=== PATIENT | male | born 1945 | race Caucasian/White ===

== ENCOUNTER 2017-07-23 14:08 | Outpatient (POV) | payer MEDICARE, MEDICAID, SELFPAY | END 2017-07-23 16:51 | disposition home or self-care (01) | PROVIDERS: Visit Provider Podiatrist | DX: M19.072 Primary osteoarthritis, left ankle and foot (principal) | CPT/HCPCS: 20600; 99212; J1100; J3301 ==

== ENCOUNTER 2017-08-06 08:22 | Outpatient (CLI) | payer MEDICARE, MEDICAID, SELFPAY | END 2017-08-06 15:43 | PROVIDERS: Family Provider Family Medicine; Visit Provider Family Medicine | DX: Z79.01 Long term (current) use of anticoagulants (principal); I48.91 Unspecified atrial fibrillation; Z51.81 Encounter for therapeutic drug level monitoring | CPT/HCPCS: 85610; 99211; G0463 ==

== ENCOUNTER 2017-09-03 08:20 | Outpatient (CLI) | payer MEDICARE, MEDICAID, SELFPAY ==
[2017-09-03 14:12] LABS: PHA INR Fingerstick 1.8 (0.9-1.1)
== END 2017-09-03 14:18 | disposition home or self-care (01) ==
LOC: ACC 08:24
PROVIDERS: PCP Family Medicine; Visit Provider Family Medicine
DX: I48.91 Unspecified atrial fibrillation (principal)
CPT/HCPCS: 85610

== ENCOUNTER 2017-10-01 15:31 | Outpatient (CLI) | payer MEDICARE, MEDICAID, SELFPAY ==
[2017-10-01 15:55] LABS: PHA INR Fingerstick 2.3 (0.9-1.1)
== END 2017-10-01 16:02 | disposition home or self-care (01) ==
PROVIDERS: Family Provider Family Medicine; PCP Family Medicine; Visit Provider Family Medicine
DX: Z79.01 Long term (current) use of anticoagulants (principal); Z51.81 Encounter for therapeutic drug level monitoring; I48.91 Unspecified atrial fibrillation
CPT/HCPCS: 85610; 99211; G0463

== ENCOUNTER 2017-10-26 13:49 | Outpatient (CLI) | payer MEDICARE, MEDICAID, SELFPAY | END 2017-10-26 15:20 | disposition home or self-care (01) | LOC: ACC 13:50 | PROVIDERS: PCP Family Medicine; Visit Provider Family Medicine | DX: Z79.01 Long term (current) use of anticoagulants (principal); Z51.81 Encounter for therapeutic drug level monitoring; I48.91 Unspecified atrial fibrillation | CPT/HCPCS: 85610; 99211; G0463 ==

== ENCOUNTER 2017-11-23 08:06 | Outpatient (CLI) | payer MEDICARE, MEDICAID, SELFPAY ==
[2017-11-23 13:09] LABS: PHA INR Fingerstick 1.8 (0.9-1.1)
== END 2017-11-23 13:13 | disposition home or self-care (01) ==
LOC: ACC 08:07
PROVIDERS: Family Provider Family Medicine; PCP Family Medicine; Visit Provider Family Medicine
DX: Z79.01 Long term (current) use of anticoagulants (principal); Z51.81 Encounter for therapeutic drug level monitoring; I48.91 Unspecified atrial fibrillation
CPT/HCPCS: 85610; 99211; G0463

== ENCOUNTER 2017-12-14 08:17 | Outpatient (CLI) | payer MEDICARE, MEDICAID, SELFPAY ==
[2017-12-14 14:23] LABS: PHA INR Fingerstick 2.3 (0.9-1.1)
== END 2017-12-14 14:30 | disposition home or self-care (01) ==
LOC: ACC 08:18
PROVIDERS: PCP Family Medicine; Visit Provider Family Medicine
DX: Z79.01 Long term (current) use of anticoagulants (principal); Z51.81 Encounter for therapeutic drug level monitoring; I48.91 Unspecified atrial fibrillation
CPT/HCPCS: 85610; 99211; G0463

== ENCOUNTER 2018-01-11 07:42 | Outpatient (CLI) | payer MEDICARE, MEDICAID, SELFPAY ==
[2018-01-11 11:51] LABS: PHA INR Fingerstick 2.9 (0.9-1.1)
== END 2018-01-11 12:05 | disposition home or self-care (01) ==
LOC: ACC 07:43
PROVIDERS: PCP Family Medicine; Visit Provider Family Medicine
DX: Z79.01 Long term (current) use of anticoagulants (principal); Z51.81 Encounter for therapeutic drug level monitoring; I48.91 Unspecified atrial fibrillation
CPT/HCPCS: 85610; 99211; G0463

== ENCOUNTER 2018-02-01 08:53 | Outpatient (CLI) | payer MEDICARE, MEDICAID, SELFPAY ==
[2018-02-01 14:41] LABS: PHA INR Fingerstick 2.5 (0.9-1.1)
== END 2018-02-01 15:06 | disposition home or self-care (01) ==
LOC: ACC 08:55
PROVIDERS: Family Provider Family Medicine; PCP Family Medicine; Visit Provider Family Medicine
DX: Z79.01 Long term (current) use of anticoagulants (principal); Z51.81 Encounter for therapeutic drug level monitoring; I48.91 Unspecified atrial fibrillation
CPT/HCPCS: 85610; 99211; G0463

== ENCOUNTER 2018-03-15 13:50 | Outpatient (CLI) | payer MEDICARE, MEDICAID, SELFPAY ==
[2018-03-15 14:35] LABS: PHA INR Fingerstick 2.2 (0.9-1.1)
== END 2018-03-15 14:36 | disposition home or self-care (01) ==
LOC: ACC 13:52
PROVIDERS: PCP Family Medicine; Visit Provider Family Medicine
DX: Z79.01 Long term (current) use of anticoagulants (principal); Z51.81 Encounter for therapeutic drug level monitoring; I48.91 Unspecified atrial fibrillation
CPT/HCPCS: 85610; 99211; G0463

== ENCOUNTER 2018-04-23 12:29 | Outpatient (CLI) | payer MEDICARE, MEDICAID, SELFPAY ==
[2018-04-23 14:59] LABS: PHA INR Fingerstick 2.8 (0.9-1.1)
== END 2018-04-23 15:13 | disposition home or self-care (01) ==
LOC: ACC 12:30
PROVIDERS: PCP Family Medicine; Visit Provider Family Medicine
DX: Z51.81 Encounter for therapeutic drug level monitoring (principal); Z79.01 Long term (current) use of anticoagulants; I48.91 Unspecified atrial fibrillation
CPT/HCPCS: 85610; 99211; G0463

== ENCOUNTER 2018-06-04 08:06 | Outpatient (CLI) | payer MEDICARE, MEDICAID, SELFPAY ==
[2018-06-04 11:52] LABS: PHA INR Fingerstick 3.3 (0.9-1.1)
== END 2018-06-04 11:59 | disposition home or self-care (01) ==
LOC: ACC 08:07
PROVIDERS: PCP Family Medicine; Visit Provider Family Medicine
DX: Z51.81 Encounter for therapeutic drug level monitoring (principal); Z79.01 Long term (current) use of anticoagulants; I48.91 Unspecified atrial fibrillation
CPT/HCPCS: 85610; 99211; G0463

== ENCOUNTER 2018-07-08 15:43 | Outpatient (CLI) | payer MEDICARE, MEDICAID, SELFPAY ==
[2018-07-08 16:20] LABS: Basophils % 0.9 % (0.1-2.0); Eosinophils # 0.2 K/mm3 (0.0-0.4); Eosinophils % 3.8 % (0.1-12.0); Hematocrit 31.6 % (42.0-52.0); Hemoglobin 10.1 g/dL (14.1-18.0); Lymphocytes # 0.7 K/mm3 (0.7-4.5); Lymphocytes % 16.4 % (10-50); Mean Corpuscular Hemoglobin 30.3 pg (27.0-31.2); Mean Corpuscular Volume 94.8 fl (80-94); Mean Platelet Volume 8.1 fl (7.4-10.4); Monocytes # 0.3 K/mm3 (0.1-1.0); Monocytes % 6.8 % (1.7-9.3); Neutrophils # 3.2 K/mm3 (1.8-7.8); Neutrophils % 72.1 % (37.0-80.0); Platelet Count 213 K/mm3 (142-424); Red Blood Count 3.33 M/mm3 (4.60-6.20); Red Cell Distribution Width 14.5 % (11.5-17.5); White Blood Count 4.4 K/mm3 (4.8-10.8)
[2018-07-08 16:33] LABS: Alanine Aminotransferase 24 U/L (12-78); Albumin Level 3.5 gm/dL (3.4-5.0); Alkaline Phosphatase 122 U/L (46-116); Anion Gap 12.9 mEq/L (5-15); Aspartate Amino Transferase 20 U/L (15-37); Bilirubin,Total 2.1 mg/dL (0.2-1.0); Blood Urea Nitrogen 14 mg/dL (7-18); Calcium 9.2 mg/dL (8.5-10.1); Carbon Dioxide 32 mmol/L (21.0-32.0); Chloride 101 mmol/L (98-107); Creatinine,Serum 1.36 mg/dL (0.70-1.30); Estimated Glomerular Filt Rate 52 ml/min (>60); GFR (African American) 62 ML/MIN (>60); Globulin 3.4 gm/dl (1.3-3.2); Glucose 120 mg/dL (74-106); Potassium 3.9 mmoL/L (3.5-5.1); Sodium 142 mmol/L (136-145); Total Protein,Serum 6.9 gm/dL (6.4-8.2)
[2018-07-08 17:30] VITALS: BP 135/55; PULSE 65; RESP 18; TEMP 36.5; O2SAT 98
[2018-07-08 18:44] VITALS: BP 120/51; PULSE 67; RESP 18; TEMP 36.7; O2SAT 94
== END 2018-07-08 18:45 | disposition home or self-care (01) ==
LOC: LAB 15:44 → INF 16:52
PROVIDERS: PCP Family Medicine; Visit Provider Physician Assistant
DX: R11.2 Nausea with vomiting, unspecified (principal); R06.02 Shortness of breath
CPT/HCPCS: 36415; 80053; 83880; 85025; 96360

== ENCOUNTER 2018-07-10 08:40 | Inpatient (IN) ==
[2018-07-10 09:03] LABS: Basophils % 0.9 % (0.1-2.0); Eosinophils # 0.2 K/mm3 (0.0-0.4); Eosinophils % 3.3 % (0.1-12.0); Hematocrit 31.2 % (42.0-52.0); Lymphocytes # 0.7 K/mm3 (0.7-4.5); Lymphocytes % 14.9 % (10-50); Mean Corpuscular Hemoglobin 30.1 pg (27.0-31.2); Mean Platelet Volume 8.6 fl (7.4-10.4); Monocytes # 0.3 K/mm3 (0.1-1.0); Monocytes % 7.1 % (1.7-9.3); Neutrophils # 3.6 K/mm3 (1.8-7.8); Neutrophils % 73.8 % (37.0-80.0); Platelet Count 190 K/mm3 (142-424); Red Blood Count 3.32 M/mm3 (4.60-6.20); Red Cell Distribution Width 14.9 % (11.5-17.5); White Blood Count 4.9 K/mm3 (4.8-10.8)
[2018-07-10 09:17] LABS: Alanine Aminotransferase 23 U/L (12-78); Albumin Level 3.2 gm/dL (3.4-5.0); Albumin/Globulin Ratio 0.8 (1.1-1.8); Alkaline Phosphatase 122 U/L (46-116); Amylase 23 U/L (25-115); Anion Gap 13.8 mEq/L (5-15); Aspartate Amino Transferase 24 U/L (15-37); Bilirubin,Total 2.4 mg/dL (0.2-1.0); Blood Urea Nitrogen 12 mg/dL (7-18); Calcium 8.8 mg/dL (8.5-10.1); Carbon Dioxide 30 mmol/L (21.0-32.0); Chloride 102 mmol/L (98-107); Glucose 109 mg/dL (74-106); Lipase 79 u/L (73-393); Potassium 3.8 mmoL/L (3.5-5.1); Sodium 142 mmol/L (136-145); Total Protein,Serum 7.2 gm/dL (6.4-8.2)
[2018-07-10 09:18] LABS: INR 6.69 (0.9-1.1); Prothrombin Time 65.2 seconds (9.4-11.8)
--- NOTE | 2018-07-10 09:38 | Emergency Department Note ---
ED Disposition Clinical Impression: Intractable vomiting, Coumadin toxicity, Hx of CABG, S/P AVR (aortic valve replacement), S/P CABG (coronary artery bypass graft), Gall bladder disease, Reflux esophagitis Disposition: Still a Patient Condition on Discharge: Fair Instructions: DI for Diarrhea and Traveler's Diarrhea -- Adult, DI for Diarrhea and Traveler's Diarrhea -- Child, DI for Nausea -- Adult, DI for Nausea -- Child Referrals: Moi Fragoso MD [Primary Care Provider] - - Critical Care Critical Care Time: No Attestation: On 07/10/18, the high probability of a clinically significant, sudden or life threatening deterioration of the following system(s) required my full and direct attention, intervention and personal management. The time I documented below is in addition to time spent performing reported procedures but includes the following listed in this critical care notation. Medical Decision Making - Jostin Inquiry Pt receiving controlled substance: No Jostin was queried for this patient: No Vital Signs: 07/10/18 08:49 07/10/18 09:06 07/10/18 10:00 Temperature 97.2 F L Temperature Source Temporal Artery Scan Pulse Rate [Right Brachial] 71 67 65 Respiratory Rate 17 Blood Pressure [Right Arm] 147/77 H 137/59 L 152/74 H Blood Pressure Mean [Right Arm] 100 85 100 Blood Pressure Source [Right Arm] Automatic Cuff Automatic Cuff Automatic Cuff Blood Pressure Position [Right Arm] Sitting Sitting Sitting 02 Sat by Pulse Oximetry 98 97 95 Oxygen Delivery Method Room Air - Lab Data Lab Results 07/10/18 08:54: WBC 4.9, RBC 3.32 L, Hgb 10.0 L, Hct 31.2 L, MCV 94.0, MCH 30.1, MCHC 32.0, RDW 14.9, Plt Count 190, MPV 8.6, Neut % (Auto) 73.8, Lymph % (Auto) 14.9, [place] % (Auto) 7.1, Eos % (Auto) 3.3, Baso % (Auto) 0.9, Neut # (Auto) 3.6, Lymph # (Auto) 0.7, [place] # (Auto) 0.3, Eos # (Auto) 0.2, Baso # (Auto) 0.0 07/10/18 08:54: PT 65.2 H, INR 6.69 H 07/10/18 08:54: Sodium 142, Potassium 3.8, Chloride 102, Carbon Dioxide 30, Anion Gap 13.8, BUN 12, Creatinine 1.30, Estimated Creat Clear 53, Estimated GFR 54 L, Est GFR ( Amer) 66, Glucose 109 H, Calcium 8.8, Total Bilirubin 2.4 H, AST 24, ALT 23, Alkaline Phosphatase 122 H, Troponin I < 0.02, Total Protein 7.2, Albumin 3.2 L, Globulin 4.0 H, Albumin/Globulin Ratio 0.8 L, Amylase 23 L, Lipase 79 Result diagrams: 07/10/18 08:54 07/10/18 08:54 Orders (Tests/Meds): ED MEDICATIONS Discontinued Medications Generic Name Dose Route Start Last Admin Trade Name Freq PRN Reason Stop Dose Admin Famotidine 20 mg 07/10/18 10:04 Pepcid 20mg/2ml Vial IV 07/10/18 10:05 ONCE ONE Metoclopramide HCl 5 mg 07/10/18 10:04 Reglan 10mg/2ml Vial IVP 07/10/18 10:05 ONCE ONE ORDERS Category Date Time Status CT abdomen pelvis wo con Stat Cat Scan 07/10/18 08:53 Taken Urinalysis and Microscopic Stat Lab 07/10/18 08:55 Ordered - CT Data CT Scan: Abdomen, Pelvis Time Received: 10:[address] Reviewed: Yes: I have reviewed the patient's CT results, I discussed the CT results w/the radiologist Preliminary Findings: Abnormal - ECG Data Tracing #1 Normal sinus rhythm at 65/min Baseline artifact T wave inversions in inferior leads and lateral leads which is unchanged from an EKG done in June 25, 2018 and ECG initial impression date: 07/10/18 ECG initial impression time: 09:20 Medical Decision Narrative: [address] Elizabeth silverio Heaven's CT scan with chronic left lower lobe atelectasis and postop changes in the hilum and the sternal incision.. Does have distended gallbladder and thickening of the distal esophagus.. I called his primary care physician Dr. Fragoso who is very well aware of his complexity. We discussed admitting him for intractable vomiting Protonix drip and gallbladder ultrasound. Dr. Fragoso expressed his high risk if he has a gallbladder disease. I discussed with the patient and his family who was agre eable to be admitted and transferred if needed. Nausea/Vomiting/Diarrhea HPI - General Chief complaint: Nausea/Vomiting/Diarrhea Stated complaint: vomiting Time Seen by Provider: 07/10/18 08:50 Mode of Arrival: Wheelchair Limitations: No Limitations Description of Symptoms (Recalled from ER Triage Doc. by RN): nausea and vomiting. pt was seen in dr fragoso's office on and given a liter of fluids per outpatient due to suspected dehydration. pt had been constipated till last night in which he passed what he feels to be a large amount of stool. pt had a cardiac surgery a month ago and has been having trouble with bowels and appetite since. - History of Present Illness HPI Narrative: 73 years old white male status post aortic valve replacement with a mechanical valve 5 years ago, on continuous Coumadin therapy. On June 15, 2018, the patient had CABG surgery at [facility] with complication of congestive heart failure that required 7-day hospital stay was discharged and later was admitted again for 4 more days for diuresis and was discharged on Bumex. He was seen by his primary care physician 3 days ago and was given 1 bag of IV fluids on an outpatient basis. He has continuous nausea, dry heaving during his postop course. Yesterday the dry heaving became more violent and he vomited 3 times. He denies having fever or chills hematemesis coffee-ground emesis melanotic stool or bleeding per rectum. In fact he did not have a bowel movement in 5 days, his reports poor p.o. intake to less than a cup of food a day. He denies having chest pain palpitations shortness of breath or hemoptysis. He denies having dysuria hematuria or frequency. Denies having abdominal pain. MD complaint: vomiting Associated Abdominal Pain: No Relieving factors: none Exacerbating factors: none Associated symptoms: denies other symptoms - Related Data Home Medications Medication Instructions Recorded Confirmed allopurinol 100 mg tablet 100 mg PO DAILY 90 Days #180 10/01/17 07/10/18 atorvastatin 80 mg tablet 80 mg PO DAILY 30 Days #30 10/01/17 07/10/18 ergocalciferol (vitamin D2) 50,000 50,000 unit PO DAILY 90 Days #24 10/01/17 07/10/18 unit capsule potassium chloride ER 10 mEq 10 meq PO BID 10/01/17 07/10/18 tablet,extended release(part/cryst) tamsulosin 0.4 mg capsule 0.4 mg PO DAILY 90 Days #90 10/01/17 07/10/18 warfarin 7.5 mg tablet 7.5 mg PO DIRECTED 10/01/17 07/10/18 Aspirin 81 mg PO DAILY 06/25/18 07/10/18 Bumetanide [Bumex 1mg tablet] 2 mg PO DAILY 06/25/18 07/10/18 Losartan/Hydrochlorothiazide 1 tab PO DAILY 06/25/18 07/10/18 [Losartan-Hctz 100-12.5 mg Tab] Montelukast Sodium [Montelukast 10 mg PO DAILY 06/25/18 07/10/18 10mg Tab] Nitroglycerin [Nitrostat 0.4mg SL 0.4 mg SL NEEDED PRN 06/25/18 07/10/18 Tablet] Oxycodone HCl/Acetaminophen 2 tab PO Q6HP PRN 06/25/18 07/10/18 [Oxycodone W/Apap 325mg Tablet] Warfarin Sodium [Coumadin 5mg 5 mg PO DAILY 06/25/18 07/10/18 tablet] Fluticasone Propionate [Flonase 1 spray NS DAILY 07/10/18 07/10/18 Allergy Relief NS] LORazepam [Ativan 1mg tablet] 1 mg PO Q8H 07/10/18 07/10/18 Metoprolol Tartrate 75 mg PO BID 07/10/18 07/10/18 Allergies Allergy/AdvReac Type Severity Reaction Status Date / Time No Known Allergies Allergy Verified 04/09/18 09:33 [facility] History I have reviewed the patient's past medical history: Yes (I reviewed the patient history, old lab and his medication list) Medical History: Reports:: Cancer, Hyperlipidemia, Hypertension Denies:: Asthma, Chronic Obstructive Pulmonary Disease (COPD), Diabetes Melli tus Type 1, Diabetes Mellitus Type 2, MRSA Other Medical History: Reports: Arthritis Laterality Cases: Right: Carotid Endarterectomy Other Surgeries: Yes: Cardiac Surgery, Coronary Stent, Skin Cancer Excision Amputation: No Fractures: No - Social History Educational Level: Completed High School Smoking Status: Never smoker # Packs/Day (cigarettes): 0 #Yrs smoked (if former smoker): 0 Alcohol Intake: never Alcohol Intake Frequency:: other Substance Use Type: denies use Occupational Status: retired - Psychiatric History Expresses thoughts of harming self/others: None Suicide Plan Description: No Plan Family Hx:: No significant family history ROS Obtained: Yes All systems reviewed & no additional complaints Physical Exam - General General appearance: alert, in no apparent distress - Head Head exam: atraumatic, normocephalic, normal inspection - Eye Eye exam: Present: normal appearance, PERRL, EOMI. Absent: scleral icterus, nystagmus - ENT ENT exam: Present: normal exam, normal oropharynx, mucous membranes moist, TM's normal bilaterally, normal external ear exam - Neck Neck exam: Present: normal inspection, full ROM, trachea midline. Absent: tenderness, meningismus, lymphadenopathy - Chest Chest inspection: Present: normal inspection, symmetric chest wall rise, tender ness, other (Well-healed thoracotomy incision. ) - Respiratory Respiratory exam: Present: normal lung sounds bilaterally. Absent: respiratory distress, wheezes - Cardiovascular Cardiovascular exam: Present: regular rate, normal rhythm, normal heart sounds, other (No murmur positive for mechanical click. ). Absent: JVD - Abdominal Exam Abdominal exam: Present: soft, normal bowel sounds. Absent: distention, tenderness, guarding, rebound, rigidity - Extremities Exam Extremities exam: Present: normal inspection, full ROM, normal capillary refill. Absent: calf tenderness - Back Exam Back exam: Present: normal inspection. Absent: tenderness, CVA tenderness (R), CVA tenderness (L), paraspinal tenderness, vertebral tenderness - Neurological Exam Neurological exam: Present: alert, oriented X3, CN II-XII intact, motor sensory deficit, reflexes normal - Psychiatric Psychiatric exam: Present: normal affect, normal mood - Skin Skin exam: Present: warm, dry, intact, normal color - Lymphatic Lymphatic Findings: no adenopathy
--- NOTE | 2018-07-10 11:15 | Pharmacy Consult Notes ---
[facility] Pharmacy VTE Monitoring - Patient Demographics Admission date: 07/10/18 Report Date: 07/10/18 Time: 11:15 Allergies/Adverse Reactions: Patient Allergies No Known Allergies Allergy (Verified 04/09/18 09:33) Height: 1.78 m Weight: 140.812 kg Patient Problems: Current Active Problems Intractable vomiting (Acute) Coumadin toxicity (Acute) Hx of CABG (Acute) S/P AVR (aortic valve replacement) (Acute) S/P CABG (coronary artery bypass graft) (Acute) Gall bladder disease (Acute) Reflux esophagitis (Acute) - VTE Risk Labs: VTE Related Lab Results Hgb 10.0 g/dL (14.1-18.0) L 07/10/18 08:54 Hct 31.2 % (42.0-52.0) L 07/10/18 08:54 Plt Count 190 K/mm3 (142-424) 07/10/18 08:54 PT 65.2 seconds (9.4-11.8) H 07/10/18 08:54 INR 6.69 (0.9-1.1) H 07/10/18 08:54 BUN 12 mg/dL (7-18) 07/10/18 08:54 Creatinine 1.30 mg/dL (0.70-1.30) 07/10/18 08:54 Estimated Creat Clear 53 mL/min (50-200) 07/10/18 08:54 - Prophylaxis Pharmacologic Type: Warfarin (INR ELEVATED AT THIS TIME DUE TO VOMITING/NOT EATING)
--- NOTE | 2018-07-10 12:55 | History & Physical Report ---
*Admission Date: 07/10/18 *Chief complaint: Intractable nausea and vomiting *History of present illness: Mr. Collado is a 73-year-old white male with a coronary artery disease status post previous stents in the past as well as a recent CABG procedure on 06/15/18. He is also on chronic Coumadin therapy related to a mechanical aortic valve replacement about 5 years ago as well as intermittent atrial fibrillation. He has had a difficult course over the past month. He was admitted to [facility] on 06/10/18 with angina and a " maker" lesion. He underwent coronary artery bypass grafting on 06/15/18 and was eventually discharged from the hospital about a week later. He was only home for a day and then was readmitted to [facility] with congestive heart failure and spent another week in the hospital. He was discharged home on Bumex. Following that discharge, he was back in the emergency room a few days later with atrial fib with rapid ventricular response. Throughout this time he has had problems with intermittent nausea which started right after his heart surgery. For the past several days he has had increasing nausea with intractable vomiting and very poor appetite. He received a liter of fluids as an outpatient earlier this week. He returned to the emergency room today because of persistent nausea and vomiting. Workup in the emergency room included blood work and a CT scan. His CT scan shows a slightly distended gallbladder with gallstones. Lab work is remarkable for elevated bilirubin of 2.4 and slightly elevated alkaline phosphatase. Amylase and lipase are normal. His white count is normal. His INR is supratherapeutic at 6.6. He has had no fever. He denies abdominal pain. His sternal incision has been sore from his vomiting. He states he has had no bowel movement at home for about 5 days but has had 2 loose stools since arrival in the ER. He has no known history of gallbladder disease. At the time of my exam he is less nauseated after receiving Reglan. [facility] History Medical History: Reports:: Cancer, Hyperlipidemia, Hypertension, Myocardial Infarction Denies:: Asthma, Chronic Obstructive Pulmonary Disease (COPD), Diabetes Mellitus Type 1, Diabetes Mellitus Type 2, MRSA Other Medical History: Reports: Arthritis Laterality Cases: Right: Carotid Endarterectomy Other Surgeries: Yes: Angioplasty, CABG, Cardiac Catheterization, Cardiac Surgery (Aortic valve replacement), Coronary Stent, Skin Cancer Excision Amputation: No Fractures: No - *Social History Educational Level: Attended High School Smoking Status: Never smoker # Packs/Day (cigarettes): 0 #Yrs smoked (if former smoker): 0 Alcohol Intake: never Alcohol Intake Frequency:: other Substance Use Type: denies use Occupational Status: retired Housing: house Household Members: significant other, children - Psychiatric History Expresses thoughts of harming self/others: None Suicide Plan Description: No Plan *Family Hx:: Coronary Artery Disease, Diabetes, Hypertension Review of Systems - Constitutional Reports anorexia, Reports lack of energy, Denies fever(s) - Eyes Denies change in vision - ENT Denies bleeding gums, Denies difficulty swallowing, Denies sinus pressure - *Cardiovascular Reports shortness of breath, Reports leg swelling (baseline), Reports other (sternal incision is sore), Denies chest pain - *Respiratory Denies chest congestion, Denies cough - *Gastrointestinal Reports change in bowel habits, Reports nausea, Reports vomiting, Denies abdominal pain - *Genitourinary Denies difficulty urinating, Denies painful urination - *Musculoskeletal Reports joint pain - Hematologic/Lymphatic Denies easy bleeding, Denies easy bruising Meds Home Medications Medication Instructions Recorded Confirmed Type allopurinol 100 mg tablet 100 mg PO DAILY 90 Days #180 10/01/17 07/10/18 History atorvastatin 80 mg tablet 80 mg PO DAILY 30 Days #30 10/01/17 07/10/18 History ergocalciferol (vitamin D2) 50,000 50,000 unit PO DAILY 90 Days #24 10/01/17 07/10/18 History unit capsule potassium chloride ER 10 mEq 10 meq PO BID 10/01/17 07/10/18 History tablet,extended release(part/cryst) tamsulosin 0.4 mg capsule 0.4 mg PO DAILY 90 Days #90 10/01/17 07/10/18 History warfarin 7.5 mg tablet 7.5 mg PO DIRECTED 10/01/17 07/10/18 History Aspirin 81 mg PO DAILY 06/25/18 07/10/18 History Bumetanide [Bumex 1mg tablet] 2 mg PO DAILY 06/25/18 07/10/18 History Losartan/Hydrochlorothiazide 1 tab PO DAILY 06/25/18 07/10/18 History [Losartan-Hctz 100-12.5 mg Tab] Montelukast Sodium [Montelukast 10 mg PO DAILY 06/25/18 07/10/18 History 10mg Tab] Nitroglycerin [Nitrostat 0.4mg SL 0.4 mg SL NEEDED PRN 06/25/18 07/10/18 History Tablet] Warfarin Sodium [Coumadin 5mg 5 mg PO DAILY 06/25/18 07/10/18 History tablet] Fluticasone Propionate [Flonase 1 spray NS DAILY 07/10/18 07/10/18 History Allergy Relief NS] LORazepam [Ativan 1mg tablet] 1 mg PO Q8H 07/10/18 07/10/18 History Metoprolol Tartrate 75 mg PO BID 07/10/18 07/10/18 History Oxycodone HCl/Acetaminophen 2 tab PO Q6HP PRN 07/10/18 07/10/18 History [Percocet 5/325mg tablet] Allergies Allergy/AdvReac Type Severity Reaction Status Date / Time hydrocodone [From [place]] Allergy Unknown Verified 07/10/18 11:57 allergy reaction Exam Vital signs and Labs for Last 24 Hours: Temp Pulse Resp BP Pulse Ox 98.2 F 66 20 159/62 H 96 07/10/18 11:11 07/10/18 11:11 07/10/18 11:11 07/10/18 11:11 07/10/18 11:11 Laboratory Results - last 24 hr 07/10/18 08:54: WBC 4.9, RBC 3.32 L, Hgb 10.0 L, Hct 31.2 L, MCV 94.0, MCH 30.1, MCHC 32.0, RDW 14.9, Plt Count 190, MPV 8.6, Neut % (Auto) 73.8, Lymph % (Auto) 14.9, [place] % (Auto) 7.1, Eos % (Auto) 3.3, Baso % (Auto) 0.9, Neut # (Auto) 3.6, Lymph # (Auto) 0.7, [place] # (Auto) 0.3, Eos # (Auto) 0.2, Baso # (Auto) 0.0 07/10/18 08:54: PT 65.2 H, INR 6.69 H 07/10/18 08:54: Sodium 142, Potassium 3.8, Chloride 102, Carbon Dioxide 30, Anion Gap 13.8, BUN 12, Creatinine 1.30, Estimated Creat Clear 53, Estimated GFR 54 L, Est GFR ( Amer) 66, Glucose 109 H, Calcium 8.8, Total Bilirubin 2.4 H, AST 24, ALT 23, Alkaline Phosphatase 122 H, Troponin I < 0.02, Total Protein 7.2, Albumin 3.2 L, Globulin 4.0 H, Albumin/Globulin Ratio 0.8 L, Amylase 23 L, Lipase 79 I & O for Last 24 hours: Intake & Output 07/08/18 07/09/18 07/10/18 07/11/18 11:59 11:59 11:59 11:59 Intake Total 150 / 150 Balance 150 / 150 Weight 310 lb 7 oz Narrative: He is lying comfortably in bed and appears in no acute distress. He is alert and oriented to person place and time. Color is slightly pale. No respiratory distress. HEENT shows a cream to be atraumatic and normocephalic. Nares are patent. Oropharynx shows slightly dry mucous membranes. Neck is supple with no masses thyromegaly or adenopathy. Lungs are clear to auscultation anteriorly. Heart is regular with no murmurs. Abdomen is obese soft and nondistended. No unusual masses or tenderness. Lower extremities show some chronic venous stasis changes and 2+ pretibial edema bilaterally. Assessment and Plan (1) Intractable vomiting Current visit: Yes Status: Acute Category: Medical Code(s): R11.10 - Vomiting, unspecified (2) Gall bladder disease Current visit: Yes Status: Acute Category: Medical Code(s): K82.9 - Disease of gallbladder, unspecified (3) Coumadin toxicity Current visit: Yes Status: Acute Category: Medical Code(s): T45.511A - Poisoning by anticoagulants, accidental (unintentional), initial encounter (4) HBP (high blood pressure) Current visit: Yes Status: Acute Category: Medical Code(s): I10 - Essential (primary) hypertension (5) Hyperlipidemia Current visit: Yes Status: Acute Category: Medical Code(s): E78.5 - Hyperlipidemia, unspecified (6) Sleep apnea Current visit: Yes Status: Acute Category: Medical Code(s): G47.30 - Sleep apnea, unspecified (7) S/P AVR (aortic valve replacement) Current visit: Yes Status: Acute Category: Surgical Code(s): Z95.2 - Presence of prosthetic heart valve (8) S/P CABG (coronary artery bypass graft) Current visit: Yes Status: Acute Category: Surgical Code(s): Z95.1 - Presence of aortocoronary bypass graft (9) Hx of gout Current visit: Yes Status: Acute Category: Medical Code(s): Z87.39 - Personal history of other diseases of the musculoskeletal system and connective tissue (10) BPH (benign prostatic hyperplasia) Current visit: Yes Status: Acute Category: Medical Code(s): N40.0 - Benign prostatic hyperplasia without lower urinary tract symptoms (11) Obesity Current visit: Yes Status: Acute Category: Medical Code(s): E66.9 - Obesity, unspecified - Assessment and plan all Dx Assessment and Plan for all problems:: He is admitted at this time for treatment of his intractable nausea and vomiting. He is comfortable at present. We will monitor his liver functions. Coumadin will be held and his pro time followed. We will schedule a gallbladder ultrasound to further assess his gallbladder disease. There is no evidence of acute cholecystitis at present. If he does require cholecystectomy, it would be preferable to do this electively in a few weeks to allow further healing after his recent CABG.
[2018-07-11 05:57] LABS: Basophils % 0.5 % (0.1-2.0); Eosinophils # 0.2 K/mm3 (0.0-0.4); Eosinophils % 4.5 % (0.1-12.0); Hemoglobin 9.3 g/dL (14.1-18.0); Lymphocytes # 0.9 K/mm3 (0.7-4.5); Lymphocytes % 18.5 % (10-50); Mean Corpuscular Hemoglobin 30.3 pg (27.0-31.2); Mean Corpuscular Volume 94.7 fl (80-94); Mean Platelet Volume 8.3 fl (7.4-10.4); Monocytes # 0.4 K/mm3 (0.1-1.0); Neutrophils # 3.2 K/mm3 (1.8-7.8); Neutrophils % 68.5 % (37.0-80.0); Platelet Count 162 K/mm3 (142-424); Red Blood Count 3.05 M/mm3 (4.60-6.20); Red Cell Distribution Width 14.9 % (11.5-17.5); White Blood Count 4.7 K/mm3 (4.8-10.8)
[2018-07-11 06:01] LABS: Hematocrit 28.9 % (42.0-52.0)
[2018-07-11 06:16] LABS: Albumin/Globulin Ratio 0.9 (1.1-1.8); Anion Gap 9.2 mEq/L (5-15); Bilirubin,Total 2.3 mg/dL (0.2-1.0); Calcium 8.6 mg/dL (8.5-10.1); Globulin 3.4 gm/dl (1.3-3.2); Potassium 3.2 mmoL/L (3.5-5.1); Total Protein,Serum 6.4 gm/dL (6.4-8.2)
[2018-07-11 06:22] LABS: Prothrombin Time 85.7 seconds (9.4-11.8)
[2018-07-11 06:23] LABS: INR 8.87 (0.9-1.1)
--- NOTE | 2018-07-11 10:11 | Progress Note ---
Internal Medicine - PN: Subj *Date: 07/11/18 *Time: 10:08 Interval history: Patient states he feels better today, would like to try a liquid diet. Exam Vital signs and Labs for Last 24 Hours: Temp Pulse Resp BP Pulse Ox 98.4 F 62 18 131/55 L 94 L 07/11/18 07:12 07/11/18 07:12 07/11/18 07:12 07/11/18 07:12 07/11/18 07:12 Laboratory Results - last 24 hr 07/11/18 05:40: WBC 4.7 L, RBC 3.05 L, Hgb 9.3 L, Hct 28.9 L, MCV 94.7 H, MCH 30.3, MCHC 32.0, RDW 14.9, Plt Count 162, MPV 8.3, Neut % (Auto) 68.5, Lymph % (Auto) 18.5, [place] % (Auto) 8.0, Eos % (Auto) 4.5, Baso % (Auto) 0.5, Neut # (Auto) 3.2, Lymph # (Auto) 0.9, [place] # (Auto) 0.4, Eos # (Auto) 0.2, Baso # (Auto) 0.0 07/11/18 05:40: PT 85.7 H, INR 8.87 H 07/11/18 05:40: Sodium 143, Potassium 3.2 L, Chloride 106, Carbon Dioxide 31, Anion Gap 9.2, BUN 9, Creatinine 1.10, Estimated Creat Clear 63, Estimated GFR 66, Est GFR ( Amer) 80 D, Glucose 96, Calcium 8.6, Magnesium 1.8, Total Bilirubin 2.3 H, AST 24, ALT 19, Alkaline Phosphatase 111, Total Protein 6.4, Albumin 3.0 L, Globulin 3.4 H, Albumin/Globulin Ratio 0.9 L I & O for Last 24 hours: Intake & Output 07/08/18 07/09/18 07/10/18 07/11/18 11:59 11:59 11:59 11:59 Intake Total 150 / 150 174 / 174 Balance 150 / 150 174 / 174 Weight 310 lb 7 oz 309 lb 6 oz - Constitutional no acute distress - *Routine HEENT Exam Head: Present: normocephalic Eye: Present: EOMI, PERRL ENT: Present: mucous membranes moist - *Routine Neck Exam Present: supple. Absent: lymphadenopathy - *Routine Respiratory Exam Present: CTA bilaterally - *Routine Cardiovascular Exam Present: RRR - *Routine Abdominal Exam Present: soft, normoactive bowel sounds. Absent: tenderness - *Routine Extremities Exam Present: edema (1+ bilat. legs). Absent: cyanosis, clubbing - *Routine Skin Exam Present: warm. Absent: rash - *Routine Neurological Exam Present: alert, oriented X3 Assessment and Plan (1) Intractable vomiting Current visit: Yes Status: Acute Category: Medical Code(s): R11.10 - Vomiting, unspecified (2) Gall bladder disease Current visit: Yes Status: Acute Category: Medical Code(s): K82.9 - Disease of gallbladder, unspecified (3) Coumadin toxicity Current visit: Yes Status: Acute Category: Medical Code(s): T45.511A - Poisoning by anticoagulants, accidental (unintentional), initial encounter (4) HBP (high blood pressure) Current visit: Yes Status: Acute Category: Medical Code(s): I10 - Essential (primary) hypertension (5) Hyperlipidemia Current visit: Yes Status: Acute Category: Medical Code(s): E78.5 - Hyperlipidemia, unspecified (6) Sleep apnea Current visit: Yes Status: Acute Category: Medical Code(s): G47.30 - Sleep apnea, unspecified (7) S/P AVR (aortic valve replacement) Current visit: Yes Status: Acute Category: Surgical Code(s): Z95.2 - Presence of prosthetic heart valve (8) S/P CABG (coronary artery bypass graft) Current visit: Yes Status: Acute Category: Surgical Code(s): Z95.1 - Presence of aortocoronary bypass graft (9) Hx of gout Current visit: Yes Status: Acute Category: Medical Code(s): Z87.39 - Personal history of other diseases of the musculoskeletal system and connective tissue (10) BPH (benign prostatic hyperplasia) Current visit: Yes Status: Acute Category: Medical Code(s): N40.0 - Benign prostatic hyperplasia without lower urinary tract symptoms (11) Obesity Current visit: Yes Status: Acute Category: Medical Code(s): E66.9 - Obesity, unspecified (12) Anemia Current visit: Yes Status: Acute Category: Medical Code(s): D64.9 - Anemia, unspecified (13) Hypokalemia Current visit: Yes Status: Acute Category: Medical Code(s): E87.6 - Hypokalemia (14) BMI 40.0-44.9, adult Current visit: Yes Status: Acute Category: Medical Code(s): Z68.41 - Body mass index (BMI) 40.0-44.9, adult - Assessment and plan all Dx Assessment and Plan for all problems:: Patient has improved with treatment, cont. Protonix drip, start clear liquids, replace potassium, check RUQ U/S.
[2018-07-12 05:56] LABS: Eosinophils # 0.3 K/mm3 (0.0-0.4); Eosinophils % 6.7 % (0.1-12.0); Hematocrit 28.2 % (42.0-52.0); Hemoglobin 9.3 g/dL (14.1-18.0); Lymphocytes # 0.8 K/mm3 (0.7-4.5); Lymphocytes % 20.7 % (10-50); Mean Corpuscular Hemoglobin 31.2 pg (27.0-31.2); Mean Corpuscular Volume 94.6 fl (80-94); Mean Platelet Volume 7.9 fl (7.4-10.4); Monocytes # 0.3 K/mm3 (0.1-1.0); Monocytes % 6.7 % (1.7-9.3); Neutrophils # 2.6 K/mm3 (1.8-7.8); Neutrophils % 64.9 % (37.0-80.0); Platelet Count 151 K/mm3 (142-424); Red Blood Count 2.98 M/mm3 (4.60-6.20); Red Cell Distribution Width 14.9 % (11.5-17.5); White Blood Count 3.9 K/mm3 (4.8-10.8)
[2018-07-12 06:09] LABS: INR 8.06 (0.9-1.1); Prothrombin Time 78.1 seconds (9.4-11.8)
[2018-07-12 06:11] LABS: Albumin Level 2.8 gm/dL (3.4-5.0); Albumin/Globulin Ratio 0.8 (1.1-1.8); Anion Gap 10.5 mEq/L (5-15); Bilirubin,Total 2.3 mg/dL (0.2-1.0); Calcium 8.6 mg/dL (8.5-10.1); Globulin 3.4 gm/dl (1.3-3.2); Potassium 3.5 mmoL/L (3.5-5.1); Total Protein,Serum 6.2 gm/dL (6.4-8.2)
--- NOTE | 2018-07-12 07:59 | Progress Note ---
<Arelis Liz - Last Filed: 07/12/18 07:55> Internal Medicine - PN: Subj *Date: 07/12/18 *Time: 07:56 Interval history: Patient did not sleep last night. He denies pain, nausea, vomiting, and bowels have not moved. He is taking clear liquids although he is tired of them. In the chair since 4 AM. Both he and his are discussing the plan. He ambulates without difficulty. Potassium. INR elevated. Discussed right upper quadrant ultrasound with patient and . Exam Vital signs and Labs for Last 24 Hours: Temp Pulse Resp BP Pulse Ox 98.0 F 65 20 122/56 L 93 L 07/12/18 07:21 07/12/18 07:21 07/12/18 07:21 07/12/18 07:21 07/12/18 07:21 Laboratory Results - last 24 hr 07/12/18 05:30: WBC 3.9 L, RBC 2.98 L, Hgb 9.3 L, Hct 28.2 L, MCV 94.6 H, MCH 31.2, MCHC 33.0, RDW 14.9, Plt Count 151, MPV 7.9, Neut % (Auto) 64.9, Lymph % (Auto) 20.7, [place] % (Auto) 6.7, Eos % (Auto) 6.7, Baso % (Auto) 1.0, Neut # (Auto) 2.6, Lymph # (Auto) 0.8, Fill[place] # (Auto) 0.3, Eos # (Auto) 0.3, Baso # (Auto) 0.0 07/12/18 05:30: PT 78.1 H, INR 8.06 H 07/12/18 05:30: Sodium 143, Potassium 3.5, Chloride 105, Carbon Dioxide 31, Anion Gap 10.5, BUN 9, Creatinine 1.09, Estimated Creat Clear 63, Estimated GFR 66, Est GFR ( Amer) 80, Glucose 91, Calcium 8.6, Total Bilirubin 2.3 H, AST 19, ALT 19, Alkaline Phosphatase 108, Total Protein 6.2 L, Albumin 2.8 L, Globulin 3.4 H, Albumin/Globulin Ratio 0.8 L I & O for Last 24 hours: Intake & Output 07/09/18 07/10/18 07/11/18 07/12/18 11:59 11:59 11:59 11:59 Intake Total 150 / 150 174 / 174 1440 / 1440 Balance 150 / 150 174 / 174 1440 / 1440 Weight 310 lb 7 oz 309 lb 6 oz Radiology Reports for the Last 24 Hours: 07/11/2018 right upper quadrant ultrasound IMPRESSION---- 1. Gallbladder moderately distended measuring nearly 10 cm length, with borderline to mild wall thickening. .... Small 4 x 5 mm gallstone noted towards neck of gallbladder,.. ... Gallbladder Sludge, with possible scant gravel-like material also noted 2. Common duct normal diameter. 3. Pancreas not well seen but grossly unremarkable - Constitutional no acute distress Comments: Sitting in recliner at bedside. is present. He appears comfortable - Routine Chest/Breast/Axilla Exam Comments: Midline surgical scar healing. - *Routine Respiratory Exam Present: CTA bilaterally (Anteriorly and posteriorly) - *Routine Cardiovascular Exam Present: RRR - *Routine Abdominal Exam Present: soft, normoactive bowel sounds. Absent: tenderness, guarding - *Routine Extremities Exam Present: edema (Trace) - *Routine Neurological Exam Present: alert, oriented X3 Assessment and Plan (1) Intractable vomiting Current visit: Yes Status: Acute Category: Medical Code(s): R11.10 - Vomiting, unspecified (2) Gall bladder disease Current visit: Yes Status: Acute Category: Medical Code(s): K82.9 - Disease of gallbladder, unspecified (3) Coumadin toxicity Current visit: Yes Status: Acute Category: Medical Code(s): T45.511A - Poisoning by anticoagulants, accidental (unintentional), initial encounter (4) HBP (high blood pressure) Current visit: Yes Status: Acute Category: Medical Code(s): I10 - Essential (primary) hypertension (5) Hyperlipidemia Current visit: Yes Status: Acute Category: Medical Code(s): E78.5 - Hyperlipidemia, unspecified (6) Sleep apnea Current visit: Yes Status: Acute Category: Medical Code(s): G47.30 - Sleep apnea, unspecified (7) S/P AVR (aortic valve replacement) Current visit: Yes Status: Acute Category: Surgical Code(s): Z95.2 - Presence of prosthetic heart valve (8) S/P CABG (coronary artery bypass graft) Current visit: Yes Status: Acute Category: Surgical Code(s): Z95.1 - Presence of aortocoronary bypass graft (9) Hx of gout Current visit: Yes Status: Acute Category: Medical Code(s): Z87.39 - Personal history of other diseases of the musculoskeletal system and connective tissue (10) BPH (benign prostatic hyperplasia) Current visit: Yes Status: Acute Category: Medical Code(s): N40.0 - Benign prostatic hyperplasia without lower urinary tract symptoms (11) Obesity Current visit: Yes Status: Acute Category: Medical Code(s): E66.9 - Obesity, unspecified (12) Anemia Current visit: Yes Status: Acute Category: Medical Code(s): D64.9 - Anemia, unspecified (13) Hypokalemia Current visit: Yes Status: Acute Category: Medical Code(s): E87.6 - Hypokalemia (14) BMI 40.0-44.9, adult Current visit: Yes Status: Acute Category: Medical Code(s): Z68.41 - Body mass index (BMI) 40.0-44.9, adult - Assessment and plan all Dx Assessment and Plan for all problems:: Patient would like to go home today. We will need to discontinue IV Protonix drip and see if he tolerates p.o. Medicines. <Moi Rayo - Last Filed: 07/12/18 08:41> Exam Vital signs and Labs for Last 24 Hours: Temp Pulse Resp BP Pulse Ox 98.0 F 65 20 122/56 L 93 L 07/12/18 07:21 07/12/18 07:21 07/12/18 07:21 07/12/18 07:21 07/12/18 07:21 Laboratory Results - last 24 hr 07/12/18 05:30: WBC 3.9 L, RBC 2.98 L, Hgb 9.3 L, Hct 28.2 L, MCV 94.6 H, MCH 31.2, MCHC 33.0, RDW 14.9, Plt Count 151, MPV 7.9, Neut % (Auto) 64.9, Lymph % (Auto) 20.7, Fill[place] % (Auto) 6.7, Eos % (Auto) 6.7, Baso % (Auto) 1.0, Neut # (Auto) 2.6, Lymph # (Auto) 0.8, Fill[place] # (Auto) 0.3, Eos # (Auto) 0.3, Baso # (Auto) 0.0 07/12/18 05:30: PT 78.1 H, INR 8.06 H 07/12/18 05:30: Sodium 143, Potassium 3.5, Chloride 105, Carbon Dioxide 31, Anion Gap 10.5, BUN 9, Creatinine 1.09, Estimated Creat Clear 63, Estimated GFR 66, Est GFR ( Amer) 80, Glucose 91, Calcium 8.6, Total Bilirubin 2.3 H, AST 19, ALT 19, Alkaline Phosphatase 108, Total Protein 6.2 L, Albumin 2.8 L, Globulin 3.4 H, Albumin/Globulin Ratio 0.8 L I & O for Last 24 hours: Intake & Output 07/09/18 07/10/18 07/11/18 07/12/18 11:59 11:59 11:59 11:59 Intake Total 150 / 150 174 / 174 1440 / 1440 Balance 150 / 150 174 / 174 1440 / 1440 Weight 310 lb 7 oz 309 lb 6 oz Assessment and Plan (1) Intractable vomiting Current visit: Yes Status: Acute Category: Medical Code(s): R11.10 - Vomiting, unspecified (2) Gall bladder disease Current visit: Yes Status: Acute Category: Medical Code(s): K82.9 - Disease of gallbladder, unspecified (3) Coumadin toxicity Current visit: Yes Status: Acute Category: Medical Code(s): T45.511A - Poisoning by anticoagulants, accidental (unintentional), initial encounter (4) HBP (high blood pressure) Current visit: Yes Status: Acute Category: Medical Code(s): I10 - Essential (primary) hypertension (5) Hyperlipidemia Current visit: Yes Status: Acute Category: Medical Code(s): E78.5 - Hyperlipidemia, unspecified (6) Sleep apnea Current visit: Yes Status: Acute Category: Medical Code(s): G47.30 - Sleep apnea, unspecified (7) S/P AVR (aortic valve replacement) Current visit: Yes Status: Acute Category: Surgical Code(s): Z95.2 - Presence of prosthetic heart valve (8) S/P CABG (coronary artery bypass graft) Current visit: Yes Status: Acute Category: Surgical Code(s): Z95.1 - Presence of aortocoronary bypass graft (9) Hx of gout Current visit: Yes Status: Acute Category: Medical Code(s): Z87.39 - Personal history of other diseases of the musculoskeletal system and connective tissue (10) BPH (benign prostatic hyperplasia) Current visit: Yes Status: Acute Category: Medical Code(s): N40.0 - Benign prostatic hyperplasia without lower urinary tract symptoms (11) Obesity Current visit: Yes Status: Acute Category: Medical Code(s): E66.9 - Obesity, unspecified (12) Anemia Current visit: Yes Status: Acute Category: Medical Code(s): D64.9 - Anemia, unspecified (13) Hypokalemia Current visit: Yes Status: Acute Category: Medical Code(s): E87.6 - Hypokalemia (14) BMI 40.0-44.9, adult Current visit: Yes Status: Acute Category: Medical Code(s): Z68.41 - Body mass index (BMI) 40.0-44.9, adult - Assessment and plan all Dx Assessment and Plan for all problems:: Saw patient, will discontinue Protonix drip and advance diet today. Cont. to monitor INR.
--- NOTE | 2018-07-13 11:26 | Discharge Summary ---
General - General Admission date:: 07/11/18 Discharge date: 07/12/18 HPI HPI: Mr. Collado is a 73-year-old white male with a coronary artery disease status post previous stents in the past as well as a recent CABG procedure on 06/15/18. He is also on chronic Coumadin therapy related to a mechanical aortic valve replacement about 5 years ago as well as intermittent atrial fibrillation. He has had a difficult course over the past month. He was admitted to [facility] on 06/10/18 with angina and a " maker" lesion. He underwent coronary artery bypass grafting on 06/15/18 and was eventually discharged from the hospital about a week later. He was only home for a day and then was readmitted to [facility] with congestive heart failure and spent another week in the hospital. He was discharged home on Bumex. Following that discharge, he was back in the emergency room a few days later with atrial fib with rapid ventricular response. Throughout this time he has had problems with intermittent nausea which started right after his heart surgery. For the past several days he has had increasing nausea with intractable vomiting and very poor appetite. He received a liter of fluids as an outpatient earlier this week. He returned to the emergency room today because of persistent nausea and vomiting. Workup in the emergency room included blood work and a CT scan. His CT scan shows a slightly distended gallbladder with gallstones. Lab work is remarkable for elevated bilirubin of 2.4 and slightly elevated alkaline phosphatase. Amylase and lipase are normal. His white count is normal. His INR is supratherapeutic at 6.6. He has had no fever. He denies abdominal pain. His sternal incision has been sore from his vomiting. He states he has had no bowel movement at home for about 5 days but has had 2 loose stools since arrival in the ER. He has no known history of gallbladder disease. At the time of my exam he is less nauseated after receiving Reglan. Hospital Course Hospital Course: The patient was admitted for treatment of his intractable nausea and vomiting. His liver functions were monitored and his coumadin was held. He was started on a protonix drip and a RUQ U/S was ordered. It showed a distended GB with borderline wall thickening and a small gallstone. He was started on clear liquids and potassium. He improved and denied any pain, nausea, or vomiting. He ambulated without difficulty. His diet was advanced and he tolerated this as well. His protonix drip was discontinued and he was stable to be discharged. He will f/u in 3 days for a repeat INR. Objective Vital signs: Temp Pulse Resp BP Pulse Ox 98.3 F 64 18 121/63 94 L 07/12/18 15:21 07/12/18 15:21 07/12/18 15:21 07/12/18 15:21 07/12/18 15:21 Narrative: He is lying comfortably in bed and appears in no acute distress. He is alert and oriented to person place and time. Color is slightly pale. No respiratory distress. HEENT shows a cream to be atraumatic and normocephalic. Nares are patent. Oropharynx shows slightly dry mucous membranes. Neck is supple with no masses thyromegaly or adenopathy. Lungs are clear to auscultation anteriorly. Heart is regular with no murmurs. Abdomen is obese soft and nondistended. No unusual masses or tenderness. Lower extremities show some chronic venous stasis changes and 2+ pretibial edema bilaterally. DS: Diagnosis - Discharge Diagnosis (1) Intractable vomiting Status: Acute (2) Gall bladder disease Status: Acute (3) Coumadin toxicity Status: Acute (4) HBP (high blood pressure) Status: Acute (5) Hyperlipidemia Status: Acute (6) Sleep apnea Status: Acute (7) S/P AVR (aortic valve replacement) Status: Acute (8) S/P CABG (coronary artery bypass graft) Status: Acute (9) Hx of gout Status: Acute (10) BPH (benign prostatic hyperplasia) Status: Acute (11) Obesity Status: Acute (12) Anemia Status: Acute (13) Hypokalemia Status: Acute (14) BMI 40.0-44.9, adult Status: Acute Discharge Plan - Patient Discharge Instructions ACTIVITY: Continue current activity DIET: continue same diet Patient Instructions: DI for Vomiting -- Adult, Warfarin, Coumadin Vitamin K/ Diet, Coumadin Therapy Booklet - Follow up Plan Follow up with: Moi Rayo MD [Primary Care Provider] - 07/15/18 Disposition: Home, Self-[facility] Medications: Home Medications Medication Instructions Recorded Confirmed Type allopurinol 100 mg tablet 100 mg PO BID 90 Days #180 10/01/17 07/10/18 History atorvastatin 80 mg tablet 80 mg PO DAILY 30 Days #30 10/01/17 07/10/18 History ergocalciferol (vitamin D2) 50,000 50,000 unit PO MOTH 90 Days #24 10/01/17 07/10/18 History unit capsule potassium chloride ER 10 mEq 10 meq PO BID 10/01/17 07/10/18 History tablet,extended release(part/cryst) Aspirin 81 mg PO DAILY 06/25/18 07/10/18 History Bumetanide [Bumex 1mg tablet] 1 mg PO BID 06/25/18 07/10/18 History Montelukast Sodium [Montelukast 10 mg PO DAILY 06/25/18 07/10/18 History 10mg Tab] Nitroglycerin [Nitrostat 0.4mg SL 0.4 mg SL NEEDED PRN 06/25/18 07/10/18 History Tablet] Fluticasone Propionate [Flonase 1 spray NS DAILY 07/10/18 07/10/18 History Allergy Relief NS] LORazepam [Ativan 1mg tablet] 1 mg PO Q8H 07/10/18 07/10/18 History Metoprolol Tartrate 75 mg PO BID 07/10/18 07/10/18 History Oxycodone HCl/Acetaminophen 2 tab PO Q6HP PRN 07/10/18 07/10/18 History [Percocet 5/325mg tablet] Losartan Potassium 50 mg PO DAILY 07/11/18 07/11/18 History Tamsulosin HCl [Flomax 0.4mg 0.4 mg PO DAILY 07/12/18 07/12/18 History capsule] Prescriptions/Medication Reconciliation: New Pantoprazole Sodium [Protonix 40mg tablet] 40 mg PO DAILY 30 Days #30 tab Continue atorvastatin 80 mg tablet 80 mg PO DAILY 30 Days #30 allopurinol 100 mg tablet 100 mg PO BID 90 Days #180 potassium chloride ER 10 mEq tablet,extended release(part/cryst) 10 meq PO BID ergocalciferol (vitamin D2) 50,000 unit capsule 50,000 unit PO MOTH 90 Days #24 Aspirin 81 mg PO DAILY Bumetanide [Bumex 1mg tablet] 1 mg PO BID Montelukast Sodium [Montelukast 10mg Tab] 10 mg PO DAILY Nitroglycerin [Nitrostat 0.4mg SL Tablet] 0.4 mg SL NEEDED PRN PRN Reason: Chest Pain LORazepam [Ativan 1mg tablet] 1 mg PO Q8H Fluticasone Propionate [Flonase Allergy Relief NS] 1 spray NS DAILY Tamsulosin HCl [Flomax 0.4mg capsule] 0.4 mg PO DAILY Metoprolol Tartrate 75 mg PO BID Oxycodone HCl/Acetaminophen [Percocet 5/325mg tablet] 2 tab PO Q6HP PRN PRN Reason: Moderate To Severe Pain Losartan Potassium 50 mg PO DAILY Discontinued Warfarin Sodium [Coumadin 5mg tablet] 5 mg PO MOFR Warfarin Sodium 7.5 mg PO SUTUWETHSA
== END 2018-07-12 18:24 | disposition home or self-care (01) ==
LOC: 2ND 08:40 → ER 08:40 → 2ND 11:05
PROVIDERS: ADMIT Family Medicine; ATTEND Family Medicine
CPT/HCPCS: 36415; 71020; 71046; 74176; 76705; 80053; 82150; 83690; 83735; 83880; 84484; 85025; 85610; 93005; 96360; 96365; 96374; 96375; 99284; G0378

== ENCOUNTER → 2018-07-19 08:50 | Outpatient (POV) | payer MEDICARE, MEDICAID, SELFPAY ==
[2018-07-19 09:02] VITALS: BP 143/83; PULSE 126; RESP 18; O2SAT 99
--- NOTE | 2018-07-19 09:31 | HMH.PMCON ---
Assessment and Plan (1) CRPS (complex regional pain syndrome type I) Current visit: Yes Status: Chronic Qualifiers: Complex regional pain syndrome affected site: lower extremity Laterality: left Qualified Code(s): G90.522 - Complex regional pain syndrome I of left lower limb Category: Medical Code(s): G90.50 - Complex regional pain syndrome I, unspecified - Assessment and plan all Dx Assessment and Plan for all problems:: We will start the patient on Voltaren gel along with Lyrica 75 mg 1 p.o. daily. I will follow-up with him in 1 month and reassess his symptoms at that time. This note was dictated using voice recognition software and may contain errors or omissions HPI - Data of Consult Consult date: 07/19/18 Requesting Physician: Antonia Figueroa APRN Primary Care Provider: Moi Rayo MD - Consult Narrative Reason for consult: Foot pain History of present illness: Mr. Lyon is a 73 year old male resents today for consultation in regards to his foot pain. Patient had an injury 15 years ago resulting in chronic foot pain in his left ankle. Patient states it does not go above his ankle. He states his numbness and tingling. Patient has been having cortisone injections which do help somewhat. Patient is unable to get this at this time due to his INR and Coumadin treatment. He rates his pain a 4 out of 10 today. He tried and failed anti-inflammatories and is unable to take these orally due to his cardiac history. He has tried gabapentin with no success. Patient has swelling at times. Also temperature changes noted CC: Antonia Figueroa APRN [facility] History I have reviewed the patient's past medical history: Yes Medical History: Reports:: Cancer, Hyperlipidemia, Hypertension, Myocardial Infarction Denies:: Asthma, Chronic Obstructive Pulmonary Disease (COPD), Diabetes Mellitus Type 1, Diabetes Mellitus Type 2, MRSA Other Medical History: Reports: Arthritis Laterality Cases: Right: Carotid Endarterectomy Other Surgeries: Yes: Angioplasty, CABG, Cardiac Catheterization, Cardiac Surgery (Aortic valve replacement), Coronary Stent, Skin Cancer Excision Amputation: No Fractures: No - *Social History Smoking Status: Never smoker # Packs/Day (cigarettes): 0 #Yrs smoked (if former smoker): 0 Alcohol Intake: never Alcohol Intake Frequency:: other Substance Use Type: denies use Occupational Status: retired Housing: house Household Members: significant other, children - Psychiatric History Expresses thoughts of harming self/others: None Suicide Plan Description: No Plan *Family Hx:: Coronary Artery Disease, Diabetes, Hypertension Review of Systems - Review of Systems ROS General: no recent weight change, no fever, no sleep disturbances Respiratory: no cough, no shortness of air, no recurring pulmonary infections Cardiovascular/Peripheral Vascular: No chest pain, No palpitations, no edema, no shortness of breath. Gastrointestinal: no incontinence, normal bowel movements reported Genitourinary: no incontinence Musculoskeletal: Left foot pain Psychiatric: normal mood/ affect Neurological: [denies weakness in extremities], [denies balance issues] Meds Home Medications Medication Instructions Recorded Confirmed Type allopurinol 100 mg tablet 100 mg PO BID 90 Days #180 10/01/17 07/10/18 History atorvastatin 80 mg tablet 80 mg PO DAILY 30 Days #30 10/01/17 07/10/18 History ergocalciferol (vitamin D2) 50,000 50,000 unit PO MOTH 90 Days #24 10/01/17 07/10/18 History unit capsule potassium chloride ER 10 mEq 10 meq PO BID 10/01/17 07/10/18 History tablet,extended release(part/cryst) Aspirin 81 mg PO DAILY 06/25/18 07/10/18 History Bumetanide [Bumex 1mg tablet] 1 mg PO BID 06/25/18 07/10/18 History Montelukast Sodium [Montelukast 10 mg PO DAILY 06/25/18 07/10/18 History 10mg Tab] Nitroglycerin [Nitrostat 0.4mg SL 0.4 mg SL NEEDED PRN 06/25/18 07/10/18 History Tablet]
--- NOTE | 2018-07-19 09:34 | P.CONS_ITS ---
Assessment and Plan (1) CRPS (complex regional pain syndrome type I) Current visit: Yes Status: Chronic Qualifiers: Complex regional pain syndrome affected site: lower extremity Laterality: left Qualified Code(s): G90.522 - Complex regional pain syndrome I of left lower limb Category: Medical Code(s): G90.50 - Complex regional pain syndrome I, unspecified - Assessment and plan all Dx Assessment and Plan for all problems:: We will start the patient on Voltaren gel along with Lyrica 75 mg 1 p.o. daily. I will follow-up with him in 1 month and reassess his symptoms at that time. This note was dictated using voice recognition software and may contain errors or omissions HPI - Data of Consult Consult date: 07/19/18 Requesting Physician: Antonia Figueroa APRN Primary Care Provider: Moi Rayo MD - Consult Narrative Reason for consult: Foot pain History of present illness: Mr. Lyon is a 73 year old male resents today for consultation in regards to his foot pain. Patient had an injury 15 years ago resulting in chronic foot pain in his left ankle. Patient states it does not go above his ankle. He states his numbness and tingling. Patient has been having cortisone injections which do help somewhat. Patient is unable to get this at this time due to his INR and Coumadin treatment. He rates his pain a 4 out of 10 today. He tried and failed anti-inflammatories and is unable to take these orally due to his cardiac history. He has tried gabapentin with no success. Patient has swelling at times. Also temperature changes noted CC: Antonia Figueroa APRN [facility] History I have reviewed the patient's past medical history: Yes Medical History: Reports:: Cancer, Hyperlipidemia, Hypertension, Myocardial Infarction Denies:: Asthma, Chronic Obstructive Pulmonary Disease (COPD), Diabetes Mellitus Type 1, Diabetes Mellitus Type 2, MRSA Other Medical History: Reports: Arthritis Laterality Cases: Right: Carotid Endarterectomy Other Surgeries: Yes: Angioplasty, CABG, Cardiac Catheterization, Cardiac Surgery (Aortic valve replacement), Coronary Stent, Skin Cancer Excision Amputation: No Fractures: No - *Social History Smoking Status: Never smoker # Packs/Day (cigarettes): 0 #Yrs smoked (if former smoker): 0 Alcohol Intake: never Alcohol Intake Frequency:: other Substance Use Type: denies use Occupational Status: retired Housing: house Household Members: significant other, children - Psychiatric History Expresses thoughts of harming self/others: None Suicide Plan Description: No Plan *Family Hx:: Coronary Artery Disease, Diabetes, Hypertension Review of Systems - Review of Systems ROS General: no recent weight change, no fever, no sleep disturbances Respiratory: no cough, no shortness of air, no recurring pulmonary infections Cardiovascular/Peripheral Vascular: No chest pain, No palpitations, no edema, no shortness of breath. Gastrointestinal: no incontinence, normal bowel movements reported Genitourinary: no incontinence Musculoskeletal: Left foot pain Psychiatric: normal mood/ affect Neurological: [denies weakness in extremities], [denies balance issues] Meds Home Medications Medication Instructions Recorded Confirmed Type allopurinol 100 mg tablet 100 mg PO BID 90 Days #180 10/01/17 07/10/18 History atorvastatin 80 mg tablet 80 mg PO DAILY 30 Days #30 10/01/17 07/10/18 History ergocalciferol (vitamin D2) 50,000 50
== END ==
PROVIDERS: PCP Family Medicine; Visit Provider Clinical Nurse Specialist Family Health
DX: G90.522 Complex regional pain syndrome I of left lower limb (principal)
CPT/HCPCS: 99202

== ENCOUNTER → 2018-07-20 10:55 | Outpatient (POV) | payer MEDICARE, MEDICAID, SELFPAY ==
[2018-07-20 11:24] LABS: PHA INR Fingerstick 1.9 (0.9-1.1)
== END ==
PROVIDERS: PCP Family Medicine; Visit Provider Dermatology
DX: Z79.01 Long term (current) use of anticoagulants (principal); I48.91 Unspecified atrial fibrillation
CPT/HCPCS: 85610; 99211; G0463

== ENCOUNTER 2018-07-29 13:11 | Outpatient (CLI) | payer MEDICARE, MEDICAID, SELFPAY ==
[2018-07-29 14:35] LABS: PHA INR Fingerstick 1.7 (0.9-1.1)
== END 2018-07-29 14:41 | disposition home or self-care (01) ==
LOC: ACC 13:13
PROVIDERS: PCP Family Medicine; Visit Provider Family Medicine
DX: I48.91 Unspecified atrial fibrillation (principal); Z79.01 Long term (current) use of anticoagulants
CPT/HCPCS: 85610; 99211; G0463

== ENCOUNTER → 2018-08-02 08:15 | Outpatient (POV) | payer MEDICARE, MEDICAID, SELFPAY ==
[2018-08-02 08:30] VITALS: BP 154/92; PULSE 63; RESP 18; O2SAT 98; BMI 42.7
--- NOTE | 2018-08-02 08:33 | HMH.PAINSOAP ---
[facility] Pain Management SOAP Note Subjective:: Is a pleasant 73-year-old white male who presents today for follow-up with his foot pain. Patient states that the Lyrica and the Voltaren gel has helped him. He rates his pain a 3 out of 10 today. Patient is unable to have injections and is on Coumadin therapy. He is failed anti-inflammatories he has had side effects to the gabapentin. Patient's tried and failed amitriptyline along with other medications. ROS General: no recent weight change, no fever, no sleep disturbances Respiratory: no cough, no shortness of air, no recurring pulmonary infections Cardiovascular/Peripheral Vascular: No chest pain, No palpitations, no edema, no shortness of breath. Gastrointestinal: no incontinence, normal bowel movements reported Genitourinary: no incontinence Musculoskeletal: Foot pain Psychiatric: normal mood/ affect Neurological: [denies weakness in extremities], [denies balance issues] Objective:: Physical Exam General: Alert and oriented x3, no acute distress, pleasant and cooperative, [on room air] Lungs: Resps E/U, Symmetrical chest expansion, Eyes: PERRL Musculoskeletal: Range of motion left foot somewhat guarded secondary to pain, deep tendon reflexes normal, strength in upper and lower extremities [5/5], [abnormal gait noted] Neurological: speech clear, numberer and wirer equal, no gross sensory deficits Assessment:: CRPS type I of left foot Plan:: We will continue his Lyrica 75 mg 1 p.o. daily we will also continue his Voltaren gel. I will follow-up with him in 2 months and reassess his symptoms at that time. Patient's been instructed to call the office if he has any issues prior to his next appointment. This note was dictated using voice recognition software and may contain errors or omissions
== END ==
PROVIDERS: PCP Family Medicine; Visit Provider Clinical Nurse Specialist Family Health
DX: G90.522 Complex regional pain syndrome I of left lower limb (principal)
CPT/HCPCS: 99213

== ENCOUNTER 2018-08-13 08:17 | Outpatient (CLI) | payer MEDICARE, MEDICAID, SELFPAY ==
[2018-08-13 09:45] LABS: PHA INR Fingerstick 1.5 (0.9-1.1)
== END 2018-08-13 10:03 | disposition home or self-care (01) ==
PROVIDERS: PCP Family Medicine; Visit Provider Family Medicine
DX: Z51.81 Encounter for therapeutic drug level monitoring (principal); Z79.01 Long term (current) use of anticoagulants; I48.91 Unspecified atrial fibrillation
CPT/HCPCS: 85610; 99211; G0463

== ENCOUNTER 2018-08-30 07:49 | Outpatient (CLI) | payer MEDICARE, MEDICAID, SELFPAY ==
[2018-08-30 11:23] LABS: PHA INR Fingerstick 1.7 (0.9-1.1)
== END 2018-08-30 11:49 | disposition home or self-care (01) ==
PROVIDERS: PCP Family Medicine; Visit Provider Family Medicine
DX: Z51.81 Encounter for therapeutic drug level monitoring (principal); Z79.01 Long term (current) use of anticoagulants; I48.91 Unspecified atrial fibrillation
CPT/HCPCS: 85610; 99211; G0463

== ENCOUNTER → 2018-09-02 10:05 | Outpatient (CLI) | payer MEDICARE, MEDICAID, SELFPAY ==
--- NOTE | 2018-09-02 10:13 | XR_ITS ---
EXAM: XR lumbar spine min 4V HISTORY: ITS.REASON: ACUTE RT SIDE LOW BACK PAIN ORDERING PHYSICIAN: Moi Rayo MD PATIENT AGE: 73 years COMPARISON: None FINDINGS: Normal alignment. No fracture or dislocation. No lytic or blastic change. There is degenerative disc disease at L5-S1. Incidental note made of abdominal aortic calcifications. IMPRESSION: Degenerative disc disease L5-S1
== END ==
PROVIDERS: PCP Family Medicine; Visit Provider Family Medicine
DX: M54.5 Low back pain (principal)
CPT/HCPCS: 72110

== ENCOUNTER 2018-09-13 08:30 | Outpatient (CLI) | payer MEDICARE, MEDICAID, SELFPAY ==
[2018-09-13 10:38] LABS: PHA INR Fingerstick 2.2 (0.9-1.1)
== END 2018-09-13 11:01 | disposition home or self-care (01) ==
LOC: ACC 08:31
PROVIDERS: PCP Family Medicine; Visit Provider Family Medicine
DX: Z51.81 Encounter for therapeutic drug level monitoring (principal); Z79.01 Long term (current) use of anticoagulants; I48.91 Unspecified atrial fibrillation
CPT/HCPCS: 85610; 99211; G0463

== ENCOUNTER → 2018-09-28 09:13 | Outpatient (POV) | payer MEDICARE, MEDICAID, SELFPAY ==
[2018-09-28 09:22] VITALS: BP 150/98; PULSE 62; RESP 18; O2SAT 99; BMI 45.8
--- NOTE | 2018-09-28 10:06 | HMH.PAINSOAP ---
[facility] Pain Management SOAP Note Subjective:: he is a pleasant 73-year-old white male who presents today for the follow-up with his foot pain. Patient had injections yesterday by Dr. Mcdermott he states he is doing much better. Patient states that the Lyrica has not been helping him. Patient and I had a discussion in regards to moving forward he has rates his pain a 2 out of 10 today. ROS General: no recent weight change, no fever, no sleep disturbances Respiratory: no cough, no shortness of air, no recurring pulmonary infections Cardiovascular/Peripheral Vascular: No chest pain, No palpitations, no edema, no shortness of breath. Gastrointestinal: no incontinence, normal bowel movements reported Genitourinary: no incontinence Musculoskeletal: Bilateral foot pain Psychiatric: normal mood/ affect Neurological: [denies weakness in extremities], [denies balance issues] Objective:: Physical Exam General: Alert and oriented x3, no acute distress, pleasant and cooperative, [on room air] Lungs: Resps E/U, Symmetrical chest expansion, Eyes: PERRL Musculoskeletal: Motion bilateral feet somewhat guarded secondary to pain, deep tendon reflexes normal, strength in upper and lower extremities [5/5], [abnormal gait noted] Neurological: speech clear, emergency management coordinator equal, no gross sensory deficits Assessment:: CRPS type I left foot Plan:: We will increase his Lyrica to 75 mg 1 p.o. twice daily we will see him back in 3 weeks and reassess his symptoms at that time. I do believe he may be a stimulator candidate in the future. Dr. Resendez has reviewed this note and agrees with this plan of care. This note was dictated using voice recognition software and may contain errors or omissions
== END ==
PROVIDERS: PCP Family Medicine; Visit Provider Clinical Nurse Specialist Family Health
DX: G90.522 Complex regional pain syndrome I of left lower limb (principal)
CPT/HCPCS: 99213

== ENCOUNTER 2018-10-07 12:29 | Outpatient (CLI) | payer MEDICARE, MEDICAID, SELFPAY ==
[2018-10-07 13:26] LABS: PHA INR Fingerstick 2.2 (0.9-1.1)
== END 2018-10-07 13:33 | disposition home or self-care (01) ==
LOC: ACC 12:30
PROVIDERS: PCP Family Medicine; Visit Provider Family Medicine
DX: Z51.81 Encounter for therapeutic drug level monitoring (principal); Z79.01 Long term (current) use of anticoagulants; I48.91 Unspecified atrial fibrillation
CPT/HCPCS: 85610; 99211; G0463

== ENCOUNTER → 2018-10-26 13:03 | Outpatient (POV) | payer MEDICARE, MEDICAID, SELFPAY ==
[2018-10-26 13:42] VITALS: BP 153/49; PULSE 68; RESP 18; O2SAT 98; BMI 45.4
--- NOTE | 2018-10-26 16:21 | HMH.PAINSOAP ---
[facility] Pain Management SOAP Note Subjective:: Patient is a pleasant 73-year-old white male who presents today for follow-up with his foot pain. Patient is still having quite a lot of pain in his left foot. Patient has CRPS. He has swelling and color changes along with temperature changes he has burning pain along with aching pain. Patient does get injections which helped temporarily however he would like something more long-term. He rates his pain a 7 out of 10 today. Patient's tried and failed Lyrica he is actually developed side effects to it and is weaning off of that at this time. ROS General: no recent weight change, no fever, no sleep disturbances Respiratory: no cough, no shortness of air, no recurring pulmonary infections Cardiovascular/Peripheral Vascular: No chest pain, No palpitations, no edema, no shortness of breath. Gastrointestinal: no incontinence, normal bowel movements reported Genitourinary: no incontinence Musculoskeletal: Left foot pain Psychiatric: normal mood/ affect Neurological: [denies weakness in extremities], [denies balance issues] Objective:: Physical Exam General: Alert and oriented x3, no acute distress, pleasant and cooperative, [on room air] Lungs: Resps E/U, Symmetrical chest expansion, Eyes: PERRL Musculoskeletal: Range of motion left foot somewhat guarded secondary to pain, deep tendon reflexes normal, strength in upper and lower extremities [5/5], [abnormal gait noted] Neurological: speech clear, crew foreman equal, no gross sensory deficits Assessment:: CRPS type I left foot Plan:: We will schedule a DRG trial once we get permission for the patient to come off of his blood thinners. If the patient has a successful trial we will send him for psychological evaluation prior to implant. Patient is seeing his faa certified powerplant mechanic on Thursday I provided them with the form for her to fill out for an 8-day release of Coumadin. Patient will be off 5 days prior to the trial and have a 3-day trial. Dr. Resendez has reviewed this note and agrees with this plan of care. This note was dictated using voice recognition software and may contain errors or omissions
--- NOTE | 2018-10-26 16:24 | P.CONS_ITS ---
[facility] Pain Management SOAP Note Subjective:: Patient is a pleasant 73-year-old white male who presents today for follow-up with his foot pain. Patient is still having quite a lot of pain in his left foot. Patient has CRPS. He has swelling and color changes along with temperature changes he has burning pain along with aching pain. Patient does get injections which helped temporarily however he would like something more long-term. He rates his pain a 7 out of 10 today. Patient's tried and failed Lyrica he is actually developed side effects to it and is weaning off of that at this time. ROS General: no recent weight change, no fever, no sleep disturbances Respiratory: no cough, no shortness of air, no recurring pulmonary infections Cardiovascular/Peripheral Vascular: No chest pain, No palpitations, no edema, no shortness of breath. Gastrointestinal: no incontinence, normal bowel movements reported Genitourinary: no incontinence Musculoskeletal: Left foot pain Psychiatric: normal mood/ affect Neurological: [denies weakness in extremities], [denies balance issues] Objective:: Physical Exam General: Alert and oriented x3, no acute distress, pleasant and cooperative, [on room air] Lungs: Resps E/U, Symmetrical chest expansion, Eyes: PERRL Musculoskeletal: Range of motion left foot somewhat guarded secondary to pain, deep tendon reflexes normal, strength in upper and lower extremities [5/5], [abnormal gait noted] Neurological: speech clear, repeat photocomposing machine operator equal, no gross sensory deficits Assessment:: CRPS type I left foot Plan:: We will schedule a DRG trial once we get permission for the patient to come off of his blood thinners. If the patient has a successful trial we will send him for psychological evaluation prior to implant. Patient is seeing his on site property manager on Thursday I provided them with the form for her to fill out for an 8-day release of Coumadin. Patient will be off 5 days prior to the trial and have a 3-day trial. Dr. Resendez has reviewed this note and agrees with this plan of care. This note was dictated using voice recognition software and may contain errors or omissions
== END ==
PROVIDERS: PCP Family Medicine; Visit Provider Clinical Nurse Specialist Family Health
DX: G90.522 Complex regional pain syndrome I of left lower limb
CPT/HCPCS: 99213

== ENCOUNTER 2018-10-29 09:05 | Outpatient (CLI) | payer MEDICARE, MEDICAID, SELFPAY ==
[2018-10-29 13:59] LABS: PHA INR Fingerstick 2.1 (0.9-1.1)
== END 2018-10-29 14:03 | disposition home or self-care (01) ==
LOC: ACC 09:07
PROVIDERS: PCP Family Medicine; Visit Provider Family Medicine
DX: Z51.81 Encounter for therapeutic drug level monitoring (principal); Z79.01 Long term (current) use of anticoagulants; I48.91 Unspecified atrial fibrillation
CPT/HCPCS: 85610; 99211; G0463

== ENCOUNTER → 2018-11-09 10:56 | Outpatient (POV) | payer MEDICARE, MEDICAID, SELFPAY ==
[2018-11-09 11:27] VITALS: BP 124/50; PULSE 54; RESP 18; O2SAT 98; BMI 46.3
--- NOTE | 2018-11-09 11:32 | HMH.PAINSOAP ---
[facility] Pain Management SOAP Note Subjective:: Patient is a pleasant 73-year-old white male who presents today for follow-up. Patient has CRPS of his foot. Patient has a lot of burning and tingling. He is been unable to get relief with Lyrica or gabapentin. We will try amitriptyline today. I do believe he is a stimulator candidate however he is unable to come off of his blood thinner at this time. The physician said that we would reassess this in 3 months. He rates his pain a 5 out of 10 at this point. ROS General: no recent weight change, no fever, no sleep disturbances Respiratory: no cough, no shortness of air, no recurring pulmonary infections Cardiovascular/Peripheral Vascular: No chest pain, No palpitations, no edema, no shortness of breath. Gastrointestinal: no incontinence, normal bowel movements reported Genitourinary: no incontinence Musculoskeletal: Foot pain Psychiatric: normal mood/ affect Neurological: [denies weakness in extremities], [denies balance issues] Objective:: Physical Exam General: Alert and oriented x3, no acute distress, pleasant and cooperative, [on room air] Lungs: Resps E/U, Symmetrical chest expansion, Eyes: PERRL Musculoskeletal: Range of motion left foot somewhat guarded secondary to pain, deep tendon reflexes normal, strength in upper and lower extremities [5/5], [abnormal gait noted] Neurological: speech clear, customer manager equal, no gross sensory deficits Assessment:: CRPS type I left foot Plan:: We will try the patient on Elavil 25 mg 1 p.o. nightly. If it does not work we will potentially try Cymbalta. I will follow-up with the patient 1 month to reassess his symptoms at that time. I did discuss risks and side effects. He is to contact our office if he experiences any of these. Dr. Resendez has reviewed this note and agrees with this plan of care. This note was dictated using voice recognition software and may contain errors or omissions
== END ==
PROVIDERS: PCP Family Medicine; Visit Provider Clinical Nurse Specialist Family Health
DX: G90.522 Complex regional pain syndrome I of left lower limb
CPT/HCPCS: 99212

== ENCOUNTER → 2018-11-30 07:49 | Outpatient (POV) | payer MEDICARE, MEDICAID, SELFPAY | PROVIDERS: Visit Provider Dermatology | DX: Z00.00 Encounter for general adult medical examination without abnormal findings (principal) ==

== ENCOUNTER 2018-12-13 13:34 | Outpatient (CLI) | payer MEDICARE, MEDICAID, SELFPAY ==
[2018-12-13 15:28] LABS: PHA INR Fingerstick 2.5 (0.9-1.1)
== END 2018-12-13 15:29 | disposition home or self-care (01) ==
LOC: ACC 13:35
PROVIDERS: PCP Family Medicine; Visit Provider Family Medicine
DX: Z51.81 Encounter for therapeutic drug level monitoring (principal); Z79.01 Long term (current) use of anticoagulants; I48.91 Unspecified atrial fibrillation
CPT/HCPCS: 85610; 99211; G0463

== ENCOUNTER 2019-01-18 08:41 | Outpatient (CLI) | payer MEDICARE, MEDICAID, SELFPAY | END 2019-01-18 09:15 | disposition home or self-care (01) | LOC: ACC 08:42 | PROVIDERS: PCP Family Medicine; Visit Provider Family Medicine | DX: Z51.81 Encounter for therapeutic drug level monitoring (principal); Z79.01 Long term (current) use of anticoagulants; I48.91 Unspecified atrial fibrillation | CPT/HCPCS: 85610; 99211; G0463 ==

== ENCOUNTER → 2019-03-17 08:40 | Outpatient (CLI) | payer MEDICARE, MEDICAID, SELFPAY ==
--- NOTE | 2019-03-17 08:43 | FL_ITS ---
FL upper GI small bowel HISTORY: ITS.REASON: abdominal pain, diverticulosis ORDERING PHYSICIAN: Giovanni Hoffman MD PATIENT AGE: 73 years Comparison: None FINDINGS: Cruise Coordinator exam shows faint calcifications over the lower pole the right kidney suggesting right nephrolithiasis. The esophagus, stomach, and duodenum have an unremarkable appearance. There is no evidence of hiatal hernia. No ulcer or mass evident. No mucosal abnormalities apparent. There is normal peristalsis. The duodenal C-loop is nondisplaced. There was mild GE reflux noted Evaluation of the small bowel is unremarkable. There is normal transit time. No dilatation, mucosal amount is, or strictures or masses are evident. Spot views of the terminal ileum are unremarkable. FLUOROSCOPY TIME : 2 minutes and 4 seconds. IMPRESSION: Mild GE reflux otherwise unremarkable upper GI with small bowel follow-through
== END ==
PROVIDERS: PCP Family Medicine; Visit Provider Surgery
DX: R13.10 Dysphagia, unspecified (principal)
CPT/HCPCS: 74245

== ENCOUNTER → 2019-03-29 08:51 | Outpatient (CLI) | payer MEDICARE, MEDICAID, SELFPAY ==
--- NOTE | 2019-03-29 09:05 | XR_ITS ---
PROCEDURE: XR ANKLE WT BEARING LT MIN 3V CLINICAL INDICATION: pain Pain and swelling COMPARISON: ANKL3 ANKLE-LT-3 VIEWS from 03/03/2017 FINDINGS: There are severe osteoarthritic changes of the ankle with loss of joint space centrally and medially with osteosclerosis of the talar dome with mild flattening of the talar dome. Severe osteoarthritic changes are present HO along the medial malleolar and talar dome junction with osteosclerosis and osteophyte formation. Hypertrophy is present involving the anterior aspect of the talus. There is diffuse vascular calcification. No acute fracture or dislocation. There is mild medial tilt of the talus. There is mild hypertrophy of the distal aspect of the fibula IMPRESSION: Severe osteoarthritis of the ankle slightly worse compared to the previous exam Dictated by: Gibran Wilcox MD 03/29/2019 14:42 Signed by: <Electronically signed by Gibran Wilcox MD in [place]> 03/29/2019 14:42
--- NOTE | 2019-03-29 09:05 | XR_ITS ---
PROCEDURE: XR FOOT WT BEARING LT 3V CLINICAL INDICATION: pain Medial left foot pain COMPARISON: No exams were available for comparison FINDINGS: No fracture or dislocation. No lytic or blastic change. There is normal mineralization. Osteoarthritic changes are present at the 1st MTP joint Other findings:Bony hypertrophy noted involving the mid aspect of the talus anteriorly. Please see ankle report for ankle description. There is generalized vascular calcification IMPRESSION: Severe osteoarthritis of the ankle with bony hypertrophy of the talus and mild osteoarthritis of the 1st MTP joint Dictated by: Gibran Wilcox MD 03/29/2019 14:43 Signed by: <Electronically signed by Gibran Wilcox MD in [place]> 03/29/2019 14:43
== END ==
PROVIDERS: PCP Family Medicine; Visit Provider Podiatrist
DX: M79.672 Pain in left foot (principal); M25.572 Pain in left ankle and joints of left foot
CPT/HCPCS: 73610; 73630

== ENCOUNTER 2019-04-08 09:22 | Outpatient (CLI) | payer MEDICARE, MEDICAID, SELFPAY ==
[2019-04-08 15:50] LABS: PHA INR Fingerstick 2.5 (0.9-1.1)
== END 2019-04-08 16:01 | disposition home or self-care (01) ==
LOC: ACC 09:25
PROVIDERS: PCP Family Medicine; Visit Provider Family Medicine
DX: Z51.81 Encounter for therapeutic drug level monitoring (principal); Z79.01 Long term (current) use of anticoagulants; I48.91 Unspecified atrial fibrillation
CPT/HCPCS: 85610; 99211; G0463

== ENCOUNTER 2019-05-17 11:20 | Outpatient (CLI) | payer MEDICARE, MEDICAID, SELFPAY ==
[2019-05-17 13:49] LABS: PHA INR Fingerstick 2.1 (0.9-1.1)
== END 2019-05-17 13:56 | disposition home or self-care (01) ==
LOC: ACC 11:21
PROVIDERS: PCP Family Medicine; Visit Provider Family Medicine
DX: Z51.81 Encounter for therapeutic drug level monitoring (principal); Z79.01 Long term (current) use of anticoagulants; I48.91 Unspecified atrial fibrillation
CPT/HCPCS: 85610; 99211; G0463

== ENCOUNTER → 2019-06-21 08:11 | Outpatient (POV) | payer MEDICARE, MEDICAID, SELFPAY | PROVIDERS: PCP Family Medicine; Visit Provider Dermatology | DX: Z00.00 Encounter for general adult medical examination without abnormal findings (principal) ==

== ENCOUNTER 2019-06-29 08:23 | Outpatient (CLI) | payer MEDICARE, MEDICAID, SELFPAY ==
[2019-06-29 13:37] LABS: PHA INR Fingerstick 2.5 (0.9-1.1)
== END 2019-06-29 13:40 | disposition home or self-care (01) ==
LOC: ACC 08:25
PROVIDERS: PCP Family Medicine; Visit Provider Family Medicine
DX: Z51.81 Encounter for therapeutic drug level monitoring (principal); Z79.01 Long term (current) use of anticoagulants; I48.91 Unspecified atrial fibrillation
CPT/HCPCS: 85610; 99211; G0463

== ENCOUNTER 2019-07-27 11:07 | Outpatient (CLI) | payer MEDICARE, MEDICAID, SELFPAY ==
[2019-07-27 13:30] LABS: PHA INR Fingerstick 2.6 (0.9-1.1)
== END 2019-07-27 13:32 | disposition home or self-care (01) ==
LOC: ACC 11:08
PROVIDERS: PCP Family Medicine; Visit Provider Family Medicine
DX: Z51.81 Encounter for therapeutic drug level monitoring (principal); Z79.01 Long term (current) use of anticoagulants; I48.91 Unspecified atrial fibrillation
CPT/HCPCS: 85610; 99211; G0463

== ENCOUNTER 2019-08-08 08:27 | Outpatient (CLI) | payer MEDICARE, MEDICAID, SELFPAY ==
[2019-08-08 14:53] LABS: PHA INR Fingerstick 1.6 (0.9-1.1)
== END 2019-08-08 15:00 | disposition home or self-care (01) ==
LOC: ACC 08:27
PROVIDERS: PCP Family Medicine; Visit Provider Family Medicine
DX: Z51.81 Encounter for therapeutic drug level monitoring (principal); Z79.01 Long term (current) use of anticoagulants; I48.91 Unspecified atrial fibrillation
CPT/HCPCS: 85610; 99211; G0463

== ENCOUNTER 2019-08-30 08:43 | Outpatient (CLI) | payer MEDICARE, MEDICAID, SELFPAY ==
[2019-08-30 11:43] LABS: PHA INR Fingerstick 1.9 (0.9-1.1)
== END 2019-08-30 11:49 | disposition home or self-care (01) ==
LOC: ACC 08:44
PROVIDERS: PCP Family Medicine; Visit Provider Family Medicine
DX: Z51.81 Encounter for therapeutic drug level monitoring (principal); Z79.01 Long term (current) use of anticoagulants
CPT/HCPCS: 85610; 99211; G0463

== ENCOUNTER 2019-09-22 12:59 | Outpatient (CLI) | payer MEDICARE, MEDICAID, SELFPAY ==
[2019-09-22 13:48] LABS: PHA INR Fingerstick 1.5 (0.9-1.1)
== END 2019-09-22 13:49 | disposition home or self-care (01) ==
LOC: ACC 13:00
PROVIDERS: PCP Family Medicine; Visit Provider Family Medicine
DX: Z51.81 Encounter for therapeutic drug level monitoring (principal); Z79.01 Long term (current) use of anticoagulants; I48.91 Unspecified atrial fibrillation
CPT/HCPCS: 85610; 99211; G0463

== ENCOUNTER 2019-10-25 11:29 | Outpatient (CLI) | payer MEDICARE, MEDICAID, SELFPAY ==
[2019-10-25 15:56] LABS: PHA INR Fingerstick 2.2 (0.9-1.1)
== END 2019-10-25 15:59 | disposition home or self-care (01) ==
LOC: ACC 11:30
PROVIDERS: PCP Family Medicine; Visit Provider Family Medicine
DX: Z51.81 Encounter for therapeutic drug level monitoring (principal); Z79.01 Long term (current) use of anticoagulants; I48.91 Unspecified atrial fibrillation
CPT/HCPCS: 85610; 99211; G0463

== ENCOUNTER 2019-11-28 08:16 | Outpatient (CLI) | payer MEDICARE, MEDICAID, SELFPAY ==
[2019-11-28 10:43] LABS: PHA INR Fingerstick 2.2 (0.9-1.1)
== END 2019-11-28 10:46 | disposition home or self-care (01) ==
LOC: ACC 08:16
PROVIDERS: PCP Family Medicine; Visit Provider Family Medicine
DX: Z51.81 Encounter for therapeutic drug level monitoring (principal); Z79.01 Long term (current) use of anticoagulants; I48.91 Unspecified atrial fibrillation
CPT/HCPCS: 85610; 99211; G0463

== ENCOUNTER → 2019-12-13 10:33 | Outpatient (POV) | payer MEDICARE, MEDICAID, SELFPAY | PROVIDERS: PCP Family Medicine; Visit Provider Physician Assistant | DX: Z00.00 Encounter for general adult medical examination without abnormal findings (principal) ==

== ENCOUNTER → 2019-12-16 07:49 | Outpatient (CLI) | payer MEDICARE, MEDICAID, SELFPAY ==
--- NOTE | 2019-12-16 08:14 | XR_ITS ---
PROCEDURE: XR HAND RT MIN 3V CLINICAL INDICATION: RT HAND PAIN Right hand pain and swelling COMPARISON: No exams were available for comparison FINDINGS: No fracture or dislocation. No lytic or blastic change. There is normal mineralization. There are mild osteoarthritic changes at the 3rd metacarpophalangeal joint. There is diffuse vascular calcification. Other findings:None. IMPRESSION: Mild osteoarthritis of the 3rd metacarpophalangeal joint Diffuse vascular calcification Dictated by: Gibran Wilcox MD 12/16/2019 08:26 Electronically signed by Gibran Wilcox MD in [place] 12/16/2019 08:26
[2019-12-16 08:59] LABS: Basophils # 0.1 K/mm3 (0-0.2); Basophils % 0.8 % (0.1-2.0); Eosinophils # 0.2 K/mm3 (0.0-0.4); Eosinophils % 2.8 % (0.1-12.0); Hematocrit 39.1 % (42.0-52.0); Hemoglobin 12.8 g/dL (14.1-18.0); Lymphocytes # 1.5 K/mm3 (0.7-4.5); Mean Corpuscular HGB Conc 32.7 g/dL (31.8-35.4); Mean Corpuscular Hemoglobin 31.3 pg (27.0-31.2); Mean Corpuscular Volume 95.8 fl (80-94); Monocytes # 0.4 K/mm3 (0.1-1.0); Monocytes % 7.4 % (1.7-9.3); Neutrophils # 3.4 K/mm3 (1.8-7.8); Platelet Count 135 K/mm3 (142-424); Red Blood Count 4.08 M/mm3 (4.60-6.20); Red Cell Distribution Width 14.4 % (11.5-17.5); White Blood Count 5.6 K/mm3 (4.8-10.8)
[2019-12-16 09:41] LABS: NT Pro Brain Natriuretic Pep. 557 pg/mL (0-125)
[2019-12-16 09:47] LABS: Erythrocyte Sedimentation Rate 23 mm/hr (0-20)
[2019-12-16 10:23] LABS: Chloride 104 mmol/L (98-107); Potassium 4.5 mmoL/L (3.5-5.1); Sodium 141 mmol/L (136-145)
[2019-12-16 10:25] LABS: Alanine Aminotransferase 36 U/L (12-78); Alkaline Phosphatase 53 U/L (38-126); Anion Gap 9.5 mEq/L (5-15); Aspartate Amino Transferase 36 U/L (17-59); Bilirubin,Total 1.7 mg/dl (0.2-1.3); Blood Urea Nitrogen 25 mg/dl (9-20); Carbon Dioxide 32 mmol/L (22.0-30.0); Estimated Glomerular Filt Rate 66 ml/min (>60); GFR (African American) 79 ML/MIN (>60)
[2019-12-16 10:26] LABS: Albumin Level 3.8 g/dl (3.5-5.0); Albumin/Globulin Ratio 1.5 (1.1-1.8); Chol/HDL Ratio 3.6 (1-3.5); Cholesterol 121 mg/dl (140-200); Globulin 2.5 g/dL (1.3-3.2); Glucose 96 mg/dl (74-100); HDL Cholesterol 34 mg/dl (40-60); Total Protein,Serum 6.3 g/dl (6.3-8.2); Triglycerides 169 mg/dl (30-150); Uric Acid 6.5 mg/dl (3.5-8.5); VLDL Cholesterol 34 mg/dL (0-40)
[2019-12-16 10:37] LABS: Direct LDL Cholesterol 67.11 mg/dL (100-129)
[2019-12-16 10:56] LABS: Thyroid Stimulating Hormone 3.04 uIU/mL (0.465-4.68)
== END ==
PROVIDERS: Visit Provider Family Medicine
DX: R06.02 Shortness of breath (principal); E78.2 Mixed hyperlipidemia; E55.9 Vitamin D deficiency, unspecified; M79.641 Pain in right hand; M10.9 Gout, unspecified
CPT/HCPCS: 36415; 73130; 80053; 80061; 82652; 83880; 84443; 84550; 85025; 85651

== ENCOUNTER → 2019-12-26 09:27 | Outpatient (CLI) | payer MEDICARE, MEDICAID, SELFPAY ==
[2019-12-26 09:58] LABS: INR 1.16 (0.9-1.1)
[2019-12-26 12:10] LABS: Potassium 4.8 mmoL/L (3.5-5.1)
== END ==
PROVIDERS: Visit Provider Family Medicine
DX: Z51.81 Encounter for therapeutic drug level monitoring (principal); Z79.01 Long term (current) use of anticoagulants; I48.91 Unspecified atrial fibrillation
CPT/HCPCS: 36415; 84132; 85610

== ENCOUNTER 2020-01-23 08:34 | Outpatient (CLI) | payer MEDICARE, MEDICAID, SELFPAY ==
[2020-01-23 09:39] LABS: PHA INR Fingerstick 1.9 (0.9-1.1)
== END 2020-01-23 10:26 | disposition home or self-care (01) ==
LOC: ACC 08:35
PROVIDERS: PCP Family Medicine; Visit Provider Family Medicine
DX: Z51.81 Encounter for therapeutic drug level monitoring (principal); Z79.01 Long term (current) use of anticoagulants; I48.91 Unspecified atrial fibrillation
CPT/HCPCS: 85610; 99211; G0463

== ENCOUNTER 2020-03-05 08:37 | Outpatient (CLI) | payer MEDICARE, MEDICAID, SELFPAY ==
--- NOTE | 2020-03-05 10:02 | US_ITS ---
PROCEDURE: US KIDNEY CLINICAL INDICATION: DYSURIA,RT FLANK PAIN COMPARISON: No exams were available for comparison FINDINGS: The right kidney is [id number]. No hydronephrosis, cortical thinning, or renal mass or perinephric fluid collection is evident. The left kidney is [id number]. No hydronephrosis, cortical thinning, or renal mass or perinephric fluid collection is evident. There is mild cortical thinning bilaterally with the cortex measuring approximately 1 cm bilaterally. IMPRESSION: Mild cortical thinning otherwise negative. Dictated by: Gibran Wilcox MD 03/06/2020 07:38 Electronically signed by Gibran Wilcox MD in [place] 03/06/2020 07:38
[2020-03-05 10:26] LABS: PHA INR Fingerstick 3.4 (0.9-1.1)
--- NOTE | 2020-03-06 09:01 | HMH.PHAINT ---
PATIENT STARTED ON BACTRIM BID LAST WEEK. PATIENT INR ELEVATED TODAY AT 3.4. PATIENT ALSO TAKES POTASSIUM SUPPLEMENT AND LOSARTAN. CALLED MD OFFICE ABOUT BACTRIM/LIZZIE-ARB INTERACTION. MD ORDERING POTASSIUM LEVEL WHEN PATIENT FOLLOWS UP WITH INR NEXT WEEK.
== END 2020-03-05 12:04 | disposition home or self-care (01) ==
LOC: ACC 08:40
PROVIDERS: PCP Family Medicine; Visit Provider Family Medicine
DX: R10.9 Unspecified abdominal pain (principal); R30.0 Dysuria; Z51.81 Encounter for therapeutic drug level monitoring; Z79.01 Long term (current) use of anticoagulants; I48.91 Unspecified atrial fibrillation
CPT/HCPCS: 76770; 85610; 99211; G0463

== ENCOUNTER → 2020-03-13 07:33 | Outpatient (CLI) | payer MEDICARE, MEDICAID, SELFPAY ==
[2020-03-13 08:35] LABS: INR 2.22 (0.9-1.1); Prothrombin Time 21.7 seconds (9.4-11.8)
[2020-03-13 08:46] LABS: Potassium 4.2 mmoL/L (3.5-5.1)
--- NOTE | 2020-03-13 09:01 | XR_ITS ---
PROCEDURE: XR FOOT WT BEARING LT 3V CLINICAL INDICATION: PAIN COMPARISON: CR XR FOOT WT BEARING LT 3V from 03/29/2019 CR XR ANKLE WT BEARING RT MIN 3V from 03/13/2020 FINDINGS: No fracture or dislocation. No lytic or blastic change. There is normal mineralization. There are mild osteoarthritic changes at the 1st MTP joint. There is generalized vascular calcification. Other findings:Normal alignment IMPRESSION: Degenerative changes 1st metatarsophalangeal joint Dictated b Gibran Wilcox MD 03/13/2020 15:52 Gibran Wilcox MD in [place] 03/13/2020 15:52
--- NOTE | 2020-03-13 09:01 | XR_ITS ---
PROCEDURE: XR ANKLE WT BEARING LT MIN 3V CLINICAL INDICATION: PAIN COMPARISON: CR ANKL3 ANKLE-LT-3 VIEWS from 01/08/2016 CR ANKR3 ANKLE-RT-3 VIEWS from 03/03/2017 CR ANKL3 ANKLE-LT-3 VIEWS from 03/03/2017 FINDINGS: There are severe osteoarthritic changes at the tibial talar joint medially with osteosclerosis of the talar dome and tibial plafond with loss of joint space. There is medial talar tilt. Bony hypertrophic changes are present at the medial and lateral malleolar region distally. There is diffuse vascular calcification. IMPRESSION: Severe osteoarthritic changes of the ankle with medial talar tilt Dictated b Gibran Wilcox MD 03/13/2020 15:55 Gibran Wilcox MD in [place] 03/13/2020 15:55
--- NOTE | 2020-03-13 09:01 | XR_ITS ---
PROCEDURE: XR ANKLE WT BEARING RT MIN 3V CLINICAL INDICATION: PAIN COMPARISON: CR ANKL3 ANKLE-LT-3 VIEWS from 01/08/2016 CR ANKR3 ANKLE-RT-3 VIEWS from 03/03/2017 CR ANKL3 ANKLE-LT-3 VIEWS from 03/03/2017 FINDINGS: There are osteoarthritic changes of the ankle joint with osteosclerosis of the tibial plafond medially. There is some mild medial tilt of the talus. The talar dome has an unremarkable appearance. Generalized vascular calcification IMPRESSION: Mild osteoarthritic changes with medial tilt of the talus Dictated b Gibran Wilcox MD 03/13/2020 15:53 Gibran Wilcox MD in [place] 03/13/2020 15:53
--- NOTE | 2020-03-13 09:01 | XR_ITS ---
PROCEDURE: XR FOOT WT BEARING RT 3V CLINICAL INDICATION: PAIN COMPARISON: CR ANKR3 ANKLE-RT-3 VIEWS from 03/03/2017 CR XR FOOT WT BEARING LT 3V from 03/29/2019 FINDINGS: No fracture or dislocation. No lytic or blastic change. There is normal mineralization. Osteoarthritic changes are present at the 1st metatarsophalangeal joint and to lesser degree at the 2nd metatarsophalangeal joint. Other findings:Generalized vascular calcification IMPRESSION: Osteoarthritis Dictated b Gibran Wilcox MD 03/13/2020 15:54 Gibran Wilcox MD in [place] 03/13/2020 15:54
== END ==
PROVIDERS: PCP Family Medicine; Visit Provider Family Medicine
DX: M25.572 Pain in left ankle and joints of left foot (principal); M25.571 Pain in right ankle and joints of right foot; M79.672 Pain in left foot; M79.671 Pain in right foot; Z51.81 Encounter for therapeutic drug level monitoring; Z79.01 Long term (current) use of anticoagulants; I48.91 Unspecified atrial fibrillation; E87.6 Hypokalemia
CPT/HCPCS: 36415; 73610; 73630; 84132; 85610

== ENCOUNTER → 2020-03-27 11:01 | Outpatient (POV) | payer MEDICARE, MEDICAID, SELFPAY | PROVIDERS: Visit Provider Dermatology | DX: Z00.00 Encounter for general adult medical examination without abnormal findings (principal) ==

== ENCOUNTER 2020-05-02 08:07 | Outpatient (CLI) | payer MEDICARE, MEDICAID, SELFPAY ==
[2020-05-02 09:16] LABS: PHA INR Fingerstick 1.8 (0.9-1.1)
== END 2020-05-02 09:17 | disposition home or self-care (01) ==
LOC: ACC 08:09
PROVIDERS: PCP Family Medicine; Visit Provider Family Medicine
DX: Z51.81 Encounter for therapeutic drug level monitoring (principal); Z79.01 Long term (current) use of anticoagulants; I48.91 Unspecified atrial fibrillation
CPT/HCPCS: 85610; 99211; G0463

== ENCOUNTER 2020-07-02 08:17 | Outpatient (CLI) | payer MEDICARE, MEDICAID, SELFPAY ==
[2020-07-02 14:56] LABS: PHA INR Fingerstick 2.4 (0.9-1.1)
== END 2020-07-02 15:34 | disposition home or self-care (01) ==
LOC: ACC 08:19
PROVIDERS: PCP Family Medicine; Visit Provider Family Medicine
DX: Z51.81 Encounter for therapeutic drug level monitoring (principal); Z79.01 Long term (current) use of anticoagulants; I48.91 Unspecified atrial fibrillation
CPT/HCPCS: 85610; 99211; G0463

== ENCOUNTER → 2020-07-20 14:12 | Outpatient (CLI) | payer MEDICARE, MEDICAID, SELFPAY ==
--- NOTE | 2020-07-20 14:32 | XR_ITS ---
PROCEDURE: XR FOOT WT BEARING LT 3V CLINICAL INDICATION: pain COMPARISON: CR XR FOOT WT BEARING LT 3V from 03/29/2019 CR XR FOOT WT BEARING RT 3V from 03/13/2020 CR XR FOOT WT BEARING LT 3V from 03/13/2020 CR XR ANKLE WT BEARING LT MIN 3V from 07/20/2020 FINDINGS: No fracture or dislocation. No lytic or blastic change. There is normal mineralization. Osteoarthritic changes are present at the 1st metatarsophalangeal joint. Other findings:There is generalized vascular calcification. Severe osteoarthritic changes are present at the ankle joint. Sclerosis is present at the distal tibia and talus and medial malleolar region. There is inversion of the talus. There is diffuse generalized vascular calcification. IMPRESSION: Osteoarthritis of the foot and ankle as described above Dictated by: Gibran Wilcox MD 07/20/2020 16:47 Gibran Wilcox MD in [place] 07/20/2020 16:47
--- NOTE | 2020-07-20 14:34 | XR_ITS ---
PROCEDURE: XR CHEST 2V CLINICAL HISTORY: WEIGHT GAIN Shortness of breath COMPARISON: CR CXR CHEST(2 VIEWS-NOT PORTABLE) from 09/07/2015 CR CXR1VP XR chest portable from 06/25/2018 CR CXR2V XR chest 2V from 07/10/2018 FINDINGS: Prior median sternotomy. Prior aortic valve replacement The lungs are clear without infiltrates, suspicious nodules, or pleural effusions. No acute bony abnormalities. IMPRESSION: No acute findings. Dictated by: Gibran Wilcox MD 07/20/2020 16:40 Gibran Wilcox MD in [place] 07/20/2020 16:40
[2020-07-20 15:17] LABS: Basophils # 0.1 K/mm3 (0-0.2); Basophils % 0.8 % (0.1-2.0); Eosinophils # 0.1 K/mm3 (0.0-0.4); Eosinophils % 1.9 % (0.1-12.0); Hematocrit 40.6 % (42.0-52.0); Hemoglobin 13.8 g/dL (14.1-18.0); Lymphocytes # 1.3 K/mm3 (0.7-4.5); Lymphocytes % 18.1 % (10-50); Mean Corpuscular HGB Conc 34.1 g/dL (31.8-35.4); Mean Corpuscular Hemoglobin 32.6 pg (27.0-31.2); Mean Corpuscular Volume 95.6 fl (80-94); Mean Platelet Volume 9.4 fl (7.4-10.4); Monocytes # 0.6 K/mm3 (0.1-1.0); Monocytes % 7.7 % (1.7-9.3); Neutrophils # 5.2 K/mm3 (1.8-7.8); Neutrophils % 71.5 % (37.0-80.0); Platelet Count 189 K/mm3 (142-424); Red Blood Count 4.24 M/mm3 (4.60-6.20); Red Cell Distribution Width 14.5 % (11.5-17.5); White Blood Count 7.3 K/mm3 (4.8-10.8)
[2020-07-20 15:55] LABS: Anion Gap 12.9 mEq/L (5-15); Blood Urea Nitrogen 59 mg/dl (9-20); Calcium 9.3 mg/dl (8.4-10.2); Carbon Dioxide 34 mmol/L (22.0-30.0); Chloride 97 mmol/L (98-107); Estimated Glomerular Filt Rate 40 ml/min (>60); GFR (African American) 48 ML/MIN (>60); Glucose 109 mg/dl (74-100); Potassium 3.9 mmoL/L (3.5-5.1); Sodium 140 mmol/L (136-145)
[2020-07-20 16:03] LABS: NT Pro Brain Natriuretic Pep. 379 pg/mL (0-125)
== END ==
PROVIDERS: PCP Family Medicine; Visit Provider Podiatrist
DX: M19.172 Post-traumatic osteoarthritis, left ankle and foot (principal); M79.673 Pain in unspecified foot; R07.9 Chest pain, unspecified; R06.02 Shortness of breath; R63.5 Abnormal weight gain; N18.32 Chronic kidney disease, stage 3b
CPT/HCPCS: 36415; 71046; 73610; 73630; 80048; 83880; 85025

== ENCOUNTER → 2020-07-31 13:03 | Outpatient (POV) | payer MEDICARE, MEDICAID, SELFPAY | PROVIDERS: Visit Provider Dermatology | DX: Z00.00 Encounter for general adult medical examination without abnormal findings (principal) ==

== ENCOUNTER 2020-08-13 11:10 | Outpatient (CLI) | payer MEDICARE, MEDICAID, SELFPAY | END 2020-08-13 15:58 | disposition home or self-care (01) | LOC: ACC 11:12 | PROVIDERS: PCP Family Medicine; Visit Provider Family Medicine | DX: Z51.81 Encounter for therapeutic drug level monitoring (principal); Z79.01 Long term (current) use of anticoagulants; I48.91 Unspecified atrial fibrillation | CPT/HCPCS: 85610; 99211; G0463 ==

== ENCOUNTER 2020-10-02 07:32 | Outpatient (CLI) | payer MEDICARE, MEDICAID, SELFPAY ==
[2020-10-02 09:08] LABS: Microscopic, Urine URINE MICROSCOPIC (MICROSCOPIC)
--- NOTE | 2020-10-02 09:23 | US_ITS ---
PROCEDURE: US URINARY BLADDER CLINICAL INDICATION: CKD STAGE G3A/A1, MODERATELY DECREASED GFR COMPARISON: No exams were available for comparison FINDINGS: Bilateral ureteral jets are present. The urinary bladder has an unremarkable appearance. The full bladder volume is estimated at 293 mL. There is a mild amount of postvoid residual urine estimated at 46 mL. IMPRESSION: Mild amount of postvoid residual urine within the urinary bladder otherwise negative Dictated by: Gibran Wilcox MD 10/02/2020 17:01 Gibran Wilcox MD in [place] 10/02/2020 17:01
[2020-10-02 09:35] LABS: Appearance,Urine CLEAR (Clear); Bilirubin,Urine Negative (Negative); Blood, Urine Negative (Negative); Color,Urine YELLOW (Yellow); Glucose,Urine (UA) Negative (Negative); Ketones,Urine Negative (Negative); Leukocyte Esterase,Urine Negative (Negative); Nitrate,Urine Negative (Negative); Protein,Urine Negative (Negative); Urobilinogen,Urine 0.2 EU/dl (0.2)
[2020-10-02 09:39] LABS: Basophils # 0.1 K/mm3 (0-0.2); Eosinophils # 0.2 K/mm3 (0.0-0.4); Eosinophils % 2.3 % (0.1-12.0); Hematocrit 39.3 % (42.0-52.0); Hemoglobin 12.7 g/dL (14.1-18.0); Lymphocytes # 1.3 K/mm3 (0.7-4.5); Lymphocytes % 18.8 % (10-50); Mean Corpuscular HGB Conc 32.3 g/dL (31.8-35.4); Mean Corpuscular Hemoglobin 31.4 pg (27.0-31.2); Mean Corpuscular Volume 97.2 fl (80-94); Mean Platelet Volume 8.9 fl (7.4-10.4); Monocytes # 0.4 K/mm3 (0.1-1.0); Monocytes % 5.8 % (1.7-9.3); Neutrophils # 4.8 K/mm3 (1.8-7.8); Neutrophils % 72.2 % (37.0-80.0); Platelet Count 169 K/mm3 (142-424); Red Blood Count 4.05 M/mm3 (4.60-6.20); Red Cell Distribution Width 15.3 % (11.5-17.5); White Blood Count 6.6 K/mm3 (4.8-10.8)
[2020-10-02 09:47] LABS: Squamous Epithelial Cell,Urine Occasional #/hpf (0-5)
[2020-10-02 09:48] LABS: Creatinine,Urine Random 79 mg/dL (Not Estab.)
[2020-10-02 10:11] LABS: Chloride 104 mmol/L (98-107)
[2020-10-02 10:12] LABS: Albumin Level 4.1 g/dl (3.5-5.0); Potassium 4.5 mmoL/L (3.5-5.1); Sodium 143 mmol/L (136-145)
[2020-10-02 10:14] LABS: Blood Urea Nitrogen 34 mg/dl (9-20); Creatine Kinase 99 U/L (55-170); Estimated Glomerular Filt Rate 46 ml/min (>60); GFR (African American) 55 ML/MIN (>60)
[2020-10-02 10:15] LABS: Anion Gap 9.5 mEq/L (5-15); Calcium 9.5 mg/dl (8.4-10.2); Carbon Dioxide 34 mmol/L (22.0-30.0); Glucose 110 mg/dl (74-100); Iron 95 ug/dL (49-181); Phosphorous 4.1 mg/dl (2.5-4.5)
[2020-10-02 10:24] LABS: Total Iron Binding Capacity 321 ug/dL (261-462)
[2020-10-02 10:40] LABS: Uric Acid 6.5 mg/dl (3.5-8.5)
[2020-10-02 10:50] LABS: Ferritin 231 ng/ml (17.9-464)
--- NOTE | 2020-10-02 11:21 | CA_ITS ---
APPROVED REPORT Custodial Maintenance Worker: Loly Fay RVT Study Quality: Good Indications: HTN,CKD Risk Factors Hypertension Obesity Renal Artery Doppler Proximal (R) 87.5/ cm/sec Mid (R) 210.8/ cm/sec Distal (R) 111.7/ cm/sec Renal Aorta Ratio (R) 1.46 Segmental A. (R) 53.6/11.4 cm/sec RI: 0.78 Segmental A. Sup (R) 44.7/15.2 cm/sec Segmental A. Mid (R) 53.6/11.4 cm/sec Segmental A. Inf (R) 40.4/7.9 cm/sec Proximal (L) 134.7/ cm/sec Mid (L) 138.8/ cm/sec Distal (L) 145.9/ cm/sec Renal Aorta Ratio (L) 1.01 Segmental A. (L) 46.9/14.0 cm/sec RI: 0.70 Segmental A. Sup (L) 42.8/14.8 cm/sec Segmental A. Mid (L) 42.8/12.3 cm/sec Segmental A. Inf (L) 46.9/14.0 cm/sec Renal Measurements Kidney Size (R) 10.9x6.2 cm Cortical Thickness (R) 1.1 cm Kidney Size (L) 13.1x8.3 cm Cortical Thickness (L) 1.2 cm Findings Study suggests less than 60% stenosis of the right renal artery. Study suggests no evidence of stenosis of the left renal artery. Electronically signed by : Gibran Wilcox MD 10/02/2020 17:47:51
[2020-10-02 16:46] LABS: PHA INR Fingerstick 2.2 (0.9-1.1)
[2020-10-03 15:10] LABS: Immunoglobulin A, Qn 245 mg/dL (61-437); Immunoglobulin G, Qn 955 mg/dL (603-1613)
[2020-10-03 16:40] LABS: Albumin 3.4 g/dL (2.9-4.4); Alpha-1-Globulin 0.3 g/dL (0.0-0.4); Protein, Total 6.8 g/dL (6.0-8.5)
[2020-10-03 19:09] LABS: Anti-DNA (DS) Ab Qn <1 IU/mL (0-9); Immunoglobulin M, Qn 76 mg/dL (15-143)
[2020-10-04 16:13] LABS: Albumin, U 38.8 % (.); Alpha-1-Globulin, U 11.3 % (.); Alpha-2-Globulin, U 13.9 % (.); Beta Globulin, U 14.9 % (.); Gamma Globulin, U 21.1 % (.); M-Spike, % Not Observed % (Not Observed); Protein,Total,Urine 6.5 mg/dL (Not Estab.)
[2020-10-05 18:38] LABS: Antinuclear Antibodies, IFA Positive (.)
== END 2020-10-02 16:48 | disposition home or self-care (01) ==
LOC: ACC 07:33
PROVIDERS: PCP Family Medicine; Visit Provider Internal Medicine Nephrology
DX: N18.30 Chronic kidney disease, stage 3 unspecified (principal); D63.1 Anemia in chronic kidney disease; M10.9 Gout, unspecified; Z51.81 Encounter for therapeutic drug level monitoring; Z79.01 Long term (current) use of anticoagulants
CPT/HCPCS: 36415; 76857; 80069; 81001; 82550; 82570; 82728; 82784; 83540; 83550; 83970; 84155; 84156; 84165; 84166; 84550; 85025; 85610; 86038; 86225; 86334; 86335; 93976; 99211; G0463

== ENCOUNTER 2020-11-13 08:00 | Outpatient (CLI) | payer MEDICARE, MEDICAID, SELFPAY | END 2020-11-13 12:18 | disposition home or self-care (01) | LOC: ACC 08:01 | PROVIDERS: PCP Family Medicine; Visit Provider Family Medicine | DX: Z51.81 Encounter for therapeutic drug level monitoring (principal); Z79.01 Long term (current) use of anticoagulants | CPT/HCPCS: 85610; 99211; G0463 ==

== ENCOUNTER → 2020-12-04 07:56 | Outpatient (POV) | payer MEDICARE, MEDICAID, SELFPAY | PROVIDERS: Visit Provider Dermatology | DX: Z00.00 Encounter for general adult medical examination without abnormal findings (principal) ==

== ENCOUNTER 2020-12-14 09:17 | Outpatient (CLI) | payer MEDICARE, MEDICAID, SELFPAY | END 2020-12-14 09:53 | disposition home or self-care (01) | LOC: ACC 09:18 | PROVIDERS: PCP Family Medicine; Visit Provider Family Medicine | DX: Z51.81 Encounter for therapeutic drug level monitoring (principal); Z79.01 Long term (current) use of anticoagulants; I48.91 Unspecified atrial fibrillation | CPT/HCPCS: 85610; 99211; G0463 ==

== ENCOUNTER → 2020-12-18 08:29 | Outpatient (POV) | payer MEDICARE, MEDICAID, SELFPAY | PROVIDERS: Visit Provider Dermatology | DX: Z00.00 Encounter for general adult medical examination without abnormal findings (principal) ==

== ENCOUNTER 2021-01-11 09:03 | Outpatient (CLI) | payer MEDICARE, MEDICAID, SELFPAY ==
[2021-01-11 12:56] LABS: PHA INR Fingerstick 2.6 (0.9-1.1)
== END 2021-01-11 13:12 | disposition home or self-care (01) ==
LOC: ACC 09:03
PROVIDERS: PCP Family Medicine; Visit Provider Family Medicine
DX: Z51.81 Encounter for therapeutic drug level monitoring (principal); Z79.01 Long term (current) use of anticoagulants; I48.91 Unspecified atrial fibrillation
CPT/HCPCS: 85610; 99211; G0463

== ENCOUNTER 2021-02-20 08:46 | Outpatient (CLI) | payer MEDICARE, MEDICAID, SELFPAY ==
[2021-02-20 13:15] LABS: PHA INR Fingerstick 2.1 (0.9-1.1)
== END 2021-02-20 13:22 | disposition home or self-care (01) ==
LOC: ACC 08:46
PROVIDERS: PCP Family Medicine; Visit Provider Family Medicine
DX: Z51.81 Encounter for therapeutic drug level monitoring (principal); Z79.01 Long term (current) use of anticoagulants; I48.91 Unspecified atrial fibrillation
CPT/HCPCS: 85610; 99211; G0463

== ENCOUNTER 2021-04-02 08:25 | Outpatient (CLI) | payer MEDICARE, MEDICAID, SELFPAY ==
[2021-04-02 11:50] LABS: PHA INR Fingerstick 3.3 (0.9-1.1)
== END 2021-04-02 15:23 | disposition home or self-care (01) ==
LOC: ACC 08:27
PROVIDERS: PCP Family Medicine; Visit Provider Family Medicine
DX: Z51.81 Encounter for therapeutic drug level monitoring (principal); Z79.01 Long term (current) use of anticoagulants; I48.91 Unspecified atrial fibrillation
CPT/HCPCS: 85610; 99211; G0463

== ENCOUNTER 2021-04-16 08:25 | Outpatient (CLI) | payer MEDICARE, MEDICAID, SELFPAY ==
[2021-04-16 16:12] LABS: PHA INR Fingerstick 2.7 (0.9-1.1)
== END 2021-04-16 16:13 | disposition home or self-care (01) ==
LOC: ACC 08:26
PROVIDERS: PCP Family Medicine; Visit Provider Family Medicine
DX: Z51.81 Encounter for therapeutic drug level monitoring (principal); Z79.01 Long term (current) use of anticoagulants; I48.91 Unspecified atrial fibrillation
CPT/HCPCS: 85610; 99211; G0463

== ENCOUNTER → 2021-05-07 08:14 | Outpatient (CLI) | payer MEDICARE, MEDICAID, SELFPAY ==
[2021-05-07 09:09] LABS: Basophils % 0.9 % (0.1-2.0); Eosinophils # 0.2 K/mm3 (0.0-0.4); Eosinophils % 3.8 % (0.1-12.0); Hematocrit 39.7 % (42.0-52.0); Hemoglobin 13.2 g/dL (14.1-18.0); Lymphocytes # 1.4 K/mm3 (0.7-4.5); Lymphocytes % 27.6 % (10-50); Mean Corpuscular HGB Conc 33.2 g/dL (31.8-35.4); Mean Corpuscular Hemoglobin 33.1 pg (27.0-31.2); Mean Corpuscular Volume 99.6 fl (80-94); Mean Platelet Volume 9.8 fl (7.4-10.4); Monocytes # 0.4 K/mm3 (0.1-1.0); Monocytes % 7.9 % (1.7-9.3); Neutrophils # 3.1 K/mm3 (1.8-7.8); Neutrophils % 59.8 % (37.0-80.0); Platelet Count 129 K/mm3 (142-424); Red Blood Count 3.99 M/mm3 (4.60-6.20); Red Cell Distribution Width 15.1 % (11.5-17.5); White Blood Count 5.2 K/mm3 (4.8-10.8)
[2021-05-07 09:44] LABS: Prothrombin Time 18.6 seconds (10.1-12.5)
[2021-05-07 09:48] LABS: INR 1.83 (0.9-1.1)
[2021-05-07 09:54] LABS: Alanine Aminotransferase 56 U/L (12-78); Albumin Level 3.7 g/dl (3.5-5.0); Albumin/Globulin Ratio 1.3 (1.1-1.8); Alkaline Phosphatase 81 U/L (38-126); Anion Gap 11.5 mEq/L (5-15); Aspartate Amino Transferase 63 U/L (17-59); Bilirubin,Total 1.6 mg/dl (0.2-1.3); Blood Urea Nitrogen 25 mg/dl (9-20); Carbon Dioxide 31 mmol/L (22.0-30.0); Chloride 104 mmol/L (98-107); Estimated Glomerular Filt Rate 46 ml/min (>60); GFR (African American) 55 ML/MIN (>60); Globulin 2.8 g/dL (1.3-3.2); Glucose 101 mg/dl (74-100); Potassium 4.5 mmoL/L (3.5-5.1); Sodium 142 mmol/L (136-145); Total Protein,Serum 6.5 g/dl (6.3-8.2); Uric Acid 6.9 mg/dl (3.5-8.5)
[2021-05-07 10:49] LABS: Iron 92 ug/dL (49-181)
== END ==
PROVIDERS: PCP Family Medicine; Visit Provider Family Medicine
DX: N18.2 Chronic kidney disease, stage 2 (mild) (principal); D63.1 Anemia in chronic kidney disease; E55.9 Vitamin D deficiency, unspecified; M10.9 Gout, unspecified; Z51.81 Encounter for therapeutic drug level monitoring; Z79.01 Long term (current) use of anticoagulants
CPT/HCPCS: 36415; 80053; 82306; 83540; 84550; 85025; 85610

== ENCOUNTER 2021-06-04 08:34 | Outpatient (CLI) | payer MEDICARE, MEDICAID, SELFPAY ==
[2021-06-04 15:45] LABS: PHA INR Fingerstick 2.1 (0.9-1.1)
== END 2021-06-04 16:02 | disposition home or self-care (01) ==
LOC: ACC 08:35
PROVIDERS: PCP Family Medicine; Visit Provider Family Medicine
DX: Z51.81 Encounter for therapeutic drug level monitoring (principal); Z79.01 Long term (current) use of anticoagulants
CPT/HCPCS: 85610; 99211; G0463

== ENCOUNTER → 2021-06-25 13:15 | Outpatient (POV) | payer MEDICARE, MEDICAID, SELFPAY | PROVIDERS: Visit Provider Dermatology | DX: Z00.00 Encounter for general adult medical examination without abnormal findings (principal) ==

== ENCOUNTER 2021-07-16 14:27 | Outpatient (CLI) | payer MEDICARE, MEDICAID, SELFPAY ==
[2021-07-16 15:18] LABS: PHA INR Fingerstick 2.7 (0.9-1.1)
== END 2021-07-16 15:20 | disposition home or self-care (01) ==
LOC: ACC 14:28
PROVIDERS: PCP Family Medicine; Visit Provider Family Medicine
DX: Z51.81 Encounter for therapeutic drug level monitoring (principal); Z79.01 Long term (current) use of anticoagulants; I48.91 Unspecified atrial fibrillation
CPT/HCPCS: 85610; 99211; G0463

== ENCOUNTER 2021-07-25 08:56 | Outpatient (CLI) | payer MEDICARE, MEDICAID, SELFPAY ==
[2021-07-25 09:20] LABS: PHA INR Fingerstick 2.7 (0.9-1.1)
== END 2021-07-25 14:12 | disposition home or self-care (01) ==
LOC: ACC 08:57
PROVIDERS: PCP Family Medicine; Visit Provider Family Medicine
DX: Z51.81 Encounter for therapeutic drug level monitoring (principal); Z79.01 Long term (current) use of anticoagulants; I48.91 Unspecified atrial fibrillation
CPT/HCPCS: 85610; 99211; G0463

== ENCOUNTER 2021-08-14 09:47 | Outpatient (CLI) | payer MEDICARE, MEDICAID, SELFPAY ==
[2021-08-14 10:43] LABS: PHA INR Fingerstick 3.2 (0.9-1.1)
== END 2021-08-14 10:46 | disposition home or self-care (01) ==
LOC: ACC 09:49
PROVIDERS: PCP Family Medicine; Visit Provider Family Medicine
DX: Z51.81 Encounter for therapeutic drug level monitoring (principal); Z79.01 Long term (current) use of anticoagulants; I48.91 Unspecified atrial fibrillation
CPT/HCPCS: 85610; 99211; G0463

== ENCOUNTER 2021-09-02 08:53 | Outpatient (CLI) | payer MEDICARE, MEDICAID, SELFPAY | END 2021-09-02 13:07 | disposition home or self-care (01) | LOC: ACC 08:55 | PROVIDERS: PCP Family Medicine; Visit Provider Family Medicine | DX: Z51.81 Encounter for therapeutic drug level monitoring (principal); Z79.01 Long term (current) use of anticoagulants; I48.91 Unspecified atrial fibrillation | CPT/HCPCS: 85610; 99211; G0463 ==

== ENCOUNTER → 2021-09-23 08:17 | Outpatient (CLI) | payer MEDICARE, MEDICAID, SELFPAY ==
[2021-09-23 08:58] LABS: Basophils # 0.1 K/mm3 (0-0.2); Basophils % 1.4 % (0.1-2.0); Eosinophils # 0.3 K/mm3 (0.0-0.4); Eosinophils % 5.2 % (0.1-12.0); Hematocrit 41.1 % (42.0-52.0); Hemoglobin 12.8 g/dL (14.1-18.0); Lymphocytes # 1.4 K/mm3 (0.7-4.5); Lymphocytes % 28.4 % (10-50); Mean Corpuscular HGB Conc 31.1 g/dL (31.8-35.4); Mean Corpuscular Hemoglobin 32.1 pg (27.0-31.2); Mean Corpuscular Volume 103.2 fl (80-94); Mean Platelet Volume 10.3 fl (7.4-10.4); Monocytes # 0.3 K/mm3 (0.1-1.0); Neutrophils # 2.8 K/mm3 (1.8-7.8); Neutrophils % 58.1 % (37.0-80.0); Platelet Count 146 K/mm3 (142-424); Red Blood Count 3.98 M/mm3 (4.60-6.20); Red Cell Distribution Width 15.6 % (11.5-17.5); White Blood Count 4.9 K/mm3 (4.8-10.8)
[2021-09-23 09:02] LABS: INR 2.84 (0.9-1.1); Prothrombin Time 29.7 seconds (10.1-12.5)
[2021-09-23 10:41] LABS: Iron 112 ug/dL (49-181)
== END ==
PROVIDERS: PCP Family Medicine; Visit Provider Family Medicine
DX: D64.9 Anemia, unspecified (principal); D69.59 Other secondary thrombocytopenia
CPT/HCPCS: 36415; 83540; 85025; 85610

== ENCOUNTER 2021-10-22 08:48 | Outpatient (CLI) | payer MEDICARE, MEDICAID, SELFPAY ==
[2021-10-22 14:09] LABS: PHA INR Fingerstick 2.4 (0.9-1.1)
== END 2021-10-22 14:13 | disposition home or self-care (01) ==
LOC: ACC 08:50
PROVIDERS: PCP Family Medicine; Visit Provider Family Medicine
DX: Z51.81 Encounter for therapeutic drug level monitoring (principal); Z79.01 Long term (current) use of anticoagulants; I48.91 Unspecified atrial fibrillation
CPT/HCPCS: 85610; 99211; G0463

== ENCOUNTER → 2021-10-24 13:32 | Outpatient (CLI) | payer MEDICARE, MEDICAID, SELFPAY ==
--- NOTE | 2021-10-24 13:40 | XR_ITS ---
FINAL REPORT CLINICAL HISTORY: .fall last year-- most pain laterally FINDINGS: Three views of the right knee reveal no evidence of fracture or dislocation. The bony alignment is normal. Moderate degenerative changes greatest in the medial compartment. There is medial compartment narrowing. There is a small joint effusion. There are postoperative changes in the medial soft tissues. IMPRESSION: Moderate degenerative changes with a small joint effusion. Reviewed, Interpreted and Dictated by Phi Stahl III, MD Transcribed by Erasmo Singh Authenticated by Phi Stahl III, MD on 10/24/2021 02:33:25 PM [facility]
== END ==
PROVIDERS: PCP Family Medicine; Visit Provider Family Medicine
DX: M25.561 Pain in right knee (principal)
CPT/HCPCS: 73562

== ENCOUNTER 2021-11-12 08:56 | Outpatient (CLI) | payer MEDICARE, MEDICAID, SELFPAY ==
[2021-11-12 09:56] LABS: PHA INR Fingerstick 2.2 (0.9-1.1)
== END 2021-11-12 10:28 | disposition home or self-care (01) ==
LOC: ACC 08:57
PROVIDERS: PCP Family Medicine; Visit Provider Family Medicine
DX: Z51.81 Encounter for therapeutic drug level monitoring (principal); Z79.01 Long term (current) use of anticoagulants; I48.91 Unspecified atrial fibrillation
CPT/HCPCS: 85610; 99211; G0463

== ENCOUNTER 2021-11-25 11:23 | Outpatient (CLI) | payer MEDICARE, MEDICAID, SELFPAY ==
[2021-11-25 13:21] LABS: PHA INR Fingerstick 1.7 (0.9-1.1)
== END 2021-11-25 13:28 | disposition home or self-care (01) ==
PROVIDERS: PCP Family Medicine; Visit Provider Family Medicine
DX: I48.91 Unspecified atrial fibrillation (principal); Z79.01 Long term (current) use of anticoagulants
CPT/HCPCS: 85610; 99211; G0463

== ENCOUNTER 2021-11-29 11:26 | Outpatient (RCR) | payer MEDICARE, MEDICAID, SELFPAY | END 2021-11-29 12:40 | disposition home or self-care (01) | LOC: PT 11:26 | PROVIDERS: Visit Provider Orthopaedic Surgery | DX: M25.561 Pain in right knee (principal) | CPT/HCPCS: 97760 ==

== ENCOUNTER → 2021-12-10 09:00 | Outpatient (POV) | payer MEDICARE, MEDICAID, SELFPAY | PROVIDERS: Visit Provider Dermatology | DX: Z00.00 Encounter for general adult medical examination without abnormal findings (principal) ==

== ENCOUNTER 2021-12-19 08:57 | Outpatient (CLI) | payer MEDICARE, MEDICAID, SELFPAY ==
[2021-12-19 09:56] LABS: PHA INR Fingerstick 2.6 (0.9-1.1)
== END 2021-12-19 09:57 | disposition home or self-care (01) ==
LOC: ACC 08:58
PROVIDERS: PCP Family Medicine; Visit Provider Family Medicine
DX: Z51.81 Encounter for therapeutic drug level monitoring (principal); Z79.01 Long term (current) use of anticoagulants; I48.91 Unspecified atrial fibrillation
CPT/HCPCS: 85610; 99211; G0463

== ENCOUNTER 2021-12-31 09:45 | Outpatient (CLI) | payer MEDICARE, MEDICAID, SELFPAY ==
[2021-12-31 10:24] LABS: PHA INR Fingerstick 2.5 (0.9-1.1)
== END 2021-12-31 10:25 | disposition home or self-care (01) ==
LOC: ACC 09:46
PROVIDERS: PCP Family Medicine; Visit Provider Family Medicine
DX: Z51.81 Encounter for therapeutic drug level monitoring (principal); Z79.01 Long term (current) use of anticoagulants; I48.91 Unspecified atrial fibrillation
CPT/HCPCS: 85610; 99211; G0463

== ENCOUNTER 2022-01-02 09:00 | Outpatient (RCR) | payer MEDICARE, MEDICAID, SELFPAY ==
--- NOTE | 2021-12-05 09:02 | HMH.PTOPEV ---
PT Outpatient Evaluation Rehab PT Outpatient Evaluation Start: 12/05/21 08:06 Freq: Status: Active Protocol: Document 12/05/21 08:52 LSISETH (Rec: 12/05/21 09:02 PHORJESUS [id number]) Electronically Signed By Kevin Walker, PT 12/05/21 08:52 Outpatient Therapy Subjective History Subjective History Pt is 76 yowm who presents with c/o pain in the R knee x ~ 2-3 yrs, gradually worse. He reports fairly constant aching pain, but worse with walking or standing. X-rays show OA, worse on medial aspect of R knee. He has hx of HL, HTN, FL, CAD, Pacemaker, carotid endarterectomy. Chief Complaint Pain,Stiff Symptom Type Ache Symptoms Relieved By Rest/Positioning Symptoms Aggravated By Physical Activity,Walking Prior Functional Limitations None Current Functional Limitations Standing,Recreation Activity, Walking,Stairs Symptom Description Constant but Variable Level of pain today (0-10) 3 Pain scale - at its worst (0-10) 6 Hip/Knee Eval Gait Observation General Gait Pattern Observation Antalgic Gait Assistive Device Assistive Devices Straight Cane Palpation Tenderness right Knee Palpation Finding Tenderness Knee Palpation Overall Comment med and lat jt line MMT Hip Flexion Strength Grade 4 Good Hip Abduction Strength Grade 4 Good Hip Adduction Strength Grade 5 Normal Hip Extension Strength Grade 5 Normal Knee Extension Strength Grade 4 Good Knee Flexion Strength Grade 4 Good ROM Knee Extension Active Range of Motion ( 0 degrees) Knee Flexion Active Range of Motion ( 0-102 degrees) Special Tests Sciatic Nerve Tension Test Negative Left,Negative Right Hip Scouring (Quadrant) Test Negative Left,Negative Right Knee Anterior Drawer Test Negative Left,Negative Right Knee Anterior Malina Test Negative Left,Negative Right Knee Posterior Sag (Easley Drawer) Test Negative Left,Negative Right Knee Valgus Stress Test Negative Left,Negative Right Knee Varus Stress Test Negative Left,Negative Right Knee Lindsay Test Negative Left,Negative Right Outpatient Therapy Assessment Impairments Problems/Impairmments Palpation Tenderness,Impaired Range of Motion,Impaired Strength,Impaired Endurance, Impaired Transfers,Impaired Gait Pattern,Impaired Walking, Impaired St
== END 2022-01-02 09:05 | disposition home or self-care (01) ==
LOC: PT 09:00
PROVIDERS: PCP Family Medicine; Visit Provider Orthopaedic Surgery
DX: M25.561 Pain in right knee (principal)
CPT/HCPCS: 97010; 97110; 97163

== ENCOUNTER 2022-01-08 08:58 | Outpatient (CLI) | payer MEDICARE, MEDICAID, SELFPAY ==
[2022-01-08 10:35] LABS: PHA INR Fingerstick 2.2 (0.9-1.1)
== END 2022-01-08 11:44 | disposition home or self-care (01) ==
LOC: ACC 08:59
PROVIDERS: PCP Family Medicine; Visit Provider Family Medicine
DX: Z51.81 Encounter for therapeutic drug level monitoring (principal); Z79.01 Long term (current) use of anticoagulants; I48.91 Unspecified atrial fibrillation
CPT/HCPCS: 85610; 99211; G0463

== ENCOUNTER 2022-02-03 15:14 | Outpatient (CLI) | payer MEDICARE, MEDICAID, SELFPAY ==
[2022-02-03 16:33] LABS: PHA INR Fingerstick 2.5 (0.9-1.1)
== END 2022-02-03 16:34 | disposition home or self-care (01) ==
LOC: ACC 15:15
PROVIDERS: PCP Family Medicine; Visit Provider Family Medicine
DX: Z51.81 Encounter for therapeutic drug level monitoring (principal); Z79.01 Long term (current) use of anticoagulants; I48.91 Unspecified atrial fibrillation
CPT/HCPCS: 85610; 99211; G0463

== ENCOUNTER 2022-03-18 09:34 | Outpatient (CLI) | payer MEDICARE, MEDICAID, SELFPAY ==
[2022-03-18 13:28] LABS: PHA INR Fingerstick 2.6 (0.9-1.1)
== END 2022-03-18 13:30 | disposition home or self-care (01) ==
LOC: ACC 09:35
PROVIDERS: PCP Family Medicine; Visit Provider Family Medicine
DX: Z51.81 Encounter for therapeutic drug level monitoring (principal); Z79.01 Long term (current) use of anticoagulants; I48.91 Unspecified atrial fibrillation
CPT/HCPCS: 85610; 99211; G0463

== ENCOUNTER → 2022-04-08 08:09 | Outpatient (POV) | payer MEDICARE, MEDICAID, SELFPAY | PROVIDERS: Visit Provider Dermatology | DX: Z00.00 Encounter for general adult medical examination without abnormal findings (principal) ==

== ENCOUNTER 2022-06-17 08:47 | Outpatient (CLI) | payer MEDICARE, MEDICAID, SELFPAY ==
[2022-06-17 14:17] LABS: PHA INR Fingerstick 2.5 (0.9-1.1)
== END 2022-06-17 14:38 ==
LOC: ACC 08:48
PROVIDERS: PCP Family Medicine; Visit Provider Family Medicine
DX: Z51.81 Encounter for therapeutic drug level monitoring (principal); Z79.01 Long term (current) use of anticoagulants
CPT/HCPCS: 85610; 99211; G0463

== ENCOUNTER 2022-06-26 08:00 | Outpatient (RCR) | payer MEDICARE, MEDICAID, SELFPAY ==
--- NOTE | 2022-05-26 09:25 | HMH.PTOPWND ---
Rehab Outpt Wound Evaluation Rehab OP Wound Evaluation Start: 05/26/22 09:01 Freq: Status: Active Protocol: Document 05/26/22 09:17 LISSETH (Rec: 05/26/22 09:24 PHOCHICA [id number]) E-signed By Kevin Walker PT Subjective/History History History Pt is 76 yowm who presents with B LE edema for many years , worse for the past several mos. He reports pain in B LE from knee distally, but due to OA in B knees and ankles. He presents with pitting edema to B lower legs and palpation tenderness to B gaitor areas. Mild hemosiderin staining to B lower legs noted. He reports PMH of HTN, CAD, CABG, cardiac valve replacement, CHF, CVI. Subjective Subjective Pain currently 6/10, but worse with prolonged standing. 3+ pitting edema noted to B lower legs. 1/4 tenderness to palpation in B gaitor area. Sensation appears intact. Lymphedema Eval Classification of Lymphedema Secondary Lymphedema Yes: CVI, Cardiac Stemmer's sign Stemmer's Sign yes Stage of Lymphedema Lymphedema stages Stage II (Pitting edema, increased fibrosis w/ decreased pitting) Skin Changes Dry Skin Yes Taut, Shiny Skin Yes Redness Yes Wounds Yes Discoloration of Skin Yes Other Changes Yes Pain Scale Pain Scale (0-10) 6 Affected Extremities Areas Affected by Lymphedema/Edema Right Lower Extremity,Left Lower Extremity Manual Lymphatic Drainage Treatment Area MLD Treatment Area Right Lower Extremity,Left Lower Extremity Wound Problems/Impairments Impairments Problems/Impairmments Palpation Tenderness,Impaired Strength,Impaired Endurance, Impaired Transfers,Impaired Gait Pattern,Impaired Walking, Impaired Standing,Impaired Stair Climbing,Impaired Incline Stepping,Impaired Stepping on Uneven Surface, Impaired Recreational Activities,Increased Edema,
--- NOTE | 2022-06-26 11:18 | HMH.RHREAS ---
Rehab Reassessment Rehab OP Re-assessment Start: 06/26/22 10:56 Freq: Status: Active Protocol: Document 06/26/22 10:57 LISSETH (Rec: 06/26/22 11:18 LISSETH [id number]) E-signed By Kevin Walker, PT Rehab Re-assessment Subjective Subjective Pt reports pain and tenderness slightly better, but he feels he has reached a plateau in his edema. I don't know if its worth my time to come up here if I'm not going to get a lot better. Objective Objective Notes B LE with 2+ pitting edema from mid-calf distally. TTP 1/4 throughout B lower legs in the gaitor area. Assessment Progress Assessment Slower Than Expected Assessment Notes Pt has shown progress with pain and tenderness at this time. However, edema remains significant and is exacerbated by multiple co-morbid conditions. Cardiac issues and multiple medications are most likely conspiring to reduce treatment effectiveness. Patient goals met ST,2,3,4 Goals Not Met LT,2,3,4,5,6 Revised Goals none Plan Plan Will follow patient wish to hold treatment at this time. Encouraged hime to return to treatment if symptoms worsen. Frequency of Therapy 0 Duration of therapy 0 Time and Billing Re-Eval Time 15 Re-Eval Billing Units 1 PHYSICIAN CERTIFICATION: I certify the specified therapy services for Chad Lyon are required, authorized, and reviewed every 30 days.
== END 2022-06-26 08:05 | disposition home or self-care (01) ==
LOC: PT 08:00
PROVIDERS: PCP Family Medicine; Visit Provider Podiatrist
DX: I89.0 Lymphedema, not elsewhere classified (principal); L03.90 Cellulitis, unspecified
CPT/HCPCS: 97140; 97162; 97164

== ENCOUNTER 2022-07-29 08:56 | Outpatient (CLI) | payer MEDICARE, MEDICAID, SELFPAY ==
[2022-07-29 16:12] LABS: PHA INR Fingerstick 2.5 (0.9-1.1)
== END 2022-07-29 16:17 ==
LOC: ACC 08:57
PROVIDERS: PCP Family Medicine; Visit Provider Family Medicine
DX: Z51.81 Encounter for therapeutic drug level monitoring (principal); Z79.01 Long term (current) use of anticoagulants; I48.91 Unspecified atrial fibrillation
CPT/HCPCS: 85610; 99211; G0463

== ENCOUNTER → 2022-08-26 10:36 | Outpatient (POV) | payer MEDICARE, MEDICAID, SELFPAY | PROVIDERS: Visit Provider Dermatology | DX: Z00.00 Encounter for general adult medical examination without abnormal findings (principal) ==

== ENCOUNTER 2022-09-10 10:57 | Outpatient (CLI) | payer MEDICARE, MEDICAID, SELFPAY ==
[2022-09-10 12:25] LABS: PHA INR Fingerstick 2.3 (0.9-1.1)
== END 2022-09-10 12:34 ==
LOC: ACC 10:59
PROVIDERS: PCP Family Medicine; Visit Provider Family Medicine
DX: Z51.81 Encounter for therapeutic drug level monitoring (principal); Z79.01 Long term (current) use of anticoagulants; I48.91 Unspecified atrial fibrillation
CPT/HCPCS: 85610; 99211; G0463

== ENCOUNTER 2022-10-20 08:57 | Outpatient (CLI) | payer MEDICARE, MEDICAID, SELFPAY | END 2022-10-20 10:20 | LOC: ACC 08:58 | PROVIDERS: PCP Family Medicine; Visit Provider Family Medicine | DX: Z51.81 Encounter for therapeutic drug level monitoring (principal); Z79.01 Long term (current) use of anticoagulants; I48.91 Unspecified atrial fibrillation | CPT/HCPCS: 85610; 99211; G0463 ==

== ENCOUNTER → 2022-11-17 15:10 | Outpatient (CLI) | payer MEDICARE, MEDICAID, SELFPAY ==
[2022-11-17 15:23] LABS: Adenovirus,PCR Not Detected (NotDetected); Bordetella Pertussis Not Detected (NotDetected); Chlamydophila Pneumoniae, PCR Not Detected (NotDetected); Coronavirus 19, PCR Not Detected (NotDetected); Coronavirus 229E Not Detected (NotDetected); Coronavirus NL63 Not Detected (NotDetected); Coronavirus OC43 Not Detected (NotDetected); Coronovirus HKU1,PCR Not Detected (NotDetected); Influenza A, PCR Not Detected (NotDetected); Influenza AH1, 2009 Not Detected (NotDetected); Influenza AH1, PCR Not Detected (NotDetected); Influenza AH3,PCR Not Detected (NotDetected); Influenza B, PCR Not Detected (NotDetected); Mycoplasma Pneumoniae, PCR Not Detected (NotDetected); Parainfluenza 1, PCR Not Detected (NotDetected); Parainfluenza 2, PCR Not Detected (NotDetected); Parainfluenza 3, PCR Not Detected (NotDetected); Parainfluenza 4, PCR Not Detected (NotDetected); Respiratory Syncytial Virus Not Detected (NotDetected); Rhinovirus/Enterovirus Not Detected (NotDetected)
--- NOTE | 2022-11-17 15:27 | XR_ITS ---
FINAL REPORT CLINICAL HISTORY: COUGH for 2 weeks COMPARISON: 07/20/2020 FINDINGS: 2 views of the chest were obtained . The heart is normal in size. Patient is status post median sternotomy. 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 The mediastinum is within normal limits. Mild atelectasis or scarring is seen at the right lung base. Lungs are otherwise clear. There is no pneumothorax. Osseous structures are unremarkable. IMPRESSION: Mild atelectasis or scarring at the right lung base. Reviewed, Interpreted and Dictated by Phi Stahl III, MD Transcribed by Fariba Melendez Authenticated and . [facility]
[2022-11-17 18:18] LABS: Human Metapneumovirus Detected (NotDetected)
== END ==
PROVIDERS: PCP Family Medicine; Visit Provider Family Medicine
DX: B97.81 Human metapneumovirus as the cause of diseases classified elsewhere (principal); R06.2 Wheezing
CPT/HCPCS: 71046; 87581; 87632; 87798; C9803; U0003; U0005

== ENCOUNTER 2022-12-08 08:48 | Outpatient (CLI) | payer MEDICARE, MEDICAID, SELFPAY ==
[2022-12-08 13:33] LABS: PHA INR Fingerstick 2.9 (0.9-1.1)
== END 2022-12-08 13:38 ==
LOC: ACC 08:49
PROVIDERS: PCP Family Medicine; Visit Provider Family Medicine
DX: Z51.81 Encounter for therapeutic drug level monitoring (principal); Z79.01 Long term (current) use of anticoagulants; I48.91 Unspecified atrial fibrillation
CPT/HCPCS: 85610; 99211; G0463

== ENCOUNTER 2023-01-12 09:00 | Outpatient (CLI) | payer MEDICARE, MEDICAID, SELFPAY ==
[2023-01-12 09:35] LABS: PHA INR Fingerstick 2.7 (0.9-1.1)
== END 2023-01-12 09:38 ==
LOC: ACC 09:01
PROVIDERS: PCP Family Medicine; Visit Provider Family Medicine
DX: Z51.81 Encounter for therapeutic drug level monitoring (principal); Z79.01 Long term (current) use of anticoagulants; I48.91 Unspecified atrial fibrillation
CPT/HCPCS: 85610; 99211; G0463

== ENCOUNTER 2023-02-11 11:35 | Outpatient (CLI) | payer MEDICARE, MEDICAID, SELFPAY ==
[2023-02-11 14:40] LABS: PHA INR Fingerstick 3.8 (0.9-1.1)
== END 2023-02-11 14:50 ==
LOC: ACC 11:36
PROVIDERS: PCP Family Medicine; Visit Provider Family Medicine
DX: Z79.01 Long term (current) use of anticoagulants (principal); Z51.81 Encounter for therapeutic drug level monitoring; I48.91 Unspecified atrial fibrillation
CPT/HCPCS: 85610; 99211; G0463

== ENCOUNTER 2023-02-20 09:53 | Outpatient (CLI) | payer MEDICARE, MEDICAID, SELFPAY ==
[2023-02-20 12:58] LABS: PHA INR Fingerstick 2.5 (0.9-1.1)
== END 2023-02-20 15:14 ==
LOC: ACC 09:54
PROVIDERS: PCP Family Medicine; Visit Provider Family Medicine
DX: Z79.01 Long term (current) use of anticoagulants (principal); Z51.81 Encounter for therapeutic drug level monitoring; I48.91 Unspecified atrial fibrillation
CPT/HCPCS: 85610; 99211; G0463

== ENCOUNTER 2023-03-23 14:35 | Outpatient (CLI) | payer MEDICARE, MEDICAID, SELFPAY ==
[2023-03-23 14:59] LABS: PHA INR Fingerstick 3.4 (0.9-1.1)
== END 2023-03-23 15:02 ==
LOC: ACC 14:36
PROVIDERS: PCP Family Medicine; Visit Provider Family Medicine
DX: Z79.01 Long term (current) use of anticoagulants (principal); Z51.81 Encounter for therapeutic drug level monitoring; I48.91 Unspecified atrial fibrillation
CPT/HCPCS: 85610; 99211; G0463

== ENCOUNTER 2023-04-20 08:48 | Outpatient (CLI) | payer MEDICARE, MEDICAID, SELFPAY ==
[2023-04-20 09:28] LABS: PHA INR Fingerstick 1.7 (0.9-1.1)
== END 2023-04-20 09:29 ==
LOC: ACC 08:49
PROVIDERS: PCP Family Medicine; Visit Provider Family Medicine
DX: Z79.01 Long term (current) use of anticoagulants (principal); Z51.81 Encounter for therapeutic drug level monitoring; I48.91 Unspecified atrial fibrillation
CPT/HCPCS: 85610; 99211; G0463

== ENCOUNTER 2023-05-04 08:45 | Outpatient (CLI) | payer MEDICARE, MEDICAID, SELFPAY ==
[2023-05-04 13:01] LABS: PHA INR Fingerstick 2.2 (0.9-1.1)
== END 2023-05-04 13:10 ==
LOC: ACC 08:46
PROVIDERS: PCP Family Medicine; Visit Provider Family Medicine
DX: Z79.01 Long term (current) use of anticoagulants (principal); Z51.81 Encounter for therapeutic drug level monitoring; I48.91 Unspecified atrial fibrillation
CPT/HCPCS: 85610; 99211; G0463

== ENCOUNTER → 2023-05-26 08:03 | Outpatient (POV) | payer MEDICARE, MEDICAID, SELFPAY ==
--- OUTSIDE RECORDS SUMMARY | 2023-05-26 08:05 | XMS_ITS | Continuity of Care Document ---
Author Name Unknown Address [address] [place], [place] [id number] Organization [facility] Phone Care Team Providers Care Property Consultant Name Role Phone KAMERON PHAM Admitting KAMERON PHAM Primary Attending [phone] KAMERON PHAM Unavailable KALPANA YIN Primary Care ALLERGIES AND ADVERSE REACTIONS ALLERGIES AND ADVERSE REACTIONS Code System Allergy Substance Adverse Reaction Date Reaction (Severity) Comment Status Reported By Updated By BETZY (Free Text Allergy) Adverse reaction to substance Not Specified active [id number] on July 08, 2021 7:08:34 AM UT FAMILY HISTORY RELATION: Father Status: Cause of : Unknown Age at : Unknown SNOMED-CT Diagnosis Age At Onset [id number] Alcoholism RELATION: Mother Status: Cause of : Unknown Age at : Unknown SNOMED-CT Diagnosis Age At Onset [id number] Hypertensive disorder [id number] Diabetes mellitus RESULTS Patient: DILLAN Lion Date of : 1945 LABORATORY RESULTS ORDER 200: CBC AUTO W DIFF ( LOINC: 33902-8) ORDER DATE: April 22, 2023 12:24:00 PM UT Specimen Source: Whole Blood [facility] [id number] Result Comment: Final Result Date: April 22, 2023 12:38:00 PM UT (TECH: MRB) LOINC TEST FLAG RESULT REFERENCE RANGE UPDA JUICE BY 6690-2 Leukocytes [#/volume] in Blood by Automated count L 4.3 10^3/uL 4.5 10^3/uL - 11.5 10^3/uL April 22, 2023 12:38:00 PM UTC (TECH: MRB) 789-8 Erythrocytes [#/volume] in Blood by Automated count L 3.76 10^6/uL 4.25 10^6/uL - 5.57 10^6/uL April 22, 2023 12:38:00 PM UTC (TECH: MRB) 718-7 Hemoglobin [Mass/volume] in Blood L 12.4 g/dL 13.5 g/dL - 17.2 g/dL April 22, 2023 12:38:00 PM UTC (TECH: MRB) 17562-7 Hematocrit [Volume Fraction] of Blood L 37.1 % 42.0 % - 52.0 % April 22, 2023 12:38:00 PM UTC (TECH: MRB) 787-2 Erythrocyte mean corpuscular volume [Entitic volume] by Automated count H 98.7 fl 80 fl - 95 fl April 22, 2023 12:38:00 PM UTC (TECH: MRB) 16041-3 Erythrocyte mean corpuscular hemoglobin [Entitic mass] in Blood from Fetus by Automated count N 33.0 pg 27.0 pg - 34.0 pg April 22, 2023 12:38:00 PM UTC (TECH: MRB) 48663-7 Erythrocyte mean corpuscular hemoglobin concentration [Mass/volume] in Blood from Fetus by Automated count N 33.4 g/dL 32.0 g/dL - 36.0 g/dL April 22, 2023 12:38:00 PM UTC (TECH: MRB) 16426-0 Platelets [#/volume] in Blood L 113 10^3/uL 150 10^3/uL - 450 10^3/uL April 22, 2023 12:38:00 PM UTC (TECH: MRB) 77197-4 Erythrocyte distribution width [Ratio] N 14.2 % 12.3 % - 15.1 % April 22, 2023 12:38:00 PM UTC (TECH: MRB) 66989-2 Platelet mean volume [Entitic volume] in Blood by Automated count H 10.8 fl 7.4 fl - 10.4 fl April 22, 2023 12:38:00 PM UTC (TECH: MRB) 61951-2 Granulocytes/100 leukocytes in Blood by Automated count N 55.5 % 40 % - 75 % April 22, 2023 12:38:00 PM UTC (TECH: MRB) 736-9 Lymphocytes/100 leukocytes in Blood by Automated count N 29.0 % 15 % - 57 % April 22, 2023 12:38:00 PM UTC (TECH: MRB) 5905-5 Monocytes/100 leukocytes in Blood by Automated count N 10.8 % 4.0 % - 12.0 % April 22, 2023 12:38:00 PM UTC (TECH: MRB) 713-8 Eosinophils/100 leukocytes in Blood by Automated count N 3.5 % 0.0 % - 4.0 % April 22, 2023 12:38:00 PM UTC (TECH: MRB) 706-2 Basophils/100 leukocytes in Blood by Automated count N 0.5 % 0.0 % - 1.0 % April 22, 2023 12:38:00 PM UTC (TECH: MRB) 86235-9 Immature granulocytes [#/volume] in Blood N 0.7 % 0.0 % - 0.8 % April 12:38:00 PM UTC (TECH: MRB) 05014-2 Granulocytes [#/volume] in Blood by Automated count N 2.41 10^3/uL April 22, 2023 12:38:00 PM UTC (TECH: MRB) 731-0 Lymphocytes [#/volume] in Blood by Automated count N 1.26 10^3/uL April 22, 2023 12:38:00 PM UTC (TECH: MRB) 742-7 Monocytes [#/volume] in Blood by Automated count N 0.47 10^3/uL April 22, 2023 12:38:00 PM UTC (TECH: MRB) 711-2 Eosinophils [#/volume] in Blood by Automated count N 0.15 10^3/uL April 22, 2023 12:38:00 PM UTC (TECH: MRB) 704-7 Basophils [#/volume] in Blood by Automated count N 0.02 10^3/uL April 22, 2023 12:38:00 PM UTC (TECH: MRB) 03641-2 Immature granulocytes [#/volume] in Blood N 0.03 10^3/uL April 12:38:00 PM UTC (TECH: MRB) 01608-7 Manual differential performed [Presence] in Blood N NO April 22, 2023 12:38:00 PM UTC (TECH: MRB) ORDER 300: COMP METABOLIC PA LAMONT (LOINC: 42572-9) ORDER DATE: April 22, 2023 12:24:00 PM UTC Specimen Source: Serum/Plasm a PERFORMING LAB: [address] [id number] Result Comment: Final Result Date: April 22, 2023 12:54:00 PM UTC (TECH: MRB) LOINC TEST FLAG RESULT REFERENCE RANGE UPDA JUICE BY 2951-2 Sodium [Moles/volume ] in Serum or Plasma N 144 mmol/L 136 mmol/L - 145 mmol/L April 22, 2023 12:54:00 PM UTC (TECH: MRB) 2823-3 Potassium [Moles/volume] in Serum or Plasma N 4.1 mmol/L 3.5 mmol/L - 5.1 mmol/L April 22, 2023 12:54:00 PM UTC (TECH: MRB) 5-0 Chloride [Moles/volume] in Serum or Plasma N 106 mmol/L 98 mmol/L - 107 mmol/L April 22, 2023 12:54:00 PM UTC (TECH: MRB) 8-9 Carbon dioxide, tota l [Moles/volume] in Serum or Plasma N 31 mmol/L 21 mmol/L - 32 mmol/L April 22, 2023 12:54:00 PM UTC (TECH: MRB) 79483-7 Anion gap 3 in Serum or Plasma N 7.0 April 22, 2023 12:54:00 PM UTC (TECH: MRB) 2345-7 Glucose [Mass/volume ] in Serum or Plasma N 103 mg/dL 70 mg/dL - 110 mg/dL April 22, 2023 12:54:00 PM UTC (TECH: MRB) 3094-0 Urea nitrogen [Mass/volume] in Serum or Plasma H 24 mg/dL 7 mg/dL - 18 mg/dL April 22, 2023 12:54:00 PM UTC (TECH: MRB) 2160-0 Creatinine [Mass/volume] in Serum or Plasma H 1.5 mg/dL 0.8 mg/dL - 1.3 mg/dL April 22, 2023 12:54:00 PM UTC (TECH: GochikuruB) 3097-3 Urea nitrogen/Creatinine [Mass Ratio] in Serum or Plasma N 16.0 Ratio 9 Ratio - 21 Ratio April 22, 2023 12:54:00 PM [facility] (TECH: MRB) 93753-5 Glomerular filtratio n rate/1.73 sq M.predicted by Creatinine-based formula (MDRD) L 48 mL/min >60 April 22, 2023 12:54:00 PM UT (TECH: MRB) 2885-2 Protein [Mass/volume ] in Serum or Plasma N 6.8 g/dL 6.4 g/dL - 8.2 g/dL April 22, 2023 12:54:00 PM [facility] (TECH: MRB) 1751-7 Albumin [Mass/volume ] in Serum or Plasma L 3.2 g/dL 3.4 g/dL - 5.0 g/dL April 22, 2023 12:54:00 PM [facility] (TECH: GochikuruB) 45588-5 Calcium [Mass/volume ] in Serum or Plasma N 8.8 mg/dL 8.5 mg/dL - 10.1 mg/dL April 22, 2023 12:54:00 PM [facility] (TECH: GochikuruB) 43611-4 Calcium [Mass/volume ] corrected for total protein in Serum or Plasma N 9.4 mg/dL 8.5 mg/dL - 10.1 mg/dL April 22, 2023 12:54:00 PM [facility] (TECH: MRB) 1975-2 Bilirubin.total [Mass/volume] in Serum or Plasma N 1.4 mg/dL 0.4 mg/dL - 1.5 mg/dL April 22, 2023 12:54:00 PM [facility] (TECH: MRB) 1920-8 Aspartate aminotransferase [Enzymatic activity/volume] in Serum or Plasma H 45 U/L 15 U/L - 37 U/L April 22, 2023 12:54:00 PM UT (TECH: MRB) 1742-6 Alanine aminotransferase [Enzymatic activity/volume] in Serum or Plasma N 48 U/L 12 U/L - 78 U/L April 22, 2023 12:54:00 PM UT (TECH: MRB) 6768-6 Alkaline phosphatase [Enzymatic activity/volume] in Serum or Plasma N 88 U/L April 22, 2023 12:54:00 PM UT (TECH: MRB) ORDER 400: LIPID PANEL (LOIN C: 98686-6) ORDER DATE: April 22, 2023 12:24:00 PM UT Specimen Source: Serum/Plasm a PERFORMING LAB: [address] [id number] Result Comment: Final Result Date: April 22, 2023 1:04:00 PM UT (TECH: MRB) LOINC TEST FLAG RESULT REFERENCE RANGE UPDA JUICE BY 2571-8 Triglyceride [Mass/volume] in Serum or Plasma N 159 mg/dL 20 mg/dL - 200 mg/dL April 102022 1:04:00 PM UT (TECH: MRB) 2093-3 Cholesterol [Mass/volume] in Serum or Plasma N 134 mg/dL 0 mg/dL - 200 mg/dL April 1:04:00 PM UT (TECH: MRB) 2085-9 Cholesterol in HDL [Mass/volume] in Serum or Plasma L 37 mg/dL 60 mg/dL April 22 1:04:00 PM UT (TECH: MRB) 01852-6 Cholesterol in LDL [Mass/volume] in Serum or Plasma by calculation L 65 mg/dL 100 mg/dL April 22 1:04:00 PM UT (TECH: MRB) 2095-8 Cholesterol in HDL/Cholesterol.total [Mass Ratio] in Serum or Plasma N 4 Ratio April 22 1:04:00 PM UT (TECH: MRB) LABORATORY NARRATIVE RESULTS Information is not available RADIOLOGY RESULTS Information is not available PATHOLOGY NARRATIVE RESULTS Information is not available MICROBIOLOGY RESULTS No Micro Labs/Results Exist for Patient BLOOD ADMIN RESULTS Information is not available TREATMENT PLAN DISCHARGE MEDICATIONS Status RXNORM Medication Dose Route Frequency Dates Comments U pdated By Patient discharge medication information is not available. PATIENT OPEN ORDERS Code System Description Frequency Occurrence s Priority [place] [address] [facility] Collection method - Specimen ONE TIME 0 Routine April 22, 2023 12:24:00 PM UT ANKIT GEORGE MD [id number] on April 22, 2023 12:24:00 PM UT SCHEDULED PROCEDURES Code System Description Status Scheduled Date Upd ated By Patient scheduled procedure information is not available. MEDICATIONS HOME MEDICATIONS Status RXNORM Medication Dose Route Frequency Dates Comments R eported By Updated By Drug Treatment Unknown DISCHARGE MEDICATIONS Status RXNORM Medication Dose Route Frequency Dates Comments Physic isa Updated By No Discharge Medication Info rmation Available INPATIENT MEDICATIONS Status RXNORM Medication Dose Route Frequency Rate Quantity Dates Comments Physician Updated By No Inpatient Medication Info rmation Available SOCIAL HISTORY SOCIAL HISTORY SNOMED-CT Social History Element Description Effective Dates Offered Cessation Comment UpdatedBy [id number] Historical Tobacco smoking status Never Smoked Yes [id number] on August 28, 2017 5:01:44 PM [facility] SOCIAL HISTORY - Gender Sex: Male SOCIAL HISTORY - Sexual Behavior Sexual Orientation Gender Identity SNOMED-CT Description SNO MED -CT Description Activity Level No of Partners Partner Type UpdatedBy HEALTH CONCERNS Problems Concern Status Health Concern problem infor mation not available. Smoking Status Status Years Used Consumed packs p er day Health Concern smoking histo ry information not available. Family History Concern Status Health Concern family histor y information not available. ENCOUNTERS ENCOUNTER INFORMATION Reason for Visit N18.30 Admission April 22, 2023 12:17:00 PM U [address] [address] Discharge April 22, 2023 12:17:00 PM U DISCHARGED TO HOME OR SELF CARE ENCOUNTER DIAGNOSES Notes information is not mary ilable. Code System Diagnosis Onset Date Diagnosis information is not available. ABSTRACT DIAGNOSES Code System Diagnosis Updated By Abstract Diagnosis informati on is not available. CARE TEAM Care Property Consultant Role KAMERON PHAM Admitting KAMERON PHAM Primary Attending KAMERON PHAM Referring KALPANA YIN Primary Care CARE TEAM CARE purchasing assistant Role on Team Status Start Date End Date Update d By ANKIT GEORGE MD Referring normal April 22, 2023 4:00:00 AM [facility] April 22, 2023 12:17:00 PM [facility] [id number] on April 22, 2023 12:19:31 PM [facility] ANKIT GEORGE MD Attending normal April 22, 2023 4:00:00 AM [facility] April 22, 2023 12:17:00 PM [facility] [id number] on April 22, 2023 12:19:31 PM [facility] ANKIT GEORGE MD Admitting normal April 22, 2023 4:00:00 AM [facility] April 22, 2023 12:17:00 PM [facility] [id number] on April 22, 2023 12:19:31 PM [facility] ANNAMARIA ACUNA MD PCP normal April 22, 2023 4:00:00 AM [facility] April 22, 2023 12:17:00 PM [facility] [id number] on April 22, 2023 12:19:31 PM [facility]
--- OUTSIDE RECORDS SUMMARY | 2023-05-26 08:05 | XMS_ITS | Continuity of Care Document ---
Author Name Unknown Address [address] [place], [place] [id number] Organization [facility] Phone Care Team Providers Care Student Services Counselor Name Role Phone KAMERON PHAM Admitting KAMERON PHAM Primary Attending KAMERON PHAM Unavailable KALPANA YIN Primary Care ALLERGIES AND ADVERSE REACTIONS ALLERGIES AND ADVERSE REACTIONS Code System Allergy Substance Adverse Reaction Date Reaction (Severity) Comment Status Reported By Updated By BETZY (Free Text Allergy) Adverse reaction to substance Not Specified active [id number] on July 08, 2021 7:08:34 AM UT FAMILY HISTORY RELATION: Father Status: Cause of : Unknown Age at : Unknown SNOMED-CT Diagnosis Age At Onset [id number] Alcoholism RELATION: Mother Status: Cause of : Unknown Age at : Unknown SNOMED-CT Diagnosis Age At Onset [id number] Hypertensive disorder [id number] Diabetes mellitus RESULTS Patient: DILLAN Lion Date of : 1945 LABORATORY RESULTS ORDER 200: CBC AUTO W DIFF ( LOINC: 29328-3) ORDER DATE: April 22, 2023 12:24:00 PM UT Specimen Source: Whole Blood PERFORMING LAB: [facility] [address] [facility] [id number] Result Comment: Final Result Date: April 22, [...] 22, 2023 12:38:00 PM UTC (TECH: MRB) 53645-5 Hematocrit [Volume Fraction] of Blood L 37.1 % 42.0 % - 52.0 % April 22, 2023 12:38:00 PM UTC (TECH: MRB) 787-2 Erythrocyte mean corpuscular volume [Entitic volume] by Automated count H 98.7 fl 80 fl - 95 fl April 22, 2023 12:38:00 PM UTC (TECH: MRB) 05085-5 Erythrocyte mean corpuscular hemoglobin [Entitic mass] in Blood from Fetus by Automated count N 33.0 pg 27.0 pg - 34.0 pg April 22, 2023 12:38:00 PM UTC (TECH: MRB) 08709-5 Erythrocyte mean corpuscular hemoglobin concentration [Mass/volume] in Blood from Fetus by Automated count N 33.4 g/dL 32.0 g/dL - 36.0 g/dL April 22, 2023 12:38:00 PM UTC (TECH: MRB) 61936-0 Platelets [#/volume] in Blood L 113 10^3/uL 150 10^3/uL - 450 10^3/uL April 22, 2023 12:38:00 PM UTC (TECH: MRB) 53343-2 Erythrocyte distribution width [Ratio] N 14.2 % 12.3 % - 15.1 % April 22, 2023 12:38:00 PM UTC (TECH: MRB) 53930-0 Platelet mean volume [Entitic volume] in Blood by Automated count H 10.8 fl 7.4 fl - 10.4 fl April 22, 2023 12:38:00 PM UTC (TECH: MRB) 05425-1 Granulocytes/100 leukocytes in Blood by Automated count [...] 22, 2023 12:38:00 PM UTC (TECH: MRB) 56651-3 Immature granulocytes [#/volume] in Blood N 0.7 % 0.0 % - 0.8 % April 12:38:00 PM UTC (TECH: MRB) 24988-9 Granulocytes [#/volume] in Blood by Automated count [...] 22, 2023 12:38:00 PM UTC (TECH: MRB) 14344-0 Immature granulocytes [#/volume] in Blood N 0.03 10^3/uL April 12:38:00 PM UTC (TECH: MRB) 86301-6 Manual differential performed [Presence] in Blood N NO April 22, 2023 12:38:00 PM UTC (TECH: MRB) ORDER 300: COMP METABOLIC PA LAMONT (LOINC: 37829-2) ORDER DATE: April 22, 2023 12:24:00 PM UTC Specimen Source: Serum/Plasm a PERFORMING LAB: [address] [id number] Result Comment: Final Result Date: April 22, [...] 22, 2023 12:54:00 PM UTC (TECH: MRB) 76950-0 Anion gap 3 in Serum or Plasma [...] April 22, 2023 12:54:00 PM UTC (TECH: BrightQubeB) 3097-3 Urea nitrogen/Creatinine [Mass Ratio] in Serum or Plasma N 16.0 Ratio 9 Ratio - 21 Ratio April 22, 2023 12:54:00 PM [facility] (TECH: MRB) 18595-1 Glomerular filtratio n rate/1.73 sq M.predicted by Creatinine-based formula (MDRD) L 48 mL/min >60 April 22, 2023 12:54:00 PM UT (TECH: MRB) 2885-2 Protein [Mass/volume ] in Serum or Plasma N 6.8 g/dL 6.4 g/dL - 8.2 g/dL April 22, 2023 12:54:00 PM [facility] (TECH: MRB) 1751-7 Albumin [Mass/volume ] in Serum or Plasma L 3.2 g/dL 3.4 g/dL - 5.0 g/dL April 22, 2023 12:54:00 PM [facility] (TECH: BrightQubeB) 48101-2 Calcium [Mass/volume ] in Serum or Plasma N 8.8 mg/dL 8.5 mg/dL - 10.1 mg/dL April 22, 2023 12:54:00 PM [facility] (TECH: BrightQubeB) 11051-3 Calcium [Mass/volume ] corrected for total protein in Serum or Plasma N 9.4 mg/dL 8.5 mg/dL - 10.1 mg/dL April 22, 2023 12:54:00 PM [facility] (TECH: MRB) 1975-2 Bilirubin.total [Mass/volume] in Serum or Plasma N 1.4 mg/dL 0.4 mg/dL - 1.5 mg/dL April 22, 2023 12:54:00 PM [facility] (TECH: MRB) 1920-8 Aspartate aminotransferase [Enzymatic [...] MRB) ORDER 400: LIPID PANEL (LOIN C: 58267-7) ORDER DATE: April 22, 2023 12:24:00 PM UT Specimen Source: Serum/Plasm a PERFORMING LAB: [address] [id number] Result Comment: Final Result Date: April 22, [...] April 22 1:04:00 PM UT (TECH: MRB) 08864-8 Cholesterol in LDL [Mass/volume] in Serum or [...] Priority Start [place] [address]0 [facility] Collection method - Specimen ONE TIME 0 Routine April 22, 2023 12:24:00 PM UT ANKIT GEORGE MD [id number] on April 22, 2023 12:24:00 PM UT [...] Description Effective Dates Offered Cessation Comment UpdatedBy [id number] Historical Tobacco smoking status Never Smoked Yes [id number] on August 28, 2017 5:01:44 PM [facility] SOCIAL HISTORY - Gender Sex: Male [...] Admission April 22, 2023 12:17:00 PM U [address] [address] Discharge April 22, 2023 12:17:00 PM U DISCHARGED TO HOME OR SELF CARE ENCOUNTER DIAGNOSES Notes information is not mary ilable. Code System Diagnosis Onset Date Diagnosis information is not available. 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 [id number] on April 23, 2023 10:58:25 AM [facility] N17.8 ICD10 OTHER ACUTE KIDNEY FAILURE P [id number] on April 23, 2023 10:58:25 AM [facility] N18.30 ICD10 CHRONIC KIDNEY D ISEASE, STAGE 3 UNSPECIFIED [id number] on April 23, 2023 10:58:25 AM [facility] CARE TEAM Care Student Services Counselor Role KAMERON PHAM Admitting KAMERON PHAM Primary Attending KAMERON PHAM Referring KALPANA YIN Primary Care CARE TEAM CARE upholstery instructor Role on Team Status Start Date End Date Update d By ANKIT GEORGE MD Referring normal April 22, 2023 4:00:00 AM [facility] April 22, 2023 4:00:00 AM [facility] [id number] on April 22, 2023 12:19:31 PM [facility] ANKIT GEORGE MD Attending normal April 22, 2023 4:00:00 AM [facility] April 22, 2023 4:00:00 AM [facility] [id number] on April 22, 2023 12:19:31 PM [facility] ANKIT GEORGE MD Admitting normal April 22, 2023 4:00:00 AM [facility] April 22, 2023 4:00:00 AM [facility] [id number] on April 22, 2023 12:19:31 PM [facility] ANNAMARIA ACUNA MD PCP normal April 22, 2023 4:00:00 AM [facility] April 22, 2023 4:00:00 AM [facility] [id number] on April 22, 2023 12:19:31 PM [facility]
--- OUTSIDE RECORDS SUMMARY | 2023-05-26 08:05 | XMS_ITS | Continuity of Care Document ---
Author Name Unknown Address [address] [place], [place] [id number] Organization [facility] Phone Care Team Providers Care Paradi Tender Name Role Phone KAMERON PHAM Admitting KALPANA YIN Unavailable KAMERON PHAM Primary Attending KALPANA YIN Primary Care ALLERGIES AND ADVERSE REACTIONS ALLERGIES AND ADVERSE REACTIONS Code System Allergy Substance Adverse Reaction Date Reaction (Severity) Comment Status Reported By Updated By BETZY (Free Text Allergy) Adverse reaction to substance Not Specified active [id number] on July 08, 2021 7:08:34 AM [facility] FAMILY HISTORY RELATION: Father Status: Cause of : Unknown Age at : Unknown SNOMED-CT Diagnosis Age At Onset [id number] Alcoholism RELATION: Mother Status: Cause of : Unknown Age at : Unknown SNOMED-CT Diagnosis Age At Onset [id number] Hypertensive disorder [id number] Diabetes mellitus RESULTS Patient: DILLAN Lion Date of : 1945 LABORATORY RESULTS ORDER 200: COMP METABOLIC PA LAMONT (LOINC: 29542-5) ORDER DATE: March 13, 2023 1:28:00 PM [place] Specimen Source: Serum/Plasm a PERFORMING LAB: [facility] [address] [facility] [id number] Result Comment: Final Result Date: March 13, 2023 2:04:00 PM [place] (TECH: TH) LOINC TEST FLAG RESULT REFERENCE RANGE UPDA JUICE BY 2951-2 Sodium [Moles/volume ] in Serum or Plasma N 140 mmol/L 136 mmol/L - 145 mmol/L March 13, 2023 2:04:00 PM [place] (TECH: TH) 2823-3 Potassium [Moles/vol ume] in Serum or Plasma L 3.2 mmol/L 3.5 mmol/L - 5.1 mmol/L March 13, 2023 2:04:00 PM [facility] (TECH: TH) 5-0 Chloride [Moles/volu me] in Serum or Plasma N 99 mmol/L 98 mmol/L - 107 mmol/L March 13, 2023 2:04:00 PM [facility] (TECH: TH) 2027-9 Carbon dioxide, tota l [Moles/volume] in Serum or Plasma H 34 mmol/L 21 mmol/L - 32 mmol/L March 13, 2023 2:04:00 PM [facility] (TECH: TH) 07605-5 Anion gap 3 in Serum or Plasma N 7.0 March 13, 2023 2:04:00 PM [facility] (TECH: TH) 2345-7 Glucose [Mass/volume ] in Serum or Plasma H 114 mg/dL 70 mg/dL - 110 mg/dL March 13, 2023 2:04:00 PM [facility] (TECH: ) 3094-0 Urea nitrogen [Mass/volume] in Serum or Plasma H 44 mg/dL 7 mg/dL - 18 mg/dL March 13 2:04:00 PM [facility] (TECH: ) 2160-0 Creatinine [Mass/vol ume] in Serum or Plasma H 2.4 mg/dL 0.8 mg/dL - 1.3 mg/dL March 13, 2023 2:04:00 PM [facility] (TECH: TH) 3097-3 Urea nitrogen/Creati nine [Mass Ratio] in Serum or Plasma N 18.3 Ratio 9 Ratio - 21 Ratio March 13 2:04:00 PM [facility] (TECH: ) 78589-9 Glomerular filtratio n rate/1.73 sq M.predicted by Creatinine-based formula (MDRD) L 28 mL/min >60 March 13, 2023 2:04:00 PM [facility] (TECH: TH) 2885-2 Protein [Mass/volume ] in Serum or Plasma N 7.3 g/dL 6.4 g/dL - 8.2 g/dL March 13 2:04:00 PM [facility] (TECH: TH) 1751-7 Albumin [Mass/volume ] in Serum or Plasma N 3.4 g/dL 3.4 g/dL - 5.0 g/dL March 13 2:04:00 PM [facility] (TECH: TH) 32034-1 Calcium [Mass/volume ] in Serum or Plasma N 8.9 mg/dL 8.5 mg/dL - 10.1 mg/dL March 13, 2023 2:04:00 PM [facility] (TECH: TH) 79946-5 Calcium [Mass/volume ] corrected for total protein in Serum or Plasma N 9.4 mg/dL 8.5 mg/dL - 1 0.1 mg/dL March 13, 2023 2:04:00 PM [facility] (TECH: TH) 1975-2 Bilirubin.total [Mass/volume] in Serum or Plasma H 2.1 mg/dL 0.4 mg/dL - 1.5 mg/dL March 13, 2023 2:04:00 PM [facility] (TECH: TH) 1920-8 Aspartate aminotrans ferase [Enzymatic activity/volume] in Serum or Plasma H 54 U/L 15 U/L - 37 U/L March 13, 2023 2:04:00 PM [facility] (TECH: TH) 1742-6 Alanine aminotransfe rase [Enzymatic activity/volume] in Serum or Plasma N 55 U/L 12 U/L - 78 U/L March 13, 2023 2:04:00 PM [facility] (TECH: TH) 6768-6 Alkaline phosphatase [Enzymatic activity/volume] in Serum or Plasma N 102 U/L March 13, 2023 2:04:00 PM [facility] (TECH: TH) LABORATORY NARRATIVE RESULTS Information is not available [...] PATIENT OPEN ORDERS Code System Description Frequency Occurrences Priority [place] [address] [facility] Collection method - Specimen ONE TIME 0 Routine March 13, 2023 1:27:00 PM [facility] ANKIT GEORGE MD [id number] on March 13, 2023 1:28:00 PM [facility] SCHEDULED PROCEDURES Code System Description Status Scheduled [...] Description Effective Dates Offered Cessation Comment UpdatedBy [id number] Historical Tobacco smoking status Never Smoked Yes [id number] on August 28, 2017 5:01:44 PM [facility] SOCIAL HISTORY - Gender Sex: Male SOCIAL [...] available. ENCOUNTERS ENCOUNTER INFORMATION Reason for Visit N18.32 Admission March 13, 2023 1:09:[address] [address] Discharge March 13, 2023 1:09:00 PM [facility] DI SCHARGED TO HOME OR SELF CARE ENCOUNTER DIAGNOSES Notes information is not mary ilable. Code System Diagnosis Onset Date Diagnosis information is not available. 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 Role on Team Status Start Date End Date Update d By ANNAMARIA ACUNA MD Referring normal March 13, 2023 4:00:00 AM [facility] March 13, 2023 4:00:00 AM [facility] [id number] on March 13, 2023 1:22:58 PM [facility] ANKIT GEORGE MD Attending normal March 13, 2023 4:00:00 AM [facility] March 13, 2023 4:00:00 AM [facility] [id number] on March 13, 2023 1:22:58 PM [facility] ANKIT GEORGE MD Admitting normal March 13, 2023 4:00:00 AM [facility] March 13, 2023 4:00:00 AM [facility] [id number] on March 13, 2023 1:22:58 PM [facility] ANNAMARIA ACUNA MD PCP normal March 13, 2023 4:00:00 AM [facility] March 13, 2023 4:00:00 AM [facility] [id number] on March 13, 2023 1:22:58 PM [facility]
--- OUTSIDE RECORDS SUMMARY | 2023-05-26 08:05 | XMS_ITS | Continuity of Care Document ---
Author Name Unknown Address [address] [place], [place] [id number] Organization [facility] Phone Care Team Providers Care Credit Counselor Name Role Phone KAMERON PHAM Admitting KALPANA YIN Unavailable KAMERON PHAM Primary Attending KALPANA YIN Primary Care ALLERGIES AND ADVERSE REACTIONS ALLERGIES AND ADVERSE REACTIONS Code System Allergy Substance Adverse Reaction Date Reaction (Severity) Comment Status Reported By Updated By BETZY (Free Text Allergy) Adverse reaction to substance Not Specified active [id number] on July 08, 2021 7:08:34 AM [facility] FAMILY HISTORY RELATION: Father Status: Cause of : Unknown Age at : Unknown SNOMED-CT Diagnosis Age At Onset [id number] Alcoholism RELATION: Mother Status: Cause of : Unknown Age at : Unknown SNOMED-CT Diagnosis Age At Onset [id number] Hypertensive disorder [id number] Diabetes mellitus RESULTS Patient: DILLAN Lion Date of : 1945 LABORATORY RESULTS ORDER 200: COMP METABOLIC PA LAMONT (LOINC: 75283-1) ORDER DATE: March 13, 2023 1:28:00 PM [place] Specimen Source: Serum/Plasm a PERFORMING LAB: [facility] [address] [facility] [id number] Result Comment: Final Result Date: March 13, [...] 5.1 mmol/L March 13, 2023 2:04:00 PM [facility] (TECH: TH) 5-0 Chloride [Moles/volu me] in Serum or Plasma N 99 mmol/L 98 mmol/L - 107 mmol/L March 13, 2023 2:04:00 PM [facility] (TECH: TH) 2027-9 Carbon dioxide, tota l [Moles/volume] in Serum or Plasma H 34 mmol/L 21 mmol/L - 32 mmol/L March 13, 2023 2:04:00 PM [facility] (TECH: TH) 65045-0 Anion gap 3 in Serum or Plasma N 7.0 March 13, 2023 2:04:00 PM [facility] (TECH: TH) 2345-7 Glucose [Mass/volume ] in Serum or Plasma H 114 mg/dL 70 mg/dL - 110 mg/dL March 13, 2023 2:04:00 PM [facility] (TECH: ) 3094-0 Urea nitrogen [Mass/volume] in Serum or Plasma H 44 mg/dL 7 mg/dL - 18 mg/dL March 13 2:04:00 PM [facility] (TECH: ) 2160-0 Creatinine [Mass/vol ume] in Serum or Plasma H 2.4 mg/dL 0.8 mg/dL - 1.3 mg/dL March 13, 2023 2:04:00 PM [facility] (TECH: TH) 3097-3 Urea nitrogen/Creati nine [Mass Ratio] in Serum or Plasma N 18.3 Ratio 9 Ratio - 21 Ratio March 13 2:04:00 PM [facility] (TECH: ) 01271-7 Glomerular filtratio n rate/1.73 sq M.predicted by Creatinine-based formula (MDRD) L 28 mL/min >60 March 13, 2023 2:04:00 PM [facility] (TECH: TH) 2885-2 Protein [Mass/volume ] in Serum or Plasma N 7.3 g/dL 6.4 g/dL - 8.2 g/dL March 13 2:04:00 PM [facility] (TECH: TH) 1751-7 Albumin [Mass/volume ] in Serum or Plasma N 3.4 g/dL 3.4 g/dL - 5.0 g/dL March 13 2:04:00 PM [facility] (TECH: TH) 26156-9 Calcium [Mass/volume ] in Serum or Plasma N 8.9 mg/dL 8.5 mg/dL - 10.1 mg/dL March 13, 2023 2:04:00 PM [facility] (TECH: TH) 56766-2 Calcium [Mass/volume ] corrected for total protein in Serum or Plasma N 9.4 mg/dL 8.5 mg/dL - 1 0.1 mg/dL March 13, 2023 2:04:00 PM [facility] (TECH: TH) 1975-2 Bilirubin.total [Mass/volume] in Serum or Plasma H 2.1 mg/dL 0.4 mg/dL - 1.5 mg/dL March 13, 2023 2:04:00 PM [facility] (TECH: TH) 1920-8 Aspartate aminotrans ferase [Enzymatic activity/volume] in Serum or Plasma H 54 U/L 15 U/L - 37 U/L March 13, 2023 2:04:00 PM [facility] (TECH: TH) 1742-6 Alanine aminotransfe rase [Enzymatic activity/volume] in Serum or Plasma N 55 U/L 12 U/L - 78 U/L March 13, 2023 2:04:00 PM [facility] (TECH: TH) 6768-6 Alkaline phosphatase [Enzymatic activity/volume] in Serum or Plasma N 102 U/L March 13, 2023 2:04:00 PM [facility] (TECH: TH) LABORATORY NARRATIVE RESULTS Information is [...] Priority [place] [id number] [facility] Collection method - Specimen ONE TIME 0 Routine March 13, 2023 1:27:00 PM [facility] ANKIT GEORGE MD [id number] on March 13, 2023 1:28:00 PM [facility] SCHEDULED PROCEDURES Code System Description Status Scheduled [...] Description Effective Dates Offered Cessation Comment UpdatedBy [id number] Historical Tobacco smoking status Never Smoked Yes [id number] on August 28, 2017 5:01:44 PM [facility] SOCIAL HISTORY - Gender Sex: Male [...] N18.32 Admission March 13, 2023 1:09:[address] [address] Discharge March 13, 2023 1:09:00 PM [facility] DI SCHARGED TO HOME OR SELF CARE ENCOUNTER DIAGNOSES Notes information is not mary ilable. Code System Diagnosis Onset Date Diagnosis information is not available. 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 Team Status Start Date End Date Update d By ANNAMARIA ACUNA MD Referring normal March 13, 2023 4:00:00 AM [facility] March 13, 2023 1:09:00 PM [facility] [id number] on March 13, 2023 1:22:58 PM [facility] ANKIT GEORGE MD Attending normal March 13, 2023 4:00:00 AM [facility] March 13, 2023 1:09:00 PM [facility] [id number] on March 13, 2023 1:22:58 PM [facility] ANKIT GEORGE MD Admitting normal March 13, 2023 4:00:00 AM [facility] March 13, 2023 1:09:00 PM [facility] [id number] on March 13, 2023 1:22:58 PM [facility] ANNAMARIA ACUNA MD PCP normal March 13, 2023 4:00:00 AM [facility] March 13, 2023 1:09:00 PM [facility] [id number] on March 13, 2023 1:22:58 PM [facility]
== END ==
PROVIDERS: Visit Provider Dermatology
DX: Z00.00 Encounter for general adult medical examination without abnormal findings (principal)

== ENCOUNTER 2023-06-19 08:39 | Outpatient (CLI) | payer MEDICARE, MEDICAID, SELFPAY ==
[2023-06-19 13:15] LABS: PHA INR Fingerstick 2.8 (0.9-1.1)
== END 2023-06-19 14:21 ==
LOC: ACC 08:40
PROVIDERS: PCP Family Medicine; Visit Provider Family Medicine
DX: Z79.01 Long term (current) use of anticoagulants (principal); Z51.81 Encounter for therapeutic drug level monitoring; I48.91 Unspecified atrial fibrillation
CPT/HCPCS: 85610; 99211; G0463

== ENCOUNTER 2023-07-06 10:17 | Outpatient (CLI) | payer MEDICARE, MEDICAID, SELFPAY ==
[2023-07-06 13:55] LABS: PHA INR Fingerstick 2.9 (0.9-1.1)
== END 2023-07-06 14:08 ==
LOC: ACC 10:18
PROVIDERS: PCP Family Medicine; Visit Provider Family Medicine
DX: Z79.01 Long term (current) use of anticoagulants (principal); Z51.81 Encounter for therapeutic drug level monitoring; I48.91 Unspecified atrial fibrillation
CPT/HCPCS: 85610; 99211; G0463

== ENCOUNTER 2023-08-11 09:07 | Outpatient (CLI) | payer MEDICARE, MEDICAID, SELFPAY ==
[2023-08-11 14:37] LABS: PHA INR Fingerstick 2.3 (0.9-1.1)
== END 2023-08-11 14:56 ==
LOC: ACC 09:09
PROVIDERS: PCP Family Medicine; Visit Provider Family Medicine
DX: Z79.01 Long term (current) use of anticoagulants (principal); Z51.81 Encounter for therapeutic drug level monitoring; I48.91 Unspecified atrial fibrillation
CPT/HCPCS: 85610; 99211; G0463

== ENCOUNTER 2023-09-09 09:09 | Outpatient (CLI) | payer MEDICARE, MEDICAID, SELFPAY ==
[2023-09-09 09:35] LABS: INR 3.27 (0.9-1.1); Prothrombin Time 32.7 seconds (10.1-12.5)
== END 2023-09-09 23:59 ==
LOC: LAB 09:11
PROVIDERS: PCP Family Medicine; Visit Provider Family Medicine
DX: Z79.01 Long term (current) use of anticoagulants (principal); Z51.81 Encounter for therapeutic drug level monitoring; I48.91 Unspecified atrial fibrillation
CPT/HCPCS: 36415; 85610

== ENCOUNTER 2023-10-05 10:09 | Outpatient (CLI) | payer MEDICARE, MEDICAID, SELFPAY ==
--- NOTE | 2023-10-05 10:47 | XR_ITS ---
FINAL REPORT CLINICAL HISTORY: Pain arthritis COMPARISON: None FINDINGS: AP, oblique and lateral views of the left foot were obtained. There is no prior exam for comparison. Osteopenia is present. There is no acute fracture or dislocation. Multijoint degenerative change is present. Diffuse soft tissue swelling is present. IMPRESSION: No acute osseous abnormality of the left foot. Multijoint degenerative change and diffuse soft tissue swelling are present. Reviewed, Interpreted and Dictated by Rebeka Arroyo MD Transcribed by Lisa Garvin Authenticated and . [facility]
--- NOTE | 2023-10-05 10:47 | XR_ITS ---
FINAL REPORT CLINICAL HISTORY: Arthritis pain COMPARISON: None FINDINGS: AP, oblique and lateral views of the right foot were obtained. There is no prior exam for comparison. Osteopenia is present. There is no acute fracture or dislocation. Multijoint degenerative change is present. Mild soft tissue swelling is present as well. IMPRESSION: No acute osseous abnormality of the right foot. Mild degenerative change and soft tissue swelling. Reviewed, Interpreted and Dictated by Rebeka Arroyo MD Transcribed by Lisa Garvin Authenticated and [facility]
--- NOTE | 2023-10-05 10:47 | XR_ITS ---
FINAL REPORT CLINICAL HISTORY: Arthritis pain COMPARISON: None FINDINGS: AP, oblique, and lateral views of the left ankle were obtained. There is no prior exam for comparison. There is advanced degenerative change present. There is no fracture or dislocation. The ankle mortise is intact. Diffuse soft tissue swelling is present. IMPRESSION: No acute osseous abnormality of the left ankle. Advanced degenerative change with diffuse soft tissue swelling. Reviewed, Interpreted and Dictated by Rebeka Arroyo MD Transcribed by Lisa Garvin Authenticated and [facility]
--- NOTE | 2023-10-05 10:47 | XR_ITS ---
FINAL REPORT CLINICAL HISTORY: Arthritis pain COMPARISON: None FINDINGS: AP, oblique, and lateral views of the right ankle were obtained. There is no prior exam for comparison. There is no fracture or dislocation. The ankle mortise is intact. Mild to moderate degenerative change is present. Mild soft tissue swelling is present. IMPRESSION: No acute osseous abnormality of the right ankle. Mild to moderate degenerative change with mild soft tissue swelling. Reviewed, Interpreted and Dictated by Rebeka Arroyo MD Transcribed by Lisa Garvin Authenticated and [facility]
[2023-10-05 11:11] LABS: PHA INR Fingerstick 1.8 (0.9-1.1)
== END 2023-10-05 11:13 ==
PROVIDERS: PCP Family Medicine; Visit Provider Family Medicine
DX: M00.9 Pyogenic arthritis, unspecified (principal); Z79.01 Long term (current) use of anticoagulants; M25.571 Pain in right ankle and joints of right foot; M79.672 Pain in left foot; M79.671 Pain in right foot; M25.572 Pain in left ankle and joints of left foot; Z51.81 Encounter for therapeutic drug level monitoring
CPT/HCPCS: 73610; 73630; 85610; 99211; G0463

== ENCOUNTER 2023-11-03 09:21 | Outpatient (CLI) | payer MEDICARE, MEDICAID, SELFPAY | END 2023-11-03 12:34 | LOC: ACC 09:22 | PROVIDERS: PCP Family Medicine; Visit Provider Family Medicine | DX: Z79.01 Long term (current) use of anticoagulants (principal); I48.91 Unspecified atrial fibrillation; Z51.81 Encounter for therapeutic drug level monitoring | CPT/HCPCS: 85610; 99211; G0463 ==

== ENCOUNTER 2023-12-01 09:31 | Outpatient (POV) | payer MEDICARE, MEDICAID, SELFPAY | END 2023-12-01 23:59 | disposition home or self-care (01) | LOC: SC 09:31 | PROVIDERS: PCP Family Medicine; Visit Provider Dermatology | DX: Z00.00 Encounter for general adult medical examination without abnormal findings (principal) ==

== ENCOUNTER 2023-12-15 08:49 | Outpatient (CLI) | payer MEDICARE, MEDICAID, SELFPAY ==
[2023-12-15 09:48] LABS: PHA INR Fingerstick 2.6 (0.9-1.1)
== END 2023-12-15 09:50 ==
LOC: ACC 08:51
PROVIDERS: PCP Family Medicine; Visit Provider Family Medicine
DX: Z79.01 Long term (current) use of anticoagulants (principal); Z51.81 Encounter for therapeutic drug level monitoring; I48.91 Unspecified atrial fibrillation
CPT/HCPCS: 85610; 99211; G0463

== ENCOUNTER 2023-12-19 11:17 | Outpatient (CLI) | payer MEDICARE, MEDICAID, SELFPAY ==
--- NOTE | 2023-12-19 11:25 | XR_ITS ---
PROCEDURE INFORMATION: Exam: XR Left Ribs Exam date and time: 12/19/2023 11:27 AM Age: 78 years old Clinical indication: Injury or trauma; Rib area, left side; Blunt trauma; Patient HX: Fall over garden hose; Additional info: Left sided chest wall pain TECHNIQUE: Imaging protocol: Radiologic exam of the left ribs. Views: 2 views. COMPARISON: CR XR CHEST 2V 12/19/2023 11:27 AM FINDINGS: Tubes, catheters and devices: A pulse generator device is present, and its leads are in appropriate position. Bones/joints: Sternotomy wires are intact. No visible acute fracture. 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 Soft tissues: Normal. IMPRESSION: No visible acute fracture.
--- NOTE | 2023-12-19 11:25 | XR_ITS ---
PROCEDURE INFORMATION: Exam: XR Chest Exam date and time: 12/19/2023 11:27 AM Age: 78 years old Clinical indication: Injury or trauma; Blunt trauma (contusions or hematomas); Prior surgery; Surgery date: 6+ months; Surgery type: Pacemaker; Patient HX: Fall over garden hose; Additional info: SOA TECHNIQUE: Imaging protocol: Radiologic exam of the chest. Views: 2 views. COMPARISON: CR XR CHEST 2V 11/17/2022 3:31 PM FINDINGS: Tubes, catheters and devices: A pulse generator device is present, and its leads are in appropriate position. Lungs: No evidence of pneumonia or interstitial edema. Pleural spaces: Unremarkable. No pleural effusion. No pneumothorax. 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 Heart size is of the upper limits of normality Vasculature: Status post aortic valvuloplasty Bones/joints: Sternotomy wires are intact. No visible acute fracture. IMPRESSION: 1. No visible acute fracture. 2. No evidence of pneumonia or interstitial edema.
== END 2023-12-19 23:59 | disposition home or self-care (01) ==
LOC: RAD 11:19
PROVIDERS: PCP Family Medicine; Visit Provider Family Medicine
DX: R06.02 Shortness of breath (principal); R07.89 Other chest pain
CPT/HCPCS: 71046; 71100

== ENCOUNTER 2024-01-05 10:29 | Outpatient (CLI) | payer MEDICARE, MEDICAID, SELFPAY ==
[2024-01-05 10:35] LABS: Basophils # 0.1 K/mm3 (0-0.2); Basophils % 1.2 % (0.1-2.0); Eosinophils # 0.2 K/mm3 (0.0-0.4); Eosinophils % 3.8 % (0.1-12.0); Hematocrit 39.2 % (42.0-52.0); Lymphocytes # 1.5 K/mm3 (0.7-4.5); Lymphocytes % 28.2 % (10-50); Mean Corpuscular HGB Conc 33.2 g/dL (31.8-35.4); Mean Corpuscular Hemoglobin 34.3 pg (27.0-31.2); Mean Corpuscular Volume 103.2 fl (80-94); Mean Platelet Volume 11.1 fl (7.4-10.4); Monocytes # 0.5 K/mm3 (0.1-1.0); Monocytes % 9.4 % (1.7-9.3); Neutrophils % 57.4 % (37.0-80.0); Platelet Count 120 K/mm3 (142-424); Red Cell Distribution Width 15.2 % (11.5-17.5); White Blood Count 5.1 K/mm3 (4.8-10.8)
[2024-01-05 10:49] LABS: Alanine Aminotransferase 60 U/L (12-78); Albumin Level 3.6 g/dl (3.5-5.0); Albumin/Globulin Ratio 1.2 (1.1-1.8); Alkaline Phosphatase 114 U/L (38-126); Anion Gap 13.7 mEq/L (5-15); Aspartate Amino Transferase 69 U/L (17-59); Calcium 8.5 mg/dl (8.4-10.2); Carbon Dioxide 30 mmol/L (22.0-30.0); Chloride 96 mmol/L (98-107); Estimated Glomerular Filt Rate 16 ml/min (>60); GFR (African American) 19 ML/MIN (>60); Glucose 111 mg/dl (74-100); Potassium 3.7 mmoL/L (3.5-5.1); Sodium 136 mmol/L (136-145); Total Protein,Serum 6.6 g/dl (6.3-8.2)
[2024-01-05 11:00] LABS: Blood Urea Nitrogen 96 mg/dl (9-20)
[2024-01-05 12:10] VITALS: BP 121/37; PULSE 60; RESP 18; O2SAT 95
[2024-01-05] MEDS: 0.9 % SODIUM CHLORIDE 1000ML 2,000 ML 999 ML IV (12:20)
[2024-01-05 13:20] VITALS: BP 133/55; PULSE 64; RESP 18
[2024-01-05 14:25] VITALS: BP 108/48; PULSE 66; RESP 19; O2SAT 96
== END 2024-01-05 14:25 | disposition home or self-care (01) ==
LOC: LAB.DROPOF 10:30 → INF 11:52
PROVIDERS: Podiatrist; PCP Family Medicine; Visit Provider Family Medicine
DX: R60.9 Edema, unspecified (principal); E86.0 Dehydration; I95.9 Hypotension, unspecified; N17.8 Other acute kidney failure
CPT/HCPCS: 36415; 80053; 85025; 96360; 96361

== ENCOUNTER 2024-01-19 11:52 | Outpatient (CLI) | payer MEDICARE, MEDICAID, SELFPAY ==
[2024-01-19 13:10] LABS: Anion Gap 10.3 mEq/L (5-15); Blood Urea Nitrogen 43 mg/dl (9-20); Calcium 9.1 mg/dl (8.4-10.2); Carbon Dioxide 34 mmol/L (22.0-30.0); Chloride 103 mmol/L (98-107); Estimated Glomerular Filt Rate 39 ml/min (>60); GFR (African American) 48 ML/MIN (>60); Glucose 74 mg/dl (74-100); Potassium 4.3 mmoL/L (3.5-5.1); Sodium 143 mmol/L (136-145)
== END 2024-01-19 23:59 | disposition home or self-care (01) ==
LOC: LAB 11:53
PROVIDERS: PCP Family Medicine; Visit Provider Family Medicine
DX: N18.32 Chronic kidney disease, stage 3b (principal)
CPT/HCPCS: 36415; 80048

== ENCOUNTER 2024-02-02 09:09 | Outpatient (CLI) | payer MEDICARE, MEDICAID, SELFPAY ==
[2024-02-02 09:27] LABS: PHA INR Fingerstick 1.8 (0.9-1.1)
== END 2024-02-02 09:28 ==
LOC: ACC 09:10
PROVIDERS: PCP Family Medicine; Visit Provider Family Medicine
DX: Z79.01 Long term (current) use of anticoagulants (principal); I48.91 Unspecified atrial fibrillation
CPT/HCPCS: 85610; 99211; G0463

== ENCOUNTER 2024-03-12 11:24 | Outpatient (CLI) | payer MEDICARE, MEDICAID, SELFPAY ==
[2024-03-12] MEDS: 0.9 % SODIUM CHLORIDE 1000ML 1,000 ML 999 ML IV (11:51)
[2024-03-12 12:51] LABS: Basophils # 0.1 K/mm3 (0-0.2); Basophils % 1.8 % (0.1-2.0); Eosinophils # 0.2 K/mm3 (0.0-0.4); Eosinophils % 3.8 % (0.1-12.0); Hemoglobin 13.4 g/dL (14.1-18.0); Lymphocytes # 1.5 K/mm3 (0.7-4.5); Lymphocytes % 30.3 % (10-50); Mean Corpuscular HGB Conc 33.6 g/dL (31.8-35.4); Mean Corpuscular Hemoglobin 34.6 pg (27.0-31.2); Mean Corpuscular Volume 102.9 fl (80-94); Mean Platelet Volume 9.9 fl (7.4-10.4); Monocytes # 0.6 K/mm3 (0.1-1.0); Monocytes % 11.2 % (1.7-9.3); Neutrophils # 2.7 K/mm3 (1.8-7.8); Neutrophils % 52.9 % (37.0-80.0); Platelet Count 129 K/mm3 (142-424); Red Blood Count 3.88 M/mm3 (4.60-6.20); White Blood Count 5.1 K/mm3 (4.8-10.8)
[2024-03-12 12:53] LABS: Chloride 97 mmol/L (98-107); Potassium 3.3 mmoL/L (3.5-5.1); Sodium 137 mmol/L (136-145)
[2024-03-12 12:56] LABS: Anion Gap 9.3 mEq/L (5-15); Blood Urea Nitrogen 63 mg/dl (9-20); Carbon Dioxide 34 mmol/L (22.0-30.0); Estimated Glomerular Filt Rate 21 ml/min (>60); GFR (African American) 26 ML/MIN (>60)
[2024-03-12 12:57] LABS: Calcium 8.5 mg/dl (8.4-10.2); Glucose 115 mg/dl (74-100); INR 2.29 (0.9-1.1); Prothrombin Time 23.6 seconds (10.1-12.5)
== END 2024-03-12 12:57 ==
LOC: LAB 11:26
PROVIDERS: PCP Family Medicine; Visit Provider Family Medicine
DX: R53.1 Weakness (principal); Z79.01 Long term (current) use of anticoagulants; N18.31 Chronic kidney disease, stage 3a; I48.91 Unspecified atrial fibrillation
CPT/HCPCS: 80048; 85025; 85610; 96365; G0463

== ENCOUNTER 2024-03-31 08:27 | Outpatient (CLI) | payer MEDICARE, MEDICAID, SELFPAY ==
[2024-03-31 09:33] LABS: INR 2.55 (0.9-1.1)
[2024-03-31 10:03] LABS: Blood Urea Nitrogen 23 mg/dl (9-20); Calcium 8.4 mg/dl (8.4-10.2); Carbon Dioxide 32 mmol/L (22.0-30.0); Chloride 106 mmol/L (98-107); Estimated Glomerular Filt Rate 54 ml/min (>60); GFR (African American) 65 ML/MIN (>60); Glucose 93 mg/dl (74-100); Sodium 142 mmol/L (136-145)
== END 2024-03-31 23:59 | disposition home or self-care (01) ==
LOC: LAB 08:28
PROVIDERS: PCP Family Medicine; Visit Provider Family Medicine
DX: Z79.01 Long term (current) use of anticoagulants (principal); N18.32 Chronic kidney disease, stage 3b
CPT/HCPCS: 36415; 80048; 85610

== ENCOUNTER 2024-06-21 09:18 | Outpatient (CLI) | payer MEDICARE, MEDICAID, SELFPAY ==
--- NOTE | 2024-06-21 09:32 | XR_ITS ---
FINAL REPORT CLINICAL HISTORY: foot pain COMPARISON: 10/05/2023 FINDINGS: LEFT FOOT: Three views of the left foot were obtained. There is no acute fracture or dislocation. Diffuse osteopenia is noted. There are vascular calcifications. Mild degenerative changes are seen. There is deformity of the proximal third and fourth proximal phalanges. Fractures are not excluded of uncertain age. There is no soft tissue abnormality. IMPRESSION: Deformity proximal third and fourth proximal phalanges. Fractures are not excluded of uncertain age. Follow-up radiographs may be helpful. Degenerative changes and osteopenia. Reviewed, Interpreted and Dictated by Phi Stahl III, MD Transcribed by Diamond Sánchez Authenticated and [facility]
--- NOTE | 2024-06-21 09:32 | XR_ITS ---
FINAL REPORT CLINICAL HISTORY: ankle pain COMPARISON: 10/05/2023 FINDINGS: LEFT ANKLE: Three views of the left ankle were obtained. There is no acute fracture or dislocation. There are severe degenerative changes, which appear stable from the prior exam. There is no soft tissue abnormality. Vascular calcifications are noted. IMPRESSION: Stable degenerative changes without acute bony abnormality. Reviewed, Interpreted and Dictated by Phi Stahl III, MD Transcribed by Diamond Sánchez Authenticated and [facility]
[2024-06-21 09:38] LABS: Basophils # 0.1 K/mm3 (0-0.2); Basophils % 1.9 % (0.1-2.0); Eosinophils # 0.3 K/mm3 (0.0-0.4); Eosinophils % 6.1 % (0.1-12.0); Hematocrit 38.1 % (42.0-52.0); Hemoglobin 13.1 g/dL (14.1-18.0); Lymphocytes # 1.7 K/mm3 (0.7-4.5); Lymphocytes % 32.5 % (10-50); Mean Corpuscular HGB Conc 34.4 g/dL (31.8-35.4); Mean Corpuscular Volume 101.7 fl (80-94); Mean Platelet Volume 9.9 fl (7.4-10.4); Monocytes # 0.4 K/mm3 (0.1-1.0); Monocytes % 7.6 % (1.7-9.3); Neutrophils # 2.8 K/mm3 (1.8-7.8); Neutrophils % 51.9 % (37.0-80.0); Platelet Count 115 K/mm3 (142-424); Red Blood Count 3.74 M/mm3 (4.60-6.20); White Blood Count 5.4 K/mm3 (4.8-10.8)
[2024-06-21 10:11] LABS: Hemoglobin A1C 5.7 % (4.0-6.0)
[2024-06-21 10:13] LABS: Erythrocyte Sedimentation Rate 57 mm/hr (0-20)
[2024-06-21 10:31] LABS: Alanine Aminotransferase 41 U/L (12-78); Albumin Level 3.4 g/dl (3.5-5.0); Albumin/Globulin Ratio 1.3 (1.1-1.8); Alkaline Phosphatase 80 U/L (38-126); Anion Gap 10.5 mEq/L (5-15); Aspartate Amino Transferase 58 U/L (17-59); Bilirubin,Total 1.6 mg/dl (0.2-1.3); Blood Urea Nitrogen 30 mg/dl (9-20); Calcium 8.3 mg/dl (8.4-10.2); Carbon Dioxide 32 mmol/L (22.0-30.0); Chloride 107 mmol/L (98-107); Estimated Glomerular Filt Rate 49 ml/min (>60); GFR (African American) 59 ML/MIN (>60); Globulin 2.7 g/dL (1.3-3.2); Glucose 72 mg/dl (74-100); Potassium 4.5 mmoL/L (3.5-5.1); Sodium 145 mmol/L (136-145); Total Protein,Serum 6.1 g/dl (6.3-8.2)
[2024-06-21 10:36] LABS: C-Reactive Protein 3.9 mg/L (0-4)
== END 2024-06-21 23:59 | disposition home or self-care (01) ==
LOC: LAB 09:19
PROVIDERS: PCP Family Medicine; Visit Provider Podiatrist
DX: E11.65 Type 2 diabetes mellitus with hyperglycemia (principal); R60.9 Edema, unspecified; L03.116 Cellulitis of left lower limb; M25.572 Pain in left ankle and joints of left foot; G89.29 Other chronic pain; R60.0 Localized edema; I89.0 Lymphedema, not elsewhere classified; L03.90 Cellulitis, unspecified
CPT/HCPCS: 36415; 73610; 73630; 80053; 83036; 85025; 85651; 86140

== ENCOUNTER 2024-07-21 09:04 | Outpatient (CLI) | payer MEDICARE, MEDICAID, SELFPAY ==
[2024-07-21 12:42] LABS: PHA INR Fingerstick 1.7 (0.9-1.1)
== END 2024-07-21 12:51 ==
LOC: ACC 09:06
PROVIDERS: PCP Family Medicine; Visit Provider Family Medicine
DX: Z79.01 Long term (current) use of anticoagulants (principal); I48.91 Unspecified atrial fibrillation
CPT/HCPCS: 85610; 99211; G0463

== ENCOUNTER 2024-09-15 11:04 | Outpatient (CLI) | payer MEDICARE, MEDICAID, SELFPAY ==
[2024-09-15 11:45] LABS: Chloride 104 mmol/L (98-107); Potassium 4.3 mmoL/L (3.5-5.1); Sodium 143 mmol/L (136-145)
[2024-09-15 11:48] LABS: Anion Gap 10.3 mEq/L (5-15); Blood Urea Nitrogen 30 mg/dl (9-20); Calcium 8.8 mg/dl (8.4-10.2); Carbon Dioxide 33 mmol/L (22.0-30.0); Estimated Glomerular Filt Rate 49 ml/min (>60); GFR (African American) 59 ML/MIN (>60); Glucose 108 mg/dl (74-100)
== END 2024-09-15 23:59 | disposition home or self-care (01) ==
LOC: LAB 11:05
PROVIDERS: PCP Family Medicine; Visit Provider Family Medicine
DX: N18.32 Chronic kidney disease, stage 3b (principal)
CPT/HCPCS: 36415; 80048

== ENCOUNTER 2024-11-11 11:09 | Outpatient (CLI) | payer MEDICARE, MEDICAID, SELFPAY ==
[2024-11-11 11:30] LABS: PHA INR Fingerstick 2.1 (0.9-1.1)
--- OUTSIDE RECORDS SUMMARY | 2024-11-17 19:33 | XMS_ITS ---
Author Organization Unknown [facility] Start Date Provider Encounter for Check-up [id number] [facility]
== END 2024-11-11 11:32 ==
LOC: ACC 11:10
PROVIDERS: PCP Family Medicine; Visit Provider Family Medicine
DX: Z79.01 Long term (current) use of anticoagulants (principal)
CPT/HCPCS: 85610; 99211; G0463

== ENCOUNTER 2024-12-23 09:54 | Outpatient (CLI) | payer MEDICARE, MEDICAID, SELFPAY ==
--- OUTSIDE RECORDS SUMMARY | 2024-12-23 09:57 | XMS_ITS | Continuity of Care Document ---
Author Organization [facility] Phone Care Team Providers Care Assembler Knife Name Role Phone TANIA SALAS Primary Attending TANIA SALAS Admitting TANIA SALAS Unavailable [phone] KALPANA YIN Primary Care ALLERGIES AND ADVERSE REACTIONS ALLERGIES AND ADVERSE REACTIONS Code System Allergy Substance Adverse Reaction Date Reaction (Severity) Comment Status Reported By Updated By BETZY (Free Text Allergy) Adverse reaction to substance Not Specified active [id number] on July 08, 2021 7:08:34 AM [facility] FAMILY HISTORY RELATION: Father Status: Cause of : Unknown Age at : Unknown SNOMED-CT Diagnosis Age At Onset [id number] Alcoholism RELATION: Mother Status: Cause of : Unknown Age at : Unknown SNOMED-CT Diagnosis Age At Onset 28205902 Hypertensive disorder 12114224 Diabetes mellitus RESULTS Patient: DILLAN Lion Date of : 1945 LABORATORY RESULTS ORDER 200: CBC AUTO W DIFF ( LOINC: 59984-7) ORDER DATE: October 26, 2024 12:47:00 PM UT Specimen Source: Whole Blood Specimen Type: Whole blood s ample PERFORMING LAB: [address] [id number] Result Comment: Final Result Date: October 26, 2024 12:56:00 PM UT (TECH: MRB) LOINC TEST FLAG RESULT REFERENCE RANGE UPDA JUICE BY 6690-2 Leukocytes [#/volume] in Blood by Automated count N 4.7 10^3/uL 4.5 10^3/uL - 11.5 10^3/uL October 26, 2024 12:56:00 PM UT (TECH: MRB) 789-8 Erythrocytes [#/volume] in Blood by Automated count L 3.54 10^6/uL 4.25 10^6/uL - 5.57 10^6/uL October 26, 2024 12:56:00 PM UTC (TECH: MRB) 718-7 Hemoglobin [Mass/volume] in Blood L 12.0 g/dL 13.5 g/dL - 17.2 g/dL October 26, 2024 12:56:00 PM UTC (TECH: MRB) 41598-6 Hematocrit [Volume Fraction] of Blood L 36.4 % 42.0 % - 52.0 % October 26 12:56:00 PM UTC (TECH: MRB) 787-2 Erythrocyte mean corpuscular volume [Entitic volume] by Automated count H 102.8 fl 80 fl - 95 fl October 26, 2024 12:56:00 PM UTC (TECH: MRB) 81720-2 Erythrocyte mean corpuscular hemoglobin [Entitic mass] in Blood from Fetus by Automated count N 33.9 pg 27.0 pg - 34.0 pg October 26, 2024 12:56:00 PM UTC (TECH: MRB) 98165-2 Erythrocyte mean corpuscular hemoglobin concentration [Mass/volume] in Blood from Fetus by Automated count N 33.0 g/dL 32.0 g/dL - 36.0 g/dL October 26, 2024 12:56:00 PM UTC (TECH: MRB) 90103-8 Platelets [#/volume] in Blood L 96 10^3/uL 150 10^3/uL - 450 10^3/uL October 26, 2024 12:56:00 PM UTC (TECH: MRB) 74703-9 Erythrocyte distribution width [Ratio] N 14.4 % 12.3 % - 15.1 % October 26, 2024 12:56:00 PM UTC (TECH: MRB) 12039-9 Platelet mean volume [Entitic volume] in Blood by Automated count H 11.7 fl 7.4 fl - 10.4 fl October 26, 2024 12:56:00 PM UTC (TECH: MRB) 45154-9 Granulocytes/100 leukocytes in Blood by Automated count N 54.1 % 40 % - 75 % October 26 12:56:00 PM UTC (TECH: MRB) 736-9 Lymphocytes/100 leukocytes in Blood by Automated count N 26.4 % 15 % - 57 % October 26 12:56:00 PM UTC (TECH: MRB) 5905-5 Monocytes/100 leukocytes in Blood by Automated count N 10.0 % 4.0 % - 12.0 % October 26 12:56:00 PM UTC (TECH: MRB) 713-8 Eosinophils/100 leukocytes in Blood by Automated count H 8.9 % 0.0 % - 4.0 % October 26 12:56:00 PM UTC (TECH: MRB) 706-2 Basophils/100 leukocytes in Blood by Automated count N 0.4 % 0.0 % - 1.0 % October 26 12:56:00 PM UTC (TECH: MRB) 44664-7 Immature granulocytes [#/volume] in Blood N 0.2 % 0.0 % - 0.8 % October 26 12:56:00 PM UTC (TECH: MRB) 88452-7 Granulocytes [#/volume] in Blood by Automated count N 2.54 10^3/uL October 26 12:56:00 PM UTC (TECH: MRB) 731-0 Lymphocytes [#/volume] in Blood by Automated count N 1.24 10^3/uL October 26 12:56:00 PM UTC (TECH: MRB) 742-7 Monocytes [#/volume] in Blood by Automated count N 0.47 10^3/uL October 26, 2024 12:56:00 PM UTC (TECH: MRB) 711-2 Eosinophils [#/volume] in Blood by Automated count N 0.42 10^3/uL October 26 12:56:00 PM UTC (TECH: MRB) 704-7 Basophils [#/volume] in Blood by Automated count N 0.02 10^3/uL October 26, 2024 12:56:00 PM UTC (TECH: MRB) 72856-0 Immature granulocytes [#/volume] in Blood N 0.01 10^3/uL October 26 12:56:00 PM UTC (TECH: MRB) 35552-1 Manual differential performed [Presence] in Blood N NO October 26, 2024 12:56:00 PM UTC (TECH: MRB) ORDER 300: COMP METABOLIC PA [place] (LOINC: 90007-7) ORDER DATE: October 26, 2024 12:47:00 PM UTC Specimen Source: Serum/Plasm a Specimen Type: Acellular blo od (serum or plasma) specimen PERFORMING LAB: [address] [id number] Result Comment: Final Result Date: October 26, 2024 1:07:00 PM UT (TECH: MRB) LOINC TEST FLAG RESULT REFERENCE RANGE UPDA JUICE BY 2951-2 Sodium [Moles/volume ] in Serum or Plasma N 143 mmol/L 136 mmol/L - 145 mmol/L October 26, 2024 1:07:00 PM UTC (TECH: MRB) 2823-3 Potassium [Moles/volume] in Serum or Plasma N 4.4 mmol/L 3.5 mmol/L - 5.1 mmol/L October 26, 2024 1:07:00 PM UTC (TECH: MRB) 2075-0 Chloride [Moles/volu me] in Serum or Plasma N 107 mmol/L 98 mmol/L - 107 mmol/L October 26, 2024 1:07:00 PM UTC (TECH: MRB) 8-9 Carbon dioxide, tota l [Moles/volume] in Serum or Plasma N 32 mmol/L 21 mmol/L - 32 mmol/L October 26, 2024 1:07:00 PM UTC (TECH: MRB) 73012-8 Anion gap 3 in Serum or Plasma N 4.0 October 26, 2024 1:07:00 PM UTC (TECH: MRB) 2345-7 Glucose [Mass/volume ] in Serum or Plasma N 100 mg/dL 70 mg/dL - 110 mg/dL October 26, 2024 1:07:00 PM UTC (TECH: MRB) 3094-0 Urea nitrogen [Mass/volume] in Serum or Plasma H 23 mg/dL 7 mg/dL - 18 mg/dL October 26, 2024 1:07:00 PM UTC (TECH: MRB) 2160-0 Creatinine [Mass/volume] in Serum or Plasma H 1.6 mg/dL 0.8 mg/dL - 1.3 mg/dL October 26, 2024 1:07:00 PM UTC (TECH: MRB) 3097-3 Urea nitrogen/Creatinine [Mass Ratio] in Serum or Plasma N 14.4 9 - October 26, 2024 1:07:00 PM UTC (TECH: MRB) 32985-0 Glomerular filtratio n rate/1.73 sq M.predicted by Creatinine-based formula (MDRD) L 44 mL/min >60 October 26, 2024 1:07:00 PM UTC (TECH: MRB) 49970-1 Osmolality of Serum or Plasma by calculated by sum of electrolytes N 301 mosm/kg 275 mosm/kg - 301 mosm/kg October 26, 2024 1:07:00 PM UTC (TECH: MRB) 2885-2 Protein [Mass/volume ] in Serum or Plasma N 6.5 g/dL 6.4 g/dL - 8.2 g/dL October 26, 2024 1:07:00 PM UTC (TECH: MRB) 1751-7 Albumin [Mass/volume ] in Serum or Plasma L 3.0 g/dL 3.4 g/dL - 5.0 g/dL October 26, 2024 1:07:00 PM UTC (TECH: MRB) 33846-5 Calcium [Mass/volume ] in Serum or Plasma N 9.0 mg/dL 8.5 mg/dL - 10.1 mg/dL October 26, 2024 1:07:00 PM UT (TECH: MRB) 92223-2 Calcium [Mass/volume ] corrected for total protein in Serum or Plasma N 9.8 mg/dL 8.5 mg/dL - 10.1 mg/dL October 26, 2024 1:07:00 PM UT (TECH: MRB) 1975-2 Bilirubin.total [Mass/volume] in Serum or Plasma H 1.7 mg/dL 0.4 mg/dL - 1.5 mg/dL October 26, 2024 1:07:00 PM UTC (TECH: MRB) 1920-8 Aspartate aminotransferase [Enzymatic activity/volume] in Serum or Plasma H 46 U/L 15 U/L - 37 U/L October 26, 2024 1:07:00 PM UTC (TECH: MRB) 1742-6 Alanine aminotransferase [Enzymatic activity/volume] in Serum or Plasma N 48 U/L 12 U/L - 78 U/L October 26, 2024 1:07:00 PM UT (TECH: MRB) 6768-6 Alkaline phosphatase [Enzymatic activity/volume] in Serum or Plasma N 98 U/L October 26, 2024 1:07:00 PM [facility] (TECH: MRB) ORDER 400: LIPID PANEL (LOIN C: 04296-6) ORDER DATE: October 26, 2024 12:47:00 PM UT Specimen Source: Serum/Plasm a Specimen Type: Acellular blo od (serum or plasma) specimen PERFORMING LAB: [address] [id number] Result Comment: Final Result Date: October 26, 2024 1:08:00 PM [facility] (TECH: MRB) LOINC TEST FLAG RESULT REFERENCE RANGE UPDA JUICE BY 2571-8 Triglyceride [Mass/volume] in Serum or Plasma N 86 mg/dL 20 mg/dL - 200 mg/dL October 26 025 1:08:00 PM [facility] (TECH: MRB) 2093-3 Cholesterol [Mass/volume] in Serum or Plasma N 95 mg/dL 0 mg/dL - 200 mg/dL October 26 25 1:08:00 PM UT (TECH: MRB) 2085-9 Cholesterol in HDL [Mass/volume] in Serum or Plasma L 37 mg/dL 60 mg/dL October 26, 2024 1:08:00 PM [facility] (TECH: MRB) 15570-3 Cholesterol in LDL [Mass/volume] in Serum or Plasma by calculation L 41 mg/dL 100 mg/dL October 082024 1:08:00 PM [facility] (TECH: MRB) 2095-8 Cholesterol in HDL/Cholesterol.total [Mass Ratio] in Serum or Plasma N 3 - 5 October 26, 2024 1:08:00 PM UT (TECH: MRB) LABORATORY NARRATIVE RESULTS Information is not available RADIOLOGY RESULTS Information is not available PATHOLOGY NARRATIVE RESULTS Information is not available MICROBIOLOGY RESULTS No Micro Labs/Results Exist for Patient BLOOD ADMIN RESULTS Information is not available MEDICATIONS HOME MEDICATIONS Status RXNORM NDC Medication Dose Route Frequency Dates Comments Reported By Updated By Drug Treatment Unknown DISCHARGE MEDICATIONS Status RXNORM NDC Medication Dose Route Frequency Dates Comments Physician Updated By No Discharge Medication Info rmation Available INPATIENT MEDICATIONS Status RXNORM NDC Medication Dose Route Frequency Rat e Quantity Dates Comments Physician Updated By No Inpatient Medication Info rmation Available SOCIAL HISTORY SOCIAL HISTORY SNOMED-CT Social History Element Description Effective Dates Offered Cessation Comment UpdatedBy [id number] Historical Tobacco smoking status Never Smoked Yes [id number] on August 28, 2017 5:01:44 PM [facility] SOCIAL HISTORY - Gender Sex: Male SOCIAL HISTORY - Status : status i nformation is not available Intention in Next Year: intention information is not available SOCIAL HISTORY - Sexual Behavior Sexual Orientation Gender Identity SNOMED-CT Description SNO MED -CT Description Activity Level No of Partners Partner Type UpdatedBy Information is not available HEALTH CONCERNS Problems Concern Status Health Concern problem infor mation not available. Smoking Status Status Years Used Consumed packs p er day Health Concern smoking histo ry information not available. Family History Concern Status Health Concern family histor y information not available. ENCOUNTERS ENCOUNTER INFORMATION Reason for Visit I25.810 Admission October 26, 2024 12:39:00 PM [facility] [address] [address] Discharge October 26, 2024 12:39:00 PM [facility] D ISCHARGED TO HOME OR SELF CARE ENCOUNTER DIAGNOSES Notes information is not mary ilable. Code System Diagnosis Onset Date Diagnosis information is not available. 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 [id number] on October 28, 2024 11:16:38 AM [facility] CARE TEAM Care Assembler Knife Role TANIA SALAS Primary Attending TANIA SALAS Admitting TANIA SALAS Referring KALPANA YIN Primary Care CARE TEAM CARE insurance adjustor Role on Team Status Start Date End Date Update d By MARITZA Goems Referring normal October 26, 2024 4:00:00 AM [facility] October 26, 2024 12:39:00 PM [facility] [id number] on October 26, 2024 5:21:06 PM [facility] MARITZA Gomes Attending normal October 26, 2024 4:00:00 AM [facility] October 26, 2024 12:39:00 PM [facility] [id number] on October 26, 2024 5:21:06 PM [facility] MARITZA Gomes Admitting normal October 26, 2024 4:00:00 AM [facility] October 26, 2024 12:39:00 PM [facility] [id number] on October 26, 2024 5:21:06 PM [facility] ANNAMARIA ACUNA MD PCP normal October 26, 2024 4:00:00 AM [facility] October 26, 2024 12:39:00 PM [facility] [id number] on October 26, 2024 5:21:06 PM [facility]
[2024-12-23 10:12] LABS: PHA INR Fingerstick 2.1 (0.9-1.1)
== END 2024-12-23 10:14 ==
LOC: ACC 09:55
PROVIDERS: PCP Family Medicine; Visit Provider Family Medicine
DX: Z79.01 Long term (current) use of anticoagulants (principal); I48.91 Unspecified atrial fibrillation
CPT/HCPCS: 85610; 99211; G0463

== ENCOUNTER 2025-02-03 09:50 | Outpatient (CLI) | payer MEDICARE, MEDICAID, SELFPAY ==
--- OUTSIDE RECORDS SUMMARY | 2024-06-06 07:00 | XMS_ITS ---
Author Organization [facility] Address [address] [facility] [address] [place] [id number] Care Team Providers Care Scouring Train Operator Chief Name Role Phone Moi Rayo Primary Care Provider [phone] Allergies Allergen (clinical drug ingredient) Drug/Non Drug [...] Interpretation: Performing Lab: Notes/Report: Test performed by [facility], [facility] [address] [place] [address] , [address], [place] [address] Ashok Antonio MD, Inward Toll Operator CLIA: [id number] Sodium 145 135-145 mmol/L Potassium 4.4 3.5-5.3 mmol/L Chloride 105 97-108 mmol/L CO2 32 22-32 mmol/L Glucose 98 65-99 mg/dL BUN 25 8-23 mg/dL Creatinine 1.56 0.70-1.30 mg/dL Calcium 9.0 8.6-10.4 mg/dL eGFR by Creatinine 45 >59 mL/min/1.73m2 P-CBC with Diff plus Absolut e Counts Reviewed date:06/07/2024 11:24:32 AM Interpretation: Performing Lab: Notes/Report: Test performed by [facility], [facility] [address] [place] [address] , [address], [place] [address] Ashok Antonio MD, Inward Toll Operator CLIA: [id number] WBC 4.6 3.8-11.5 K/uL Red Blood Cell [...] days Active Vitamin D (Ergocalciferol) 1.25 MG (56753 UT) 1 cap(s) orally twice a week; [...] Duration: 30 day(s) 06/06/2024 Active Vital Signs Blood pressure systolic 142 mm Hg 06/06/20 24 Blood pressure diastolic 72 mm Hg 024 Heart Rate 94 /min 06/06/2024 Height 70 in 06/06/2024 Weight 343.4 lbs 06/06/2024 BMI 49.27 kg/m2 06/06/2024 Encounters Encounter Location Date Provider Diagnosis [facility] [address] [facility] [address] [place], [place] [id number] 06/06/2024 Moi [place] Post herpetic neural olivier B02.29 ; Peripheral edema R60.0 ; Stage 3b chronic kidney disease N18.32 ; Atrial fibrillation I48.91 and skilled nursing current use of anticoagulant Z79.01 Assessments Encounter Date Diagnosis (ICD Code) Assessment Notes Treatment Notes Treatment Clinical Notes Section Notes 06/06/2024 Post herpetic neuralgia (ICD-10 - B02.29) 06/06/2024 Peripheral edema (ICD-10 - R60.0) Patient will take an extra diuretic every other day this week 06/06/2024 Stage 3b chronic kidney disease (ICD-10 - N18.32) 06/06/2024 Atrial fibrillation (ICD-10 - I48.91) 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 :1945 A ge:78 Y S ex:Male Date:06/06/2024 Address:[address] [place] [address] [id number] Subjective: * Chief Complaints: * 1 . 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 * Surgical History: C ardiac Stent x2,1 balloon 2006, Carotid Surgery 07/26/2014, AVR 09/20/2012, Skin Lesion , Cardiac Stent x1 2014, CABG 06/16/2018, Cholecystectomy - Lapraroscopic 07/19/2019, Skin Cancer Removal - Forehead, Arm, Hand , Pacemaker 2021. * Hospitalization/Major Diagno stic Procedure: A-Fib Light M.I. - [facility] 02/16-06/2017, Leg Wound- [facility] [place]/15/2018, Gallbladder, Esophagitis, Partial Lung Collapse- [facility] 07/11-10/2017, Cholecystectomy- [facility] 07/19-07/2019. 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 * Procedure Codes: G2211 Complex e/[place]. [address] PROTHROMBIN TIME. Modifiers: QW * Electronic signature of Keisha Rayo MD on 02/03/2025 at 09:53 AM EDT Sign off status: Pending * Provider: Gordon Rayo M.D. Date: Generated for Charisma lassiter/Shraddha/Brockransmitting on: 0 02/03/2025 09:53 AM EDT History and Physical Notes * HPI (History [...]
--- OUTSIDE RECORDS SUMMARY | 2024-08-31 07:00 | XMS_ITS ---
Author Organization [facility] Address [address] [place] [phone] Care Team Providers Care Adoption Worker Name Role Phone Moi Rayo Primary Care [...] no change next check 2 weeks at [facility] ideal INR 2-3 REASON FOR VISIT leg is swollen & [...] day Active Vitamin D (Ergocalciferol) 1.25 MG (19646 UT) 1 cap(s) orally twice a week; [...] day; Duration: 30 day(s) Active Vital Signs Blood pressure systolic 138 mm Hg 08/31/19 25 Blood pressure diastolic 70 mm Hg 025 Heart Rate 98 /min 08/31/2024 Height 70 in 08/31/2024 Weight 340.4 lbs 08/31/2024 BMI 48.84 kg/m2 08/31/2024 Encounters Encounter Location Date Provider Diagnosis [facility] [address] [place], [place] [phone] 08/31/2024 Omi [place] Peripheral edema R60 .0 ; Stage 3b [...] orally once a day or as directed Pending Test Test Name Order Date H-BMP 08/31/2024 Next Appt Details Follow Up: via phone to repo rt test results, Reason: Provider Name:Moi Mae ry, 04/07/2025 09:30:00 AM, [address], [address], [place], [place], [phone], Progress Notes * COLETTE GRIMALDO WDOB:1945 (79 yo M)Acc No.[id number]:08/31/2024 Progress Notes Patient: COLETTE GARCÍA Provider: Gordon Rayo M.D. :1945 A ge:79 Y S ex:Male Date:08/31/2024 Address:[address] [place] [address], [place], [id number] Subjective: * Chief Complaints: * 1 . 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 * Surgical History: C ardiac Stent x2,1 balloon 2006, Carotid Surgery 07/26/2014, AVR 09/20/2012, Skin Lesion , Cardiac Stent x1 2014, CABG 06/16/2018, Cholecystectomy - Lapraroscopic 07/19/2019, Skin Cancer Removal - Forehead, Arm, Hand , Pacemaker 2021. * Hospitalization/Major Diagno stic Procedure: A-Fib Light M.I. - [facility] 02/16-06/2017, Leg Wound- [facility] 01/15/2018, Gallbladder, Esophagitis, Partial Lung Collapse- [facility] 07/11-10/2017, Cholecystectomy- [facility] 07/19-07/2019. * Family History: F [...] , Taking Vitamin D (Ergocalciferol) 1.25 MG (72030 UT) Capsule 1 cap(s) orally twice a [...] 3b chronic kidney disease L AB: H-BMP 3. A trial fibrillation Continue Warfarin Sodium Tablet, 5 MG, 1-1.5 tab(s), orally, once a day or as directed. L AB: PT/INR (in house) (Collection Date & Time - 08/31/2024) Value Reference Range I NR 2.8 * c urrent dose 5mg Daily * n ew dose no change * n ext check 2 weeks at [facility] * i deal INR 2-3 * Tarah Hughes 08/31/2024 10:57:5 9 AM > , Provider reviewed results while patient in office.Moi Rayo 08/31/2024 6:18:40 PM > * Procedure Codes: 8 5610 PROTHROMBIN TIME, Modifiers: QW , 50573 CAPILLARY BLOOD DRAW * Follow Up: v ia phone to report test results * Images: Billing Information: * Visit Code: 46191 Office Visit, Est Pt., Level 3. * Procedure Codes: 15885 PROTHROMBIN TIME. Modifiers: QW 91565 CAPILLARY BLOOD DRAW. * Electronic signature of Keisha Rayo MD on 02/03/2025 at 09:54 AM EDT Sign off status: Pending * Provider: Gordon Rayo M.D. Date: 0 08/31/2024 Generated for Charisma lassiter/Shraddha/Laurismitting on: 0 02/03/2025 09:54 AM EDT History and Physical Notes * [...]
--- OUTSIDE RECORDS SUMMARY | 2024-10-06 05:15 | XMS_ITS ---
Author Organization [facility] Address [address] [place] [phone] Care Team Providers Care Mash Preparatory Operator Name Role Phone Perri Moi Primary Care Provider Results Component Value Reference Range Notes PT/INR [...] days Active Vitamin D (Ergocalciferol) 1.25 MG (93274 UT) 1 cap(s) orally twice a week; [...] Status Risk Notes Problem Chronic atrial fibrillation (I48.20) Active confirmed Encounters Encounter Location Date Provider Diagnosis [facility] [address] [facility] [address] [facility] [address] [place] [id number] 10/06/2024 Moi Rayo Chronic atrial fibrillation I48.2 Assessments Encounter Date Diagnosis (ICD Code) Assessment Notes Treatment Notes Treatment Clinical Notes Section Notes 10/06/2024 Chronic atrial fibrillation (ICD-10 - I48.2) Plan Of Treatment Next Appt Details Follow Up: 6 Months, Reason: Provider Name:Moi Mae ry, 04/07/2025 09:30:00 AM, [address] [facility] [address] [facility], [address], [place], [phone], Progress Notes * COLETTE GRIMALDO WDOB:1945 (79 yo M)Acc No.[id number]:10/06/2024 Patient: COLETTE GARCÍA Provider: Gordon Rayo M.D. :1945 A ge:79 Y S ex:Male Date:10/06/2024 Address:[address] [place], [place] [address], [id number] Subjective: * Chief Complaints: * 1 . [...] , Taking Vitamin D (Ergocalciferol) 1.25 MG (76818 UT) Capsule 1 cap(s) orally twice a [...] G 2211 Complex e/[place], [address] PROTHROMBIN TIME, Modifiers: QW , 21597 CAPILLARY BLOOD DRAW * Follow Up: 6 Months * Images: Billing Information: * Visit Code: 91753 Office Visit, Est Pt., Level 3. * Procedure Codes: G2211 Complex e/[place]. [address] PROTHROMBIN TIME. Modifiers: QW 87093 CAPILLARY BLOOD DRAW. * Electronic signature of Keisha Rayo MD on 02/03/2025 at 09:54 AM EDT Sign off status: Pending * Provider: Gordon Rayo M.D. Date: 0 10/06/2024 Generated for Charisma lassiter/Shraddha/Patsy on: 0 02/03/2025 09:54 AM EDT History [...]
--- OUTSIDE RECORDS SUMMARY | 2025-02-03 09:54 | XMS_ITS | Clinical Summary ---
Author Organization [employer] Address [address] [place] [address] Care Team Providers Care Systems Developer Name Role Phone Unavailable Primary Care Provider Unavailabl e Social History Tobacco Use Types Packs/Day Years Used Date Smoking Tobacco: Never Assessed Sex and Gender Information Value Date Recorded Sex Assigned at Not on file Legal Sex Male 1:25 PM CDT Gender Identity Not on file Sexual Orientation Not on file Plan of Treatment Not on file
--- OUTSIDE RECORDS SUMMARY | 2025-02-03 09:54 | XMS_ITS | Encounter Summary ---
Author Organization [employer] Address [address] [place] [address] Care Team Providers Care Shipper/Receiver Name Role Phone Unavailable Primary Care Provider Unavailabl e Encounter Details Date Type Department Care Team (Late st Contact Info) Description 11/19/2021 Transcribed Document [facility] Radiology [address] [place] [address] Jailene Vargas MD [address] [place] [address] [place] [address] Social History Tobacco Use Types Packs/Day Years Used Date Smoking Tobacco: Never Assessed Sex and Gender Information Value Date Recorded Sex Assigned at Not on file Legal Sex Male 1:25 PM CDT Gender Identity Not on file Sexual Orientation Not on file documented as of this encounter Miscellaneous Notes * Cerner Conversion Note - Jailene Vargas MD - 11/19/2021 6:08 PM EDT DATE OF PROCEDURE: 11/19/2021 CARDIOLOGY PROCEDURE REPORT SURGEON: Jailene Vargas MD PROCEDURES PERFORMED: 1. Insertion of a dual-chamber pacemaker. 2. Conscious sedation. PROCEDURE INDICATION: Sick sinus syndrome with tachy-july. PROCEDURE DESCRIPTION: The patient was brought to the cardiac quality assurance/r&d lab technician in a fasting state where he was sterilely prepped and draped in the usual fashion. The skin overlying the left subclavian vein was anesthetized with 1% lidocaine. The left subclavian vein was identified with 10 mL of contrast. Using blunt dissection electrocautery, a device pocket was created overlying the pectoralis muscle. An access site was obtained in the left subclavian vein. There was an attempt to create a 2nd access site, but after 2 to 3 attempts, it was decided to upsize the 1st access to a 7-Israeli sheath and insert wires through that sheath. Then, a 6-Israeli split sheath was placed over one of the wires and through that, a pace-sense lead was placed in the right ventricular apex. Appropriate pacing, sensing, and impedances were confirmed. The lead had to be moved twice to get good thresholds and sensing. Next, a right atrial lead was placed in the right atrial appendage. Appropriate pacing, sensing, and impedances were confirmed on the first placement. Active fixation helix was extended and confirmed on both leads and the leads were secured to the pectoralis muscle in two sites using silk sutures. The pocket was irrigated with antibiotic solution. Hemostasis was readdressed with electrocautery and thrombin in the pocket. The device was placed in the pocket overlying the leads. The pocket was then closed with two layers of running 2-0 Vicryl and 4-0 Monocryl subcuticular stitch. There were no apparent complications and the patient tolerated the procedure well. DEVICE INFORMATION: The pulse generator is a [employer] model #RN1958, serial #[id number]. Right ventricular lead is a [employer] model #2088TC, serial number [id number]. Right atrial lead is a [employer] model #2088TC, serial #[id number]. MEASUREMENTS AT IMPLANT: Right atrial lead P-wave 2.4 mV, impedance 440 ohms, threshold 0.75 V at 0.5 milliseconds. Right ventricular lead R-wave greater than 12, impedance 610 ohms, threshold 0.5 V at 0.5 milliseconds. Parameters base rate 60, max track 120. PLAN: The patient will be discharged home after chest x-ray confirms absence of pneumothorax. He will follow up in clinic in 1 to 2 weeks for wound check. /[id number] MD PAT Jo/VLAD / PAT / MODL /[id number] documented in this encounter Plan of Treatment Not on file documented as of this encounter Visit Diagnoses Not on filedocumented in this encounter
--- OUTSIDE RECORDS SUMMARY | 2025-02-03 09:54 | XMS_ITS | Encounter Summary ---
Author Organization [employer] Address [address] [place] [address] Care Team Providers Care Test Lab Technician Name Role Phone Unavailable Primary Care Provider Unavailabl e Encounter Details Date Type Department Care Team (Late st Contact Info) Description 11/19/2021 Transcribed Document [facility] [place] [address] [place] [address] ProviderSneha [place] [address] Social History Tobacco Use Types Packs/Day Years Used Date Smoking Tobacco: Never Assessed Sex and Gender Information Value Date Recorded Sex Assigned at Not on file Legal Sex Male 1:25 PM CDT Gender Identity Not on file Sexual Orientation Not on file documented as of this encounter Miscellaneous Notes * Cerner Conversion Note - Sneha ProviderMD - 11/19/2021 6:39 PM CDT [facility] [place] [address] COLETTE LYON :1945 Visit Time:11/19/2021 Your Visit Summary Your Care Team Admitting Physician - KAMERON PHAM MD Attending Physician - KAMERON PHAM MD Primary Care Physician - KALPANA YIN (REF), -[facility] Referring Physician - KAMERON PHAM MD Your Diagnosis Bradycardia, unspecified Paroxysmal atrial fibrillation, Paroxysmal atrial fibrillation These Are Your Goals No qualifying data available. Discharge Vitals Temperature 36.2 ??C Heart Rate (Monitored) 62 Respiratory Rate 31 Blood Pressure 169/69 What to do next Instructions From Your Care Team keep dressing on and clean and dry on for two days. Let steri strips fall off on their own. No lifting you arm above your head for 2 weeks. No lifting more than 10 pounds for 2-3 weeks. No driving for 24 hours. May shower in 2 days when then dressing is removed. Do not let the shower spray directly on the incision. Follow-Up Appointments Follow Up with KAMERON PHAM MD When Within 1 week Comments Call for follow up appointment Where: Medications What How Much When Instructions Next Dose atorvastatin 80 Milligram(s) Oral Every Day bumetanide (bumetanide 1 mg oral tablet) 3 tabs Oral Two Times A Day albuterol (ProAir HFA 90 mcg/ inh inhalation aerosol) 2 Puff(s) Inhalation Four Times A Day as needed for as needed for wheezing allopurinol (allopurinol 100 mg oral tablet) 1 Tablet(s) Oral Two Times A Day aspirin 81 Milligram(s) Oral Every Day cholecalciferol (Vitamin D3) 125 Microgram(s) Oral Two Times A Day colchicine (colchicine 0.6 mg oral capsule) 1 Capsule(s) Oral Every Evening dronedarone (Multaq 400 mg oral tablet) 1 Tablet(s) Oral Two Times A Day ergocalciferol (Vitamin D2 50,000 intl units (1.25 mg) oral capsule) 1 Capsule(s) Oral Weekly ferrous sulfate 325 Milligram(s) Oral Two Times A Day finasteride (finasteride 5 mg oral tablet) 1 Tablet(s) Oral Every Day fluticasone nasal (Flonase) 1 Axtell(s) Nostrils Both Every Day losartan (losartan 50 mg oral tablet) 1 Tablet(s) Oral Every Day metoprolol (metoprolol tartrate) 50 Milligram(s) Oral Two Times A Day montelukast (montelukast 10 mg oral tablet) 1 Tablet(s) Oral Every Evening nitroglycerin (Nitrostat 0.4 mg sublingual tablet) 1 Tablet(s) SubLINgual Every 5 minutes as needed for Chest Pain pantoprazole 40 Milligram(s) Oral Every Day potassium chloride (Klor-Con 10 mEq oral tablet, extended release) 1 Tablet(s) Oral Every Day tamsulosin (tamsulosin 0.4 mg oral capsule) 1 Capsule(s) Oral Every Evening triamcinolone topical (triamcinolone 0.1% topical lotion) 1 Application(s) Topical Two Times A Day warfarin (warfarin 5 mg oral tablet) 1 Tablet(s) Oral Thursday, Thursday, , Thursday, Thursday warfarin (warfarin 7.5 mg oral tablet) 1 Tablet(s) Oral Thursday, Thursday Take your medications faithfully. Do NOT skip medication. Do NOT stop taking medications without the direction of a physician. Carry a list of your medications with you at all times, and take this medication list with you to your first follow up visit. Report any side effects. Avoid herbal remedies unless discussed with your physician. As part of your treatment plan, your physician may have prescribed a limited course of a controlled substance. This medication may be given to help people with moderate or severe pain or for other medical conditions, but there are risks involved with treatment. Common side effects may include nausea, constipation, drowsiness, sweating, itching, dry mouth, and rash. More serious side effects may include cognitive and motor impairment, like problems with thinking, concentrating, alertness, and movement (e.g. slowed reflexes), and driving and operating heavy machinery can be dangerous. It is important for you to talk to your physician if you have these side effects or questions. These controlled substances can produce physical dependence and be habit-forming if taken for an extended period of time, which means that the body has gotten used to them and may experience withdrawal symptoms if they are abruptly stopped. Withdrawal symptoms can include runny nose, sweating, goose bumps, diarrhea, abdominal cramping, rapid heartbeat, difficulty sleeping, and nervousness. Please dispose of unused and medications per your retail pharmacy guidance. Allergies Lortab (Upset Stomach, Vomiting, Nausea) Immunizations This Visit No Immunizations Found Education Materials Moderate Conscious Sedation, Adult, Care After This sheet gives you information about how to care for yourself after your procedure. Your health care provider may also give you more specific instructions. If you have problems or questions, contact your health care provider. What can I expect after the procedure? After the procedure, it is common to have: ??? Sleepiness for several hours. ??? Impaired judgment for several hours. ??? Difficulty with balance. ??? Vomiting if you eat too soon. Follow these instructions at home: For the time period you were told by your health care provider: ??? Rest. ??? Do not participate in activities where you could fall or become injured. ??? Do not drive or use machinery. ??? Do not drink alcohol. ??? Do not take sleeping pills or medicines that cause drowsiness. ??? Do not make important decisions or sign legal documents. ??? Do not take care of children on your own. Eating and drinking ??? Follow the diet recommended by your health care provider. ??? Drink enough fluid to keep your urine pale yellow. ??? If you vomit: ? Drink water, juice, or soup when you can drink without vomiting. ? Make sure you have little or no nausea before eating solid foods. General instructions ??? Take rprq-zia-osoyzdx and prescription medicines only as told by your health care provider. ??? Have a responsible adult stay with you for the time you are told. It is important to have someone help care for you until you are awake and alert. ??? Do not smoke. ??? Keep all follow-up visits as told by your health care provider. This is important. Contact a health care provider if: ??? You are still sleepy or having trouble with balance after 24 hours. ??? You feel light-headed. ??? You keep feeling nauseous or you keep vomiting. ??? You develop a rash. ??? You have a fever. ??? You have redness or swelling around the IV site. Get help right away if: ??? You have trouble breathing. ??? You have new-onset confusion at home. Summary ??? After the procedure, it is common to feel sleepy, have impaired judgment, or feel nauseous if you eat too soon. ??? Rest after you get home. Know the things you should not do after the procedure. ??? Follow the diet recommended by your health care provider and drink enough fluid to keep your urine pale yellow. ??? Get help right away if you have trouble breathing or new-onset confusion at home. This information is not intended to replace advice given to you by your health care provider. Make sure you discuss any questions you have with your health care provider. Document Revised: 11/23/2020 Document Reviewed: 06/21/2020 [employer] Patient Education ?? 2020 [employer] Pacemaker Implantation, Adult, Care After This sheet gives you information about how to care for yourself after your procedure. Your health care provider may also give you more specific instructions. If you have problems or questions, contact your health care provider. What can I expect after the procedure? After the procedure, it is common to have: ??? Mild pain. ??? Slight bruising. ??? Some swelling over the incisions. ??? A slight bump over the skin where the device was placed (if it was implanted in the upper chest area). Sometimes, it is possible to feel the device under the skin. This is normal. Follow these instructions at home: Medicines ??? Take fcer-ehr-cpxxmej and prescription medicines only as told by your health care provider. ??? If you were prescribed an antibiotic medicine, take it as told by your health care provider. Do not stop taking the antibiotic even if you start to feel better. ??? Ask your health care provider if the medicine prescribed to you requires you to avoid driving or using machinery. Incision site care ??? Do not remove the bandage (dressing) on your chest until you are told to do so by your health care provider. ??? After your dressing is removed, you may see pieces of tape called skin adhesive strips over the incision site. Let the strips fall off on their own. ??? Check your incision area every day for signs of infection. Check for: ? More redness, swelling, or pain. ? Fluid or blood. ? Warmth. ? Pus or a bad smell. ??? Do not use lotions or ointments near the incision site unless you are told to do so. ??? Keep the incision area clean and dry for 2???3 days after the procedure or as told by your health care provider. It takes several weeks for the incision site to completely heal. ??? Women may want to place a small pad over the incision site to protect it from their bra strap. ??? Do not take baths, swim, or use a hot tub for 7???10 days or until your health care provider approves. Ask your health care provider if you may take showers. You may only be allowed to take sponge baths. Activity ??? If you were given a medicine to help you relax (sedative) during the procedure, it can affect you for several hours. Do not drive or operate machinery until your health care provider says that it is safe. ??? Return to your normal activities as told by your health care provider. Ask your health care provider what activities are safe for you. ??? Do not lift anything that is heavier than 10 lb (4.5 kg), or the limit that you are told, until your health care provider says that it is safe. ??? Avoid sudden jerking, pulling, or chopping movements that pull your upper arm far away from your body. Avoid these movements for at least 6 weeks or as long as told by your health care provider. ??? Do not lift your upper arm above your shoulders for at least 6 weeks or as long as told by your health care provider. This includes activities like tennis, golf, or swimming. ??? You may go back to work when your health care provider says it is okay. Electricity and magnetic grubbs ??? Avoid places or objects that have a strong electric or magnetic field, including: ? Airport security checkpoints. When at the airport, let officials know that you have a pacemaker. Carry your pacemaker ID card. ? Metal detectors. If you must pass through a metal detector, walk through it quickly. Do not stop under the detector or stand near it. ? Power plants. ? Large electrical generators. ? Radiofrequency transmission towers, such as mobile phone and radio towers. ??? Do not use amateur radio equipment or electric welding torches. If you are unsure of whether something is safe to use, ask your health care provider. Some devices may be safe to use if you hold them at least 1 ft (0.3 m) from your pacemaker. These devices may include power tools, lawn mowers, and speakers. ??? When using your mobile phone, hold it to the ear opposite the pacemaker. Do not leave your mobile phone in a pocket over the pacemaker. Long-term care ??? You may be shown how to transfer data from your pacemaker through the phone to your health care provider. ??? Always let all health care providers, including dentists, know about your pacemaker before you have any medical procedures or tests. ??? Wear a medical ID bracelet or necklace stating that you have a pacemaker. ??? Carry a pacemaker ID card with you at all times. ??? Your pacemaker battery will last for 5???15 years. Your health care provider will do routine checks to know when the battery is starting to run down. When this happens, the pacemaker will need to be replaced. General instructions ??? Do not use any products that contain nicotine or tobacco, such as cigarettes, e-cigarettes, and chewing tobacco. These can delay incision healing after surgery. If you need help quitting, ask your health care provider. ??? Follow instructions from your health care provider about eating or drinking restrictions. ??? Weigh yourself every day. If you suddenly gain weight, fluid may be building up in your body. ??? Keep all follow-up visits as told by your health care provider. This is important. During follow-up visits, your pacemaker will be checked and reprogrammed if necessary. Contact a health care provider if: ??? You gain weight suddenly. ??? Your legs or feet swell. ??? It feels like your heart is fluttering or skipping beats (you have heart palpitations). ??? You have any of these signs of infection: ? More redness, swelling, or pain around an incision. ? Fluid or blood coming from an incision. ? Warmth coming from an incision. ? Pus or a bad smell coming from an incision. ? A fever or chills. Get help right away if: ??? You have chest pain. ??? You have trouble breathing or are short of breath. ??? You become extremely tired. ??? You are light-headed or you faint. These symptoms may represent a serious problem that is an emergency. Do not wait to see if the symptoms will go away. Get medical help right away. Call your local emergency services (911 in the [place] Do not drive yourself to the hospital. Summary ??? After the procedure, it is common to have mild pain, swelling, or bruising over the incision. ??? Take iqke-btq-wvmfgfa and prescription medicines only as told by your health care provider. ??? Do not raise your arm above your shoulder or lift anything that is heavier than 10 lb (4.5 kg), or the limit that you are told, until your health care provider says that it is safe. ??? Carry a pacemaker ID card with you at all times. This information is not intended to replace advice given to you by your health care provider. Make sure you discuss any questions you have with your health care provider. Document Revised: 06/27/2020 Document Reviewed: 06/27/2020 [employer] Patient Education ?? 2020 [employer] Emergency Awareness and Preventative Care STROKE is an EMERGENCY Every Minute Counts Act FAST and Check for these signs: FACE Does the face look uneven? ARM Does one arm drift down? SPEECH Does their speech sound strange? TIME Call at any sign of stroke Stroke Risk Factors Atrial Fibrillation (irregular heartbeat) Diabetes Family history of stroke Heart Disease Heavy alcohol use High Blood Pressure High Cholesterol Physical inactivity and obesity Smoking Cigarette Smoking The facts are clear, cigarette smoking will shorten your life. Smoking can cause many illnesses along the way. As a healthcare provider, we recommend that you stop smoking. Assistance with quitting is available by contacting 6-154-SWMS-NOW. This is a free resource providing counseling, support, and referral. Or you may contact your personal physician. National Suicide Prevention Lifeline: The National Suicide Prevention Lifeline is a national network of local crisis centers that provides free and confidential emotional support to people in suicidal crisis or emotional distress 24 hours a day, 7 days a week. Don't Wait! Stop a Heart Attack Before it Starts What is a heart attack? A heart attack is damage or to a part of the heart from severely decreased or lack of blood flow to the heart. Over time, arteries can become narrow from the buildup of fat and cholesterol, which is called plaque. The plaque can rupture causing a blood clot to form. When the blood clot forms, the artery can become severely narrowed or completely blocked, causing a heart attack. Heart attack is the leading cause of in the [place]. 85% of muscle damage occurs within the first 2 hours. Delay in the recognition of heart attack symptoms increases the chances of . Know the early symptoms of a heart attack: Nausea Feeling of fullness in chest Jaw Pain Pain that travels down one or both arms Fatigue/being tired Anxiety Back Pain Chest pressure, squeezing, or discomfort Shortness of breath Sweating, or a cold sweat Feeling of impending doom There are unusual signs of a heart attack, too! Women, the elderly, and diabetics may present with atypical symptoms: Fainting/dizziness Weakness Confusion Risk Factors for a Heart Attack Some heart disease risk factors, such as age and family history, cannot be changed. Others, like smoking and lack of exercise, can be changed. Smoking High Cholesterol High Blood Pressure Family History Obesity Age Gender (Males are at higher risk) Lack of Exercise Diabetes Diet Stress Excessive Alcohol Intake If you or someone you know is experiencing the signs and symptoms of a heart attack, DON???T DELAY. Call immediately and seek help. If someone collapses, perform CPR! Do not attempt to drive if you are having symptoms of heart attack. Hands-Only CPR Why Hands-Only CPR? Hands-Only CPR has been shown to be as effective as conventional CPR for cardiac arrests that occur outside of a hospital. Survival depends on immediately receiving CPR from someone nearby. How do you perform Hands-Only CPR? There are two easy steps: Call if you see a teen or adult collapse Push hard and fast in the center of the chest at a beat of 100 beats per minute. Save a life! 4 WAYS TO GET AHEAD OF SEPSIS SEPSIS is a MEDICAL EMERGENCY. Time matters! Infections put you and your family at risk for a life-threatening condition called sepsis. Sepsis is the body's extreme response to an infection. It is life-threatening, and without timely treatment, sepsis can rapidly lead to tissue damage, organ failure, and . Sepsis happens when an infection you already have-in your skin, lungs, urinary tract or somewhere else-triggers a chain reaction throughout your body. 1 PREVENT INFECTIONS Take good care of chronic conditions. Talk to your doctor about getting the recommended vaccines. 2 PRACTICE GOOD HYGIENE Wash your hands frequently. Keep cuts or open sores clean and covered until they are healed. 3 KNOW THE SYMPTOMS Confusion or disorientation Shortness of breath High heart rate Fever, shivering, or feeling very cold Extreme pain or discomfort Clammy or sweaty skin 4 ACT FAST Get medical care IMMEDIATELY if you suspect sepsis or if you have an infection that is not getting better or is getting worse. To learn more about sepsis and how to prevent infections, visit www.cdc.gov/sepsis. Test Results Laboratory or Other Results This Visit (last charted value for your 11/19/2021 visit) Hematology 11/19/2021 1:57 PM Hemoglobin POC: 13.6 Gram/dL -- Normal range between ( 12.0 and 17.0 ) Hematocrit POC: 40.0 % -- Normal range between ( 38.0 and 51.0 ) Microbiology 11/15/2021 10:30 AM SARS-CoV-2 (COVID19 PCR): Negative General Chemistry 11/19/2021 2:02 PM Creatinine Level: 1.70 mg/dL -- Normal range between ( 0.70 and 1.30 ) eGFR : 48 mL/min/1.73m2 eGFR NonAfrican: 39 mL/min/1.73m2 11/19/2021 1:57 PM Sodium POC: 143 mmol/L -- Normal range between ( 138 and 146 ) Ca Ioniz POC: 1.19 mmol/L -- Normal range between ( 1.12 and 1.32 ) Potassium POC: 4.0 mmol/L -- Normal range between ( 3.5 and 4.9 ) Creatinine POC: 1.8 mg/dL -- Normal range between ( 0.6 and 1.3 ) BUN POC: 35 mg/dL -- Normal range between ( 8 and 26 ) CO2 POC: 34.0 mmol/L -- Normal range between ( 24.0 and 29.0 ) Chloride POC: 101 mmol/L -- Normal range between ( 98 and 109 ) Glucose POC: 101 mg/dL -- Normal range between ( 70 and 105 ) Anion Gap POC: 13.0 mmol/L -- Normal range between ( 10.0 and 20.0 ) Coagulation 11/19/2021 1:53 PM Protime POC: 18.6 Second(s) -- Normal range between ( 9.6 and 14.6 ) INR POC: 1.6 -- Normal range between ( 0.9 and 1.2 ) Diagnostic Radiology 11/19/2021 5:09 PM CR Chest 1 Vw Portable: CR Chest 1 Vw Portable Patient Name:COLETTE LYON I have received and understand this information and was given the opportunity to ask questions. Patient/Automotive Parts Counter Associate Name: Patient/Automotive Parts Counter Associate Signature: Relationship to Patient: Clinician/Hospital Autom[employer] Counter Associate Signature: Date: documented in this encounter Plan of Treatment Not on file documented as of this encounter Visit Diagnoses Not on filedocumented in this encounter
--- OUTSIDE RECORDS SUMMARY | 2025-02-03 09:54 | XMS_ITS | Encounter Summary ---
Author Organization [employer] Address [address] [place] [address] Care Team Providers Care Tile Layer Name Role Phone Unavailable Primary Care Provider Unavailabl e Encounter Details Date Type Department Care Team (Late st Contact Info) Description 11/19/2021 Transcribed Document [facility] [place] [facility] [place] [address] ProviderSneha MD [address] [place] [id number] Social History Tobacco Use Types Packs/Day Years Used Date Smoking Tobacco: Never Assessed Sex and Gender Information Value Date Recorded Sex Assigned at Not on file Legal Sex Male 1:25 PM CDT Gender Identity Not on file Sexual Orientation Not on file documented as of this encounter Miscellaneous Notes * Cerner Conversion Note - Historical ProviderMD - 11/19/2021 6:56 PM CDT Nursing Discharge Summary Entered On: 11/19/2021 19:01 EDT Performed On: 11/19/2021 18:56 EDT by ROLANDO DAVIES RN Discharge Documentation Discharge Date/Time : 11/19/2021 19:05 EDT Patient Disposition, General : Discharge Discharge To : Home with ambulatory/outpatient follow-up Mode Of Departure, General Discharge : Private vehicle, Wheelchair Accompanied By, Discharge : Spouse IV Discontinued : Yes Personal Belongings With Patient : Yes Prescriptions Given to Patient : Electronically sent Discharge Instructions Reviewed With, Opportunity For Questions Given : Patient, Spouse Patient Education Completed : Yes Teaching Method : Explanation, Printed materials Teaching Evaluation : Verbalizes understanding ROLANDO DAVIES RN - 11/19/2021 18:56 EDT Electronically signed by [facility] Conversion Large Animal Veterinarian Cerner at 11/24/2022 4:28 PM CDT documented in this encounter Plan of Treatment Not on file documented as of this encounter Visit Diagnoses Not on filedocumented in this encounter
--- OUTSIDE RECORDS SUMMARY | 2025-02-03 09:54 | XMS_ITS | Encounter Summary ---
Author Organization [employer] Address [address] [place] [address] Care Team Providers Care Access Coordinator Name Role Phone Unavailable Primary Care Provider Unavailabl e Encounter Details Date Type Department Care Team (Late st Contact Info) Description 11/19/2021 Transcribed Document [facility] [place] Family Medicine [address] [place] [address] ProviderSneha [place] [address] Social History Tobacco Use Types Packs/Day Years Used Date Smoking Tobacco: Never Assessed Sex and Gender Information Value Date Recorded Sex Assigned at Not on file Legal Sex Male 1:25 PM CDT Gender Identity Not on file Sexual Orientation Not on file documented as of this encounter Miscellaneous Notes * Cerner Conversion Note - Sneha Lyle MD - 11/19/2021 6:08 PM CDT [facility] [place] [address] COLETTE LYON :1945 Visit Time:11/19/2021 Your Visit Summary Your Care Team Admitting Physician - KAMERON PHAM MD Attending Physician - KAMERON PHAM MD Primary Care Physician - KALPANA YIN (REF), -[facility] Referring Physician - KAMERON PHAM MD [...] 2-3 weeks. [address] for 24 hours. Hold blood thinners until follow up with Doctor. Follow-Up Appointments Follow Up with KAMERON PHAM [...] Oral Every Day fluticasone nasal (Flonase) 1 Tichnor(s) Nostrils Both Every Day losartan (losartan 50 [...] eating solid foods. General instructions ??? Take cvia-jnb-rdsflpw and prescription medicines only as told by [...] provider. Document Revised: 11/23/2020 Document Reviewed: 06/21/2020 [employer] Patient Education ?? 2020 [employer] Pacemaker Implantation, Adult, Care After This [...] these instructions at home: Medicines ??? Take hiaj-vyi-sbjsmov and prescription medicines only as told by [...] or bruising over the incision. ??? Take oyia-rlr-cfkvoci and prescription medicines only as told by [...] provider. Document Revised: 06/27/2020 Document Reviewed: 06/27/2020 Else[employer] Patient Education ?? 2020 [employer] Emergency Awareness and Preventative Care STROKE [...] Assistance with quitting is available by contacting 9-607-WHTTNOW. This is a free resource providing counseling, [...] was given the opportunity to ask questions. Patient/Print Buyer Name: Patient/Print Buyer Signature: Relationship to Patient: Clinician/Hospital Print Buyer Signature: Date: documented in this encounter Plan of Treatment Not on file documented as of this encounter Visit Diagnoses Not on filedocumented in this encounter
--- OUTSIDE RECORDS SUMMARY | 2025-02-03 09:54 | XMS_ITS | Encounter Summary ---
Author Organization [employer] Address [address] [place] [address] Care Team Providers Care Refinery Operator Helper Crude Unit Name Role Phone Unavailable Primary Care Provider Unavailabl e Encounter Details Date Type Department Care Team (Late st Contact Info) Description 11/19/2021 Transcribed Document [facility] [place] Family Medicine [address] [place] [address] ProviderSneha MD [facility], [facility] [place], [place] [id number] Social History Tobacco Use Types Packs/Day Years Used Date Smoking Tobacco: Never Assessed Sex and Gender Information Value Date Recorded Sex Assigned at Not on file Legal Sex Male 1:25 PM CDT Gender Identity Not on file Sexual Orientation Not on file documented as of this encounter Miscellaneous Notes * Cerner Conversion Note - Sneha ProviderMD - 11/19/2021 5:30 PM CDT Patient Education Materials Follows: Moderate Conscious Sedation, Adult, Care After This [...] eating solid foods. General instructions ??? Take kihp-lle-yfczdir and prescription medicines only as told by [...] provider. Document Revised: 11/23/2020 Document Reviewed: 06/21/2020 [employer] Patient Education ? 2020 [employer] Procedures Pacemaker Implantation, Adult, Care After This sheet [...] these instructions at home: Medicines ??? Take pzzv-olq-pjnraah and prescription medicines only as told by [...] the incision area clean and dry for 2?3 days after the procedure or as told by your health care provider. It takes several weeks for the incision site to completely heal. ??? Women may want to place a small pad over the incision site to protect it from their bra strap. ??? Do not take baths, swim, or use a hot tub for 7?10 days or until your health care provider [...] ??? Your pacemaker battery will last for 5?15 years. Your health care provider will do [...] or bruising over the incision. ??? Take ohzk-mcq-gyduczo and prescription medicines only as told by [...] provider. Document Revised: 06/27/2020 Document Reviewed: 06/27/2020 [employer] Patient Education ? 2020 [employer]. documented in this encounter Plan of Treatment Not on file documented as of this encounter Visit Diagnoses Not on filedocumented in this encounter
--- OUTSIDE RECORDS SUMMARY | 2025-02-03 09:54 | XMS_ITS | Encounter Summary ---
Author Organization [employer] Address [address] [place] [address] Care Team Providers Care Valve Tester Name Role Phone Unavailable Primary Care Provider Unavailabl e Encounter Details Date Type Department Care Team (Late st Contact Info) Description 11/19/2021 Transcribed Document [facility] [place] [facility] [place] [address] ProviderSneha MD [address] [place] [id number] Social History Tobacco Use Types Packs/Day Years Used Date Smoking Tobacco: Never Assessed Sex and Gender Information Value Date Recorded Sex Assigned at Not on file Legal Sex Male 1:25 PM CDT Gender Identity Not on file Sexual Orientation Not on file documented as of this encounter Miscellaneous Notes * Cerner Conversion Note - Historical ProviderMD - 11/19/2021 1:56 PM CDT Pre Procedure Adult Entered On: 11/19/2021 14:00 EDT Performed On: 11/19/2021 13:56 EDT by ROLANDO DAVIES RN Height and Weight, Clinical Dosing Height Source : Stated Height Entry Format : [place] Height, Feet : 5 ft(Converted to: 152 cm, 60 Inch) Height, Inches : 10 Inch(Converted to: 0 ft 10 Inch, 25.40 cm) Clinical Height : 177.8 cm Weight Source : Standing scale Weight Entry Format : [place] Clinical Dosing Weight : 146.82 kg Weight, Pounds : 323 lb Body Surface Area (BSA) : 2.56 m2 Body Mass Index : 46.4 kg/m2 (>HHI) [place] Body Weight : 72 kg ROLANDO DAVIES RN - 11/19/2021 13:56 EDT Health Histories Smoking Status : Never (less than 100 in lifetime; none in last 30 days) Smokeless Tobacco Status : Never ROLANDO DAVIES RN - 11/19/2021 13:56 EDT Social History (As Of: 11/19/2021 14:00:23 EDT) Tobacco: Smoking Status Never smoker. None Smoking Frequency Within Last 30 Days. Use in Last 12 Months: No. Years of Use: 0. Packs/Tins Daily: 0. Used Tobacco, but Quit No. Second Hand Smoke Exposure: No. No Smokeless Tobacco Use in Last 30 Days. None Smokeless Tobacco Use History. (Last Updated: 05/06/2016 21:53:58 EDT by Ann-Marie Hewitt Rn) Alcohol: Alcohol Use History No. Days/Week: 0. # Drinks/Day: 0. Total Drinks/Week: 0. Date/Time of Last Drink: 0. Use in Last 12 Months: No. Desires Alcohol Cessation Medication Refuses FDA approved medications. (Last Updated: 05/06/2016 21:53:58 EDT by Ann-Marie Hewitt Rn) Substance Abuse: Drug Use Hx: No. Use in Last 12 Months: No. (Last Updated: 05/06/2016 21:53:58 EDT by Ann-Marie Hewitt Rn) Infectious Disease History Does patient have symptoms of COVID-19? : No Has the Patient Been Tested for COVID-19 in the last 14 days? : Yes, Patient stated results Negative Does the Patient state known exposure to a COVID-19 positive case in the last 14 days? : No Patient Vaccinated for COVID-19 : Fully vaccinated ROLANDO DAVIES RN - 11/19/2021 13:56 EDT Infectious Disease Risk Screening Grid Cough < 2 wks of unknown origin : NO Cough > 2 weeks : NO Blood in Sputum : NO Fever or self-reported Fever : NO Rash of unknown origin : NO Headache : NO Stiff neck : NO Night Sweats : NO Unexplained Weight Loss : NO Diarrhea (3 episode per day) : NO ROLANDO DAVIES RN - 11/19/2021 13:56 EDT Physical contact outside [place] in the last 30 days : No Hospitalized in Foreign Country : No Infectious Disease History : Chicken pox/Shingles, Measles, Mumps INF Disease TB Screening Calc : 0 INF Disease Recent Travel Calc : 0 ROLANDO DAVIES RN - 11/19/2021 13:56 EDT COVID19 PreProcedure Screening Is this an Emergent or Add on Procedure? : No Date PreProcedure COVID-19 test known? : Yes Date of PreProcedure COVID-19 : 11/15/2021 EDT Has patient been isolated since the test : Yes Exposed to COVID19 symptoms since test? : No ROLANDO DAVIES RN - 11/19/2021 13:56 EDT Anesthesia/Transfusion History Family History of Anesthesia Reaction : No prior transfusion(s) Transfusion History : Prior anesthesia without reaction Family History of Anesthesia Reaction : None ROLANDO DAVIES RN - 11/19/2021 13:56 EDT Functional Assessment Living Situation : Home Current Home Treatments : BiPAP, Oxygen therapy ROLANDO DAVIES RN - 11/19/2021 13:56 EDT [place] Suicide Severity Rating Scale (C-SSRS) CSSRS Past Month Wish to be : No CSSRS Past Month Suicidal Thoughts : No CSSRS Lifetime Suicide Behavior : No Suicide Severity Rating Score : 0 Suicide Severity Rating : No Additional Care Required at this time ROLANDO DAVIES RN - 11/19/2021 13:56 EDT Psychosocial History Chronic/Terminal Illness w/Freq Visits : No Do You Have a History of the Following? : Patient denies history Currently in Unsafe Situation : No ROLANDO DAVIES RN - 11/19/2021 13:56 EDT Advance Directive Patient has Advance Directive *Q : Yes, Advance Directive not with the patient Advance Directive Type : Living will Copy Advance Directive Verified/on Chart : No ROLANDO DAVIES RN - 11/19/2021 13:56 EDT General Info Preferred Name : Chad Legal Guardian : [place] Support Person/Patient Folder Stitcher Operator : Yes Support Person/Pt Rep Name : Diann Mason Contact Password : [id number] Support Person/Pt Rep Contact Information : [phone] Want Family/Rep/Phys Notified of Admit : No Emergency Contact #1 : na Emergency Contact #1 Phone Number : na Emergency Contact #1 Relationship : na Emergency Contact #2 : na Emergency Contact #2 Phone Number : na Emergency Contact #2 Relationship : na Primary Language : Guatemalan Preferred Communication Mode : Verbal Communication Barrier : None Technical Mgr Needed : No ROLANDO DAVIES RN - 11/19/2021 13:56 EDT Sleep Apnea Risk Assmt BiPAP/CPAP Ordered for Home Use : Yes Hx of Obstructive Sleep Apnea Diagnosis : Yes BiPAP/CPAP Used at Home : Yes Age over 50 Years Old : Yes Gender Male : Yes ROLANDO DAVIES RN - 11/19/2021 13:56 EDT Jarvis Scale Jarvis Sensory Perception : No impairment Jarvis Moisture : Rarely moist Jarvis Activity : Walks frequently Jarvis Mobility : Slightly limited Jarvis Nutrition : Excellent Jarvis Friction and Shear : No apparent problem Jarvis Score : 22 ROLANDO DAVIES RN - 11/19/2021 13:56 EDT Fall Risk Scales ABCs Fall Injury Risk Identification : Bones ABC Fall Injury Risk : Moderate to high injury risk [place] Hx Falls Immediate/Within 3 Months : No [place] Secondary Diagnosis : Yes [place] Use of Ambulatory Aid : None [place] IV Therapy or IV Access : Yes [place] Gait/Transferring : Normal, bedrest, immobile [place] Mental Status : Oriented to own ability [place] Fall Risk Score : 35 [place] Fall Scale Risk Level : 25-45 Medium Risk Halls Fall Interventions : Bed in low position, Call device within reach, Non-slip footwear, Wheels locked ROLANDO DAVIES RN - 11/19/2021 13:56 EDT Valuables and Belongings Valuables and Belongings : Clothing Clothing : Common streetwear Clothing Disposition : Bedside ROLANDO DAVIES RN - 11/19/2021 13:56 EDT Electronically signed by Anila Gamboa Conversion Communications Department Chair Cerner at 11/24/2022 4:15 PM CDT documented in this encounter Plan of Treatment Not on file documented as of this encounter Visit Diagnoses Not on filedocumented in this encounter
--- OUTSIDE RECORDS SUMMARY | 2025-02-03 09:54 | XMS_ITS | Referral Summary ---
Author Organization [employer] Address [address] [place] [address] Care Team Providers Care Photographs Curator Name Role Phone Unavailable Primary Care Provider [...]
--- OUTSIDE RECORDS SUMMARY | 2025-02-03 09:55 | XMS_ITS | Patient Health Record ---
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 Name Role Phone Moi Rayo Primary Care Provider [phone] Abigail Catherine [phone] Allergies Allergen (clinical drug ingredient) Drug/Non Drug Allergy documented on EMR Reaction Allergy Type Onset Date Status Lortab stomach upset Drug Allergy Act dimas Results Component Value Reference Range Notes PT/INR (in house) Reviewed date:02/17/2024 07:13:43 PM Interpretation: Performing Lab: Notes/Report: INR 3.0 current dose 7.5mg F, 5mg AOD new dose 5 mg daily next check 4 weeks ideal INR 2-3 P-Basic Metabolic Panel (BMP ) Reviewed date:02/18/2024 09:43:07 AM Interpretation:gluc 105, bun 30, Cr 1.54, gfr 46 Performing Lab: Notes/Report: Test performed by [facility] [address] [place] [address] , [address], [place] [address] Ashok Antonio MD, [employer] CLIA: [id number] Sodium 143 135-145 mmol/L Potassium 4.5 3.5-5.3 mmol/L Chloride 102 97-108 mmol/L CO2 31 22-32 mmol/L Glucose 105 65-99 mg/dL BUN 30 8-23 mg/dL Creatinine 1.54 0.70-1.30 mg/dL Calcium 9.5 8.6-10.4 mg/dL eGFR by Creatinine 46 >59 mL/min/1.73m2 P-Basic Metabolic Panel (BMP ) Reviewed date:03/22/2024 08:55:34 AM Interpretation:bun 45, Cr 2.1, gfr 32 Performing Lab: Notes/Report: Test performed by [facility] [address] [place] [address] , [place] [address] Ashok Antonio MD, [employer] CLIA: [id number] Sodium 142 135-145 mmol/L Potassium 4.3 3.5-5.3 mmol/L Chloride 102 97-108 mmol/L CO2 29 22-32 mmol/L Glucose 99 65-99 mg/dL BUN 45 8-23 mg/dL Creatinine 2.10 0.70-1.30 mg/dL Calcium 8.8 8.6-10.4 mg/dL eGFR by Creatinine 32 >59 mL/min/1.73m2 PT/INR (in house) Reviewed date:06/06/2024 05:57:02 PM Interpretation: Performing Lab: Notes/Report: INR 2.1 current dose 5mg Daily new dose no change next check 6 weeks ideal INR 2-3 P-Basic Metabolic Panel (BMP ) Reviewed date:06/07/2024 11:24:32 AM Interpretation: Performing Lab: Notes/Report: Test performed by [facility] [address] [place] [address] , [address], [place] [id number] Ashok Antonio MD, [employer] CLIA: [id number] Sodium 145 135-145 mmol/L Potassium 4.4 3.5-5.3 mmol/L Chloride 105 97-108 mmol/L CO2 32 22-32 mmol/L Glucose 98 65-99 mg/dL BUN 25 8-23 mg/dL Creatinine 1.56 0.70-1.30 mg/dL Calcium 9.0 8.6-10.4 mg/dL eGFR by Creatinine 45 >59 mL/min/1.73m2 P-CBC with Diff plus Absolut e Counts Reviewed date:06/07/2024 11:24:32 AM Interpretation: Performing Lab: Notes/Report: Test performed by [facility] [address] [place] [address] , [address], [place] [address] Ashok Antonio MD, [employer] CLIA: [id number] WBC 4.6 3.8-11.5 K/uL Red Blood Cell Count (RBC) 3.66 4.20-5.70 M/mm3 Hemoglobin (Hgb) 12.3 13.1-17.5 gm/dL Hematocrit (HCT) [...] 0.0-0.1 K/uL Absolute Immature Granulocyte 0.01 0.00-0.03 K/uL H-CBC Reviewed date:03/14/2024 02:19:12 PM Interpretation: Performing Lab: Notes/Report: WBC 5.1 4.8-10.8 K/mm3 RBC 3.88 4.60-6.20 M/mm3 HGB 13.4 14.1-18.0 g/dL HCT 40.0 42.0-52.0 % MCV 102.9 80-94 fl MCH 34.6 27.0-31.2 pg MCHC 33.6 31.8-35.4 g/dL RDW 15.0 11.5-17.5 % PLT 129 142-424 K/mm3 MPV 9.9 7.4-10.4 fl NE% 52.9 37.0-80.0 % LY% 30.3 10-50 % MO% 11.2 1.7-9.3 % EO% 3.8 0.1-12.0 % BA% 1.8 0.1-2.0 % NE# 2.7 1.8-7.8 K/mm3 LY# 1.5 0.7-4.5 K/mm3 MO# 0.6 0.1-1.0 K/mm3 EO# 0.2 0.0-0.4 K/mm3 BA# 0.1 0-0.2 K/mm3 H-BMP Reviewed date:03/14/2024 02:19:13 PM Interpretation: Performing Lab: Notes/Report: NA 137 136-145 mmol/L K 3.3 3.5-5.1 mmoL/L CL 97 98-107 mmol/L CO2 34 22.0-30.0 mmol/L GAP 9.3 5-15 mEq/L BUN 63 9-20 mg/dl CREATT 2.90 0.66-1.25 mg/dl GFRAA 26 >60 ML/MIN EGFR 21 >60 ml/min GLU 115 74-100 mg/dl CA 8.5 8.4-10.2 mg/dl H-PT/INR Reviewed date:03/14/2024 02:19:13 PM Interpretation: Performing Lab: Notes/Report: PT 23.6 10.1-12.5 seconds INR 2.29 0.9-1.1 INDICATION INR RANGE Therapy for DVT, PE, Atrial Fib, 2.0-3.0 Prophylaxis for VTE. Therapy for Mechanical Heart Valve, 2.5-3.5 Prevention of Sytemic Emolism secondary to AMI. H-INR Reviewed date:12/23/2024 12:42:47 PM Interpretation: Performing Lab: Notes/Report: POCINRFS 2.1 0.9-1.1 Results sent to: Moi Rayo MD Pharmacist recommendation for Warfarin therapy is: INR TODAY VIA FINGERSTICK IS 2.1. RECOMMEND CONTINUING CURRENT WEEKLY WARFARIN DOSE AT 5MG DAILY. PATIENT WILL F/U IN 6 WEEKS. FOR DETAILED INFORMATION-PLEASE REVIEW PROGRESS NOTE IN THE ASSESSMENTS AND ANTICOAGULATION CLINIC SECTION ANTICOAGULATION CLINIC IN PCI/CLINICAL REVIEW INDICATION INR RANGE THERAPY FOR DVT, PE, ATRIAL FIB; 2.0 - 3.0 PROPHYLAXIS FOR VTE THERAPY FOR MECHANICAL HEART 2.5 - 3.5 VALVE; PREVENTION OF SYSTEMIC EMBOLISM SECONDARY TO AMI H-INR Reviewed date:07/21/2024 03:20:44 PM Interpretation: Performing Lab: Notes/Report: POCINRFS 1.7 0.9-1.1 Results sent to: Moi Rayo MD Pharmacist recommendation for Warfarin therapy is: PATIENT INR 1.7 TODAY VIA FINGERSTICK. RECOMMENDED PATIENT TAKE 7.5 MG TODAY, THEN 5 MG DAILY THEREAFTER. MISSED AT LEAST ONE DOSE OVER THE WEEKEND. FOR DETAILED INFORMATION-PLEASE REVIEW PROGRESS NOTE IN THE ASSESSMENTS AND ANTICOAGULATION CLINIC SECTION ANTICOAGULATION CLINIC IN PCI/CLINICAL REVIEW INDICATION INR RANGE THERAPY FOR DVT, PE, ATRIAL FIB; 2.0 - 3.0 PROPHYLAXIS FOR VTE THERAPY FOR MECHANICAL HEART 2.5 - 3.5 VALVE; PREVENTION OF SYSTEMIC EMBOLISM SECONDARY TO AMI H-PT/INR Reviewed date:03/31/2024 11:22:15 AM Interpretation: Performing Lab: Notes/Report: PT 26.0 10.1-12.5 seconds INR 2.55 0.9-1.1 INDICATION INR RANGE Therapy for DVT, PE, Atrial Fib, 2.0-3.0 Prophylaxis for VTE. Therapy for Mechanical Heart Valve, 2.5-3.5 Prevention of Sytemic Emolism secondary to AMI. H-BMP Reviewed date:03/31/2024 11:22:15 AM Interpretation:co2- 32, bun 23, Cr 1.3, gfr 54 Performing Lab: Notes/Report: NA 142 136-145 mmol/L K 4.0 3.5-5.1 mmoL/L CL 106 98-107 mmol/L CO2 32 22.0-30.0 mmol/L GAP 8.0 5-15 mEq/L BUN 23 9-20 mg/dl CREATT 1.30 0.66-1.25 mg/dl GFRAA 65 >60 ML/MIN EGFR 54 >60 ml/min GLU 93 74-100 mg/dl CA 8.4 8.4-10.2 mg/dl PT/INR (in house) Reviewed date:05/09/2024 12:41:28 PM Interpretation: Performing Lab: Notes/Report: INR 2.0 current dose 5mg Daily new dose no change next check 4 weeks at [facility] ideal INR 2-3 H-INR Reviewed date:11/11/2024 04:36:11 PM Interpretation: Performing Lab: Notes/Report: POCINRFS 2.1 0.9-1.1 Results sent to: Moi Rayo MD Pharmacist recommendation for Warfarin therapy is: INR TODAY VIA FINGERSTICK IS 2.1. PATIENT SHOULD CONTINUE WEEKLY DOSE OF WARFARIN 5MG DAILY. PATIENT WILL F/U IN 6 WEEKS. FOR DETAILED INFORMATION-PLEASE REVIEW PROGRESS NOTE IN THE ASSESSMENTS AND ANTICOAGULATION CLINIC SECTION ANTICOAGULATION CLINIC IN PCI/CLINICAL REVIEW INDICATION INR RANGE THERAPY FOR DVT, PE, ATRIAL FIB; 2.0 - 3.0 PROPHYLAXIS FOR VTE THERAPY FOR MECHANICAL HEART 2.5 - 3.5 VALVE; PREVENTION OF SYSTEMIC EMBOLISM SECONDARY TO AMI H-BMP Reviewed date:09/16/2024 01:00:16 PM Interpretation:CO2 33, BUN 30, Creat 1.40, GFR 49, Glu 108 Performing Lab: Notes/Report: NA 143 136-145 mmol/L K 4.3 3.5-5.1 mmoL/L CL 104 98-107 mmol/L CO2 33 22.0-30.0 mmol/L GAP 10.3 5-15 mEq/L BUN 30 9-20 mg/dl CREATT 1.40 0.66-1.25 mg/dl GFRAA 59 >60 ML/MIN EGFR 49 >60 ml/min GLU 108 74-100 mg/dl CA 8.8 8.4-10.2 mg/dl PT/INR (in house) Reviewed date:10/06/2024 09:50:36 AM Interpretation: Performing Lab: Notes/Report: INR 1.8 current dose 5mg Daily new dose no change next check 4 weeks ideal INR 2-3 PT/INR (in house) Reviewed date:08/31/2024 06:18:47 PM Interpretation: Performing Lab: Notes/Report: INR 2.8 current dose 5mg Daily new dose no change next check 2 weeks at [facility] ideal INR 2-3 Reason For Referral No Information Medications Medication SIG (Take, Route, Frequency, Duration) Notes Start Date End Date Status Fluticasone Propionate 50 MCG/ACT 1 spray(s) in each nostril once a day; Duration: 90 days Active Vitamin D (Ergocalciferol) 1.25 MG (79232 UT) 1 cap(s) orally twice a week; Duration: 90 days Active Montelukast Sodium 10 MG 1 tab(s) orally once a day; Duration: 90 days Active Nitrostat 0.4 MG 1 tab(s) sublinguall y every 5 minutes, prn; Duration: 8 Active Pantoprazole Sodium 40 MG TAKE 1 TABLET BY MOUTH EVERY DAY FOR 90 DAYS; Duration: 90 Active valACYclovir HCl 1 GM 1 tablet Orally Th ree times a day; Duration: 7 days 05/20/2024 Active Allopurinol 100 MG TAKE 1 TABLET BY KARI TH TWICE A DAY FOR 90 DAYS; Duration: 90 Active Colchicine 0.6 MG 1 tab(s) orally once a day; Duration: 90 days Active Pregabalin 75 MG 1 capsule Orally Two times a day; Duration: 30 day(s) 10/25/2024 Active Losartan Potassium 50 MG 1 tab(s) orally once a day; Duration: 90 days Active Potassium Chloride ER 10 MEQ 3 tab(s) orally twice a day; Duration: 30 days Active Ferrous Sulfate 325 (65 Fe) MG 1 tablet Orally Two times a day; Duration: 90 days Active Finasteride 5 MG 1 tablet Orally Once a day; Duration: 90 days Active Aspirin 81 MG 1 tab(s) orally once a day; Duration: 30 day(s) Active Diclofenac Sodium 1 % as directed applie d topically 4 times a day; Duration: 30 day(s) Active Multaq 400 MG 1 tablet with meals Orally Twice a day; Duration: 90 days 09/19/2024 Active metOLazone 5 MG 1 tab(s) orally ever y 3 days as needed Active Warfarin Sodium 5 MG 1-1.5 tab(s) orally once a day or as directed Active Atorvastatin Calcium 80 MG TAKE 1 TABLET BY MOUTH EVERY DAY FOR 90 DAYS; Duration: 90 Active Triamcinolone Acetonide 0.1 % APPLY TO AFFECTED AREA TWICE A DAY NEEDED; Duration: 60 days Active Bumetanide 2 MG 1 or 2 tablets Orall y twice a day; Duration: 30 days Active Metoprolol Tartrate 50 MG 2 tab(s) orall y 2 times a day Active Albuterol Sulfate HFA 108 (90 Base) MCG/ACT INHALE 2 PUFFS 4 TIMES A DAY NEEDED; Duration: 25 Active Immunizations Vaccine Route Administration Date Status Comme nts COVID 19 Pfizer Unknown 11/15/2020 Administered COVID 19 Pfizer Unknown 12/06/2020 Administered COVID 19 Pfizer Unknown 12/06/2020 Administered Fluzone High Dose (65yr and older) IM Intramuscular 05/15/2017 Administered Fluzone High Dose (65yr and older) IM Intramuscular 05/17/2019 Administered Fluzone High Dose (65yr and older) IM Intramuscular 06/04/2020 Administered Fluzone High Dose (65yr and older) IM Intramuscular 04/29/2021 Administered PNEUMOVAX 23 VACCINE Unknown 11/25/2015 Administered Prevnar (PCV13) IM Intramuscular 01/01/2021 Administered Problems Problem Type SNOMED Code ICD Code Onset Dates Problem Status W/U Status Risk Notes Problem Hyperglycemia (07547243) Hyperglycemia (R73.9) Active confirmed Problem Atrial fibrillation (97884095) Atrial fibrillation (I48.91) Active confirmed Problem Vitamin D deficiency (99919913) Vitamin D deficiency (E55.9) Active confirmed Problem Essential hypertension (11626228) Essential hypertension (I10) Active confirmed Problem Otitis externa (3964516) Otitis externa (H60.90) Active confirmed Problem Dysuria (03822258) Dysuria (R30.0) Active confi rmed Problem Postherpetic neuralgia (2280663) Post herpetic neuralgia (B02.29) Active confirmed Problem Long-term current use of anticoagulant (434156402) 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 (Z79.01) Active confirmed Problem Flank pain (513803336) Flank pain (R10.9) Active confirmed Problem Anemia in chronic kidney disease (724296156) Anemia in chronic kidney disease (D63.1) Active confirmed Problem Mixed hyperlipidemia (155474073) Mixed hyperlipidemia (E78.2) Active confirmed Problem Chronic atrial fibrillation (140870358) Chronic atrial fibrillation (I48.2) Active confirmed Problem Frequency of micturition (691971233) Frequency of micturition (R35.0) Active confirmed Problem Long-term current use of anticoagulant (037243614) 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 helper (current) use of anticoagulants (Z79.01) Active confirmed Problem Old myocardial infarction (0811028) History of AR (myocardial infarction) (I25.2) Active confirmed Problem History of aortic valve replacement (0511015046721) History of aortic valve replacement (Z95.2) Active confirmed Problem Gastroesophageal reflux disease (disorder) (172672090) Chronic GERD (K21.9) Active confirmed Problem Atherosclerotic heart disease of [place] coronary artery without angina pectoris (635875658594258) Coronary artery disease involving [place] coronary artery of [place] heart without angina pectoris (I25.10) Active confirmed Problem Gout (36868160) Gout, unspecifie d cause, unspecified chronicity, unspecified site (M10.9) Active confirmed Problem Iron deficiency anemia due to chronic blood loss (307617701) Iron deficiency anemia due to chronic blood loss (D50.0) Active confirmed Problem Morbid obesity (652921291) Morbid obesity due to excess calories (E66.01) Active confirmed Problem Benign prostatic hypertrophy without outflow obstruction (253769222) Benign prostatic hyperplasia without lower urinary tract symptoms, unspecified morphology (N40.0) Active confirmed Problem History of cholecystectomy (024401295) Status post laparoscopic cholecystectomy (Z90.49) Active confirmed Problem Allergic rhinitis (70817034) Allergic rhinitis, unspecified allergic rhinitis trigger, unspecified rhinitis seasonality (J30.9) Active confirmed Problem Lower urinary tract symptoms due to benign prostatic hypertrophy (46418237417565) Benign prostatic hyperplasia with lower urinary tract symptoms (N40.1) Active confirmed Problem Disorder of carotid artery (disorder) (589150490) Carotid artery disease, unspecified laterality (I77.9) Active confirmed Problem Gallstone (579605353) Gall stones (K80.20) Active confirmed Problem Allergic rhinitis (37651483) Allergic rhinitis, unspecified seasonality, unspecified trigger (J30.9) Active confirmed Problem Heart failure (22298699) Chronic congestive heart failure, unspecified heart failure type (I50.9) Active confirmed Problem Arthritis of left ankle (9141626018800254) Arthritis of left ankle (M19.072) Active confirmed Problem Longstanding persistent atrial fibrillation (080868461) Longstanding persistent atrial fibrillation (I48.11) Active confirmed Problem Chronic atrial fibrillation (177887825) Chronic atrial fibrillation (I48.20) Active confirmed Problem Chronic kidney disease stage 3B (disorder) (078382727) Stage 3b chronic kidney disease (N18.32) Active confirmed Problem Chronic kidney disease stage 3A (disorder) (051615454) CKD stage 3a, GFR 45-59 ml/min (N18.31) Active confirmed Problem Long-term current use of drug therapy (519929566) residential current use of diuretic (Z79.899) Active confirmed Vital Signs Heart Rate 98 /min 08/31/2024 Blood pressure diastolic 70 mm Hg 08/31/2024 Height 70 in 08/31/2024 Blood pressure systolic 138 mm Hg 08/31/2024 Weight 340.4 lbs 08/31/2024 BMI 48.84 kg/m2 08/31/2024 Encounters Encounter Location Date Provider Diagnosis [facility] [address] [facility] [address] [place], [place] [id number] 02/17/2024 Moi Hamilton Stage 3b chronic kid oswald disease N18.32 ; Longstanding persistent atrial fibrillation I48.11 and Chronic congestive heart failure, unspecified heart failure type I50.9 [facility] [address] [facility] [address] [place], [place] [id number] 03/12/2024 Moi Hamilton Weakness R53.1 ; CKD stage 3a, GFR 45-59 ml/min N18.31 and residential current use of anticoagulant Z79.01 [facility] [address] [place], [place] [id number] 03/21/2024 Moi Hamilton Stage 3b chronic kid oswald disease N18.32 [facility] [address] [place], [place] [id number] 05/09/2024 Moi Hamilton Atrial fibrillation I48.91 and 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 Z79.01 [facility] [address] [place], [place] [id number] 05/20/2024 Moi Hamilton Herpes zoster withou t complication B02.9 and Post herpetic neuralgia B02.29 [facility] [address] [place], [place] [id number] 06/06/2024 Moi Hamilton Post herpetic neural olivier B02.29 ; Peripheral edema R60.0 ; Stage 3b chronic kidney disease N18.32 ; Atrial fibrillation I48.91 and 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 Z79.01 [facility] [address] [facility] [address] [place], [place] [id number] 08/31/2024 Moi Hamilton Peripheral edema R60 .0 ; Stage 3b chronic kidney disease N18.32 and Atrial fibrillation I48.91 [facility] [address] [place], [place] [id number] 10/06/2024 Moi Hamilton Chronic atrial fibrillation I48.2 [facility] [address] [place], [place] [id number] 02/16/2024 Moi Hamilton [facility] [address] [place] [id number] 02/18/2024 Moi Hamilton [facility] [address] [place] [id number] 03/14/2024 Moi Hamilton [facility] [address] [place] [id number] 03/17/2024 Moi Hamilton [facility] [address] [place] [id number] 03/21/2024 Moi Hamilton [facility] [address] [place], [place] [id number] 03/22/2024 Moi Hamilton [facility] [address] [place] [id number] 03/24/2024 Moi Hamilton Stage 3b chronic kid oswald disease N18.32 [facility] [address] [place], [place] [id number] 03/31/2024 Moi Hamilton Stage 3b chronic kid oswald disease N18.32 and 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 diuretic Z79.899 [facility] [address] [place], [place] [id number] 03/31/2024 Moi Hamilton [facility] [address] [place], [place] [id number] 04/28/2024 Moi Hamilton Essential hypertensi on I10 [facility] [address] [place], [place] [id number] 06/07/2024 Moi Hamilton [facility] [address] [place], [place] [id number] 06/07/2024 Moi Hamilton Gout, unspecified cause, unspecified chronicity, unspecified site M10.9 [facility] [address] [place], [place] [id number] 07/08/2024 Abigail Jake Catherine Post herpetic neural olivier B02.29 [facility] [address] [place], [place] [id number] 08/11/2024 Moi Hamilton Longstanding persist ent atrial fibrillation I48.11 [facility] [address] [place], [place] [id number] 08/23/2024 Moi Hamilton [facility] [address] [place] [id number] 08/30/2024 Moi Hamilton [facility] [address] [place], [place] [id number] 09/16/2024 Moi Hamilton [facility] [address] [place], [place] [id number] 09/19/2024 Moi Hamilton [facility] [address] [place], [place] [id number] 09/27/2024 Moi Hamilton [facility] [address] [place], [place] [id number] 10/25/2024 Moi Hamilton Post herpetic neural olivier B02.29 [facility] [address] [place], [place] [id number] 10/25/2024 Moi Hamilton [facility] [address] [place], [place] [id number] 10/31/2024 Moi Hamilton [facility] [address] [place], [place] [id number] 12/22/2024 Moi Hamilton Gout, unspecified cause, unspecified chronicity, unspecified site M10.9 [facility] [address] [place], [place] [id number] 01/03/2025 Moi Hamilton [facility] [address] [place], [place] [id number] 01/30/2025 Moi Hamilton Essential hypertensi on I10 Assessments Encounter Date Diagnosis (ICD Code) Assessment Notes Treatment Notes Treatment Clinical Notes Section Notes 03/12/2024 Weakness (ICD-10 - R53.1) Sent patient to [facility] for labs and to receive 1 liter of IV normal Saline 03/12/2024 CKD stage 3a, GFR 45-59 ml/min (ICD-10 - N18.31) 03/21/2024 Stage 3b chronic kidney disease (ICD-10 - N18.32) 03/24/2024 Stage 3b chronic kidney disease (ICD-10 - N18.32) 03/31/2024 Stage 3b chronic kidney disease (ICD-10 - N18.32) 03/31/2024 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 (ICD-10 - Z79.899) 04/28/2024 Essential hypertension (ICD-10 - I10) 05/09/2024 Atrial fibrillation (ICD-10 - I48.91) 05/09/2024 residential current use of anticoagulant (ICD-10 - Z79.01) 05/20/2024 Post herpetic neuralgia (ICD-10 - B02.29) 05/20/2024 Herpes zoster without complication (ICD-10 - B02.9) 02/17/2024 Longstanding persistent atrial fibrillation (ICD-10 - I48.11) 02/17/2024 Stage 3b chronic kidney disease (ICD-10 - N18.32) 06/06/2024 Post herpetic neuralgia (ICD-10 - B02.29) 06/06/2024 Peripheral edema (ICD-10 - R60.0) Patient will take an extra diuretic every other day this week 06/07/2024 Gout, unspecified cause, unspecified chronicity, unspecified site (ICD-10 - M10.9) 07/08/2024 Post herpetic neuralgia (ICD-10 - B02.29) 08/11/2024 Longstanding persistent atrial fibrillation (ICD-10 - I48.11) 08/31/2024 Stage 3b chronic kidney disease (ICD-10 - N18.32) 08/31/2024 Peripheral edema (ICD-10 - R60.0) 10/06/2024 Chronic atrial fibrillation (ICD-10 - I48.2) 10/25/2024 Post herpetic neuralgia (ICD-10 - B02.29) 12/22/2024 Gout, unspecified cause, unspecified chronicity, unspecified site (ICD-10 - M10.9) 01/30/2025 Essential hypertension (ICD-10 - I10) 06/06/2024 Stage 3b chronic kidney disease (ICD-10 - N18.32) 08/31/2024 Atrial fibrillation (ICD-10 - I48.91) 03/12/2024 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 (ICD-10 - Z79.01) 02/17/2024 Chronic congestive heart failure, unspecified heart failure type (ICD-10 - I50.9) Discussed daily weights and diuretic dose adjustments 06/06/2024 Atrial fibrillation (ICD-10 - I48.91) 06/06/2024 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 (ICD-10 - Z79.01) Plan Of Treatment Pending Test Test Name Order Date H-BMP 08/31/2024 H-BMP 03/31/2024 Next Appt Details Provider Name:Moi Mae , 04/07/2025 09:30:00 AM, [address], [place], [place], [id number], Insurance Providers Payer Name Payer Address Payer Phone Subscriber Number Group Number Insured Name Patient Relationship to Insured Coverage Start Date Coverage End Date MEDICARE PART B [address] [address] [place] [id number] COLETTE LYON Self - patient is the insured MEDICAID [employer] [address] [place] [id number] COLETTE LYON Self - patient is the insured Medical (General) History Medical History History ICD Code Coronary Artery Disease, Dr. 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, Porcine Atrial Fibrillation, [facility] Coumadin Clinic Hyperlipidemia Hypertension Gout Vitamin D Deficiency Allergic Rhinitis BPH Sleep Apnea Chronic Kidney Disease Pacemaker Surgical History Surgery Date(Month/Year) Cardiac Stent x2,1 balloon 2007 Carotid Surgery 07/26/2014 AVR 09/20/2012 Skin Lesion Cardiac Stent x1 2014 CABG 06/16/2018 Cholecystectomy - Lapraroscopic 07/19/20 Skin Cancer Removal - Forehead, Arm, Andrade d Pacemaker 2021 Hospitalization History Reason Date(Month/Year) A-Fib Light Ayla - [facility] 02/16- 06/2017 [place] [facility] [place] Gallbladder, Esophagitis, Partial Lung C ollapse- [facility] 07/11-10/2017 Cholecystectomy- [facility] 07/19-09/2018
[2025-02-03 10:46] LABS: PHA INR Fingerstick 1.8 (0.9-1.1)
== END 2025-02-03 23:59 | disposition home or self-care (01) ==
LOC: ACC 09:51
PROVIDERS: PCP Family Medicine; Visit Provider Family Medicine
DX: I48.91 Unspecified atrial fibrillation (principal); Z79.01 Long term (current) use of anticoagulants
CPT/HCPCS: 85610; 99211; G0463

== ENCOUNTER 2025-03-01 16:08 | Outpatient (CLI) | payer MEDICARE, MEDICAID, SELFPAY ==
--- OUTSIDE RECORDS SUMMARY | 2024-08-31 07:00 | XMS_ITS ---
Author Organization [facility] Address [address] [place] [phone] Care Team Providers Care Student Teacher Name Role Phone Moi Rayo Primary Care [...] no change next check 2 weeks at [facility] ideal INR 2-3 REASON FOR [...] day Active Vitamin D (Ergocalciferol) 1.25 MG (48757 UT) 1 cap(s) orally twice a week; [...] 08/31/2024 Encounters Encounter Location Date Provider Diagnosis [facility] [address] [place], [place] [phone] 08/31/2024 Moi [place] Peripheral edema R60 .0 ; Stage 3b [...] rt test results, Reason: Provider Name:Moi lerner, 03/01/2025 04:00:00 PM, [address], [address], [place], [place], [phone], Provider Name:Moi lerner, 04/07/2025 09:30:00 AM, [address], [address], [place], [place], [phone], Progress Notes * COLETTE GRIMALDO WDOB:1945 (79 yo M)Acc No.[id number]:08/31/2024 Progress Notes Patient: COLETTE GARCÍA Provider: Gordon Rayo M.D. :1945 A ge:79 Y S ex:Male Date:08/31/2024 Address:[address] [place] [address] [place], [id number] Subjective: * Chief Complaints: * 1 . 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 - [facility] 02/16-06/2017, Leg Wound- [facility] 01/15/2018, Gallbladder, Esophagitis, Partial Lung Collapse- [facility] 07/11-10/2017, Cholecystectomy- [facility] 07/19-07/2019. * Family History: F ather: 92 yrs. M other: 68 yrs, diagnosed with Diabetes, Hypertension, Heart Disease. S iblings: diagnosed with Diabetes, Hypertension, Heart Disease. 4 brother(s) , 1 sister(s) . 3 son(s) , 1 daughter(s) . . one son - MVA. * Social History: C URRENT TOBACCO USE S moking Status: P duane does NOT smoke. A lcohol: no. Recreational [...] , Taking Vitamin D (Ergocalciferol) 1.25 MG (50062 UT) Capsule 1 cap(s) orally twice a [...] * n ext check 2 weeks at [facility] * i deal INR 2-3 * Tarah Hughes 08/31/2024 10:57:5 9 AM > , Provider reviewed results while patient in office.Moi Ryao 08/31/2024 6:18:40 PM > * Procedure Codes: 8 5610 PROTHROMBIN TIME, Modifiers: QW , 26695 CAPILLARY BLOOD DRAW * Follow Up: v ia phone to report test results * Images: Billing Information: * Visit Code: 07361 Office Visit, Est Pt., Level 3. * Procedure Codes: 49673 PROTHROMBIN TIME. Modifiers: QW 89147 CAPILLARY BLOOD DRAW. * Electronic signature of Keisha Rayo MD on 03/01/2025 at 04:12 PM EDT Sign off status: Pending * Provider: Gordon Rayo M.D. Date: 0 08/31/2024 Generated for Charisma lassiter/Shraddha/Traceyitting on: 0 03/01/2025 04:12 PM EDT History and Physical Notes * HPI [...]
--- OUTSIDE RECORDS SUMMARY | 2024-10-06 05:15 | XMS_ITS ---
Author Organization [facility] Address [address] [place] [id number] Care Team Providers Care Medical Assistant Per Diem Name Role Phone Perri Moi Primary Care Provider [phone] Results Component Value Reference Range Notes PT/INR [...] days Active Vitamin D (Ergocalciferol) 1.25 MG (26157 UT) 1 cap(s) orally twice a week; [...] Status Risk Notes Problem Chronic atrial fibrillation (871705451) Chronic atrial fibrillation (I48.20) Active confirmed Encounters Encounter Location Date Provider Diagnosis [facility] [facility] 36 [facility] [address] [place], [place] [id number] 10/06/2024 Moi Rayo Chronic atrial fibrillation I48.2 Assessments Encounter Date Diagnosis (ICD Code) Assessment Notes Treatment Notes Treatment Clinical Notes Section Notes 10/06/2024 Chronic atrial fibrillation (ICD-10 - I48.2) Plan Of Treatment Next Appt Details Follow Up: 6 Months, Reason: Provider Name:Moi lerner, 03/01/2025 04:00:00 PM, [address] [facility], [address], [place], [place], [id number], Provider Name:Moi Mae ry, 04/07/2025 09:30:00 AM, [address], [address], [place], [place], [id number], Progress Notes * COLETTE GRIMALDO WDOB:1945 (79 yo M)Acc No.[id number]:10/06/2024 Patient: COLETTE GARCÍA Provider: Gordon Rayo M.D. :1945 A ge:79 Y S ex:Male Date:10/06/2024 Address:[address] [place] [address], [place], [id number] Subjective: * Chief Complaints: * 1 . [...] , Taking Vitamin D (Ergocalciferol) 1.25 MG (21269 UT) Capsule 1 cap(s) orally twice a [...] G 2211 Complex e/[place], [address] PROTHROMBIN TIME, Modifiers: QW , 39663 CAPILLARY BLOOD DRAW * Follow Up: 6 Months * Images: Billing Information: * Visit Code: 44793 Office Visit, Est Pt., Level 3. * Procedure Codes: G2211 Complex e/[place]. [address] PROTHROMBIN TIME. Modifiers: QW 98946 CAPILLARY BLOOD DRAW. * Electronic signature of Keisha Rayo MD on 03/01/2025 at 04:11 PM EDT Sign off status: Pending * Provider: Gordon Rayo M.D. Date: 10/06/2024 Generated for Charisma lassiter/Shraddha/Patsy on: 03/01/2025 04:11 PM EDT History and Physical Notes * [...]
--- OUTSIDE RECORDS SUMMARY | 2025-03-01 16:11 | XMS_ITS | Referral Summary ---
Author Organization [facility] ([place], [place], [place], [place]) Address [address] [place] [address] Care Team Providers Care Skin Piler Name Role Phone Unavailable Primary Care Provider [...]
--- OUTSIDE RECORDS SUMMARY | 2025-03-01 16:12 | XMS_ITS | Clinical Summary ---
Author Organization [facility] ([place], [place], [place], [place]) Address [address] [place] [address] Care Team Providers Care Consumer Loan Processor Name Role Phone Unavailable Primary Care Provider [...]
--- OUTSIDE RECORDS SUMMARY | 2025-03-01 16:12 | XMS_ITS | Encounter Summary ---
Author Organization [employer] ([place], [place], [place], [place]) Address [address] [place] [address] Care Team Providers Care Farm Equipment Maintenance Supervisor Name Role Phone Unavailable Primary Care Provider Unavailabl e Encounter Details Date Type Department Care Team (Late st Contact Info) Description 11/19/2021 Transcribed Document [facility] [place] Family Medicine [facility] [place] [address] ProviderSneha MD [facility] [place] [address] Social History Tobacco Use Types Packs/Day Years Used Date Smoking Tobacco: Never Assessed Sex and Gender Information Value Date Recorded Sex Assigned at Not on file Legal Sex Male 1:25 PM CDT Gender Identity Not on file Sexual Orientation Not on file documented as of this encounter Miscellaneous Notes * Cerner Conversion Note - Sneha ProviderMD - 11/19/2021 1:56 PM CDT Pre Procedure Adult Entered On: 11/19/2021 14:00 EDT Performed On: 11/19/2021 13:56 EDT by ROLANDO DAVIES RN Height and Weight, Clinical Dosing Height Source : Stated Height Entry Format : [place] Height, Feet : 5 ft(Converted to: 152 cm, 60 Inch) Height, Inches : 10 Inch(Converted to: 0 ft 10 Inch, 25.40 cm) Clinical Height : 177.8 cm Weight Source : Standing scale Weight Entry Format : [place] Clinical Dosing Weight : 146.82 kg Weight, Pounds : 323 lb Body Surface Area (BSA) : 2.56 m2 Body Mass Index : 46.4 kg/m2 (>HHI) [place] Body Weight : 72 kg ROLANDO DAVIES [...] ROLANDO DAVIES RN - 11/19/2021 13:56 EDT [place] Suicide Severity Rating Scale (C-SSRS) CSSRS Past [...] Chad Legal Guardian : [place] Support Person/Patient Instructional Coach : Yes Support Person/Pt Rep Name : Diann Mason Contact Password : [id number] Support Person/Pt Rep Contact Information : [phone] Want Family/Rep/Phys Notified of Admit : No Emergency Contact #1 : na Emergency Contact #1 Phone Number : na Emergency Contact #1 Relationship : na Emergency Contact #2 : na Emergency Contact #2 Phone Number : na Emergency Contact #2 Relationship : na Primary Language : Thai Preferred Communication Mode : Verbal Communication Barrier : None Director Educational Radio Needed : No ROLANDO DAVIES RN - [...] Scale Risk Level : 25-45 Medium Risk Pierce Fall Interventions : Bed in low position, Call device within reach, Non-slip footwear, Wheels locked ROLANDO DAVIES RN - 11/19/2021 13:56 EDT Valuables and Belongings Valuables and Belongings : Clothing Clothing : Common streetwear Clothing Disposition : Bedside ROLANDO DAVIES RN - 11/19/2021 13:56 EDT documented in this encounter Plan of Treatment Not on file documented as of this encounter Visit Diagnoses Not on filedocumented in this encounter
--- OUTSIDE RECORDS SUMMARY | 2025-03-01 16:12 | XMS_ITS | Encounter Summary ---
Author Organization [employer] ([place], [place], [place], [place]) Address [address] [place] [address] Care Team Providers Care Toe Puller Name Role Phone Unavailable Primary Care Provider Unavailabl e Encounter Details Date Type Department Care Team (Late st Contact Info) Description 11/19/2021 Transcribed Document [facility] [place] Family Medicine [address] [place] [address] ProviderSneha MD [address] [place] [address] Social History Tobacco Use Types Packs/Day Years Used Date Smoking Tobacco: Never Assessed Sex and Gender Information Value Date Recorded Sex Assigned at Not on file Legal Sex Male 1:25 PM CDT Gender Identity Not on file Sexual Orientation Not on file documented as of this encounter Miscellaneous Notes * Cerner Conversion Note - Sneha Lyle MD - 11/19/2021 6:39 PM CDT [facility] [place] [address] COLETTE LYON :1945 Visit Time:11/19/2021 Your Visit Summary Your Care Team Admitting Physician - KAMERON PHAM MD Attending Physician - KAMERON PHAM MD Primary Care Physician - KALPANA YIN (REF), -[facility] Referring Physician - KAMERON PHAM [...] Oral Every Day fluticasone nasal (Flonase) 1 [place](s) Nostrils Both Every Day losartan (losartan 50 [...] eating solid foods. General instructions ??? Take zcqx-zek-hnzykwo and prescription medicines only as told by [...] provider. Document Revised: 11/23/2020 Document Reviewed: 06/21/2020 [employer] Patient Education ?? 2020 [employer] Pacemaker Implantation, Adult, Care After This [...] these instructions at home: Medicines ??? Take zzzf-iaj-qlglgpk and prescription medicines only as told by [...] or bruising over the incision. ??? Take hwyk-wnp-vrjsxkw and prescription medicines only as told by [...] provider. Document Revised: 06/27/2020 Document Reviewed: 06/27/2020 [employer] Patient Education ?? 2020 [employer] Emergency Awareness and Preventative Care STROKE [...] Assistance with quitting is available by contacting 9-486-YUAT-NOW. This is a free resource providing counseling, [...] was given the opportunity to ask questions. Patient/Repair Tech Name: Patient/Repair Tech Signature: Relationship to Patient: Clinician/Hospital Repair Tech Signature: Date: Electronically signed by Anila Gamboa Conversion Manager Of Environmental Services Mariia at 11/24/2022 4:28 PM CDT documented in this encounter Plan of Treatment Not on file documented as of this encounter Visit Diagnoses Not on filedocumented in this encounter
--- OUTSIDE RECORDS SUMMARY | 2025-03-01 16:12 | XMS_ITS | Encounter Summary ---
Author Organization [employer] ([place], [place], [place], [place]) Address [address] [place] [address] Care Team Providers Care Surgical Instrument Repair Specialist Name Role Phone Unavailable Primary Care Provider Unavailabl e Encounter Details Date Type Department Care Team (Late st Contact Info) Description 11/19/2021 Transcribed Document [facility] [place] [address] [place] [address] ProviderSneha MD [address] [place] [address] Social History Tobacco Use Types Packs/Day Years Used Date Smoking Tobacco: Never Assessed Sex and Gender Information Value Date Recorded Sex Assigned at Not on file Legal Sex Male 1:25 PM CDT Gender Identity Not on file Sexual Orientation Not on file documented as of this encounter Miscellaneous Notes * Cerner Conversion Note - Sneha Lyle MD - 11/19/2021 5:30 PM CDT Patient Education [...] eating solid foods. General instructions ??? Take sxzo-fmw-xzwvqrl and prescription medicines only as told by [...] provider. Document Revised: 11/23/2020 Document Reviewed: 06/21/2020 [employer] Patient Education ? 2020 [employer] Procedures Pacemaker Implantation, Adult, Care After [...] these instructions at home: Medicines ??? Take aekt-ref-akghyom and prescription medicines only as told by [...] or bruising over the incision. ??? Take ofer-htt-zzaivpq and prescription medicines only as told by [...] provider. Document Revised: 06/27/2020 Document Reviewed: 06/27/2020 [employer] Patient Education ? 2020 [employer] documented in this encounter Plan of Treatment Not on file documented as of this encounter Visit Diagnoses Not on filedocumented in this encounter
--- OUTSIDE RECORDS SUMMARY | 2025-03-01 16:12 | XMS_ITS | Encounter Summary ---
Author Organization [employer] ([place], [place], [place], [place]) Address [address] [place] [address] Care Team Providers Care Mail Technician Name Role Phone Unavailable Primary Care Provider Unavailabl e Encounter Details Date Type Department Care Team (Late st Contact Info) Description 11/19/2021 Transcribed Document [facility] Radiology [address] [place] [address] Jailene Vargas MD [address] [place] [address] [facility] [place] [address] Social History Tobacco Use Types [...] OF PROCEDURE: 11/19/2021 CARDIOLOGY PROCEDURE REPORT SURGEON: Jaliene Vargas MD PROCEDURES PERFORMED: 1. Insertion of a dual-chamber pacemaker. 2. Conscious sedation. PROCEDURE INDICATION: Sick sinus syndrome with tachy-july. PROCEDURE DESCRIPTION: The patient was brought to the cardiac lab analyst in a fasting state where he was [...] to upsize the 1st access to a 7-Uzbek sheath and insert wires through that sheath. Then, a 6-Uzbek split sheath was placed over one of [...] pulse generator is a [employer] model #[id number], serial #[id number]. Right ventricular lead is a [employer] model #2088TC, serial number [id number]. Right atrial lead is a [employer] model #2088TC, serial #[id number]. MEASUREMENTS AT IMPLANT: Right atrial lead P-wave [...] 1 to 2 weeks for wound check. /[id number] MD PAT Jo/VLAD / PAT / MODL /[id number] documented in this encounter Plan of Treatment Not on file documented as of this encounter Visit Diagnoses Not on filedocumented in this encounter
--- OUTSIDE RECORDS SUMMARY | 2025-03-01 16:12 | XMS_ITS | Encounter Summary ---
Author Organization [employer] ([place], [place], [place], [place]) Address [address] [place] [address] Care Team Providers Care Product Assurance Engineer Name Role Phone Unavailable Primary Care Provider Unavailabl e Encounter Details Date Type Department Care Team (Late st Contact Info) Description 11/19/2021 Transcribed Document [facility] [place] [address] [place] [address] ProviderSneha MD [address] [place] [address] Social History Tobacco Use Types [...] Lyle MD - 11/19/2021 6:08 PM CDT [facility] [place] [address] COLETTE LYON :1945 Visit Time:11/19/2021 Your Visit Summary Your Care Team Admitting Physician - KAMERON PHAM MD Attending Physician - KAMERON PHAM MD Primary Care Physician - KALPANA YIN (REF), -[facility] Referring Physician - KAMERON PHAM MD Your [...] Oral Every Day fluticasone nasal (Flonase) 1 [place](s) Nostrils Both Every Day losartan (losartan 50 [...] eating solid foods. General instructions ??? Take hwza-rnh-ejjrmod and prescription medicines only as told by [...] provider. Document Revised: 11/23/2020 Document Reviewed: 06/21/2020 [employer] Patient Education ?? 2020 [employer] Pacemaker Implantation, Adult, Care After This [...] these instructions at home: Medicines ??? Take jimf-jak-aofyccx and prescription medicines only as told by [...] or bruising over the incision. ??? Take cxdw-kiw-dwuludg and prescription medicines only as told by [...] Reviewed: 06/27/2020 Elsevier Patient Education ?? 2020 [employer] Emergency Awareness and Preventative Care STROKE [...] Assistance with quitting is available by contacting 8-583-QLYBNOW. This is a free resource providing counseling, support, and referral. Or you may contact your personal physician. [employer] Suicide Prevention Lifeline: The National Suicide Prevention [...] was given the opportunity to ask questions. Patient/Restorative Coordinator Name: Patient/Restorative Coordinator Signature: Relationship to Patient: Clinician/Hospital Restorative Coordinator Signature: Date: documented in this encounter Plan of Treatment Not on file documented as of this encounter Visit Diagnoses Not on filedocumented in this encounter
--- OUTSIDE RECORDS SUMMARY | 2025-03-01 16:12 | XMS_ITS | Encounter Summary ---
Author Organization [employer] ([place], [place], [place], [place]) Address [address] [place] [address] Care Team Providers Care Pharmacy Specialist Name Role Phone Unavailable Primary Care Provider Unavailabl e Encounter Details Date Type Department Care Team (Late st Contact Info) Description 11/19/2021 Transcribed Document [facility] [place] Family Medicine [address] [place] [address] ProviderSneha MD [facility] [place], [place] [address] Social History Tobacco Use Types Packs/Day Years [...] On: 11/19/2021 18:56 EDT by ROLANDO DAVIES aircraft part assembler Documentation Discharge Date/Time : 11/19/2021 19:05 EDT [...] materials Teaching Evaluation : Verbalizes understanding ROLANDO DAVIES, RN - 11/19/2021 18:56 EDT Electronically signed by [facility] Conversion Animal Killer Cerner at 11/24/2022 4:28 PM CDT documented in this encounter Plan of Treatment Not on file documented as of this encounter Visit Diagnoses Not on filedocumented in this encounter
--- OUTSIDE RECORDS SUMMARY | 2025-03-01 16:12 | XMS_ITS | Patient Health Record ---
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 Name Role Phone Moi Rayo Primary Care Provider Abigail Catherine [phone] Allergies Allergen (clinical drug ingredient) Drug/Non Drug Allergy documented on EMR Reaction Allergy Type Onset Date Status Lortab stomach upset Drug Allergy Act dimas Results Component Value Reference Range Notes PT/INR (in house) Reviewed date:10/06/2024 09:50:36 AM Interpretation: Performing Lab: Notes/Report: INR 1.8 current dose 5mg Daily new dose no change next check 4 weeks ideal INR 2-3 CBC Fingerstick (in house) ( Not yet reviewed by provider) Interpretation: Performing Lab: Notes/Report: wbc 12.7 3.5 - 10 lym 7.5% 15 - 50 mid 2.1% 2 - 15 gran 90.4% 35 - 80 rbc 3.97 3.5 - 5.5 hgb 13.7 11.5 - 16.5 hct 41.1 35 - 55 mcv 103.5 75 - 100 mch 34.5 25 - 35 mchc 33.3 31 - 38 plat 111 100 - 400 H-BMP Reviewed date:03/31/2024 11:22:15 AM Interpretation:co2- 32, bun 23, Cr 1.3, gfr 54 Performing Lab: Notes/Report: NA 142 136-145 mmol/L K 4.0 3.5-5.1 mmoL/L CL 106 98-107 mmol/L CO2 32 22.0-30.0 mmol/L GAP 8.0 5-15 mEq/L BUN 23 9-20 mg/dl CREATT 1.30 0.66-1.25 mg/dl GFRAA 65 >60 ML/MIN EGFR 54 >60 ml/min GLU 93 74-100 mg/dl CA 8.4 8.4-10.2 mg/dl P-Basic Metabolic Panel (BMP ) Reviewed date:03/22/2024 08:55:34 AM Interpretation:bun 45, Cr 2.1, gfr 32 Performing Lab: Notes/Report: Test performed by [facility] [address] [place] [address] , [address], [place] [address] Ashok Antonio MD, Office Technologist CLIA: [id number] Sodium 142 135-145 mmol/L Potassium 4.3 3.5-5.3 mmol/L Chloride 102 97-108 mmol/L CO2 29 22-32 mmol/L Glucose 99 65-99 mg/dL BUN 45 8-23 mg/dL Creatinine 2.10 0.70-1.30 mg/dL Calcium 8.8 8.6-10.4 mg/dL eGFR by Creatinine 32 >59 mL/min/1.73m2 H-PT/INR Reviewed date:03/14/2024 02:19:13 PM Interpretation: Performing Lab: Notes/Report: PT 23.6 10.1-12.5 seconds INR 2.29 0.9-1.1 INDICATION INR RANGE Therapy for DVT, PE, Atrial Fib, 2.0-3.0 Prophylaxis for VTE. Therapy for Mechanical Heart Valve, 2.5-3.5 Prevention of Sytemic Emolism secondary to AMI. H-BMP Reviewed date:03/14/2024 02:19:13 PM Interpretation: Performing Lab: Notes/Report: NA 137 136-145 mmol/L K 3.3 3.5-5.1 mmoL/L CL 97 98-107 mmol/L CO2 34 22.0-30.0 mmol/L GAP 9.3 5-15 mEq/L BUN 63 9-20 mg/dl CREATT 2.90 0.66-1.25 mg/dl GFRAA 26 >60 ML/MIN EGFR 21 >60 ml/min GLU 115 74-100 mg/dl CA 8.5 8.4-10.2 mg/dl H-CBC Reviewed date:03/14/2024 02:19:12 PM Interpretation: Performing [...] 0.2 0.0-0.4 K/mm3 BA# 0.1 0-0.2 K/mm3 H-INR Reviewed date:02/03/2025 11:49:15 AM Interpretation: Performing Lab: Notes/Report: POCINRFS 1.8 0.9-1.1 Results sent to: Moi Rayo MD Pharmacist recommendation for Warfarin therapy is: PATIENT INR 1.8 TODAY VIA FINGERSTICK. PATIENT INDICATED HE MISSED ONE DOSE THIS WEEK AND INR HAS BEEN STABLE AT THE CURRENT DOSE. RECOMMENDED PATIENT CONTINUE WITH WARFARIN 5 MG DAILY. FOR DETAILED INFORMATION-PLEASE REVIEW PROGRESS NOTE IN THE ASSESSMENTS AND ANTICOAGULATION CLINIC SECTION ANTICOAGULATION CLINIC IN PCI/CLINICAL REVIEW INDICATION INR RANGE THERAPY FOR DVT, PE, ATRIAL FIB; 2.0 - 3.0 PROPHYLAXIS FOR VTE THERAPY FOR MECHANICAL HEART 2.5 - 3.5 VALVE; PREVENTION OF SYSTEMIC EMBOLISM SECONDARY TO AMI PT/INR (in house) Reviewed date:08/31/2024 06:18:47 PM Interpretation: Performing Lab: Notes/Report: INR 2.8 current dose 5mg Daily new dose no change next check 2 weeks at [facility] ideal INR 2-3 PT/INR (in house) Reviewed date:05/09/2024 12:41:28 PM Interpretation: Performing Lab: Notes/Report: INR 2.0 current dose 5mg Daily new dose no change next check 4 weeks at [facility] ideal INR 2-3 H-INR Reviewed date:11/11/2024 04:36:11 [...] PREVENTION OF SYSTEMIC EMBOLISM SECONDARY TO AMI PT/INR (in house) Reviewed date:06/06/2024 05:57:02 PM Interpretation: Performing Lab: Notes/Report: INR 2.1 current dose 5mg Daily new dose no change next check 6 weeks ideal INR 2-3 P-Basic Metabolic Panel (BMP ) Reviewed date:06/07/2024 11:24:32 AM Interpretation: Performing Lab: Notes/Report: Test performed by [facility] [employer] [facility] [employer] [address] [place] [address] , [address], [place] [address] Ashok Antonio MD, Office Technologist CLIA: [id number] Sodium 145 135-145 mmol/L Potassium 4.4 3.5-5.3 mmol/L Chloride 105 97-108 mmol/L CO2 32 22-32 mmol/L Glucose 98 65-99 mg/dL BUN 25 8-23 mg/dL Creatinine 1.56 0.70-1.30 mg/dL Calcium 9.0 8.6-10.4 mg/dL eGFR by Creatinine 45 >59 mL/min/1.73m2 P-CBC with Diff plus Absolut e Counts Reviewed date:06/07/2024 11:24:32 AM Interpretation: Performing Lab: Notes/Report: Test performed by [facility], [address] , [address] , [place] [address] Ashok Antonio MD, Office Technologist CLIA: [id number] WBC 4.6 3.8-11.5 K/uL Red Blood Cell [...] K/uL Absolute Immature Granulocyte 0.01 0.00-0.03 K/uL H-INR Reviewed date:12/23/2024 12:42:47 PM Interpretation: Performing [...] Sytemic Emolism secondary to AMI. H-BMP Reviewed date:09/16/2024 01:00:16 PM Interpretation:CO2 33, BUN 30, Creat 1.40, GFR 49, Glu 108 Performing Lab: Notes/Report: NA 143 136-145 mmol/L K 4.3 3.5-5.1 mmoL/L CL 104 98-107 mmol/L CO2 33 22.0-30.0 mmol/L GAP 10.3 5-15 mEq/L BUN 30 9-20 mg/dl CREATT 1.40 0.66-1.25 mg/dl GFRAA 59 >60 ML/MIN EGFR 49 >60 ml/min GLU 108 74-100 mg/dl CA 8.8 8.4-10.2 mg/dl Reason For Referral No Information Medications Medication SIG (Take, Route, Frequency, Duration) Notes Start Date End Date Status Metoprolol Tartrate 50 MG 2 tab(s) orall y 2 times a day Active Ferrous Sulfate 325 (65 Fe) MG 1 tablet Orally Two times a day; Duration: 90 days Active Triamcinolone Acetonide 0.1 % APPLY TO AFFECTED AREA TWICE A DAY NEEDED; Duration: 60 days Active Finasteride 5 MG 1 tablet Orally Once a day; Duration: 90 days Active Ondansetron HCl 4 MG 1 tablet Orally Onc e a day; Duration: 30 day(s) 03/01/2025 Active Vitamin D (Ergocalciferol) 1.25 MG (82315 UT) 1 cap(s) orally twice a week; Duration: 90 days Active Atorvastatin Calcium 80 MG TAKE 1 TABLET BY MOUTH EVERY DAY FOR 90 DAYS; Duration: 90 Active Fluticasone Propionate 50 MCG/ACT 1 spray(s) in each nostril once a day; Duration: 90 days Active Colchicine 0.6 MG 1 tab(s) orally once a day; Duration: 90 days Active metOLazone 5 MG 1 tab(s) orally ever y 3 days as needed Active valACYclovir HCl 1 GM 1 tablet Orally Th ree times a day; Duration: 7 days 05/20/2024 Active Potassium Chloride ER 10 MEQ 3 tab(s) orally twice a day; Duration: 30 days Active Pantoprazole Sodium 40 MG TAKE 1 TABLET BY MOUTH EVERY DAY FOR 90 DAYS; Duration: 90 Active Warfarin Sodium 5 MG TAKE 1 TO 1 & 1/2 T ABLETS BY MOUTH DAILY DIRECTED; Duration: 90 Active Losartan Potassium 50 MG 1 tab(s) orally once a day; Duration: 90 days Active Aspirin 81 MG 1 tab(s) orally once a day; Duration: 30 day(s) Active Allopurinol 100 MG TAKE 1 TABLET BY KARI TH TWICE A DAY FOR 90 DAYS; Duration: 90 Active Nitrostat 0.4 MG 1 tab(s) sublinguall y every 5 minutes, prn; Duration: 8 Active Pregabalin 75 MG 1 capsule Orally Two times a day; Duration: 30 day(s) 10/25/2024 Active Montelukast Sodium 10 MG 1 tab(s) orally once a day; Duration: 90 days Active Bumetanide 2 MG TAKE 1 OR 2 TABLETS ORALLY TWICE A DAY Active Diclofenac Sodium 1 % as directed applie d topically 4 times a day; Duration: 30 day(s) Active Multaq 400 MG 1 tablet with meals Orally Twice a day; Duration: 90 days 09/19/2024 Active Albuterol Sulfate HFA 108 (90 Base) MCG/ACT 2 puff as needed Inhalation 4 times a day; Duration: 25 days Active Immunizations Vaccine Route Administration Date Status [...] Status W/U Status Risk Notes Problem Hyperglycemia (32759600) Hyperglycemia (R73.9) Active confirmed Problem Atrial fibrillation (57830265) Atrial fibrillation (I48.91) Active confirmed Problem Vitamin D deficiency (73771822) Vitamin D deficiency (E55.9) Active confirmed Problem Essential hypertension (37888127) Essential hypertension (I10) Active confirmed Problem Otitis externa (5126361) Otitis externa (H60.90) Active confirmed Problem Dysuria (80865001) Dysuria (R30.0) Active confi rmed Problem Postherpetic neuralgia (3196798) Post herpetic neuralgia (B02.29) Active confirmed Problem Long-term current use of anticoagulant (477554801) senior living current use of anticoagulant (Z79.01) Active confirmed Problem Flank pain (212156997) Flank pain (R10.9) Active confirmed Problem Anemia in chronic kidney disease (747499748) Anemia in chronic kidney disease (D63.1) Active confirmed Problem Mixed hyperlipidemia (929056184) Mixed hyperlipidemia (E78.2) Active confirmed Problem Chronic atrial fibrillation (309234273) Chronic atrial fibrillation (I48.2) Active confirmed Problem Frequency of micturition (146434917) Frequency of micturition (R35.0) Active confirmed Problem Long-term current use of anticoagulant (061611914) ocean transportation 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 (current) use of anticoagulants (Z79.01) Active confirmed Problem Old myocardial infarction (6792094) History of MT (myocardial infarction) (I25.2) Active confirmed Problem History of aortic valve replacement (5303241280706) History of aortic valve replacement (Z95.2) Active confirmed Problem Gastroesophageal reflux disease (disorder) (462010692) Chronic GERD (K21.9) Active confirmed Problem 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 (046366349018296) Coronary artery disease involving atka coronary artery 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 (I25.10) Active confirmed Problem Gout (46063621) Gout, unspecifie d cause, unspecified chronicity, unspecified site (M10.9) Active confirmed Problem Iron deficiency anemia due to chronic blood loss (736384525) Iron deficiency anemia due to chronic blood loss (D50.0) Active confirmed Problem Morbid obesity (008452598) Morbid obesity due to excess calories (E66.01) Active confirmed Problem Benign prostatic hypertrophy without outflow obstruction (578573393) Benign prostatic hyperplasia without lower urinary tract symptoms, unspecified morphology (N40.0) Active confirmed Problem History of cholecystectomy (133335276) Status post laparoscopic cholecystectomy (Z90.49) Active confirmed Problem Leukocytosis (566837559) Leukocytosis, unspecified (D72.829) Active confirmed Problem Allergic rhinitis (74153672) Allergic rhinitis, unspecified allergic rhinitis trigger, unspecified rhinitis seasonality (J30.9) Active confirmed Problem Lower urinary tract symptoms due to benign prostatic hypertrophy (45582570463010) Benign prostatic hyperplasia with lower urinary tract symptoms (N40.1) Active confirmed Problem Disorder of carotid artery (disorder) (541886058) Carotid artery disease, unspecified laterality (I77.9) Active confirmed Problem Gallstone (409614656) Gall stones (K80.20) Active confirmed Problem Allergic rhinitis (71705098) Allergic rhinitis, unspecified seasonality, unspecified trigger (J30.9) Active confirmed Problem Heart failure (84772424) Chronic congestive heart failure, unspecified heart failure type (I50.9) Active confirmed Problem Arthritis of left ankle (5173985072081247) Arthritis of left ankle (M19.072) Active confirmed Problem Longstanding persistent atrial fibrillation (571850607) Longstanding persistent atrial fibrillation (I48.11) Active confirmed Problem Chronic atrial fibrillation (594531046) Chronic atrial fibrillation (I48.20) Active confirmed Problem Chronic kidney disease stage 3B (disorder) (941890086) Stage 3b chronic kidney disease (N18.32) Active confirmed Problem Chronic kidney disease stage 3A (disorder) (477385125) CKD stage 3a, GFR 45-59 ml/min (N18.31) Active confirmed Problem Long-term current use of drug therapy (781830698) ocean transportation 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 current use of diuretic (Z79.899) Active confirmed Vital Signs Heart Rate 128 /min 03/01/2025 Blood pressure diastolic 84 mm Hg 03/01/2025 Height 70 in 03/01/2025 Blood pressure systolic 140 mm Hg 03/01/2025 Weight 342.2 lbs 03/01/2025 BMI 49.1 kg/m2 03/01/2025 Encounters Encounter Location Date Provider Diagnosis [facility] [address] [facility] [address] [place], [place] [id number] 03/12/2024 Moi Cullman Weakness R53.1 ; CKD stage 3a, GFR 45-59 ml/min N18.31 and ocean transportation 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 current use of anticoagulant Z79.01 [facility] [address] [place], [place] [id number] 03/21/2024 Moi Cullman Stage 3b chronic kid oswald disease N18.32 [facility] [address] [place], [place] [id number] 05/09/2024 Moi Cullman Atrial fibrillation I48.91 and senior living current use of anticoagulant Z79.01 [facility] [address] [place], [place] [id number] 05/20/2024 Moi Cullman Herpes zoster withou t complication B02.9 and Post herpetic neuralgia B02.29 [facility] [address] [facility] [address] [place], [place] [id number] 06/06/2024 Moi Cullman Post herpetic neural olivier B02.29 ; Peripheral edema R60.0 ; Stage 3b chronic kidney disease N18.32 ; Atrial fibrillation I48.91 and senior living current use of anticoagulant Z79.01 [facility] [address] [place] [id number] 08/31/2024 Moi Cullman Peripheral edema R60 .0 ; Stage 3b chronic kidney disease N18.32 and Atrial fibrillation I48.91 [facility] [address] [place] [id number] 10/06/2024 Moi Cullman Chronic atrial fibrillation I48.2 [facility] [address] [place] [id number] 03/01/2025 Moi Cullman Nausea R11.0 ; Leukocytosis, unspecified D72.829 and Tachycardia R00.0 [facility] [address] [place] [id number] 03/14/2024 Moi Cullman [facility] [address] [place] [id number] 03/17/2024 Moi Cullman [facility] [address] [place] [id number] 03/21/2024 Moi Cullman [facility] [address] [place] [id number] 03/22/2024 Moi Cullman [facility] [address] [place] [id number] 03/24/2024 Moi Cullman Stage 3b chronic kid oswald disease N18.32 [facility] [address] [place] [id number] 03/31/2024 Moi Cullman Stage 3b chronic kid oswald disease N18.32 and senior living current use of diuretic Z79.899 [facility] [address] [place] [id number] 03/31/2024 Moi Cullman [facility] [address] [place] [id number] 04/28/2024 Moi Cullman Essential hypertensi on I10 [facility] [address] [place] [id number] 06/07/2024 Moi Cullman [facility] [address] [place] [id number] 06/07/2024 Moi Cullman Gout, unspecified cause, unspecified chronicity, unspecified site M10.9 [facility] [address] [place] [id number] 07/08/2024 Abigail Jake Florin Post herpetic neural olivier B02.29 [facility] [address] [place] [id number] 08/11/2024 Moi Cullman Longstanding persist ent atrial fibrillation I48.11 [facility] [address] [place] [id number] 08/23/2024 Moi Cullman [facility] [address] [place] [id number] 08/30/2024 Moi Cullman [facility] [address] [place] [id number] 09/16/2024 Moi Cullman [facility] [address] [place] [id number] 09/19/2024 Moi Cullman [facility] [address] [place] [id number] 09/27/2024 Moi Cullman [facility] [address] [place] [id number] 10/25/2024 Moi Cullman Post herpetic neural olivier B02.29 [facility] [address] [place] [id number] 10/25/2024 Moi Cullman [facility] [address] [place] [id number] 10/31/2024 Moi Cullman [facility] [address] [place] [id number] 12/22/2024 Moi Cullman Gout, unspecified cause, unspecified chronicity, unspecified site M10.9 [facility] [address] [place] [id number] 01/03/2025 Moi Cullman [facility] [address] [place] [id number] 01/30/2025 Moi Cullman Essential hypertensi on I10 [facility] [address] E[place] Tierney [id number] 02/24/2025 Moi Rayo Assessments Encounter Date Diagnosis (ICD Code) Assessment Notes Treatment Notes Treatment Clinical Notes Section Notes 03/12/2024 Weakness (ICD-10 - R53.1) Sent patient to [facility] for labs and to receive 1 liter of IV normal Saline 03/12/2024 CKD stage 3a, GFR 45-59 ml/min (ICD-10 - N18.31) 03/21/2024 Stage 3b chronic kidney disease (ICD-10 - N18.32) 03/24/2024 Stage 3b chronic kidney disease (ICD-10 - N18.32) 03/31/2024 Stage 3b chronic kidney disease (ICD-10 - N18.32) 03/31/2024 ocean transportation 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 current use of diuretic (ICD-10 - Z79.899) 04/28/2024 Essential hypertension (ICD-10 - I10) 05/09/2024 Atrial fibrillation (ICD-10 - I48.91) 05/09/2024 senior living current use of anticoagulant (ICD-10 - Z79.01) 05/20/2024 Post herpetic neuralgia (ICD-10 - B02.29) 05/20/2024 Herpes zoster without complication (ICD-10 - B02.9) 06/06/2024 Post herpetic neuralgia (ICD-10 - B02.29) [...] M10.9) 01/30/2025 Essential hypertension (ICD-10 - I10) 03/01/2025 Nausea (ICD-10 - R11.0) 03/01/2025 Leukocytosis, unspecified (ICD-10 - D72.829) 06/06/2024 Stage 3b chronic kidney disease (ICD-10 - N18.32) 03/01/2025 Tachycardia (ICD-10 - R00.0) 08/31/2024 Atrial fibrillation (ICD-10 - I48.91) 03/12/2024 senior living current use of anticoagulant (ICD-10 - Z79.01) 06/06/2024 Atrial fibrillation (ICD-10 - I48.91) 06/06/2024 senior living current use of anticoagulant (ICD-10 - Z79.01) Plan Of Treatment Pending Test Test Name Order Date CBC Fingerstick (in house) 03/01/2025 H-BMP 03/31/2024 H-BMP 08/31/2024 Next Appt Details Provider Name:Moi lerner, 03/01/2025 04:00:00 PM, [address] [facility] [address] [facility], [address], [place], [place], [id number], Provider Name:Moi lerner, 04/07/2025 09:30:00 AM, [address] [facility], [address], [place], [place], [id number], Insurance Providers Payer Name Payer Address Payer Phone Subscriber Number Group Number Insured Name Patient Relationship to Insured Coverage Start Date Coverage End Date MEDICARE PART B [address] [address] [place] [id number] COLETTE LYON Self - patient is the insured MEDICAID [employer] [address] [place] [id number] COLETTE LYON Self - patient is the insured Medical (General) History Medical History History ICD Code Coronary Artery Disease, Dr. 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, Porcine Atrial Fibrillation, [facility] Coumadin Clinic Hyperlipidemia Hypertension Gout Vitamin D Deficiency Allergic Rhinitis BPH Sleep Apnea Chronic Kidney Disease Pacemaker Surgical History Surgery Date(Month/Year) Cardiac Stent x2,1 balloon 2006 Carotid Surgery 07/26/2014 AVR 09/20/2012 Skin Lesion Cardiac Stent x1 2014 CABG 06/16/2018 Cholecystectomy - Lapraroscopic 07/19/20 19 Skin Cancer Removal - Forehead, Arm, Andrade d Pacemaker 2021 Hospitalization History Reason Date(Month/Year) Cholecystectomy- [facility] 07/19-09/2018 Gallbladder, Esophagitis, Partial Lung C ollapse- [facility] 07/11-10/2017 Leg Wound- [facility] 01/15/2018 A-Robb Aguila - [facility] 02/16- 06/2017
--- OUTSIDE RECORDS SUMMARY | 2025-03-01 16:12 | XMS_ITS | Encounter Summary ---
Author Organization [facility] Address [address] [place] [address] Care Team Providers Care Hand Assembler For Puller Over Name Role Phone Moi Rayo MD Primary Care Provider + [phone] Reason for Visit * Reason Comments Med Refill Encounter Details Date Type Department Care Team (Late st Contact Info) Description 04/14/2023 Refill [facility] [address] [place] [address] Jailene Vargas MD [address] [place] [address] Med Refill Social History Tobacco Use Types Packs/Day Years Used Date Smoking Tobacco: Never Smokeless Tobacco: Never Alcohol Use Standard Drinks/Week Comments No 0 (1 standard drink = 0.6 oz pur e alcohol) Sex and Gender Information Value Date Recorded Sex Assigned at Not on file Legal Sex Male 1:29 PM EDT Gender Identity Not on file Sexual Orientation Not on file Occupation Industry Job Start Date Job End Date [employer] Not on file Not on file Not on file documented as of this encounter Miscellaneous Notes * Telephone Encounter - Bethel Chavira CMA - 04/14/2023 10:10 AM EDT Failed protocol. Last visit 03.25.2023. Upcoming visit 04.29.2023 documented in this encounter Plan of Treatment Upcoming Encounters Date Type Department Care Team (Late st Contact Info) Description 05/01/2025 8:30 AM EDT Ancillary Procedure [facility] [address] [place] [address] PAMELA BURKS [phone] 05/01/2025 10:00 AM EDT Clinical Support No Requirements [facility] [address] [place] [address] PAMELA BURKS [phone] 05/01/2025 10:15 AM EDT Office Visit [facility] [address] [place] [address] PAMELA BURKS [phone] Jailene Vargas MD [address] [place] [address] documented as of this encounter Visit Diagnoses Not on filedocumented in this encounter Care Teams Hand Assembler For Puller Over Relationship Specialty Start Date End Date Moi Rayo MD [address] [facility] [address] [place] [address] PCP - General Family Medicine 05/20/17 documented as of this encounter
--- OUTSIDE RECORDS SUMMARY | 2025-03-01 16:13 | XMS_ITS | Clinical Summary ---
Author Organization [facility] Address [address] [place] [address] Care Team Providers Care Lumber Marker Name Role Phone Moi Rayo MD Primary Care Provider + [phone] Allergies Active Allergy Reactions Criticality Noted Date Comments Hydrocodone Unknown - High Severity 05/06/2022 Hydrocodone-Acetaminophen Nausea And Vomiting Low 1 Medications warfarin (COUMADIN) 5 MG tablet Take 1 tablet by mouth Daily. Active aspirin 81 MG EC tablet Take 1 tablet by mouth Daily. Active allopurinol (ZYLOPRIM) 100 MG tablet Take 1 tablet by mouth 2 (Two) Times a Day. 4 Active fluticasone (FLONASE) 50 MCG/ACT nasal spray into each nostril. 4 Active montelukast (SINGULAIR) 10 MG tablet TAKE 1 TABLET EVERY DAY 1 6 Active triamcinolone (KENALOG) 0.1 % lotion Apply 1 Application topically to the appropriate area as directed 2 (Two) Times a Day. Active nitroglycerin (NITROSTAT) 0.[address] 1 tablet under the tongue Every 5 (Five) Minutes As Needed for Chest Pain. Take no more than 3 doses in 15 minutes. Active albuterol (PROVENTIL HFA;VENTOLIN HFA) 108 (90 Base) MCG/ACT inhaler Inhale 2 puffs Every 4 (Four) Hours As Needed for Wheezing. Active pantoprazole (PROTONIX) 40 MG EC tablet Take 1 tablet by mouth Daily. Active ferrous sulfate 325 (65 FE) MG tablet Take 1 tablet by mouth 2 (Two) Times a Day. Active colchicine 0.6 MG tablet Take 1 tablet by mouth Daily. Active finasteride (PROSCAR) 5 MG tablet Take 1 tablet by mouth Daily. Active atorvastatin (LIPITOR) 80 MG tablet Take 1 tablet by mouth Daily. 90 tablet 3 3 Active losartan (COZAAR) 50 MG tablet Take 1 tablet by mouth Daily. 90 tablet 3 3 Active potassium chloride (K-TAB) 20 MEQ tablet controlled-rele ase ER tablet Take 1 tablet by mouth Daily. with food 90 tablet 3 3 Active bumetanide (BUMEX) 2 MG tablet Take 1 tablet by mouth 2 (Two) Times a Day. 180 tablet 3 3 Active Additional Information Patient taking differently:2 mg OralDaily, Informant: Self, Reported on 12/14/2024 dronedarone (Multaq) 400 MG tablet TAKE 1 TABLET BY MOUTH TWICE A DAY WITH FOOD 180 tablet 3 4 Active metoprolol tartrate (LOPRESSOR) 100 MG tablet TAKE 1 TABLET BY MOUTH TWICE A DAY 180 tablet 3 4 Active metOLazone (ZAROXOLYN) 2.5 MG tabletIndicatio ns:Other specified soft tissue disorders TAKE 1 TABLET BY MOUTH EVERY DAY NEEDED FOR SWELLING 90 tablet 1 4 Active Additional Information Patient taking differently:2.5 mg OralAs Needed, Informant: Self, Reported on 12/14/2024 vitamin D3 125 MCG (5000 UT) capsule capsule Take 1 capsule by mouth Daily. Active Active Problems Problem Noted Date Diagnosed Date Acute kidney injury 08/12/2023 Anemia 08/12/2023 BPH (benign prostatic hyperplasia) 08/12/2023 Cellulitis 08/12/2023 Chronic pain of left ankle 08/12/2023 Colon polyps 08/12/2023 Coumadin toxicity 08/12/2023 CRPS (complex regional pain syndrome type I) 10/2023 Edema of lower extremity 08/12/2023 Varicose veins of both legs with edema Fluid overload 08/12/2023 Gastro-esophageal reflux disease with esophagiti s 08/12/2023 Hx of gout 08/12/2023 Hyperlipidemia 08/12/2023 Assessment & Plan (10/26/2024 4:53 PM EDT): Cholesterol well-controlled on lab work today. No liver issues. Continue statin. Hypokalemia 08/12/2023 Osteoarthritis of both ankles and feet Osteophyte of left ankle 08/12/2023 Post-traumatic osteoarthritis of left ankle 10/2023 Hx of CABG 08/12/2023 S/P AVR (aortic valve replacement) 08/12/2023 Venous stasis dermatitis of left lower extremity 08/12/2023 Gall bladder disease 08/12/2023 Presence of cardiac pacemaker 08/12/2023 Assessment & Plan (10/26/2024 4:53 PM EDT): Good battery life and lead function. Chronic anticoagulation 03/13/2021 Calculus of gallbladder with out cholecystitis without obstruction 07/19/2019 Cholelithiasis 07/19/2019 CHF exacerbation 06/25/2018 Sleep apnea 06/23/2018 Diabetes mellitus 06/17/2018 Overview (06/17/2018): borderline diabetic but does not take meds to control Obesity 06/17/2018 Coronary artery disease invo lving coronary bypass graft 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 06/08/2018 Overview (06/26/2018): S/P CABG x 3 on 06/16/18 Assessment & Plan (10/26/2024 4:53 PM EDT): Doing well. On medical therapy. No new chest pain. Paroxysmal atrial fibrillation 06/12/2016 Overview (06/26/2018): a) History of paroxysmal atrial fibrillation initially diagnosed 07/2012. b) Chronic Coumadin therapy. Assessment & Plan (10/26/2024 4:53 PM EDT): On blood thinners. A-fib burden relatively low. Doing well currently. Elevated troponin I level 06/12/2016 HBP (high blood pressure) 05/12/2016 History of aortic valve diso rder s/p bioprosthetic aortic valve Overview (06/26/2018): a) In 08/[address] Tapia which revealed moderate to severe AR. LVEF of 50%,trace MR, trace TR. b) In 09/2012, Rosales #[address] Dr[address] Hollis Roman. Assessment & Plan (10/26/2024 4:53 PM EDT): Will be due for an echo in April of this year. History of arthritis History of carotid artery stenosis Dyslipidemia History of anxiety disorder Chronic CHF Overview (06/26/2018): 1. Echo 06-09-18 Mild mitral valve regurgitation is present Right ventricular cavity is gaxb-[id number]-dfulxxnzir dilated. Mild tricuspid valve regurgitation is present. No EF of 50% History of nephrolithiasis Resolved Problems Problem Noted Date Diagnosed Date Resolved Date Chest pain 06/12/2016 06/23/2018 Myocardial infarct 06/12/2016 8 Encounters Date Type Department Care Team Description 12/14/2024 10:00 AM EDT Office Visit [facility] [address] [place], [place] [phone] Jailene Vargas MD Lymphedema (Primary Dx); Obstructive sleep apnea syndrome; Hypertension, essential; Nonrheumatic aortic valve stenosis 12/14/2024 Travel from Last 3 Months Immunizations Immunization Administration Dates Next Due FLUAD TRI 65YR+ 06/01/2018 Fluzone High-Dose 65+YRS 06/04/2020,05/17/2019,1 Fluzone High-Dose 65+yrs 04/29/2021 Influenza, Unspecified 06/30/2018 Pneumococcal Conjugate 13-Valent (PCV13) 021 Pneumococcal Polysaccharide (PPSV23) 11/25/2015 Shingrix 02/02/2019 Family History Medical History Relation Name Comments Aortic aneurysm Brother 1 Heart disease Brother 1 Heart disease Brother 2 Drug abuse Brother 4 Diabetes Daughter Heart disease Daughter Hypothyroidism Daughter Alcohol abuse Father Coronary artery disease Mother Diabetes Mother Hypertension Mother Kidney disease Mother Diabetes Other Heart attack Other Heart disease Other Hyperlipidemia Other Hypertension Other Cirrhosis Sister Rheum arthritis Sister Hypertension Son 2 No Known Problems Son 3 Relation Name Status Comments Brother 1 Alive Brother 2 Alive Brother 3 MVA Brother 4 overdose Daughter Alive and lymphedema Father Mother Other Sister Son 1 MVA age 18 Son 2 Alive Son 3 Alive Social History Tobacco Use Types Packs/Day Years Used Date Smoking Tobacco: Never Passive Smoke Exposure: Never Smokeless Tobacco: Never Tobacco Cessation:Counseling Given: Yes Alcohol Use Standard Drinks/Week Comments No 0 (1 standard drink = 0.6 oz pur e alcohol) Sex and Gender Information Value Date Recorded Sex Assigned at Not on file Legal Sex Male 1:29 PM EDT Gender Identity Not on file Sexual Orientation Not on file Occupation Industry Job Start Date Job End Date [place] Not on file Not on file Not on file Last Filed Vital Signs Vital Sign Reading Time Taken Comments Blood Pressure 130/80 12/14/2024 10:03 AM EDT Pulse 56 12/14/2024 10:03 AM EDT Temperature 38.1 C (100.5 F) 07/21/2019 7:25 AM EST Respiratory Rate 18 07/21/2019 7:25 AM EST Oxygen Saturation 95% 12/14/2024 10:03 AM EDT Inhaled Oxygen Concentration - - Weight 155 kg (342 lb) 12/14/2024 10:03 AM EDT Height 177.8 cm (5' 10 ) 12/14/2024 10:03 AM EDT Body Mass Index 49.07 12/14/2024 10:03 AM EDT Plan of Treatment Upcoming Encounters Date Type Department Care Team (Late st Contact Info) Description 05/01/2025 8:30 AM EDT Ancillary Procedure [facility] [address] [place] [phone] 05/01/2025 10:00 AM EDT Clinical Support No Requirements [facility] [address] [place] [phone] 05/01/2025 10:15 AM EDT Office Visit [facility] [address] [place] [phone] Jailene Vargas MD [address] [place] [address] Health Maintenance Due Date Last Done Comments DIABETIC EYE EXAM 1955 DIABETIC FOOT EXAM 1955 URINE MICROALBUMIN-CREATININ E RATIO (uACR) 1955 TDAP/TD VACCINES (1 - Tdap) 1965 COLOGUARD 1991 COLON CANCER SCREENING 5 YEA R SIGMOIDOSCOPY 1991 COLONOSCOPY 1991 [address] CANCER SCREENING 1991 CT COLONOGRAPHY 1991 FECAL OCCULT BLOOD TEST 1991 FIT Testing (1 year) 1991 ANNUAL WELLNESS VISIT 02/17/2017 HEPATITIS C SCREENING 02/17/2017 ZOSTER VACCINE (2 of 2) 03/30/2019 02/02/2019 RSV Vaccine - Adults (1 - 1- dose 75+ series) 2021 COVID-19 Vaccine (3 - 2023-2 5 season) 2024 12/06/2020, 11/15/2020 HEMOGLOBIN A1C 10/20/2024 04/22/2024, 07/10, 06/14/2018, Additional history exists LIPID PANEL 04/22/2025 04/22/2024, 09/2023, 04/22/2023, Additional history exists INFLUENZA VACCINE 05/10/2025 04/29/2021, , 05/17/2019, Additional history exists Pneumococcal Vaccine 50+ Completed 01/01/2021, 11/08 Medical Devices Implanted Type Area Bookkeeper Device Identifier Shelf Expiration Date Model / Serial / Lot Markr Eleni Radiomark Disk Ro Di - [id number] Implanted:Qty : 1 on 06/16/2018 by Hollis Roman MD at [facility] Implant N/A: Heart [employer] [id number] / / Stent Stent Procedures Procedure Name Priority Date/Time Associated Diagnosis Comments REMOTE DEVICE CHECK 02/01/2025 5:36 AM EDT SCANNED - PULMONARY RESULTS 12/14/2024 HEMOGLOBIN A1C Routine 04/22/2024 Impaired fasting glucose LIPID PANEL Routine 04/22/2024 Chronic diastolic congestive heart failure Stage 3b chronic kidney disease Impaired fasting glucose from Last 3 Months or Most Recently Relevant to Health Maintenance Results * Pulmonary Results Scan (12/14/2024) us Jailene K Waespe MD PFT ORDERABLES Final Result * Hemoglobin A1c (04/22/2024) Blood Jailene Vargas MD LAB BLOOD ORDERABLES Final R esult Performing Organization Address City/[facility]/ZIP Co de Phone Number [facility]
[address] [place] [address], [place] [phone] * Lipid Panel (04/22/2024) Blood Jailene Vargas MD LAB BLOOD ORDERABLES Final R esult Performing Organization Address City/[facility]/ZIP Co de Phone Number [facility]
[address] [place] [address], [place] [phone] from Last 3 Months or Most Recently Relevant to Health Maintenance Insurance MEDICARE A & B [place]ICAID [place] Advance Directives * CPR (Attempt to Resuscitate) (Latest Code Status on File) Date Activated Date Inactivated Comments 07/19/2019 3:56 PM 07/21/2019 4:55 PM Question Answer Comments Code Status (Patient has no pulse and is not breathing): CPR (Attempt to Resuscitate) Medical Interventions (Patie nt has pulse or is breathing): Full * CPR (Attempt to Resuscitate) Date Activated Date Inactivated Comments 06/26/2018 2:08 AM 06/28/2018 2:39 PM Question Answer Comments Code Status (Patient has no pulse and is not breathing): CPR (Attempt to Resuscitate) Medical Interventions (Patie nt has pulse or is breathing): Full * CPR (Attempt to Resuscitate) Date Activated Date Inactivated Comments 06/16/2018 11:52 AM 06/24/2018 3:16 PM Question Answer Comments Code Status (Patient has no pulse and is not breathing): CPR (Attempt to Resuscitate) Medical Interventions (Patie nt has pulse or is breathing): Full * CPR (Attempt to Resuscitate) Date Activated Date Inactivated Comments 06/16/2018 11:52 AM 06/16/2018 11:52 AM Question Answer Comments Code Status (Patient has no pulse and is not breathing): CPR (Attempt to Resuscitate) Medical Interventions (Patie nt has pulse or is breathing): Full * CPR (Attempt to Resuscitate) Date Activated Date Inactivated Comments 06/08/2018 7:19 PM 06/16/2018 11:52 AM Question Answer Comments Code Status (Patient has no pulse and is not breathing): CPR (Attempt to Resuscitate) Medical Interventions (Patie nt has pulse or is breathing): Full Level Of Support Discussed With: Patient Care Teams Lumber Marker Relationship Specialty Start Date End Date Moi Rayo MD [address] [facility] [address] [place] [address] PCP - General Family Medicine 05/20/17
[2025-03-01] MEDS: 0.9 % SODIUM CHLORIDE 1000ML 1,000 ML 999 ML IV ×2 (16:15→17:11)
[2025-03-01] MEDS: ONDANSETRON 4MG/2ML VIAL 4 MG (16:18)
[2025-03-01 16:20] VITALS: BP 108/67; PULSE 104; RESP 19; O2SAT 95
--- NOTE | 2025-03-01 16:36 | PC.NURSE ---
Report received from Karime Bowman RN. Pt receiving ivf bolus per md order and resting in recliner chair-warm blankets and pillow provided, no c/o noted at this time.
[2025-03-01 17:15] VITALS: BP 101/69; PULSE 98; RESP 20; O2SAT 96
[2025-03-01 18:20] VITALS: BP 95/72; PULSE 93; RESP 20; O2SAT 97
== END 2025-03-01 18:32 | disposition home or self-care (01) ==
LOC: INF 16:09
PROVIDERS: PCP Family Medicine; Visit Provider Family Medicine
DX: R11.2 Nausea with vomiting, unspecified (principal); D72.829 Elevated white blood cell count, unspecified; I48.91 Unspecified atrial fibrillation
CPT/HCPCS: 96360; 96361; 96375; J2405; J7030

== ENCOUNTER 2025-04-24 20:42 | Inpatient (IN) | payer MEDICARE, MEDICAID, SELFPAY ==
--- OUTSIDE RECORDS SUMMARY | 2024-10-06 05:15 | XMS_ITS ---
Author Organization [facility] Address [address] [place] [id number] Care Team Providers Care Clinical Research Specialist Name Role Phone Perri Moi Primary Care Provider [phone] Results Component Value Reference Range Notes PT/INR [...] days Active Vitamin D (Ergocalciferol) 1.25 MG (39012 UT) 1 cap(s) orally twice a week; [...] Status Risk Notes Problem Chronic atrial fibrillation (065587405) Chronic atrial fibrillation (I48.20) Active confirmed Encounters Encounter Location Date Provider Diagnosis [facility] 36 [facility] [address] [place] [id number] 10/06/2024 Moi Rayo Chronic atrial fibrillation I48.2 Assessments Encounter Date Diagnosis (ICD Code) Assessment Notes Treatment Notes Treatment Clinical Notes Section Notes 10/06/2024 Chronic atrial fibrillation (ICD-10 - I48.2) Plan Of Treatment Next Appt Details Follow Up: 6 Months, Reason: Provider Name:Moi lerner, 10/09/2025 09:45:00 AM, [address] [facility], [address], [place], [place], [id number], Progress Notes * SONALI COLETTE WDOB:1945 (79 yo M)Acc No.[id number]:10/06/2024 Patient: COLETTE GARCÍA Provider: Gordon Rayo M.D. :1945 A ge:79 Y S ex:Male Date:10/06/2024 Address:[address] [place] [address] [place], [id number] Subjective: * Chief Complaints: * 1 . [...] , Taking Vitamin D (Ergocalciferol) 1.25 MG (09795 UT) Capsule 1 cap(s) orally twice a [...] G 2211 Complex e/[place], [address] PROTHROMBIN TIME, Modifiers: QW , 41556 CAPILLARY BLOOD DRAW * Follow Up: 6 Months * Images: Billing Information: * Visit Code: 46470 Office Visit, Est Pt., Level 3. * Procedure Codes: G2211 Complex e/[place]. [address] PROTHROMBIN TIME. Modifiers: QW 16713 CAPILLARY BLOOD DRAW. * Electronic signature of Keisha Rayo MD on 04/25/2025 at 11:14 AM EDT Sign off status: Pending * Provider: Gordon Rayo M.D. Date: 0 10/06/2024 Generated for Charisma lassiter/Shraddha/Traceyitting on: 0 04/25/2025 11:14 AM EDT History and Physical Notes * [...]
--- OUTSIDE RECORDS SUMMARY | 2024-10-06 05:15 | XMS_ITS ---
Author Organization [facility] Address [address] [place] [phone] Care Team Providers Care Rope Rider Name Role Phone Perri Moi Primary Care Provider [phone] Results Component Value Reference Range Notes PT/INR [...] days Active Vitamin D (Ergocalciferol) 1.25 MG (19731 UT) 1 cap(s) orally twice a week; [...] Status Risk Notes Problem Chronic atrial fibrillation (457844934) Chronic atrial fibrillation (I48.20) Active confirmed Encounters Encounter Location Date Provider Diagnosis [facility] [facility]10 [facility] 36 [facility] [address] [place] [id number] 10/06/2024 Moi Rayo Chronic atrial fibrillation I48.2 Assessments Encounter Date Diagnosis (ICD Code) Assessment Notes Treatment Notes Treatment Clinical Notes Section Notes 10/06/2024 Chronic atrial fibrillation (ICD-10 - I48.2) Plan Of Treatment Next Appt Details Follow Up: 6 Months, Reason: Provider Name:Moi lerner, 10/09/2025 09:45:00 AM, [address] [facility], [address], [place], [place], [id number], Progress Notes * SONALI COLETTE WDOB:1945 (79 yo M)Acc No.[id number]:10/06/2024 Patient: COLETTE GARCÍA Provider: Gordon Rayo M.D. :1945 A ge:79 Y S ex:Male Date:10/06/2024 Address:[address] [place] [address] [place], [id number] Subjective: * Chief Complaints: * 1 . [...] , Taking Vitamin D (Ergocalciferol) 1.25 MG (55872 UT) Capsule 1 cap(s) orally twice a [...] G 2211 Complex e/[place], [address] PROTHROMBIN TIME, Modifiers: QW , 19814 CAPILLARY BLOOD DRAW * Follow Up: 6 Months * Images: Billing Information: * Visit Code: 57478 Office Visit, Est Pt., Level 3. * Procedure Codes: G2211 Complex e/[place]. [address] PROTHROMBIN TIME. Modifiers: QW 68911 CAPILLARY BLOOD DRAW. * Electronic signature of Keisha Rayo MD on 04/24/2025 at 10:04 PM EDT Sign off status: Pending * Provider: Gordon Rayo M.D. Date: 10/06/2024 Generated for Charisma lassiter/Shraddha/Patsy on: 0 04/24/2025 10:04 PM EDT History and Physical Notes * [...]
--- OUTSIDE RECORDS SUMMARY | 2025-03-01 12:00 | XMS_ITS ---
Author Organization [facility] Address [address] [place] [phone] Care Team Providers Care Insulator Apprentice Name Role Phone Moi Rayo Primary Care [...] day(s) Active Vitamin D (Ergocalciferol) 1.25 MG (04029 UT) 1 cap(s) orally twice a week; [...] Status W/U Status Risk Notes Problem Leukocytosis (552211652) Leukocytosis, unspecified (D72.829) Active confirmed Problem Chronic anemia (163649186) Chronic anemia (D64.9) Active confirmed Problem Diabetic renal disease (424492747) Type 2 diabetes mellitus with diabetic chronic kidney disease, unspecified CKD stage, unspecified whether custodial insulin use (E11.22) Active confirmed Problem Body mass index 40+ - severely obese (002817194) BMI 45.0-49.9, adult (Z68.42) Active confirmed Vital Signs Weight 342.2 lbs 03/01/2025 Blood pressure systolic 140 mm Hg 03/01/20 25 Blood pressure diastolic 84 mm Hg 025 Heart Rate 128 /min 03/01/2025 Height 70 in 03/01/2025 BMI 49.1 kg/m2 03/01/2025 Encounters Encounter Location Date Provider Diagnosis [facility] [address] [place], [place] [phone] 03/01/2025 Moi [place] Nausea R11.0 ; Leukocytosis, unspecified D72.829 ; Tachycardia R00.0 ; Chronic congestive heart failure, unspecified heart failure type I50.9 ; Mixed hyperlipidemia E78.2 ; Essential hypertension I10 ; Chronic anemia D64.9 ; Type 2 diabetes mellitus with diabetic chronic kidney disease, unspecified CKD stage, unspecified whether custodial insulin use E11.22 ; BMI 45.0-49.9, adult [...] kidney disease, unspecified CKD stage, unspecified whether custodial insulin use (ICD-10 - E11.22) 03/01/2025 BMI 45.0-49.9, adult (ICD-10 - Z68.42) 03/01/2025 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) 03/01/2025 Other Patient sent to [facility] infusion for 2 liters of normal saline and a dose of IV Zofran Plan Of Treatment Medication Medication Name Sig Start Date Stop Date Notes Zithromax Z-Duarte 250 MG as directed Orall y daily; Duration: 5 days 03/01/2025 Ondansetron HCl 4 MG 1 tablet Orally every 8 hours 025 Treatment Notes Assessment Notes Other Patient sent to [facility] infusion for 2 liters of normal saline and a dose of IV Zofran Next Appt Details Follow Up: via phone to repo rt progress, Reason: Provider Name:Moi Mae , 10/09/2025 09:45:00 AM, [address] [facility] [address] [facility], [address] , [place], [place], [phone], Progress Notes * COLETTE GRIMALDO WDOB:1945 (79 yo M)Acc No.[id number]:03/01/2025 Progress Notes Patient: COLETTE GARCÍA Provider: Gordon Rayo M.D. :1945 A ge:79 Y S ex:Male Date:03/01/2025 Address:[address] [place] [address] [place], [id number] Subjective: * Chief Complaints: * 1 . 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 - [facility] 02/16-06/2017, Leg Wound- [facility] [place] 01/15/2018, Gallbladder, Esophagitis, Partial Lung Collapse- [facility] 07/11-10/2017, Cholecystectomy- [facility] 07/19-07/2019. * Family History: F ather: 92 yrs. M other: 68 yrs, diagnosed with Hypertension, Diabetes, Heart Disease. S iblings: diagnosed with Hypertension, Diabetes, Heart Disease. 4 brother(s) , 1 sister(s) . 3 son(s) , 1 daughter(s) . . one son - MVA. * Social History: C URRENT TOBACCO USE S moking Status: P atfanta does NOT smoke. A lcohol: no. Recreational [...] , Taking Vitamin D (Ergocalciferol) 1.25 MG (76931 UT) Capsule 1 cap(s) orally twice a [...] kidney disease, unspecified CKD stage, unspecified whether 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 helper termite insulin use - E11.22 9 . B NE 45.0-49.9, adult - Z68.42 1 0. H [...] EDT > 3.?Others? Notes: Patient sent to [facility] infusion for 2 liters of normal saline and a dose of IV Zofran? * Procedure Codes: G 2211 Complex e/[place], [address] CBC WITH AUTO DIFF, 65122 CAPILLARY BLOOD DRAW, 1036F TOBACCO NON-USER, G8950 PREHTN/HTN BP DOC INDCD F/U DOC, G8753 MOST RECENT SYSTOLIC BP >= 140MM HG, G8754 MOST RECENT DIASTOLIC BP < 90MM HG * Follow Up: v ia phone to report progress * Images: Billing Information: * Visit Code: 08044 Office Visit, Est Pt., Level 4. * Procedure Codes: G2211 Complex e/[place]. [address] CBC WITH AUTO DIFF. 67234 CAPILLARY BLOOD DRAW. 1036F TOBACCO NON-USER. G8950 PREHTN/HTN BP DOC INDCD F/U DOC. G8753 MOST RECENT SYSTOLIC BP >= 140MM HG. G8754 MOST RECENT DIASTOLIC BP < 90MM HG. * Electronic signature of Keisha Rayo MD on 04/24/2025 at 10:04 PM EDT Sign off status: Pending * Provider: Gordon Rayo M.D. Date: 0 03/01/2025 Generated for Charisma lassiter/Shraddha/Traceyitting on: 0 04/24/2025 10:04 PM EDT History [...]
--- OUTSIDE RECORDS SUMMARY | 2025-03-01 12:00 | XMS_ITS ---
Author Organization [facility] Address [address] [place] [phone] Care Team Providers Care Income Tax Analyst Name Role Phone Moi Rayo Primary Care [...] day(s) Active Vitamin D (Ergocalciferol) 1.25 MG (96359 UT) 1 cap(s) orally twice a week; [...] Status W/U Status Risk Notes Problem Leukocytosis (483747618) Leukocytosis, unspecified (D72.829) Active confirmed Problem Chronic anemia (401799840) Chronic anemia (D64.9) Active confirmed Problem Diabetic renal disease (011409808) Type 2 diabetes mellitus with diabetic chronic kidney disease, unspecified CKD stage, unspecified whether long-term insulin use (E11.22) Active confirmed Problem Body mass index 40+ - severely obese (518666016) BMI 45.0-49.9, adult (Z68.42) Active confirmed Vital Signs Blood pressure systolic 140 mm Hg 03/01/20 25 Blood pressure diastolic 84 mm Hg 025 Heart Rate 128 /min 03/01/2025 Height 70 in 03/01/2025 Weight 342.2 lbs 03/01/2025 BMI 49.1 kg/m2 03/01/2025 Encounters Encounter Location Date Provider Diagnosis [facility] [address] [place], [place] [phone] 03/01/2025 Moi [place] Nausea R11.0 ; Leukocytosis, unspecified D72.829 ; Tachycardia R00.0 ; Chronic congestive heart failure, unspecified heart failure type I50.9 ; Mixed hyperlipidemia E78.2 ; Essential hypertension I10 ; Chronic anemia D64.9 ; Type 2 diabetes mellitus with diabetic chronic kidney disease, unspecified CKD stage, unspecified whether long-term insulin use E11.22 ; BMI 45.0-49.9, adult [...] kidney disease, unspecified CKD stage, unspecified whether long-term insulin use (ICD-10 - E11.22) 03/01/2025 BMI 45.0-49.9, adult (ICD-10 - Z68.42) 03/01/2025 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) 03/01/2025 Other Patient sent to [facility] infusion for 2 liters of normal saline and a dose of IV Zofran Plan Of Treatment Medication Medication Name Sig Start Date Stop Date Notes Zithromax Z-Duarte 250 MG as directed Orall y daily; Duration: 5 days 03/01/2025 Ondansetron HCl 4 MG 1 tablet Orally every 8 hours 025 Treatment Notes Assessment Notes Other Patient sent to [facility] infusion for 2 liters of normal saline and a dose of IV Zofran Next Appt Details Follow Up: via phone to repo rt progress, Reason: Provider Name:Moi Mae , 10/09/2025 09:45:00 AM, [address] [facility] [address] [facility], [address] , [place], [place], [phone], Progress Notes * COLETTE GRIMALDO WDOB:1945 (79 yo M)Acc No.[id number]:03/01/2025 Progress Notes Patient: COLETTE GARCÍA Provider: Gordon Rayo M.D. :1945 A ge:79 Y S ex:Male Date:03/01/2025 Address:[address] [place] [address] [place], [id number] Subjective: * Chief Complaints: * 1 . 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 - [facility] 02/16-06/2017, Leg Wound- [facility] [place] 01/15/2018, Gallbladder, Esophagitis, Partial Lung Collapse- [facility] 07/11-10/2017, Cholecystectomy- [facility] 07/19-07/2019. * Family History: F [...] , Taking Vitamin D (Ergocalciferol) 1.25 MG (99594 UT) Capsule 1 cap(s) orally twice a [...] kidney disease, unspecified CKD stage, unspecified whether joint terminal attack controller insulin use - E11.22 9 . B ID 45.0-49.9, adult - Z68.42 1 0. H [...] EDT > 3.?Others? Notes: Patient sent to [facility] infusion for 2 liters of normal saline and a dose of IV Zofran? * Procedure Codes: G 2211 Complex e/[place], [address] CBC WITH AUTO DIFF, 00769 CAPILLARY BLOOD DRAW, 1036F TOBACCO NON-USER, G8950 PREHTN/HTN BP DOC INDCD F/U DOC, G8753 MOST RECENT SYSTOLIC BP >= 140MM HG, G8754 MOST RECENT DIASTOLIC BP < 90MM HG * Follow Up: v ia phone to report progress * Images: Billing Information: * Visit Code: 35301 Office Visit, Est Pt., Level 4. * Procedure Codes: G2211 Complex e/[place]. [address] CBC WITH AUTO DIFF. 65497 CAPILLARY BLOOD DRAW. 1036F TOBACCO NON-USER. G8950 PREHTN/HTN BP DOC INDCD F/U DOC. G8753 MOST RECENT SYSTOLIC BP >= 140MM HG. G8754 MOST RECENT DIASTOLIC BP < 90MM HG. * Electronic signature of Keisha Rayo MD on 04/25/2025 at 11:14 AM EDT Sign off status: Pending * Provider: Gordon Rayo M.D. Date: 0 03/01/2025 Generated for Charisma lassiter/Shraddha/Traceyitting on: 0 04/25/2025 [...]
--- OUTSIDE RECORDS SUMMARY | 2025-03-06 05:30 | XMS_ITS ---
[facility] Organization [facility] Address [address] [place] [phone] Care Team Providers Care Cube Cutter Name Role Phone Moi Rayo Primary Care Provider [phone] Allergies Allergen (clinical drug ingredient) Drug/Non Drug [...] days Active Vitamin D (Ergocalciferol) 1.25 MG (36683 UT) 1 cap(s) orally twice a week; [...] day(s) Active Vital Signs Blood pressure systolic 136 mm Hg 03/06/20 25 Blood pressure diastolic 80 mm Hg 025 Heart Rate 87 /min 03/06/2025 Height 70 in 03/06/2025 Weight 345 lbs 03/06/2025 BMI 49.5 kg/m2 03/06/2025 Encounters Encounter Location Date Provider Diagnosis [facility] [address] 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 Z79.01 Assessments Encounter Date Diagnosis (ICD Code) Assessment Notes Treatment Notes Treatment Clinical Notes Section Notes 03/06/2025 Left leg cellulitis (ICD-10 - L03.116) 03/06/2025 senior care current use of anticoagulant (ICD-10 - Z79.01) Plan Of Treatment Medication Medication Name Sig Start Date Stop Date Notes Cephalexin 500 MG 1 capsule Orally twi ce a day; Duration: 7 days 03/06/2025 Next Appt Details Follow Up: 1 Week, Reason: Provider Name:Moi Mae ry, 10/09/2025 09:45:00 AM, [address], [address], [place], [place], [phone], Progress Notes * COLETTE GRIMALDO WDOB:1945 (79 yo M)Acc No.[id number]:03/06/2025 Progress Notes Patient: COLETTE GARCÍA Provider: Gordon Rayo M.D. :1945 A ge:79 Y S ex:Male Date:03/06/2025 Address:[address] [place], [place] [address], [id number] Subjective: * Chief Complaints: * 1 . [...] 06/12/2016, 02/16/2017, AVR 09/20/2012, Porcine, Atrial Fibrillation, [facility] Cou[facility], Hyperlipidemia, Hypertension, Gout, [...] stic Procedure: A -Fib Light M.I. - [facility] 02/16-06/2017, [place]- [facility] [place]/15/2018, Gallbladder, Esophagitis, Partial Lung Collapse- [facility] 07/11-10/2017, Cholecystectomy- [facility] 07/19-07/2019. * Family History: F ather: 92 [...] , Taking Vitamin D (Ergocalciferol) 1.25 MG (48783 UT) Capsule 1 cap(s) orally twice a [...] week * i deal INR 2-3 * Tarah Hughes 03/06/2025 09:43: 53 AM EDT > Provider reviewed results while patient in office.Moi Rayo T 03/06/2025 09:59:36 PM EDT > * Procedure Codes: G 2211 Complex e/[place], [address] PROTHROMBIN TIME, Modifiers: QW , 44084 CAPILLARY BLOOD DRAW, 1036F TOBACCO NON-USER, G8783 BP SCR PRFRM RCMDD DEFIND SCR INTVL, G8752 MOST RECENT SYSTOLIC BP < 140MM HG, G8754 MOST RECENT DIASTOLIC BP < 90MM HG * Follow Up: 1 Week * Images: Billing Information: * Visit Code: 54853 Office Visit, Est Pt., Level 3. * Procedure Codes: G2211 Complex e/[place]. [address] PROTHROMBIN TIME. Modifiers: QW 35621 CAPILLARY BLOOD DRAW. 1036F TOBACCO NON-USER. G8783 BP SCR PRFRM RCMDD DEFIND SCR INTVL. G8752 MOST RECENT SYSTOLIC BP < 140MM HG. G8754 MOST RECENT DIASTOLIC BP < 90MM HG. * Electronic signature of Keisha Rayo MD on 04/25/2025 at 11:15 AM EDT Sign off status: Pending * Provider: Gordon Rayo M.D. Date: 0 03/06/2025 Generated for Charisma lassiter/Shraddha/Traceyitting on: 0 04/25/2025 11:15 AM EDT History and Physical Notes * [...]
--- OUTSIDE RECORDS SUMMARY | 2025-03-06 05:30 | XMS_ITS ---
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[id number]:03/06/2025 Progress Notes Patient: COLETTE GARCÍA Provider: Gordon Rayo M.D. :1945 A ge:79 Y S ex:Male Date:03/06/2025 Address:[address] [place], [place] [address], [id number] Subjective: * Chief Complaints: * 1 . [...] 06/12/2016, 02/16/2017, AVR 09/20/2012, Porcine, Atrial Fibrillation, [facility] Coumadin Clinic, Hyperlipidemia, Hypertension, Gout, Vitamin [...] stic Procedure: A -Fib Light M.I. - [facility] 02/16-06/2017, Leg Wound- [facility] 01/15/2018, Gallbladder, Esophagitis, Partial Lung Collapse- [facility] 07/11-10/2017, Cholecystectomy- [facility] 07/19-07/2019. * Family History: F ather: 92 [...] , Taking Vitamin D (Ergocalciferol) 1.25 MG (56991 UT) Capsule 1 cap(s) orally twice a [...] G 2211 Complex e/[place], [address] PROTHROMBIN TIME, Modifiers: QW , 43597 CAPILLARY BLOOD DRAW, 1036F TOBACCO NON-USER, G8783 BP SCR PRFRM RCMDD DEFIND SCR INTVL, G8752 MOST RECENT SYSTOLIC BP < 140MM HG, G8754 MOST RECENT DIASTOLIC BP < 90MM HG * Follow Up: 1 Week * Images: Billing Information: * Visit Code: 87608 Office Visit, Est Pt., Level 3. * Procedure Codes: G2211 Complex e/[place]. [address] PROTHROMBIN TIME. Modifiers: QW 42377 CAPILLARY BLOOD DRAW. 1036F TOBACCO NON-USER. G8783 BP SCR PRFRM RCMDD DEFIND SCR INTVL. G8752 MOST RECENT SYSTOLIC BP < 140MM HG. G8754 MOST RECENT DIASTOLIC BP < 90MM HG. * Electronic signature of Keisha Rayo MD on 04/24/2025 at 10:05 PM EDT Sign off status: Pending * Provider: Gordon Rayo M.D. Date: 0 03/06/2025 Generated for Charisma lassiter/Shraddha/Traceyitting on: 0 04/24/2025 10:05 PM EDT History and Physical Notes * [...]
--- OUTSIDE RECORDS SUMMARY | 2025-03-13 07:45 | XMS_ITS ---
Author Organization [facility] Address [address] [place] [phone] Care Team Providers Care Systems Support Specialist Name Role Phone Moi Rayo Primary Care [...] 38 Performing Lab: Notes/Report: Test performed by [employer], [employer] [facility] , [place] [address] Ashok Antonio MD, Gas Meter Checker CLIA: [id number] Sodium 144 135-145 mmol/L Potassium 4.9 3.5-5.3 [...] days Active Vitamin D (Ergocalciferol) 1.25 MG (47656 UT) 1 cap(s) orally twice a week; Duration: 90 days Active Nitrostat 0.4 MG 1 tab(s) sublinguall y every 5 minutes, prn; Duration: 8 Active Aspirin 81 MG 1 tab(s) orally once a day; Duration: 30 day(s) Active Diclofenac Sodium 1 % as directed applie d topically 4 times a day; Duration: 30 day(s) Active Vital Signs Blood pressure systolic 130 mm Hg 03/13/20 25 Blood pressure diastolic 80 mm Hg 025 Heart Rate 92 /min 03/13/2025 Height 70 in 03/13/2025 Weight 345.4 lbs 03/13/2025 BMI 49.55 kg/m2 03/13/2025 Encounters Encounter Location Date Provider Diagnosis [facility] [facility] [address] [phone] 03/13/2025 Moi Rayo Left leg cellulitis L03.116 ; Essential hypertension I10 ; Peripheral edema R60.0 and halfway current use of anticoagulant Z79.01 Assessments Encounter Date Diagnosis (ICD Code) Assessment Notes Treatment Notes Treatment Clinical Notes Section Notes 03/13/2025 Left leg cellulitis (ICD-10 - L03.116) 03/13/2025 Essential hypertension (ICD-10 - I10) 03/13/2025 Peripheral edema (ICD-10 - R60.0) 03/13/2025 halfway current use of anticoagulant (ICD-10 - Z79.01) Plan Of Treatment Medication Medication Name Sig Start Date Stop Date Notes Cephalexin 500 MG 1 capsule Orally twi ce a day; Duration: 5 days 03/06/2025 Next Appt Details Follow Up: via phone to repo rt progress, Reason: Provider Name:Moi Mae ry, 10/09/2025 09:45:00 AM, [address], [address], [place], [place], [phone], Progress Notes * COLETTE GRIMALDO WDOB:1945 (79 yo M)Acc No.[id number]:03/13/2025 Progress Notes Patient: COLETTE GARCÍA Provider: Gordon Rayo M.D. :1945 A ge:79 Y S ex:Male Date:03/13/2025 Address:[address] [place] [address], [place], [id number] Subjective: * Chief Complaints: * 1 . 1 week f/u. * HPI: D ermatology: 79 year old male presents with c/o Cellulitis P t here for 1 week f/u on lt leg cellulitis. Pt started on Cephalexin 500mg 03/06. Pt sts his leg is about prison better than it was, but sts it is still red. * ROS: G ASTROENTEROLOGY: no N ausea. n o V omiting. N EUROLOGY: no H eadache. n o D izziness. U ROLOGY: no D ifficulty urinating. n o B lood in urine. * Medical History: C oronary Artery Disease, Dr. Jones, Non STEMI 06/12/2016, 02/16/2017, AVR 09/20/2012, Porcine, Atrial Fibrillation, [facility] Coumadin Clinic, Hyperlipidemia, Hypertension, Gout, Vitamin [...] stic Procedure: A -Fib Light M.I. - [facility] 02/16-06/2017, Leg Wound- [facility] 01/15/2018, Gallbladder, Esophagitis, Partial Lung Collapse- [facility] 07/11-10/2017, Cholecystectomy- [facility] 07/19-07/2019. * Family History: F [...] , Taking Vitamin D (Ergocalciferol) 1.25 MG (12401 UT) Capsule 1 cap(s) orally twice a [...] :44 AM EDT > See phone encounter 3.?halfway current use of anticoagulant?LAB: PT/INR (in house) [...] G 2211 Complex e/[place], [address] CBC WITH AUTO DIFF, 73417 PROTHROMBIN TIME, Modifiers: QW , 1036F TOBACCO NON-USER, G8950 PREHTN/HTN BP DOC INDCD F/U DOC, G8752 MOST RECENT SYSTOLIC BP < 140MM HG, G8754 MOST RECENT DIASTOLIC BP < 90MM HG * Follow Up: v ia phone to report progress * Images: Billing Information: * Visit Code: 32931 Office Visit, Est Pt., Level 4. * Procedure Codes: G2211 Complex e/[place]. [address] CBC WITH AUTO DIFF. 98776 PROTHROMBIN TIME. Modifiers: QW 1036F TOBACCO NON-USER. G8950 PREHTN/HTN BP DOC INDCD F/U DOC. G8752 MOST RECENT SYSTOLIC BP < 140MM HG. G8754 MOST RECENT DIASTOLIC BP < 90MM HG. * Electronic signature of Keisha Rayo MD on 04/25/2025 at 11:15 AM EDT Sign off status: Pending * Provider: Gordon Rayo M.D. Date: 0 03/13/2025 Generated for Charisma lassiter/Shraddha/Traceyitting on: 0 04/25/2025 11:15 AM EDT History and Physical Notes * HPI (History of Present Illness) Category Sub-Category Detail Notes Category Not es Dermatology Cellulitis Pt here for 1 we ek f/u on lt leg cellulitis. Pt started on Cephalexin 500mg 03/06. Pt sts his leg is about prison better than it was, but sts it is still red Examination Category Sub-Category Detail Notes Category Not es General Examination Extremities: 2+ bilateral leg edema, the skin redness over the left dick has faded General Appearance: NAD
--- OUTSIDE RECORDS SUMMARY | 2025-03-13 07:45 | XMS_ITS ---
Author Organization [facility] Address [address] [place] [phone] Care Team Providers Care Mowing Machine Operator Name Role Phone Moi Rayo [...] 38 Performing Lab: Notes/Report: Test performed by [employer], [employer] [facility] , [place] [address] Ashok Antonio MD, Order Checker Packer Processer CLIA: [id number] Sodium 144 135-145 mmol/L Potassium 4.9 3.5-5.3 [...] days Active Vitamin D (Ergocalciferol) 1.25 MG (09772 UT) 1 cap(s) orally twice a week; [...] 03/13/2025 Encounters Encounter Location Date Provider Diagnosis [facility] 12[facility] [address] [phone] 03/13/2025 Moi Rayo Left leg cellulitis L03.116 ; Essential hypertension I10 ; Peripheral edema R60.0 and [facility] current use of anticoagulant Z79.01 Assessments Encounter Date Diagnosis (ICD Code) Assessment Notes Treatment Notes Treatment Clinical Notes Section Notes 03/13/2025 Left leg cellulitis (ICD-10 - L03.116) 03/13/2025 Essential hypertension (ICD-10 - I10) 03/13/2025 Peripheral edema (ICD-10 - R60.0) 03/13/2025 [facility] current use of anticoagulant (ICD-10 - Z79.01) Plan Of Treatment Medication Medication Name Sig Start Date Stop Date Notes Cephalexin 500 MG 1 capsule Orally twi ce a day; Duration: 5 days 03/06/2025 Next Appt Details Follow Up: via phone to repo rt progress, Reason: Provider Name:Moi Mae ry, 10/09/2025 09:45:00 AM, [address], [address], [place], [place], [phone], Progress Notes * COLETTE GRIMALDO WDOB:1945 (79 yo M)Acc No.[id number]:03/13/2025 Progress Notes Patient: COLETTE GARCÍA Provider: Gordon Rayo M.D. :1945 A ge:79 Y S ex:Male Date:03/13/2025 Address:[address] [place] [address], [place], [id number] Subjective: * Chief Complaints: * 1 . 1 week f/u. * HPI: D ermatology: 79 year old male presents with c/o Cellulitis P t here for 1 week f/u on lt leg cellulitis. Pt started on Cephalexin 500mg 03/06. Pt sts his leg is about care home better than it was, but sts it is still red. * ROS: G ASTROENTEROLOGY: no N ausea. n o V omiting. N EUROLOGY: no H eadache. n o D izziness. U ROLOGY: no D ifficulty urinating. n o B lood in urine. * Medical History: C oronary Artery Disease, Dr. Jones, Non STEMI 06/12/2016, 02/16/2017, AVR 09/20/2012, Porcine, Atrial Fibrillation, [facility] Coumadin Clinic, Hyperlipidemia, Hypertension, Gout, Vitamin [...] stic Procedure: A -Fib Light M.I. - [facility] 02/16-06/2017, Leg Wound- [facility] 01/15/2018, Gallbladder, Esophagitis, Partial Lung Collapse- [facility] 07/11-10/2017, Cholecystectomy- [facility] 07/19-07/2019. * Family History: F [...] , Taking Vitamin D (Ergocalciferol) 1.25 MG (54211 UT) Capsule 1 cap(s) orally twice a [...] p latlet 153 100 - 400 * Gabyb Espinosa 03/13/2025 12:24 :57 PM EDT > [...] :44 AM EDT > See phone encounter 3.?[facility] current use of anticoagulant?LAB: PT/INR (in house) [...] G 2211 Complex e/[place], [address] CBC WITH AUTO DIFF, 46576 PROTHROMBIN TIME, Modifiers: QW , 1036F TOBACCO NON-USER, G8950 PREHTN/HTN BP DOC INDCD F/U DOC, G8752 MOST RECENT SYSTOLIC BP < 140MM HG, G8754 MOST RECENT DIASTOLIC BP < 90MM HG * Follow Up: v ia phone to report progress * Images: Billing Information: * Visit Code: 66061 Office Visit, Est Pt., Level 4. * Procedure Codes: G2211 Complex e/[place]. [address] CBC WITH AUTO DIFF. 28072 PROTHROMBIN TIME. Modifiers: QW 1036F TOBACCO NON-USER. G8950 PREHTN/HTN BP DOC INDCD F/U DOC. G8752 MOST RECENT SYSTOLIC BP < 140MM HG. G8754 MOST RECENT DIASTOLIC BP < 90MM HG. * Electronic signature of Keisha Rayo MD on 04/24/2025 at 10:05 PM EDT Sign off status: Pending * Provider: Gordon Rayo M.D. Date: 0 03/13/2025 Generated for Charisma lassiter/Shraddha/Traceyitting on: 0 04/24/2025 10:05 PM EDT History and Physical Notes * HPI (History of Present Illness) Category Sub-Category Detail Notes Category Not es Dermatology Cellulitis Pt here for 1 we ek f/u on lt leg cellulitis. Pt started on Cephalexin 500mg 03/06. Pt sts his leg is about care home better than it was, but sts it is still red Examination Category Sub-Category Detail Notes Category Not es General Examination Extremities: 2+ bilateral leg edema, the skin redness over the left dick has faded General Appearance: NAD
--- OUTSIDE RECORDS SUMMARY | 2025-04-07 05:30 | XMS_ITS ---
Author Organization [facility] Address [address] [facility] [address] [place] [id number] Care Team Providers Care Heddler Name Role Phone Moi Rayo Primary Care [...] no change next check 4 weeks at [facility] ideal INR 2-3 Glucose (In-House) Reviewed date:04/07/2025 11:14:16 AM Interpretation: Performing Lab: Notes/Report: blood glucose 137 74 - 106 mg/dL Glycohemoglobin A1c (in hous e) Reviewed date:04/07/2025 11:14:01 AM Interpretation: Performing Lab: Notes/Report: glycohemoglobin 5.8% 5 - 6.5 % P-Comprehensive Metabolic Pa john ([facility]) Reviewed date:04/11/2025 08:58:36 AM Interpretation:Glu 100, BUN 51, Creat 2.30, eGFR 28, AST 59, Bili 1.5 Performing Lab: Notes/Report: Test performed by [facility] [address] [place] [address] , [address], [place] [address] Ashok Antonio MD, Nuclear Waste Management Engineer CLIA: [id number] Sodium 144 135-145 mmol/L Potassium 4.7 3.5-5.3 [...] 35 Performing Lab: Notes/Report: Test performed by [facility], [address] , [address] , [place] [address] Ashok Antonio MD, Nuclear Waste Management Engineer CLIA: [id number] Cholesterol 127 <200 mg/dL Triglycerides 124 <150 [...] Interpretation:Normal Performing Lab: Notes/Report: Test performed by [facility] [address] , [place] [address] Ashok Antonio MD, Nuclear Waste Management Engineer CLIA: [id number] Phosphorus 3.9 2.5-4.5 mg/dL P-Parathyroid Hormone (PTH) Intact Reviewed date:04/11/2025 08:58:36 AM Interpretation:91.2 Performing Lab: Notes/Report: Test performed by [facility] [address] , [address], [place] [address] Ashok Antonio MD, Nuclear Waste Management Engineer CLIA: [id number] Parathyroid Hormone (PTH) Intact 91.2 15.0-65.0 pg/mL P-TSH reflex to FT4 Reviewed date:04/11/2025 08:58:36 AM Interpretation:Normal Performing Lab: Notes/Report: Test performed by [facility] [address] , [place] [address] Ashok Antonio MD, Nuclear Waste Management Engineer CLIA: [id number] TSH reflex to FT4 3.32 0.43-5.25 mU/L P-Microalbumin/Creatinine, R andom Urine Sample Reviewed date:04/11/2025 08:58:36 AM Interpretation:Normal Performing Lab: Notes/Report: Test performed by [facility] [address] , [address], [place] [address] Ashok Antonio MD, Nuclear Waste Management Engineer CLIA: [id number] Albumin/Creatinine Ratio, Urine <4.60 0-30 ug/mg Microalbumin, Urine, Random <0.3 Creatinine, Urine 65.1 P-Uric Acid Reviewed date:04/11/2025 08:58:36 AM Interpretation:Normal Performing Lab: Notes/Report: Test performed by [facility], [facility] [address] [place] [address] [address] , [place] [address] Ashok Antonio MD, Nuclear Waste Management Engineer CLIA: [id number] Uric Acid 7.6 3.4-8.0 mg/dL P-Vitamin D 25-Hydroxy Reviewed date:04/11/2025 08:58:36 AM Interpretation:36 Performing Lab: Notes/Report: Test performed by [facility] [address] [place] [address] [address] , [place] [address] Ashok Antonio MD, Nuclear Waste Management Engineer CLIA: [id number] Vitamin D 25-Hydroxy 36.0 30.0-100.0 ng/mL Interpretation [...] day(s) Active Vitamin D (Ergocalciferol) 1.25 MG (06891 UT) 1 cap(s) orally twice a week; [...] 04/07/2025 Encounters Encounter Location Date Provider Diagnosis [facility] [address] [place], [place] [id number] 04/07/2025 Moi Rayo Essential hypertensi on I10 ; Mixed hyperlipidemia E78.2 ; Gout, unspecified cause, unspecified chronicity, unspecified site M10.9 ; Vitamin D deficiency E55.9 ; Stage 3b chronic kidney disease N18.32 ; Chronic atrial fibrillation I48.20 and Type 2 diabetes mellitus with diabetic chronic kidney disease, unspecified CKD stage, unspecified whether half-way insulin use E11.22 Assessments Encounter Date Diagnosis [...] kidney disease, unspecified CKD stage, 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 :1945 A ge:79 Y S ex:Male Date:04/07/2025 Address:[address] [place], [place] [address]T[place] [id number] Subjective: * Chief Complaints: * 1 . 6 month checkup. * HPI: C ardiology: 79 year old male presents with c/o Blood Pressure Elevated P t is here for 6 month follow up on Hypertension. Pt states he is doing well and does not have any concerns. Pt would like for labs to be sent to [facility] in [place] Dr. Vargas. c/o Hyperlipidemia P t is [...] 06/12/2016, 02/16/2017, AVR 09/20/2012, Porcine, Atrial Fibrillation, [facility] Coumadin Clinic, Hyperlipidemia, Hypertension, Gout, Vitamin [...] - [facility] 02/16-06/2017, Leg Wound- [facility] 01/15/2018, Gallbladder, Esophagitis, Partial Lung Collapse- [facility] 07/11-10/2017, Cholecystectomy- [facility] 07/19-07/2019. 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 Normal* Value Reference Range T SH reflex to FT4 3.32 0.43-5.25 - mU/L * Lino 04/11/2025 08:5 8:30 AM EDT > See [...] * n ext check 4 weeks at [facility] * i deal INR 2-3 * Tarah Hughes 04/07/2025 10:19: 37 AM EDT > Provider reviewed results while patient in office.Moi Rayo 04/07/2025 11:25:28 AM EDT > 7.?Type 2 diabetes mellitus with diabetic chronic kidney disease, unspecified CKD stage, unspecified whether half-way insulin use?LAB: P-Microalbumin/Creatinine, Random Urine Sample (Collection [...] G 2211 Complex e/[place], [address] GLUCOSE TEST, 20919 GLYCATED HEMOGLOBIN TEST, Modifiers: QW , 85667 PROTHROMBIN TIME, Modifiers: QW , 3044F HG A1C LEVEL LT 7.0%, 1036F TOBACCO NON-USER, G8950 PREHTN/HTN BP DOC INDCD F/U DOC, G8752 MOST RECENT SYSTOLIC BP < 140MM HG, G8754 MOST RECENT DIASTOLIC BP < 90MM HG * Follow Up: 6 Months * Images: Billing Information: * Visit Code: 64980 Office Visit, Est Pt., Level 4. * Procedure Codes: G2211 Complex e/[place]. [address] GLUCOSE TEST. 17591 GLYCATED HEMOGLOBIN TEST. Modifiers: QW 12323 PROTHROMBIN TIME. Modifiers: QW 3044F HG A1C [...] M.D. Date: 0 04/07/2025 Generated for Charisma lassiter/Shraddha/Traceyitting on: 0 04/24/2025 [...] like for labs to be sent to [facility] in [place] Dr. Vargas Hyperlipidemia Pt is fasting today Examination Category Sub-Category Detail Notes Category Not es General Examination Heart: RSR Lungs: clear to auscultatio n Extremities: carla wraps on both lo wer legs General Appearance: NAD
--- OUTSIDE RECORDS SUMMARY | 2025-04-07 05:30 | XMS_ITS ---
Author Organization [facility] Address [address] [facility] [address] [id number] Care Team Providers Care Hydraulic Boom Operator Name Role Phone Moi Rayo Primary Care Provider [phone] Allergies Allergen (clinical drug ingredient) Drug/Non Drug Allergy documented on EMR Reaction Allergy Type Onset Date Status Lortab stomach upset Drug Allergy Act dimas Results Component Value Reference Range Notes PT/INR (in house) Reviewed date:04/07/2025 11:25:58 AM Interpretation: Performing Lab: Notes/Report: PT 30.9 INR 2.6 current dose 5mg Daily new dose no change next check 4 weeks at [facility] ideal INR 2-3 Glucose (In-House) Reviewed date:04/07/2025 11:14:16 AM Interpretation: Performing Lab: Notes/Report: blood glucose 137 74 - 106 mg/dL Glycohemoglobin A1c (in hous e) Reviewed date:04/07/2025 11:14:01 AM Interpretation: Performing Lab: Notes/Report: glycohemoglobin 5.8% 5 - 6.5 % P-Comprehensive Metabolic Pa john ([facility]) Reviewed date:04/11/2025 08:58:36 AM Interpretation:Glu 100, BUN 51, Creat 2.30, eGFR 28, AST 59, Bili 1.5 Performing Lab: Notes/Report: Test performed by [facility] [address] [place] [address] , [address], [place] [address] Ashok Antonio MD, Nut Feeder CLIA: [id number] Sodium 144 135-145 mmol/L Potassium 4.7 3.5-5.3 [...] 35 Performing Lab: Notes/Report: Test performed by [facility], [address] , [address] , [place] [address] Ashok Antonio MD, Nut Feeder CLIA: [id number] Cholesterol 127 <200 mg/dL Triglycerides 124 <150 [...] Interpretation:Normal Performing Lab: Notes/Report: Test performed by [facility] [address] , [place] [address] Ashok Antonio MD, Nut Feeder CLIA: [id number] Phosphorus 3.9 2.5-4.5 mg/dL P-Parathyroid Hormone (PTH) Intact Reviewed date:04/11/2025 08:58:36 AM Interpretation:91.2 Performing Lab: Notes/Report: Test performed by [facility] [address] , [address], [place] [address] Ashok Antonio MD, Nut Feeder CLIA: [id number] Parathyroid Hormone (PTH) Intact 91.2 15.0-65.0 pg/mL P-TSH reflex to FT4 Reviewed date:04/11/2025 08:58:36 AM Interpretation:Normal Performing Lab: Notes/Report: Test performed by [facility] [address] , [place] [address] Ashok Antonio MD, Nut Feeder CLIA: [id number] TSH reflex to FT4 3.32 0.43-5.25 mU/L P-Microalbumin/Creatinine, R andom Urine Sample Reviewed date:04/11/2025 08:58:36 AM Interpretation:Normal Performing Lab: Notes/Report: Test performed by [facility] [address] , [address], [place] [address] Ashok Antonio MD, Nut Feeder CLIA: [id number] Albumin/Creatinine Ratio, Urine <4.60 0-30 ug/mg Microalbumin, Urine, Random <0.3 Creatinine, Urine 65.1 P-Uric Acid Reviewed date:04/11/2025 08:58:36 AM Interpretation:Normal Performing Lab: Notes/Report: Test performed by [facility], [facility] [address] [place] [address] [address] , [place] [address] Ashok Antonio MD, Nut Feeder CLIA: [id number] Uric Acid 7.6 3.4-8.0 mg/dL P-Vitamin D 25-Hydroxy Reviewed date:04/11/2025 08:58:36 AM Interpretation:36 Performing Lab: Notes/Report: Test performed by [facility] [address] [place] [address] [address] , [place] [address] Ashok Antonio MD, Nut Feeder CLIA: [id number] Vitamin D 25-Hydroxy 36.0 30.0-100.0 ng/mL Interpretation [...] day(s) Active Vitamin D (Ergocalciferol) 1.25 MG (02633 UT) 1 cap(s) orally twice a week; [...] hours As needed 03/01/2025 Active Vital Signs Blood pressure systolic 136 mm Hg 04/07/20 25 Blood pressure diastolic 80 mm Hg 025 Heart Rate 74 /min 04/07/2025 Height 70 in 04/07/2025 Weight 332.2 lbs 04/07/2025 BMI 47.66 kg/m2 04/07/2025 Encounters Encounter Location Date Provider Diagnosis [facility] [address] [place], [place] [phone] 04/07/2025 Moi Rayo Essential hypertensi on I10 ; Mixed hyperlipidemia E78.2 ; Gout, unspecified cause, unspecified chronicity, unspecified site M10.9 ; Vitamin D deficiency E55.9 ; Stage 3b chronic kidney disease N18.32 ; Chronic atrial fibrillation I48.20 and Type 2 diabetes mellitus with diabetic chronic kidney disease, unspecified CKD stage, unspecified whether mcc insulin use E11.22 Assessments Encounter Date Diagnosis [...] kidney disease, unspecified CKD stage, 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 :1945 A ge:79 Y S ex:Male Date:04/07/2025 Address:[address] [place], [place] [address]T[place] [id number] Subjective: * Chief Complaints: * 1 . 6 month checkup. * HPI: C ardiology: 79 year old male presents with c/o Blood Pressure Elevated P t is here for 6 month follow up on Hypertension. Pt states he is doing well and does not have any concerns. Pt would like for labs to be sent to [facility] in [place] Dr. Vargas. c/o Hyperlipidemia P t is [...] 06/12/2016, 02/16/2017, AVR 09/20/2012, Porcine, Atrial Fibrillation, [facility] Coumadin Clinic, Hyperlipidemia, Hypertension, Gout, [...] stic Procedure: A -Fib Light M.I. - [facility] 02/16-06/2017, [place]- [facility] 01/15/2018, Gallbladder, Esophagitis, Partial Lung Collapse- [facility] 07/11-10/2017, Cholecystectomy- [facility] 07/19-07/2019. 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.22 Plan: * Treatment: [...] * n ext check 4 weeks at [facility] * i deal INR 2-3 * Tarah Hughes 04/07/2025 10:19: 37 AM EDT > Provider reviewed results while patient in office.Moi Rayo 04/07/2025 11:25:28 AM EDT > 7.?Type 2 diabetes mellitus with diabetic chronic kidney disease, unspecified CKD stage, unspecified whether mcc insulin use?LAB: P-Microalbumin/Creatinine, Random Urine Sample (Collection [...] G 2211 Complex e/[place], [address] GLUCOSE TEST, 62399 GLYCATED HEMOGLOBIN TEST, Modifiers: QW , [address] PROTHROMBIN TIME, Modifiers: QW , 3044F HG A1C LEVEL LT 7.0%, 1036F TOBACCO NON-USER, G8950 PREHTN/HTN BP DOC INDCD F/U DOC, G8752 MOST RECENT SYSTOLIC BP < 140MM HG, G8754 MOST RECENT DIASTOLIC BP < 90MM HG * Follow Up: 6 Months * Images: Billing Information: * Visit Code: 72527 Office Visit, Est Pt., Level 4. * Procedure Codes: G2211 Complex e/[place]. [address] GLUCOSE TEST. 75857 GLYCATED HEMOGLOBIN TEST. Modifiers: QW 95298 PROTHROMBIN TIME. Modifiers: QW 3044F HG A1C [...] 04/07/2025 Generated for Charisma lassiter/Shraddha/Traceyitting on: 0 04/25/2025 [...] like for labs to be sent to [facility] in [place] Dr. Vargas Hyperlipidemia Pt is fasting today Examination Category Sub-Category Detail Notes Category Not es General Examination Heart: RSR Lungs: clear to auscultatio n Extremities: carla wraps on both lo wer legs General Appearance: NAD
[2025-04-24] VITALS (7 sets, daily range): BP systolic 111–136; BP diastolic 46–58; PULSE 72–74; RESP 16; TEMP 37.4; O2SAT 91–94; BMI 50.1
--- NOTE | 2025-04-24 22:03 | ED_ITS ---
Discharge Plan Disposition Patient Disposition: Admitted Clinical Impressions Clinical Impression: Cellulitis of left lower extremity, CHELSIE (acute kidney injury), Elevated bilirubin Discharge ED Provider: Milvia Kerr General Adult HPI <Milvia Kerr DO - Last Filed: 04/25/25 00:42> General Chief complaint: Fever Stated complaint: Chilling;Dry heaves Time Seen by Provider: 04/24/25 22:03 History of Present Illness HPI narrative: Patient is a 79-year-old with a history of heart disease who presented to the emergency department with nausea, dry heaves, lack of appetite and chills. Patient states that his symptoms started this morning and got worse arounf 4:30pm. Patient states that he never had any chest pain or shortness of breath. Patient denies any significant abdominal. Patient denies any symptoms but states that his urine looks darker. Patient back pain. Patient has not had any upper respiratory symptoms such as congestion or cough. Patient states that he has only been able to tolerate a small amount of fluid today. Patient denies any recent sick contacts. Patient denies any prior abdominal surgeries. Patient had a normal bowel movement. Related Data Home Medications ?Medication ?Instructions ?Recorded ?Confirmed allopurinol 100 mg tablet 100 mg PO BID gout 90 days # #180 10/01/17 04/05/25 atorvastatin 80 mg tablet 80 mg PO DAILY Cholesterol 3 0 days 10/01/17 04/05/25 ##30 ergocalciferol (vitamin D2) 1,250 50,000 unit PO MOTH Supplement 90 10/01/17 04/05/25 mcg (50,000 unit) capsule days ##24 potassium chloride 10 mEq 10 meq PO TID Supplement 04/05/25 tablet,extended release(part/cryst) (Klor-Con M) aspirin 81 mg chewable tablet 81 mg PO DAILY heart 04/05/25 montelukast 10 mg tablet 10 mg PO DAILY unknown 06/2504/05/25 nitroglycerin 0.4 mg sublingual 0.4 mg sublingual N EEDED PRN 06/25/18 04/05/25 tablet Chest Pain fluticasone propionate 50 1 spray intranasal DAILY all ergies 07/10/18 04/05/25 mcg/actuation nasal spray,suspension losartan 50 mg tablet 50 mg PO DAILY BLOOD PRESSUR E 07/11/18 04/05/25 tamsulosin 0.4 mg capsule 0.4 mg PO DAILY PROSTATE 10/2504/05/25 ferrous sulfate 325 mg (65 mg 325 mg PO DAILY iron 90 days #180 09/27/18 04/05/25 iron) tablet tabs warfarin 5 mg tablet 5 mg PO DAILY Blood thinner 90 09/27/18 04/05/25 days #135 tabs pantoprazole 40 mg tablet,delayed 40 mg PO DAILY GERD 03/01/19 04/05/25 release sodium,potassium,mag sulfates 17.5 177 ml PO DAILY pre p 03/01/19 04/05/25 gram-3.13 gram-1.6 gram oral soln triamcinolone aceton 50 mg/mL in 50 mg IJ NEEDED [place] N steroid 03/01/19 04/05/25 0.9 % sodium chl injection suspension colchicine 0.6 mg tablet 0.6 mg PO NEEDED PRN gout 08/30/19 04/05/25 metoprolol tartrate 50 mg tablet 50 mg PO BID 12/12/19 04/05/25 bumetanide 2 mg tablet 2 mg PO BID 03/13/20 5 finasteride 5 mg tablet 5 mg PO HS prostate 03/13/20 04/05/25 metolazone 5 mg tablet 5 mg PO DAILY Fluid 03/13/20 04/05/25 albuterol sulfate 90 mcg/actuation 90 mcg inhalation A S NEEDED PRN 09/03/20 04/05/25 aerosol inhaler Breathing Problems bumetanide 1 mg tablet 1 mg PO DAILY Fluid 09/03/20 04/05/25 dronedarone 400 mg tablet (Multaq) 400 mg PO DAILY Hea rt Disease 06/27/21 04/05/25 cephalexin 500 mg capsule mg PO 03/29/25 04/05/25 Previous Rx's ?Medication ?Instructions ?Recorded Voltaren 1 % topical gel 4 g topical QID pain 30 days #300 12/17/20 (diclofenac sodium) grams doxycycline hyclate 100 mg capsule 100 mg PO BID 7 day s #14 caps 06/20/24 triamcinolone acetonide 0.1 % 1 applic topical BID 30 days #60 mL 07/26/24 lotion mupirocin 2 % topical ointment 1 applic topical BID 3 weeks #22 04/05/25 (Centany) grams Allergies Allergy/AdvReac Type Severity Reaction Status Date / Time hydrocodone (From [place]) Allergy Unknown Verified 04/24/25 22:14 allergy reaction [facility] <Milvia Kerr, DO - Last Filed: 04/25/25 00:42> [facility] Disclaimer: The information contained in this section may have been updated after the patient was seen, as this information can be updated by other users. Medical History Chronic pain of left ankle Pacemaker A-fib CABG (coronary artery bypass graft) planned CAD (coronary artery disease) Lymphedema CHF (congestive heart failure) Sleep apnea BPH (benign prostatic hyperplasia) Gout Osteoarthritis Myocardial infarction HTN (hypertension) HLD (hyperlipidemia) Skin cancer Surgical History Status post surgical removal of malignant neoplasm of skin H/O heart artery stent Mechanical heart valve present Family History Other Coronary artery disease Diabetes 1.5, managed as type 2 Hypertension Social History Smoking Status: Never smoker second hand exposure: No alcohol intake: never substance use type: denies use current occupational status: retired Travel in the last 8 weeks?: None household members: significant other and children housing: house caffeine: Yes Have you lived/traveled outside [place] in past 30 days?: No Contact w/someone who lives/traveled outside US past 30 days?: No Exposure to someone with infectious disease in past 14 days?: No Do you have a fever (greater than 100.4 F or 38 C)?: No Have you tested positive for COVID-19?: No Exposed to someone with COVID-19 in past 14 days?: No Do you have a sore throat?: No Do you have a cough?: No Do you have any weakness?: No Do you have any diarrhea?: No Are you experiencing any unusual bleeding?: No Do you have any muscle aches/pain?: No Do you have any abdominal pain?: No Are you experiencing loss of taste or smell?: No Other Medical History Have you received the Flu Vaccine for this season: No Have you received the Pneumonia Vaccine: Yes <Milvia Kerr, DO - Last Filed: 04/25/25 00:42> ROS Obtained: Yes All systems reviewed & no additional complaints except as documented and Yes Systems reviewed as appropriate & no additional complaints except as documented Physical Exam <Milvia Kerr, DO - Last Filed: 04/25/25 00:42> General General appearance: alert and in no apparent distress Head Head exam: atraumatic, normocephalic and normal inspection Eye Eye exam: Present normal appearance, PERRL and EOMI; Absent scleral icterus ENT ENT exam: Present normal exam and normal external ear exam Neck Neck exam: Present normal inspection and full ROM Chest Chest inspection: Present normal inspection and symmetric chest wall rise Respiratory Respiratory exam: Present normal lung sounds bilaterally; Absent respiratory distress or wheezes Cardiovascular Cardiovascular exam: Present regular rate, normal rhythm and normal heart sounds Abdominal Exam Abdominal exam: Present soft and distention; Absent tenderness, guarding or rebound Extremities Exam Extremities exam: Present normal inspection and full ROM Back Exam Back exam: Present normal inspection and full ROM Neurological Exam Neurological exam: Present alert and oriented X3 Psychiatric Psychiatric exam: Present normal affect and normal mood Skin Skin exam: Present warm and dry Medical Decision Making <Milvia Kerr, DO - Last Filed: 04/25/25 00:42> Medical Records Medical records reviewed: Yes I reviewed the patient's medical records. Screening: Per USPSTF and CDC recommendations, given the prevalence of disease in our region, it is our hospital?s policy to screen for HIV and viral Hepatitis for all patients aged 18 and over and those with ongoing risk factors. Jostin Inquiry Pt receiving controlled substance: No Vital Signs: 04/24/25 22:11 04/24/25 22:30 04/24/25 22:45 Temperature 99.3 F Temperature Source Temporal Artery Scan Pulse Rate 72 73 Pulse Rate [Left] 74 Respiratory Rate 16 Blood Pressure 113/58 L Blood Pressure [Left Arm] 135/46 L Blood Pressure Mean 76 Blood Pressure Mean [Left Arm] 75 Blood Pressure Source Blood Pressure Source [Left Arm] Automatic Cuff Blood Pressure Position Blood Pressure Position [Left Arm] Sitting 02 Sat by Pulse Oximetry 92 L 92 L 94 L Oxygen Delivery Method Room Air 04/24/25 23:00 04/24/25 23:15 04/24/25 23:30 Temperature Temperature Source Pulse Rate 73 74 Pulse Rate [Left] Respiratory Rate Blood Pressure 136/47 L Blood Pressure [Left Arm] Blood Pressure Mean 69 Blood Pressure Mean [Left Arm] Blood Pressure Source Blood Pressure Source [Left Arm] Blood Pressure Position Blood Pressure Position [Left Arm] 02 Sat by Pulse Oximetry 91 L 91 L Oxygen Delivery Method 04/24/25 23:31 04/25/25 00:00 04/25/25 00:01 Temperature Temperature Source Pulse Rate 72 Pulse Rate [Left] Respiratory Rate Blood Pressure 111/46 L 124/44 L Blood Pressure [Left Arm] Blood Pressure Mean 67 70 Blood Pressure Mean [Left Arm] Blood Pressure Source Blood Pressure Source [Left Arm] Blood Pressure Position Blood Pressure Position [Left Arm] 02 Sat by Pulse Oximetry 92 L Oxygen Delivery Method 04/25/25 00:01 04/25/25 00:30 04/25/25 00:45 Temperature Temperature Source Pulse Rate 71 76 Pulse Rate [Left] Respiratory Rate Blood Pressure 138/45 L Blood Pressure [Left Arm] Blood Pressure Mean 76 Blood Pressure Mean [Left Arm] Blood Pressure Source Blood Pressure Source [Left Arm] Blood Pressure Position Blood Pressure Position [Left Arm] 02 Sat by Pulse Oximetry 93 L 93 L Oxygen Delivery Method 04/25/25 01:58 Temperature 99 F Temperature Source Oral Pulse Rate 75 Pulse Rate [Left] Respiratory Rate 18 Blood Pressure 124/80 Blood Pressure [Left Arm] Blood Pressure Mean Blood Pressure Mean [Left Arm] Blood Pressure Source Automatic Cuff Blood Pressure Source [Left Arm] Blood Pressure Position Supine Blood Pressure Position [Left Arm] 02 Sat by Pulse Oximetry Oxygen Delivery Method Room Air Lab Data Lab results reviewed: Yes I reviewed the patient's lab results. Lab Results 04/24/25 00:00: Lipase 34 04/24/25 22:30: Urine Color Yellow, Urine Appearance Clear, Urine pH 5.5, Ur Specific [place] 1.015, Urine Protein Negative, Urine Glucose (UA) Negative, Urine Ketones Negative, Urine Blood Negative, Urine Nitrate Negative, Urine Bilirubin Negative, Urine Urobilinogen 0.2, Ur Leukocyte Esterase Negative, Urine WBC 3-5, Ur Squamous Epith Cells 3-5, Urine Bacteria 1+, Hyaline Casts 5- 10, Urine Mucus 1+, Chlamy pneumoniae PCR Not detected, Adenovirus (PCR) Not detected, B. pertussis DNA (PCR) Not detected, Coronavirus OC43 (PCR) Not detected, Coronavirus HKU1 (PCR) Not detected, Coronavirus 229E (PCR) Not detected, SARS-CoV-2 (PCR) Not detected, Coronavirus NL63 (PCR) Not detected, Human Metapneumovir PCR Not detected, Influenza A (H1) PCR Not detected, Influ A (H1N1/) PCR Not detected, Influenza A (H3) PCR Not detected, Influenza Type A (PCR) Not detected, Influenza Type B (PCR) Not detected, M. pneumoniae (PCR) Not detected, Parainfluenza 1 (PCR) Not detected, Parainfluenza 2 (PCR) Not detected, Parainfluenza 3 (PCR) Not detected, Parainfluenza 4 (PCR) Not detected, RSV (PCR) Not detected, Entero/Rhino (PCR) Not detected 04/24/25 22:40: WBC 9.9, RBC 3.22 L, Hgb 11.2 L, Hct 33.9 L, MCV 105.3 H, MCH 34.8 H, MCHC 33.0, RDW 14.5, Plt Count 103 L, MPV 11.5 H, Neut % (Auto) 88.8 H, Lymph % (Auto) 5.2 L, [place] % (Auto) 5.2, Eos % (Auto) 0.0 L, Baso % (Auto) 0.2, Neut # (Auto) 8.8 H, Lymph # (Auto) 0.5 L, [place] # (Auto) 0.5, Eos # (Auto) 0.0, Baso # (Auto) 0.0, Total Counted 100, Neutrophils % (Manual) 84 H, Band Neutrophils % 4, Lymphocytes % (Manual) 9 L, Monocytes % (Manual) 3, Platelet Estimate Moderate decrease, VBG Lactic Acid 1.8, Sodium 136, Potassium 4.9, Chloride 106, Carbon Dioxide 26, Anion Gap 8.9, BUN 35 H, Creatinine 2.00 H, Estimated Creat Clear 29, Estimated GFR 32 L, Est GFR ( Amer) 39 L, G lucose 118 H, Calcium 8.7, Total Bilirubin 3.7 H, AST 47, ALT 45, Alkaline Phosphatase 63, Total Creatine Kinase 58, Troponin I 0.02, C-Reactive Protein 63.0 H, Total Protein 6.5, Albumin 3.5, Globulin 3.0, Albumin/Globulin Ratio 1.2, HCV Ab JUAN MIGUEL w/Rflx PCR Qn Negative, HIV Ag/Ab Combo Qual Negative 04/24/25 22:40 04/24/25 22:40 Orders (Tests/Meds): ED MEDICATIONS Generic Name Dose Route Start Last Admin Trade Name Freq PRN Reason Stop Dose Admin Acetaminophen 650 mg 04/25/25 01:30 Acetaminophen 325mg Tab PO 05/25/25 01:29 Q6HP PRN Fever or Mild Pain (1-3) Vancomycin HCl 2,500 mg/ 500 mls @ 250 mls/hr 04/25/25 01:45 Sodium Chloride IV 04/25/25 03:44 ONCE ONE Miscellaneous 1 each 04/25/25 01:30 04/25/25 01:50 Vancomycin Consult Request NOTAPPLIC 05/25/25 01:29 1 each CONSULT [facility] Administration Discontinued Medications Generic Name Dose Route Start Last Admin Trade Name Freq PRN Reason Stop Dose Admin Furosemide 20 mg 04/25/25 01:29 04/25/25 01:37 Furosemide 40mg/4ml Vial IV 04/25/25 01:30 20 mg ONCE ONE Administration Sodium Chloride 1,000 mls @ 500 mls/hr 04/24/25 23:53 04/25/25 00:00 Sod Chlor 0.9% 1000ml Bag IV 04/25/25 01:52 500 mls/hr .Q2H ONE Administration Ceftriaxone Sodium 1 gm/ 50 mls @ 100 mls/hr 04/25/25 01:29 04/25/25 01:36 Sodium Chloride IV 04/25/25 01:58 100 mls/hr ONCE ONE Administration Ondansetron HCl 4 mg 04/24/25 22:23 04/24/25 22:41 Ondansetron 4mg/2ml Vial IV 04/24/25 22:24 4 mg ONCE ONE Administration ORDERS Category Date Time Status CT abdomen pelvis wo con Stat Cat Scan 04/24/25 23:30 Completed CXR --portable [XR chest portable] Stat Exams 04/24/25 22:23 Completed CBC w/Auto Diff [Complete Blood Count Auto Diff] Stat Lab 04/24/25 22:40 Completed CK [Creatine Kinase] Stat Lab 04/24/25 22:40 Completed CMP [Comprehensive Metabolic Panel] Stat Lab 04/24/25 22:40 Completed CRP [C-Reactive Protein] Stat Lab 04/24/25 22:40 Completed Full Resp Panel w/COVID ([facility]) Routine Lab 04/24/25 22:30 Completed HIV Combo Stat Lab 04/24/25 22:40 Completed Hepatitis C Ab Qual. W/ RFX Stat Lab 04/24/25 22:40 Completed Lactate Venous Stat Lab 04/24/25 22:40 Completed Lipase Stat Lab 04/25/25 00:00 Completed Troponin I Q3H Lab 04/25/25 01:30 Ordered Troponin I Q3H Lab 04/25/25 04:30 Ordered Troponin I Stat Lab 04/24/25 22:40 Completed UA [Urinalysis and Microscopic] Stat Lab 04/24/25 22:30 Completed Blood Culture Stat Micro 04/25/25 01:35 Received Urine Culture Stat Micro 04/24/25 22:30 Received Medical Decision Narrative: Patient is a 71-year-old gentleman with a past medical history of heart disease who presented to the emergency department with concern for chills, nausea, vomiting. On arrival, patient was hemodynamically stable, vital signs. Differential includes but not limited to: Dehydration, viral syndrome, intra- abdominal process, bowel obstruction, gastroenteritis, ACS/NV, pneumonia, amongst others. Patient's labs were reviewed and interpreted by myself: CBC showed no leukocytosis, hemoglobin was stable. Lactate was normal. CMP shows mildly elevated creatinine at 2.0, bilirubin elevated at 3.7. CRP midly elevated at 63. UA showed no evidence of infection. Initial trop < 0.02. EKG reviewed and interpreted by myself and showed no acute ST or T wave changes concerning for ischemia. Patient signed out to the oncoming provider pending PO challenge, CT scan and final dispo. <Markell Sesay MD - Last Filed: 04/25/25 02:24> Vital Signs: 04/24/25 22:11 04/24/25 22:30 04/24/25 22:45 Temperature 99.3 F Temperature Source Temporal Artery Scan Pulse Rate 72 73 Pulse Rate [Left] 74 Respiratory Rate 16 Blood Pressure 113/58 L Blood Pressure [Left Arm] 135/46 L Blood Pressure Mean 76 Blood Pressure Mean [Left Arm] 75 Blood Pressure Source Blood Pressure Source [Left Arm] Automatic Cuff Blood Pressure Position Blood Pressure Position [Left Arm] Sitting 02 Sat by Pulse Oximetry 92 L 92 L 94 L Oxygen Delivery Method Room Air 04/24/25 23:00 04/24/25 23:15 04/24/25 23:30 Temperature Temperature Source Pulse Rate 73 74 Pulse Rate [Left] Respiratory Rate Blood Pressure 136/47 L Blood Pressure [Left Arm] Blood Pressure Mean 69 Blood Pressure Mean [Left Arm] Blood Pressure Source Blood Pressure Source [Left Arm] Blood Pressure Position Blood Pressure Position [Left Arm] 02 Sat by Pulse Oximetry 91 L 91 L Oxygen Delivery Method 04/24/25 23:31 04/25/25 00:00 04/25/25 00:01 Temperature Temperature Source Pulse Rate 72 Pulse Rate [Left] Respiratory Rate Blood Pressure 111/46 L 124/44 L Blood Pressure [Left Arm] Blood Pressure Mean 67 70 Blood Pressure Mean [Left Arm] Blood Pressure Source Blood Pressure Source [Left Arm] Blood Pressure Position Blood Pressure Position [Left Arm] 02 Sat by Pulse Oximetry 92 L Oxygen Delivery Method 04/25/25 00:01 04/25/25 00:30 04/25/25 00:45 Temperature Temperature Source Pulse Rate 71 76 Pulse Rate [Left] Respiratory Rate Blood Pressure 138/45 L Blood Pressure [Left Arm] Blood Pressure Mean 76 Blood Pressure Mean [Left Arm] Blood Pressure Source Blood Pressure Source [Left Arm] Blood Pressure Position Blood Pressure Position [Left Arm] 02 Sat by Pulse Oximetry 93 L 93 L Oxygen Delivery Method 04/25/25 01:58 Temperature 99 F Temperature Source Oral Pulse Rate 75 Pulse Rate [Left] Respiratory Rate 18 Blood Pressure 124/80 Blood Pressure [Left Arm] Blood Pressure Mean Blood Pressure Mean [Left Arm] Blood Pressure Source Automatic Cuff Blood Pressure Source [Left Arm] Blood Pressure Position Supine Blood Pressure Position [Left Arm] 02 Sat by Pulse Oximetry Oxygen Delivery Method Room Air Lab Data Lab Results 04/24/25 00:00: Lipase 34 04/24/25 22:30: Urine Color Yellow, Urine Appearance Clear, Urine pH 5.5, Ur Specific [place] 1.015, Urine Protein Negative, Urine Glucose (UA) Negative, Urine Ketones Negative, Urine Blood Negative, Urine Nitrate Negative, Urine Bilirubin Negative, Urine Urobilinogen 0.2, Ur Leukocyte Esterase Negative, Urine WBC 3-5, Ur Squamous Epith Cells 3-5, Urine Bacteria 1+, Hyaline Casts 5- 10, Urine Mucus 1+, Chlamy pneumoniae PCR Not detected, Adenovirus (PCR) Not detected, B. pertussis DNA (PCR) Not detected, Coronavirus OC43 (PCR) Not detected, Coronavirus HKU1 (PCR) Not detected, Coronavirus 229E (PCR) Not detected, SARS-CoV-2 (PCR) Not detected, Coronavirus NL63 (PCR) Not detected, Human Metapneumovir PCR Not detected, Influenza A (H1) PCR Not detected, Influ A (H1N1/) PCR Not detected, Influenza A (H3) PCR Not detected, Influenza Type A (PCR) Not detected, Influenza Type B (PCR) Not detected, M. pneumoniae (PCR) Not detected, Parainfluenza 1 (PCR) Not detected, Parainfluenza 2 (PCR) Not detected, Parainfluenza 3 (PCR) Not detected, Parainfluenza 4 (PCR) Not detected, RSV (PCR) Not detected, Entero/Rhino (PCR) Not detected 04/24/25 22:40: WBC 9.9, RBC 3.22 L, Hgb 11.2 L, Hct 33.9 L, MCV 105.3 H, MCH 34.8 H, MCHC 33.0, RDW 14.5, Plt Count 103 L, MPV 11.5 H, Neut % (Auto) 88.8 H, Lymph % (Auto) 5.2 L, [place] % (Auto) 5.2, Eos % (Auto) 0.0 L, Baso % (Auto) 0.2, Neut # (Auto) 8.8 H, Lymph # (Auto) 0.5 L, [place] # (Auto) 0.5, Eos # (Auto) 0.0, Baso # (Auto) 0.0, Total Counted 100, Neutrophils % (Manual) 84 H, Band Neutrophils % 4, Lymphocytes % (Manual) 9 L, Monocytes % (Manual) 3, Platelet Estimate Moderate decrease, VBG Lactic Acid 1.8, Sodium 136, Potassium 4.9, Chloride 106, Carbon Dioxide 26, Anion Gap 8.9, BUN 35 H, Creatinine 2.00 H, Estimated Creat Clear 29, Estimated GFR 32 L, Est GFR ( Amer) 39 L, G lucose 118 H, Calcium 8.7, Total Bilirubin 3.7 H, AST 47, ALT 45, Alkaline Phosphatase 63, Total Creatine Kinase 58, Troponin I 0.02, C-Reactive Protein 63.0 H, Total Protein 6.5, Albumin 3.5, Globulin 3.0, Albumin/Globulin Ratio 1.2, HCV Ab JUAN MIGUEL w/Rflx PCR Qn Negative, HIV Ag/Ab Combo Qual Negative Orders (Tests/Meds): ED MEDICATIONS Generic Name Dose Route Start Last Admin Trade Name Freq PRN Reason Stop Dose Admin Acetaminophen 650 mg 04/25/25 01:30 Acetaminophen 325mg Tab PO 05/25/25 01:29 Q6HP PRN Fever or Mild Pain (1-3) Vancomycin HCl 2,500 mg/ 500 mls @ 250 mls/hr 04/25/25 01:45 Sodium Chloride IV 04/25/25 03:44 ONCE ONE Miscellaneous 1 each 04/25/25 01:30 04/25/25 01:50 Vancomycin Consult Request NOTAPPLIC 05/25/25 01:29 1 each CON[facility]ULT [facility] Administration Discontinued Medications Generic Name Dose Route Start Last Admin Trade Name Freq PRN Reason Stop Dose Admin Furosemide 20 mg 04/25/25 01:29 04/25/25 01:37 Furosemide 40mg/4ml Vial IV 04/25/25 01:30 20 mg ONCE ONE Administration Sodium Chloride 1,000 mls @ 500 mls/hr 04/24/25 23:53 04/25/25 00:00 Sod Chlor 0.9% 1000ml Bag IV 04/25/25 01:52 500 mls/hr .Q2H ONE Administration Ceftriaxone Sodium 1 gm/ 50 mls @ 100 mls/hr 04/25/25 01:29 04/25/25 01:36 Sodium Chloride IV 04/25/25 01:58 100 mls/hr ONCE ONE Administration Ondansetron HCl 4 mg 04/24/25 22:23 04/24/25 22:41 Ondansetron 4mg/2ml Vial IV 04/24/25 22:24 4 mg ONCE ONE Administration ORDERS Category Date Time Status CT abdomen pelvis wo con Stat Cat Scan 04/24/25 23:30 Completed CXR --portable [XR chest portable] Stat Exams 04/24/25 22:23 Completed CBC w/Auto Diff [Complete Blood Count Auto Diff] Stat Lab 04/24/25 22:40 Completed CK [Creatine Kinase] Stat Lab 04/24/25 22:40 Completed CMP [Comprehensive Metabolic Panel] Stat Lab 04/24/25 22:40 Completed CRP [C-Reactive Protein] Stat Lab 04/24/25 22:40 Completed Full Resp Panel w/COVID ([facility]) Routine Lab 04/24/25 22:30 Completed HIV Combo Stat Lab 04/24/25 22:40 Completed Hepatitis C Ab Qual. W/ RFX Stat Lab 04/24/25 22:40 Completed Lactate Venous Stat Lab 04/24/25 22:40 Completed Lipase Stat Lab 04/25/25 00:00 Completed Troponin I Q3H Lab 04/25/25 01:30 Ordered Troponin I Q3H Lab 04/25/25 04:30 Ordered Troponin I Stat Lab 04/24/25 22:40 Completed UA [Urinalysis and Microscopic] Stat Lab 04/24/25 22:30 Completed Blood Culture Stat Micro 04/25/25 01:35 Received Urine Culture Stat Micro 04/24/25 22:30 Received Tissue Perfus/Sepsis Re-Eval Sepsis Re-Evaluation Performed: Yes Date Performed: 04/25/25 Time Performed: 00:01 Medical Decision Narrative: Patient is a 71-year-old gentleman with a past medical history of heart disease who presented to the emergency department with concern for chills, nausea, vomiting. On arrival, patient was hemodynamically stable, vital signs. Differential includes but not limited to: Dehydration, viral syndrome, intra- abdominal process, bowel obstruction, gastroenteritis, ACS/NV, pneumonia, amongst others. Patient's labs were reviewed and interpreted by myself: CBC showed no leukocytosis, hemoglobin was stable. Lactate was normal. CMP shows mildly elevated creatinine at 2.0, bilirubin elevated at 3.7. CRP midly elevated at 63. UA showed no evidence of infection. Initial trop < 0.02. EKG reviewed and interpreted by myself and showed no acute ST or T wave changes concerning for ischemia. Patient signed out to the oncoming provider pending PO challenge, CT scan and final dispo. Lázaro HERNANDEZ: I assumed care of the patient at the time of handoff from the prior provider. On reassessment patient reports some symptomatic improvement. On further discussion, his reports that he had a fever of 101 orally earlier today. No obvious intra-abdominal source despite his dry heaves. He developed cellulitis about a month ago and has been on and off antibiotics trying to get it healed. He had been feeling better recently but today he noticed it was a bit more sore. On assessment it is erythematous and warm consistent with cellulitis. This seems like the most likely source. Patient was initiated on Rocephin and vancomycin. Interactive discussion was had with Dr. Catherine on-call for admission, patient was also given 20 of Lasix. Critical Care <Milvia Kerr, DO - Last Filed: 04/25/25 00:42> Critical Care Time Critical Care Time: No
--- OUTSIDE RECORDS SUMMARY | 2025-04-24 22:05 | XMS_ITS | Clinical Summary ---
Author Organization [facility] Address [address] [place] [address] Care Team Providers Care Director Of Restaurant Name Role Phone Moi Rayo MD Primary Care Provider + [phone] Allergies Active Allergy Reactions Criticality Noted Date Comments Hydrocodone Unknown - High Severity 05/06/2022 Hydrocodone-Acetaminophen Nausea And Vomiting Low 1 Medications warfarin (COUMADIN) 5 MG tablet Take 1 tablet by mouth Daily. Active aspirin 81 MG EC tablet Take 1 tablet by mouth Daily. Active allopurinol (ZYLOPRIM) 100 MG tablet Take 1 tablet by mouth 2 (Two) Times a Day. 07/05/20 14 Active fluticasone (FLONASE) 50 MCG/ACT nasal spray into each nostril. 07/05/20 14 Active montelukast (SINGULAIR) 10 MG tablet TAKE 1 TABLET EVERY DAY 1 04/05/20 16 Active triamcinolone (KENALOG) 0.1 % lotion Apply [...] tablet by mouth Daily. 90 tablet 3 04/29/20 23 Active losartan (COZAAR) 50 MG tablet Take 1 tablet by mouth Daily. 90 tablet 3 04/29/20 23 Active potassium chloride (K-TAB) 20 MEQ tablet controlled-rel ease ER tablet Take 1 tablet by mouth Daily. with food 90 tablet 3 04/29/20 23 Active bumetanide (BUMEX) 2 MG tablet Take 1 tablet by mouth 2 (Two) Times a Day. 180 tablet 3 04/29/20 23 Active Additional Information Patient taking differently:2 mg OralDaily, Informant: Self, Reported on 12/14/2024 dronedarone (Multaq) 400 MG tablet TAKE 1 TABLET BY MOUTH TWICE A DAY WITH FOOD 180 tablet 3 03/07/20 24 Active metOLazone (ZAROXOLYN) 2.5 MG tabletIndicati ons:Other specified soft tissue disorders TAKE 1 TABLET BY MOUTH EVERY DAY NEEDED FOR SWELLING 90 tablet 1 07/13/20 24 Active Additional Information Patient taking differently:2.5 mg OralAs Needed, Informant: Self, Reported on 12/14/2024 vitamin D3 125 MCG (5000 UT) capsule capsule Take 1 capsule by mouth Daily. 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 Mild tricuspid valve regurgitation is present. 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 Not on file Not [...] Description 05/01/2025 8:30 AM EDT Ancillary Procedure [facility] [address] [id number] 05/01/2025 10:00 AM EDT Clinical Support No Requirements [facility] [address] [id number] 05/01/2025 10:45 AM EDT Office Visit [facility] [address] [phone] Jailene Vargas MD [address] [id number] Health Maintenance Due Date Last Done Comments [...] (1 - 1- dose 75+ series) 2021 HEMOGLOBIN A1C 10/20/2024 04/22/2024, 07/10, 06/14/2018, Additional history exists COVID-19 Vaccine (3 - 2024-2 6 season) 2025 12/06/2020, 11/15/2020 LIPID PANEL 04/22/2025 04/22/2024, 09/2023, 04/22/2023, Additional history exists INFLUENZA VACCINE 05/10/2025 04/29/2021, , 05/17/2019, Additional history exists Pneumococcal Vaccine 50+ Completed 01/01/2021, 11/08 Medical Devices Implanted Type 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 Device Identifier Shelf Expiration Date Model / Serial / Lot Markr [facility] Radiomark Disk Ro Di - [id number] Implanted:Qty : 1 on 06/16/2018 by Hollis Roman MD at Implant N/A: Heart [employer] [id number] / / Stent Stent Procedures Procedure Name Priority Date/Time Associated Diagnosis Comments SCANNED - LABS 04/07/2025 REMOTE DEVICE CHECK 02/01/2025 5 :36 AM EDT HEMOGLOBIN A1C Routine 04/22/2024 Impaired fasting glucose LIPID PANEL Routine 04/22/2024 Chronic diastolic congestive heart failure Stage 3b chronic kidney disease Impaired fasting glucose from Last 3 Months or Most Recently Relevant to Health Maintenance Results * LABS SCANNED (04/07/2025) us Jailene Vargas MD LAB BLOOD ORDERABLES Final R esult * Remote Device Check (02/01/2025 5:36 AM EDT) Date Time Interrogation Session [id number] [facility] Type Interrogation Session Remote Scheduled [facility] Implantable Pulse Generator 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 [employer] [facility] Battery UNINDENTURED APPRENTICE Trigger 2.600 [facility] Battery Status Middle of Service [facility] Kwesi Statistic RA Percent Paced 81.00 [facility] Kwesi Statistic RV Percent Paced 13.00 [facility] Atrial Tachy Statistic AT/AF Adrian Percent 15.00 [facility] Lead Channel RA Sensing Intrinsic Amplitude 2.200 [facility] Lead Channel Setting RA Sensing Sensitivity 0.50 [facility] Lead Channel RA Impedance Value 410 [facility] Lead Channel Setting RA Pacing Amplitude 2.000 [facility] Lead Channel Setting RA Pacing Pulse Width 0.5 [facility] [employer] [facility] Lead Channel RV Sensing Intrinsic Amplitude 12.000 [facility] Lead Channel Setting RV Sensing Sensitivity 2.00 [facility] Lead Channel RV Impedance Value 490 [facility] Lead Channel Setting RV Pacing Amplitude 1.750 [facility] Lead Channel Setting RV Pacing Pulse Width 0.5 [facility] Kwesi Setting Mode (NBG Code) DDDR [facility] Kwesi Setting Lower Rate Limit 60 [facility] Kwesi Setting AT Mode Switch Rate 160 [facility] Kwesi Setting Maximum Tracking Rate 120 [facility] Kwesi Setting Maximum Sensor Rate 120 [facility] Kwesi Setting PAV Delay 250 [facility] Kwesi Setting SOPHIA Delay 200 [facility] Lead Channel Setting RA Sensing Polarity Bipolar [facility] Lead Channel Setting RV Sensing Polarity Bipolar [facility] Lead Channel Setting RA Pacing Polarity Bipolar [facility] Lead Channel Setting RV Pacing Polarity Bipolar [facility] Lead Channel RA Pacing Threshold Polarity Bipolar [facility] Lead Channel RV Pacing Threshold Polarity Bipolar [facility] 02/01/2025 5:36 AM EDT us Jailene Vargas MD CV IMPLANTABLE CARDIAC DEVIC E Final Result Performing Organization Address [facility]/ZIP Co de Phone Number [facility] * Hemoglobin A1c (04/22/2024) Blood us Jailene Vargas MD LAB BLOOD ORDERABLES Final R esult Performing Organization Address [facility] Co de Phone Number [facility]
[address] [place] [address], [place] [phone] * Lipid Panel (04/22/2024) Blood us Jailene Vargas MD LAB BLOOD ORDERABLES Final R esult Performing Organization Address [facility] Co de Phone Number [facility]
[address] [place] [address], [place] [phone] from Last 3 Months or Most Recently Relevant to Health Maintenance Insurance MEDICARE A & B MEDICAID [place] Advance Directives * CPR (Attempt to Resuscitate) [...] Of Support Discussed With: Patient Care Teams Director Of Restaurant Relationship Specialty Start Date End Date Moi Rayo MD [address] [place] [facility] [address] [facility] [address] [place] [address] PCP - General Family Medicine 05/20/17
--- OUTSIDE RECORDS SUMMARY | 2025-04-24 22:05 | XMS_ITS | Patient Health Record ---
Author Organization [facility] Address [address] [place] [id number] Care Team Providers Care Program Arranger Name Role Phone Moi Rayo Primary Care Provider Abigail Catherine [phone] Allergies Allergen (clinical drug ingredient) Drug/Non Drug Allergy documented on EMR Reaction Allergy Type Onset Date Status Lortab stomach upset Drug Allergy Act dimas Results Component Value Reference Range Notes PT/INR (in house) Reviewed date:10/06/2024 09:50:36 AM Interpretation: Performing Lab: Notes/Report: INR 1.8 current dose 5mg Daily new dose no change next check 4 weeks ideal INR 2-3 CBC Fingerstick (in house) Reviewed date:03/01/2025 10:21:24 [...] - 38 plat 111 100 - 400 PT/INR (in house) Reviewed date:04/07/2025 11:25:58 AM Interpretation: Performing Lab: Notes/Report: PT 30.9 INR 2.6 current dose 5mg Daily new dose no change next check 4 weeks at [facility] ideal INR 2-3 Glucose (In-House) Reviewed date:04/07/2025 11:14:16 AM Interpretation: Performing Lab: Notes/Report: blood glucose 137 74 - 106 mg/dL Glycohemoglobin A1c (in hous e) Reviewed date:04/07/2025 11:14:01 AM Interpretation: Performing Lab: Notes/Report: glycohemoglobin 5.8% 5 - 6.5 % P-Phosphorus Reviewed date:04/11/2025 08:58:36 AM Interpretation:Normal Performing Lab: Notes/Report: Test performed by [employer] , [address], [place] [address] Ashok Antonio MD, Crown Perforator Operator CLIA: [id number] Phosphorus 3.9 2.5-4.5 mg/dL P-TSH reflex to FT4 Reviewed date:04/11/2025 08:58:36 AM Interpretation:Normal Performing Lab: Notes/Report: [facility] , [address], [place] [address] Ashok Antonio MD, Crown Perforator Operator CLIA: [id number] TSH reflex to FT4 3.32 0.43-5.25 mU/L P-Microalbumin/Creatinine, R andom Urine Sample Reviewed date:04/11/2025 08:58:36 AM Interpretation:Normal Performing Lab: Notes/Report: Test performed by [employer] , [address], [place] [address] Ashok Antonio MD, Crown Perforator Operator CLIA: [id number] Albumin/Creatinine Ratio, Urine <4.60 0-30 ug/mg Microalbumin, Urine, Random <0.3 Creatinine, Urine 65.1 P-Uric Acid Reviewed date:04/11/2025 08:58:36 AM Interpretation:Normal Performing Lab: Notes/Report: [facility] performed by [facility] , [address], [place] [address] Ashok Antonio MD, Crown Perforator Operator CLIA: [id number] Uric Acid 7.6 3.4-8.0 mg/dL P-Vitamin D 25-Hydroxy Reviewed date:04/11/2025 08:58:36 AM Interpretation:36 Performing Lab: Notes/Report: Test performed by [facility] [address] [place] [address] Dr. [facility] C, [place] [address] Ashok Antonio MD, Crown Per[employer]ator Operator CLIA: [id number] Vitamin D 25-Hydroxy 36.0 30.0-100.0 ng/mL Interpretation of Vitamin D 25 OH: < 20 ng/mL - Deficiency 20 - 29 ng/mL - Insufficiency 30 - 100 ng/mL - Sufficiency > 100 ng/mL - Super-therapeutic- toxicity may occur above this level. Clinical correlation required. P-Parathyroid Hormone (PTH) Intact Reviewed date:04/11/2025 08:58:36 AM Interpretation:91.2 Performing Lab: Notes/Report: Test performed by [facility] [address] [place] [address] [place] [address] Ashok Antonio MD, Crown Per[employer] Operator CLIA: [id number] Parathyroid Hormone (PTH) Intact 91.2 15.0-65.0 pg/mL P-Lipid Panel Reviewed date:04/11/2025 08:58:36 AM Interpretation:HDL 35 Performing Lab: Notes/Report: Test performed by [facility] [employer] [address] [place] [address] Dr. [facility], [place] [address] Ashok Antonio MD, Crown Per[employer]ator Operator CLIA: [id number] Cholesterol 127 <200 mg/dL Triglycerides 124 <150 [...] ATPIII guidelines LDL/HDL Ratio 1.9 <3.3 Ratio LDL Cholesterol Patient History Test Date: 04/07/2025 LDL Results: 67 Units: mg/dL % Change: - P-Comprehensive Metabolic Pa john (CMP) Reviewed date:04/11/2025 08:58:36 AM Interpretation:Glu 100, BUN 51, Creat 2.30, eGFR 28, AST 59, Bili 1.5 Performing Lab: Notes/Report: Test performed by [facility] [address] [place], [place] [address] [place] , [address], [place] [address] Ashok Antonio MD, Crown Per[employer]ator Operator CLIA: [id number] Sodium 144 135-145 mmol/L Potassium 4.7 3.5-5.3 [...] 1.5 <0.2-1.2 mg/dL A/G Ratio 1.5 1.1-2.5 P-Basic Metabolic Panel (BMP ) Reviewed date:03/14/2025 10:09:49 AM Interpretation:gluc 102, bun 31, Cr 1.79, gfr 38 Performing Lab: Notes/Report: Test performed by [facility] [address] [place] [address] , [address], [place] [address] Ashok Antonio MD, Crown Per[employer]ator Operator CLIA: [id number] Sodium 144 135-145 mmol/L Potassium 4.9 3.5-5.3 mmol/L Chloride 107 97-108 mmol/L CO2 27 20-32 mmol/L Glucose 102 65-99 mg/dL BUN 31 8-23 mg/dL Creatinine 1.79 0.70-1.30 mg/dL Calcium 8.9 8.6-10.4 mg/dL eGFR by Creatinine 38 >59 mL/min/1.73m2 CBC Venipuncture (in house) Reviewed date:03/13/2025 12:39:50 [...] - 38 platlet 153 100 - 400 PT/INR (in house) Reviewed date:03/14/2025 10:35:57 PM Interpretation: Performing Lab: Notes/Report: PT 21.9 INR 1.8 current dose 2.5mg daily new dose 2.5mg W. 5mg AOD next check 2 weeks ideal INR 2-3 H-BMP Reviewed date:03/14/2025 10:11:53 AM Interpretation:see 09/15/24 Performing Lab: Notes/Report: see 09/15/24 PT/INR (in house) Reviewed date:08/31/2024 06:18:47 PM Interpretation: Performing Lab: Notes/Report: INR 2.8 current dose 5mg Daily new dose no change next check 2 weeks at [facility] ideal INR 2-3 H-BMP Reviewed date:09/16/2024 01:00:16 PM Interpretation:CO2 33, BUN 30, Creat 1.40, GFR 49, Glu 108 Performing Lab: Notes/Report: NA 143 136-145 mmol/L K 4.3 3.5-5.1 mmoL/L CL 104 98-107 mmol/L CO2 33 22.0-30.0 mmol/L GAP 10.3 5-15 mEq/L BUN 30 9-20 mg/dl CREATT 1.40 0.66-1.25 mg/dl GFRAA 59 >60 ML/MIN EGFR 49 >60 ml/min GLU 108 74-100 mg/dl CA 8.8 8.4-10.2 mg/dl H-INR Reviewed date:02/03/2025 11:49:15 AM Interpretation: Performing [...] SECONDARY TO AMI PT/INR (in house) Reviewed date:05/09/2024 12:41:28 PM Interpretation: Performing Lab: Notes/Report: INR 2.0 current dose 5mg Daily new dose no change next check 4 weeks at [facility] ideal INR 2-3 PT/INR (in house) Reviewed date:06/06/2024 05:57:02 PM Interpretation: Performing Lab: Notes/Report: INR 2.1 current dose 5mg Daily new dose no change next check 6 weeks ideal INR 2-3 P-Basic Metabolic Panel (BMP ) Reviewed date:06/07/2024 11:24:32 AM Interpretation: Performing Lab: Notes/Report: Test performed by [employer] [address] [place] [address] , [address], [place] [address] Ashok Antonio MD, Crown Per[employer]ator Operator CLIA: [id number] Sodium 145 135-145 mmol/L Potassium 4.4 3.5-5.3 mmol/L Chloride 105 97-108 mmol/L CO2 32 22-32 mmol/L Glucose 98 65-99 mg/dL BUN 25 8-23 mg/dL Creatinine 1.56 0.70-1.30 mg/dL Calcium 9.0 8.6-10.4 mg/dL eGFR by Creatinine 45 >59 mL/min/1.73m2 P-CBC with Diff plus Absolut e Counts Reviewed date:06/07/2024 11:24:32 AM Interpretation: Performing Lab: Notes/Report: Test performed by [employer] [address] , [address], [place] [address] Ashok Antonio MD, Crown Perforator Operator CLIA: [id number] WBC 4.6 3.8-11.5 K/uL Red Blood Cell [...] K/uL Absolute Immature Granulocyte 0.01 0.00-0.03 K/uL PT/INR (in house) Reviewed date:03/06/2025 09:59:51 PM Interpretation: Performing Lab: Notes/Report: PT 34.2 INR 2.9 current dose 5mg Daily new dose 2.5 mg daily next check 1 week ideal INR 2-3 H-INR Reviewed date:12/23/2024 12:42:47 PM Interpretation: Performing [...] SYSTEMIC EMBOLISM SECONDARY TO AMI H-INR Reviewed date:11/11/2024 04:36:11 PM Interpretation: Performing [...] PREVENTION OF SYSTEMIC EMBOLISM SECONDARY TO AMI Reason For Referral No Information Medications Medication SIG (Take, Route, Frequency, Duration) Notes Start Date End Date Status Atorvastatin Calcium 80 MG TAKE 1 TABLET BY MOUTH EVERY DAY FOR 90 DAYS Active Pantoprazole Sodium 40 MG TAKE 1 TABLET BY MOUTH EVERY DAY; Duration: 90 Active Triamcinolone Acetonide 0.1 % APPLY TO AFFECTED AREA TWICE A DAY NEEDED; Duration: 60 days Active Albuterol Sulfate HFA 108 (90 Base) MCG/ACT 2 puff as needed Inhalation 4 times a day; Duration: 25 days Active Losartan Potassium 50 MG 1 tab(s) orally once a day Active metOLazone 5 MG 1 tab(s) orally ever y 3 days as needed Active Ondansetron HCl 4 MG 1 tablet Orally every 8 hours As needed 03/01/2025 Active Multaq 400 MG 1 tablet with meals Orally Twice a day; Duration: 90 days 09/19/2024 Active Colchicine 0.6 MG 1 tab(s) orally once a day; Duration: 90 days Active Ferrous Sulfate 325 (65 Fe) MG 1 tablet Orally Two times a day; Duration: 90 days Active Diclofenac Sodium 1 % as directed applie d topically 4 times a day; Duration: 30 day(s) Active Finasteride 5 MG 1 tablet Orally Once a day; Duration: 90 days Active Warfarin Sodium 5 MG TAKE 1 TO 1 & 1/2 T ABLETS BY MOUTH DAILY DIRECTED Active Pregabalin 75 MG 1 capsule Orally Two times a day; Duration: 30 day(s) 10/25/2024 Active Metoprolol Tartrate 50 MG 2 tab(s) orall y 2 times a day Active Vitamin D (Ergocalciferol) 1.25 MG (03262 UT) 1 cap(s) orally twice a week; Duration: 90 days Active Fluticasone Propionate 50 MCG/ACT 1 spray(s) in each nostril once a day; Duration: 90 days Active Bumetanide 2 MG TAKE 1 OR 2 TABLETS ORALLY TWICE A DAY Active Aspirin 81 MG 1 tab(s) orally once a day; Duration: 30 day(s) Active Nitrostat 0.4 MG 1 tab(s) sublinguall y every 5 minutes, prn; Duration: 8 Active Potassium Chloride ER 10 MEQ 3 tab(s) orally twice a day; Duration: 30 days Active Allopurinol 100 MG 1 tablet Orally twic e a day; Duration: 90 days Active valACYclovir HCl 1 GM 1 tablet Orally Th ree times a day; Duration: 7 days 05/20/2024 Active Immunizations Vaccine Route Administration Date Status [...] Status W/U Status Risk Notes Problem Hyperglycemia (64215931) Hyperglycemia (R73.9) Active confirmed Problem Atrial fibrillation (76330131) Atrial fibrillation (I48.91) Active confirmed Problem Vitamin D deficiency (29797231) Vitamin D deficiency (E55.9) Active confirmed Problem Essential hypertension (19733639) Essential hypertension (I10) Active confirmed Problem Otitis externa (1739964) Otitis externa (H60.90) Active confirmed Problem Dysuria (11551428) Dysuria (R30.0) Active confi rmed Problem Postherpetic neuralgia (1739745) Post herpetic neuralgia (B02.29) Active confirmed Problem Long-term current use of anticoagulant (378424725) bait painter current use of anticoagulant (Z79.01) Active confirmed Problem Flank pain (605208112) Flank pain (R10.9) Active confirmed Problem Body mass index 40+ - severely obese (864158208) BMI 45.0-49.9, adult (Z68.42) Active confirmed Problem Anemia in chronic kidney disease (266326188) Anemia in chronic kidney disease (D63.1) Active confirmed Problem Mixed hyperlipidemia (444830263) Mixed hyperlipidemia (E78.2) Active confirmed Problem Chronic atrial fibrillation (019782748) Chronic atrial fibrillation (I48.2) Active confirmed Problem Frequency of micturition (773034658) Frequency of micturition (R35.0) Active confirmed Problem Long-term current use of anticoagulant (560945937) bait painter (current) use of anticoagulants (Z79.01) Active confirmed Problem Old myocardial infarction (8751030) History of [place] (myocardial infarction) (I25.2) Active confirmed Problem History of aortic valve replacement (8379627977324) History of aortic valve replacement (Z95.2) Active confirmed Problem Gastroesophageal reflux disease (disorder) (532537516) Chronic GERD (K21.9) Active confirmed Problem Atherosclerotic heart disease of [place] coronary artery without angina pectoris (140161074714873) Coronary artery disease involving [place] coronary artery of [place] heart without angina pectoris (I25.10) Active confirmed Problem Gout (69455424) Gout, unspecifie d cause, unspecified chronicity, unspecified site (M10.9) Active confirmed Problem Iron deficiency anemia due to chronic blood loss (518055922) Iron deficiency anemia due to chronic blood loss (D50.0) Active confirmed Problem Morbid obesity (660846147) Morbid obesity due to excess calories (E66.01) Active confirmed Problem Benign prostatic hypertrophy without outflow obstruction (435342144) Benign prostatic hyperplasia without lower urinary tract symptoms, unspecified morphology (N40.0) Active confirmed Problem History of cholecystectomy (543459494) Status post laparoscopic cholecystectomy (Z90.49) Active confirmed Problem Leukocytosis (023856347) Leukocytosis, unspecified (D72.829) Active confirmed Problem Allergic rhinitis (84725955) Allergic rhinitis, unspecified allergic rhinitis trigger, unspecified rhinitis seasonality (J30.9) Active confirmed Problem Chronic anemia (930968404) Chronic anemia (D64.9) Active confirmed Problem Lower urinary tract symptoms due to benign prostatic hypertrophy (49526742821572) Benign prostatic hyperplasia with lower urinary tract symptoms (N40.1) Active confirmed Problem Disorder of carotid artery (disorder) (005183810) Carotid artery disease, unspecified laterality (I77.9) Active confirmed Problem Gallstone (265650526) Gall stones (K80.20) Active confirmed Problem Allergic rhinitis (03999128) Allergic rhinitis, unspecified seasonality, unspecified trigger (J30.9) Active confirmed Problem Heart failure (29057730) Chronic congestive heart failure, unspecified heart failure type (I50.9) Active confirmed Problem Arthritis of left ankle (0852986636390186) Arthritis of left ankle (M19.072) Active confirmed Problem Diabetic renal disease (999593179) Type 2 diabetes mellitus with diabetic chronic kidney disease, unspecified CKD stage, unspecified whether assisted insulin use (E11.22) Active confirmed Problem Longstanding persistent atrial fibrillation (901073800) Longstanding persistent atrial fibrillation (I48.11) Active confirmed Problem Chronic atrial fibrillation (155312909) Chronic atrial fibrillation (I48.20) Active confirmed Problem Chronic kidney disease stage 3B (disorder) (840417887) Stage 3b chronic kidney disease (N18.32) Active confirmed Problem Chronic kidney disease stage 3A (disorder) (274252225) CKD stage 3a, GFR 45-59 ml/min (N18.31) Active confirmed Problem Long-term current use of drug therapy (185116620) [facility] current use of diuretic (Z79.899) Active confirmed Vital Signs Heart Rate 74 /min 04/07/2025 Blood pressure diastolic 80 mm Hg 04/07/2025 Height 70 in 04/07/2025 Blood pressure systolic 136 mm Hg 04/07/2025 Weight 332.2 lbs 04/07/2025 BMI 47.66 kg/m2 04/07/2025 Encounters Encounter Location Date Provider Diagnosis [facility] [address] [place], [place] [id number] 05/09/2024 Moi Long Eddy Atrial fibrillation I48.91 and bait painter current use of anticoagulant Z79.01 [facility] [address] [place], [place] [id number] 05/20/2024 Moi Long Eddy Herpes zoster withou t complication B02.9 and Post herpetic neuralgia B02.29 [facility] [address] [place], [place] [id number] 06/06/2024 Moi Long Eddy Post herpetic neural olivier B02.29 ; Peripheral edema R60.0 ; Stage 3b chronic kidney disease N18.32 ; Atrial fibrillation I48.91 and bait painter current use of anticoagulant Z79.01 [facility] [address] [place], [place] [id number] 08/31/2024 Moi Long Eddy Peripheral edema R60 .0 ; Stage 3b chronic kidney disease N18.32 and Atrial fibrillation I48.91 [facility] [address] [place], [place] [id number] 10/06/2024 Moi Long Eddy Chronic atrial fibrillation I48.2 [facility] [address] [facility] [address] [place] [id number] 03/01/2025 Moi Long Eddy Nausea R11.0 ; Leukocytosis, unspecified D72.829 ; Tachycardia R00.0 ; Chronic congestive heart failure, unspecified heart failure type I50.9 ; Mixed hyperlipidemia E78.2 ; Essential hypertension I10 ; Chronic anemia D64.9 ; Type 2 diabetes mellitus with diabetic chronic kidney disease, unspecified CKD stage, unspecified whether assisted insulin use E11.22 ; BMI 45.0-49.9, adult Z68.42 and 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 [facility] [address] [place], [place] [id number] 03/06/2025 Moi Long Eddy Left leg cellulitis L03.116 and bait painter current use of anticoagulant Z79.01 [facility] [address] [place], [place] [id number] 03/13/2025 Moi Long Eddy Left leg cellulitis L03.116 ; Essential hypertension I10 ; Peripheral edema R60.0 and bait painter current use of anticoagulant Z79.01 [facility] [address] [place], [place] [id number] 04/07/2025 Moi Long Eddy Essential hypertensi on I10 ; Mixed hyperlipidemia E78.2 ; Gout, unspecified cause, unspecified chronicity, unspecified site M10.9 ; Vitamin D deficiency E55.9 ; Stage 3b chronic kidney disease N18.32 ; Chronic atrial fibrillation I48.20 and Type 2 diabetes mellitus with diabetic chronic kidney disease, unspecified CKD stage, unspecified whether hydraulic assembler insulin use E11.22 [facility] [address] [facility] [address] [place] [id number] 04/28/2024 Moi Long Eddy Essential hypertensi on I10 [facility] [address] [facility] [address] [place] [id number] 06/07/2024 Moi Long Eddy [facility] [address] [place], [place] [id number] 06/07/2024 Moi Long Eddy Gout, unspecified ca use, unspecified chronicity, unspecified site M10.9 [facility] [address] [place] [id number] 07/08/2024 Abigail Catherine Post herpetic neural olivier B02.29 [facility] [address] [place] [id number] 08/11/2024 Moi Long Eddy Longstanding persist ent atrial fibrillation I48.11 [facility] [address] [place] [id number] 08/23/2024 Moi Long Eddy [facility] [address] [place] [id number] 08/30/2024 Moi Long Eddy [facility] [address] [place] [id number] 09/16/2024 Moi Long Eddy [facility] [address] [place] [id number] 09/19/2024 Moi Long Eddy [facility] [address] [place] [id number] 09/27/2024 Moi Long Eddy [facility] [address] [place] [id number] 10/25/2024 Moi Long Eddy Post herpetic neural olivier B02.29 [facility] [address] [place] [id number] 10/25/2024 Moi Long Eddy [facility] [address] [place] [id number] 10/31/2024 Moi Long Eddy [facility] [address] [place] [id number] 12/22/2024 Moi Long Eddy Gout, unspecified ca use, unspecified chronicity, unspecified site M10.9 [facility] [address] [place] [id number] 01/03/2025 Moi Long Eddy [facility] [address] [place] [id number] 01/30/2025 Moi Long Eddy Essential hypertensi on I10 [facility] [address] [place] [id number] 02/24/2025 Moi Long Eddy [facility] [address] [place] [id number] 03/02/2025 Moi Long Eddy [facility] [address] [place] [id number] 03/03/2025 Moi Long Eddy [facility] [address] [place] [id number] 03/14/2025 Moi Long Eddy [facility] [address] [place], [place] [id number] 03/21/2025 Moi Long Eddy Left leg cellulitis L03.116 [facility] [address] [place] [id number] 04/03/2025 Moi Long Eddy Atrial fibrillation I48.91 and Gout, unspecified cause, unspecified chronicity, unspecified site M10.9 [facility] [address] [place] [id number] 04/11/2025 Moi Long Eddy Assessments Encounter Date Diagnosis (ICD Code) Assessment Notes Treatment Notes Treatment Clinical Notes Section Notes 04/28/2024 Essential hypertension (ICD-10 - I10) 05/09/2024 Atrial fibrillation (ICD-10 - I48.91) 05/09/2024 bait painter current use of anticoagulant (ICD-10 - Z79.01) [...] R11.0) 03/01/2025 Leukocytosis, unspecified (ICD-10 - D72.829) 03/06/2025 [facility] current use of anticoagulant (ICD-10 - Z79.01) 03/06/2025 Left leg cellulitis (ICD-10 - L03.116) 03/13/2025 Essential hypertension (ICD-10 - I10) 03/13/2025 Left leg cellulitis (ICD-10 - L03.116) 03/21/2025 Left leg cellulitis (ICD-10 - L03.116) 04/03/2025 Atrial fibrillation (ICD-10 - I48.91) 04/07/2025 Essential hypertension (ICD-10 - I10) 04/07/2025 Mixed hyperlipidemia (ICD-10 - E78.2) 04/07/2025 Gout, unspecified cause, unspecified chronicity, unspecified site (ICD-10 - M10.9) 04/03/2025 Gout, unspecified cause, unspecified chronicity, unspecified site (ICD-10 - M10.9) 03/13/2025 Peripheral edema (ICD-10 - R60.0) 06/06/2024 Stage 3b chronic kidney disease (ICD-10 - N18.32) 03/01/2025 Tachycardia (ICD-10 - R00.0) 08/31/2024 Atrial fibrillation (ICD-10 - I48.91) 06/06/2024 Atrial fibrillation (ICD-10 - I48.91) 03/13/2025 bait painter current use of anticoagulant (ICD-10 - Z79.01) 03/01/2025 Chronic congestive heart failure, unspecified heart failure type (ICD-10 - I50.9) 04/07/2025 Vitamin D deficiency (ICD-10 - E55.9) 03/01/2025 Mixed hyperlipidemia (ICD-10 - E78.2) 04/07/2025 Stage 3b chronic kidney disease (ICD-10 - N18.32) 06/06/2024 [facility] current use of anticoagulant (ICD-10 - Z79.01) 04/07/2025 Chronic atrial fibrillation (ICD-10 - I48.20) 03/01/2025 Essential hypertension (ICD-10 - I10) 03/01/2025 Chronic anemia (ICD-10 - D64.9) 04/07/2025 Type 2 diabetes mellitus with diabetic chronic kidney disease, unspecified CKD stage, unspecified whether assisted insulin use (ICD-10 - E11.22) 03/01/2025 Type 2 diabetes mellitus with diabetic chronic kidney disease, unspecified CKD stage, unspecified whether hydraulic assembler insulin use (ICD-10 - E11.22) 03/01/2025 BMI 45.0-49.9, adult (ICD-10 - Z68.42) 03/01/2025 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) 03/01/2025 Other Patient sent to [facility] infusion for 2 liters of normal saline and a dose of IV Zofran Plan Of Treatment Pending Test Test Name Order Date H-BMP 03/31/2024 Next Appt Details Provider Name:Moi Mae ry, 10/09/2025 09:45:00 AM, [address], [place], [place], [id number], Insurance Providers Payer Name Payer Address Payer Phone Subscriber Number Group Number Insured Name Patient Relationship to Insured Coverage Start Date Coverage End Date MEDICARE PART B [address] [address] [place] [id number] COLETTE LYON Self - patient is the insured MEDICAID [employer] [address] [place] [id number] COLETTE LYON Self - patient is the insured Medical (General) History Medical History History ICD Code Coronary Artery Disease, Dr. 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, Porcine Atrial Fibrillation, [facility] Cou[facility] Hyperlipidemia Hypertension Gout Vitamin D Deficiency Allergic Rhinitis BPH Sleep Apnea Chronic Kidney Disease Pacemaker Surgical History Surgery Date(Month/Year) Cardiac Stent x2,1 balloon 2006 Carotid Surgery 07/26/2014 AVR 09/20/2012 Skin Lesion Cardiac Stent x1 2014 CABG 06/16/2018 Cholecystectomy - Lapraroscopic 07/19/20 19 Skin Cancer Removal - Forehead, Arm, Andrade d Pacemaker 2021 Hospitalization History Reason Date(Month/Year) Cholecystectomy- [facility] 07/19-09/2018 Gallbladder, Esophagitis, Partial Lung C ollapse- [facility] 07/11-10/2017 Leg Wound- [facility] 01/15/2018 Milo Aguila - [facility] 02/16- 06/2017
--- OUTSIDE RECORDS SUMMARY | 2025-04-24 22:05 | XMS_ITS | Encounter Summary ---
Author Organization [facility] Address [address] [place] [address] Care Team Providers Care Manager Book Name Role Phone Moi Rayo MD Primary Care Provider [phone] Reason for Visit * Reason Comments Med Refill Encounter Details Date Type Department Care Team (Late st Contact Info) Description 04/20/2025 Refill [facility] [address] [place] [phone] Jailene Vargas MD [address] [place] [address] Med Refill Social History Tobacco Use Types Packs/Day Years Used Date Smoking Tobacco: Never Passive Smoke Exposure: Never Smokeless Tobacco: Never Alcohol Use Standard Drinks/Week Comments No 0 (1 standard drink = 0.6 oz pur e alcohol) Sex and Gender Information Value Date Recorded Sex Assigned at Not on file Legal Sex Male 1:29 PM EDT Gender Identity Not on file Sexual Orientation Not on file 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 Not on file Not on file documented as of this encounter Plan of Treatment Upcoming Encounters Date Type Department Care Team (Late st Contact Info) Description 05/01/2025 8:30 AM EDT Ancillary Procedure [facility] [address] [place] [phone] 05/01/2025 10:00 AM EDT Clinical Support No Requirements [facility] [address] [place] [phone] 05/01/2025 10:45 AM EDT Office Visit [facility] [address] [place] [phone] Jailene Vargas MD [address] [place] [address] documented as of this encounter Visit Diagnoses Not on filedocumented in this encounter Care Teams Manager Book Relationship Specialty Start Date End Date Moi Rayo MD [address] [facility] [address] [facility] [address] [facility] [place] [address] PCP - General Family Medicine 05/20/17 documented as of this encounter
--- OUTSIDE RECORDS SUMMARY | 2025-04-24 22:05 | XMS_ITS | Encounter Summary ---
Author Organization [facility] Address [address] [place] [address] Care Team Providers Care Anthropology Faculty Member Name Role Phone Moi Rayo MD Primary Care Provider [phone] Reason for Visit * Reason Comments Med Refill Encounter Details Date Type Department Care Team (Late st Contact Info) Description 04/14/2023 Refill [facility] [address] [place] [address] Jailene Vargas MD [address] [place] [address] Med Refill Social History Tobacco [...] Industry Job Start Date Job End Date [place] Not on file Not on file Not on file documented as of this encounter Miscellaneous Notes * Telephone Encounter - Bethel hCavira CMA - 04/14/2023 10:10 AM EDT Failed protocol. Last visit 03.25.2023. Upcoming visit 04.29.2023 documented in this encounter Plan of Treatment Upcoming Encounters Date Type Department Care Team (Late st Contact Info) Description 05/01/2025 8:30 AM EDT Ancillary Procedure [facility] [address] [place] [address] [place] [phone] 05/01/2025 10:00 AM EDT Clinical Support No Requirements [facility] [address] [place] [address] [place] [phone] 05/01/2025 10:45 AM EDT Office Visit [facility] [address] [place] [address] [place] [phone] Jailene Vargas MD [address] [facility] [place] [phone] documented as of this encounter Visit Diagnoses Not on filedocumented in this encounter Care Teams Anthropology Faculty Member Relationship Specialty Start Date End Date Moi Rayo MD [address] [facility] [address] [place] [address] PCP - General Family Medicine 05/20/17 documented as of this encounter
--- NOTE | 2025-04-24 22:23 | XR_ITS ---
PROCEDURE INFORMATION: Exam: XR Chest Exam date and time: 04/24/2025 11:34 PM Age: 79 years old Clinical indication: Other: Chills; Additional info: Body aches, chills TECHNIQUE: Imaging protocol: Radiologic exam of the chest. Views: 1 view. COMPARISON: CR XR CHEST 2V 12/19/2023 11:27 AM FINDINGS: Tubes, catheters and devices: A pacing device enters from the left. Lungs: Low lung volumes. The posterior lung bases are not well evaluated. No consolidation. Pleural spaces: Unremarkable. No pleural effusion. No pneumothorax. Heart/Mediastinum: Unremarkable. No cardiomegaly. Vasculature: Unremarkable. Bones/joints: There is evidence of prior median sternotomy. IMPRESSION: Low lung volumes. No acute findings.
[2025-04-24] MEDS: ONDANSETRON 4MG/2ML VIAL 4 MG IV (22:41)
--- NOTE | 2025-04-24 22:51 | ECG_ITS ---
APPROVED REPORT Exam: Resting ECG HR:72 bpm ECG Measurements Heart Rate 72 AXES QRSd 79 QRS 10 QT 401 T 40 QTc 424 Conclusion SUPRAVENTRICULAR RHYTHM LOW QRS VOLTAGE IN PRECORDIAL LEADS [QRS DEFLECTION < 1.0 mV IN CHEST LEADS] ABNORMAL RHYTHM ECG UNCONFIRMED REPORT Electronically signed by : LEONARDO LOZANO, 04/26/2025 07:46:06
[2025-04-24 22:54] LABS: Lactate Venous 1.8 mmol/L (0.4-2.0)
[2025-04-24 22:54] LABS: Adenovirus,PCR Not Detected (NotDetected); Chlamydophila Pneumoniae, PCR Not Detected (NotDetected); Coronavirus 19, PCR Not Detected (NotDetected); Coronovirus HKU1,PCR Not Detected (NotDetected); Influenza A, PCR Not Detected (NotDetected); Influenza AH1, 2009 Not Detected (NotDetected); Influenza AH1, PCR Not Detected (NotDetected); Influenza AH3,PCR Not Detected (NotDetected); Influenza B, PCR Not Detected (NotDetected); Microscopic, Urine URINE MICROSCOPIC (MICROSCOPIC); Mycoplasma Pneumoniae, PCR Not Detected (NotDetected); Parainfluenza 1, PCR Not Detected (NotDetected); Parainfluenza 2, PCR Not Detected (NotDetected); Parainfluenza 3, PCR Not Detected (NotDetected); Parainfluenza 4, PCR Not Detected (NotDetected)
[2025-04-24 22:58] LABS: Bilirubin,Urine Negative (Negative); Color,Urine YELLOW (Yellow); Glucose,Urine (UA) Negative (Negative); Ketones,Urine Negative (Negative); Leukocyte Esterase,Urine Negative (Negative); PH,Urine 5.5 (5.0-8.5); Protein,Urine Negative (Negative); Specific Gravity, Urine 1.015 (1.005-1.030); Urobilinogen,Urine 0.2 EU/dl (0.2)
[2025-04-24 23:02] LABS: Hematocrit 33.9 % (42.0-52.0); Hemoglobin 11.2 g/dL (14.1-18.0); Immature Granulocytes % 0.6 %; Mean Corpuscular HGB Conc 33.0 g/dL (31.8-35.4); Mean Corpuscular Hemoglobin 34.8 pg (27.0-31.2); Mean Corpuscular Volume 105.3 fl (80-94); Nucleated Red Blood Cells % 0 %; Platelet Count 103 K/mm3 (142-424); Red Blood Count 3.22 M/mm3 (4.60-6.20); Red Cell Distribution Width-SD 56.3 fL; White Blood Count 9.9 K/mm3 (4.8-10.8)
[2025-04-24 23:09] LABS: Alanine Aminotransferase 45 U/L (12-78); Albumin Level 3.5 g/dl (3.5-5.0); Albumin/Globulin Ratio 1.2 (1.1-1.8); Alkaline Phosphatase 63 U/L (38-126); Anion Gap 8.9 mEq/L (5-15); Aspartate Amino Transferase 47 U/L (17-59); Bilirubin,Total 3.7 mg/dl (0.2-1.3); Blood Urea Nitrogen 35 mg/dl (9-20); Calcium 8.7 mg/dl (8.4-10.2); Carbon Dioxide 26 mmol/L (22.0-30.0); Chloride 106 mmol/L (98-107); Creatine Kinase 58 U/L (55-170); Creatinine Clearance Estimated 29 mL/min (50-200); Creatinine,Serum 2.00 mg/dl (0.66-1.25); Estimated Glomerular Filt Rate 32 ml/min (>60); GFR (African American) 39 ML/MIN (>60); Globulin 3.0 g/dL (1.3-3.2); Glucose 118 mg/dl (74-100); Potassium 4.9 mmoL/L (3.5-5.1); Sodium 136 mmol/L (136-145); Total Protein,Serum 6.5 g/dl (6.3-8.2)
[2025-04-24 23:15] LABS: C-Reactive Protein 63.0 mg/L (0-4)
[2025-04-24 23:21] LABS: Total Cells Counted 100
[2025-04-24 23:23] LABS: Troponin I 0.02 ng/ml (0.00-0.034)
[2025-04-24 23:30] LABS: Bacteria,Urine 1+ /lpf; Mucus,Urine 1+ /lpf
--- NOTE | 2025-04-24 23:30 | CT_ITS ---
PROCEDURE INFORMATION: Exam: CT Abdomen And Pelvis Without Contrast Exam date and time: 04/24/2025 11:41 PM Age: 79 years old Clinical indication: Nausea and vomiting; Additional info: Abdominal pain, dry heaving TECHNIQUE: Imaging protocol: Computed tomography of the abdomen and pelvis without contrast. Radiation optimization: All CT scans at this facility use at least one of these dose optimization techniques: automated exposure control; mA and/or kV adjustment per patient size (includes targeted exams where dose is matched to clinical indication); or iterative reconstruction. COMPARISON: CT - ABDPELWO CT abdomen pelvis wo con 07/10/2018 9:34 AM FINDINGS: Lungs: There are mild atelectatic changes at the lung bases, left greater than right. Liver: Normal. No mass. Gallbladder and biliary ducts: The gallbladder is absent. There is no biliary ductal dilation. Pancreas: Normal. No ductal dilation. Spleen: Normal. No splenomegaly. Adrenal glands: Normal. No mass. Kidneys and ureters: Normal. No hydronephrosis. Stomach and bowel: There is left colon diverticulosis without acute inflammation. No bowel obstruction. No mucosal thickening. Appendix: No evidence of appendicitis. The appendix is not identified as a discrete structure however, there is no inflammatory process in the region of the cecum. Intraperitoneal space: Unremarkable. No free air. No significant fluid collection. Vasculature: There is significant calcific atherosclerotic disease. No aortic aneurysm. Lymph nodes: Unremarkable. No enlarged lymph nodes. Urinary bladder: Unremarkable as visualized. Reproductive: Unremarkable as visualized. Bones/joints: There are moderate degenerative changes of the spine. No acute fracture. Soft tissues: A small fat containing umbilical hernia is noted. IMPRESSION: 1. There is no acute process evident within the abdomen or pelvis. 2. Mild bibasilar atelectasis. 3. Other nonurgent findings as noted.
[2025-04-24 23:57] LABS: Hepatitis C Ab Qual. W/ RFX NEGATIVE (Negative)
[2025-04-25] VITALS (14 sets, daily range): BP systolic 109–156; BP diastolic 44–80; PULSE 70–96; RESP 12–24; TEMP 36.6–37.2; O2SAT 90–95; BMI 52.2
[2025-04-25] MEDS: 0.9 % SODIUM CHLORIDE 1000ML 1,000 ML 500 ML IV
[2025-04-25 00:13] LABS: Lipase 34 U/L (23-300)
[2025-04-25] MEDS: CEFTRIAXONE 1 GM 1 GM in 0.9 % SODIUM CHLORIDE 50 ML IV ×2 (01:36→21:30)
[2025-04-25] MEDS: FUROSEMIDE 40MG/4ML VIAL 20 MG IV (01:37)
[2025-04-25] MEDS: VANCOMYCIN CONSULT REQUEST 1 EACH NOTAPPLIC (01:50)
--- NOTE | 2025-04-25 01:50 | PC.NURSE ---
report called to ALICE Bishop
--- NOTE | 2025-04-25 02:09 | PC.NURSE ---
Patient arrived to floor via stretcher from ED at 02:07.
[2025-04-25 03:08] LABS: Troponin I 0.02 ng/ml (0.00-0.034)
[2025-04-25] MEDS: VANCOMYCIN HCL 2,500 MG in 0.9 % SODIUM CHLORIDE 500 ML 250 MG IV (05:17)
[2025-04-25 06:56] LABS: Troponin I 0.02 ng/ml (0.00-0.034)
--- NOTE | 2025-04-25 08:42 | EXP.HP ---
History of Present Illness *Admission Date: 04/25/25 *Reason for visit:: Chilling/fever. *History of present illness: Mr. Lyon is a 79-year-old male with a rather difficult history to include the following: Anxiety, arthritis, atrial fibrillation, cellulitis, coronary artery disease with previous stent placement, diabetes mellitus, dyslipidemia, obesity, hypertension, hyperlipidemia, hypothyroidism, aortic valve replacement who presented to [facility] emergency room for evaluation after experiencing 2 episodes of chilling/fever. He is noted to have been treated for cellulitis on a couple occasions and is followed by podiatry as well. He has worn Unna boots in the past with improvement in leg swelling and cellulitis. Patient states he did not eat or drink very well yesterdaY due to nausea and vomiting. He also experienced some diarrhea and his urine was dark. With evaluation in the emergency room patient was found to have a cellulitis of the left lower extremity and acute kidney failure. Bilirubin was also noted to be elevated. Respiratory panel was negative. Urinalysis was negative. White blood cell count was normal. He was given acetaminophen, vancomycin IV, as well as 20 mg of Lasix IV along with 500 mL of fluids and Rocephin IV and Zofran IV. Chest x-ray showed low lung volumes and no acute changes. Abdominal/pelvis CT revealed no acute process evident, mild bibasilar atelectasis. With this evaluation patient has been in his bed for about 3 hours. He has not slept. He does have leg pain. He denies chest pain and shortness of breath. He has audible wheezing which he states he does at home and uses an inhaler. [facility] Disclaimer: The information contained in this section may have been updated after the patient was seen, as this information can be updated by other users. Medical History Chronic pain of left ankle Pacemaker A-fib CABG (coronary artery bypass graft) planned CAD (coronary artery disease) Lymphedema CHF (congestive heart failure) Sleep apnea BPH (benign prostatic hyperplasia) Gout Osteoarthritis Myocardial infarction HTN (hypertension) HLD (hyperlipidemia) Skin cancer Surgical History Status post surgical removal of malignant neoplasm of skin H/O heart artery stent Mechanical heart valve present Family History Other Coronary artery disease Diabetes 1.5, managed as type 2 Hypertension Social History Smoking Status: Never smoker second hand exposure: No alcohol intake: never substance use type: denies use current occupational status: retired Travel in the last 8 weeks?: Outside the [facility] adopted: No caregiver/support person: No foster care: No household members: significant other and children housing: house lives independently: Yes marital status: caffeine: Yes Have you lived/traveled outside US in past 30 days?: No Contact w/someone who lives/traveled outside US past 30 days?: No Exposure to someone with infectious disease in past 14 days?: No Do you have a fever (greater than 100.4 F or 38 C)?: No Have you tested positive for COVID-19?: No Exposed to someone with COVID-19 in past 14 days?: No Do you have a sore throat?: No Do you have a cough?: No Do you have any weakness?: No Are you experiencing any nausea/vomitting?: Yes Do you have any diarrhea?: No Are you experiencing any unusual bleeding?: No Do you have any muscle aches/pain?: No Do you have any abdominal pain?: No Are you experiencing loss of taste or smell?: No Other Medical History Have you received the Flu Vaccine for this season: No Have you received the Pneumonia Vaccine: No Review of Systems Constitutional Constitutional: Reports chills, Reports fever(s), Denies frequent falls and Denies headache(s) Eyes Eyes: Denies change in vision ENT Ears, Nose, Mouth, and Throat: Reports abnormal hearing (Wears hearing aids), Denies otalgia, Denies headache(s) and Denies sore throat *Cardiovascular Cardiovascular: Denies chest pain, Denies dyspnea and Reports leg edema *Respiratory Respiratory: Denies cough, Denies dyspnea and Reports wheezing *Gastrointestinal Gastrointestinal: Reports loose stools, Reports nausea and Reports vomiting *Genitourinary Genitourinary: Denies difficulty urinating *Musculoskeletal Musculoskeletal: Reports abnormal gait (Uses a cane with ambulation) and Reports muscle weakness *Neurologic Neurologic: Reports abnormal gait (Uses a cane with ambulation), Reports abnormal hearing (Wears hearing aids), Denies confusion, Denies frequent falls and Denies headache(s) Psychiatric Psychiatric: Denies confusion Allergic/Immunologic Allergic/Immunologic: Reports wheezing Meds Home Medications and Allergies Home Medications ?Medication ?Instructions ?Recorded ?Confirmed ?Type atorvastatin 80 mg tablet 80 mg PO HS Cholesterol 30 days 10/01/17 04/25/25 History ##30 potassium chloride 10 mEq 10 meq PO BID Supplement 10/01/17 04/25/25 History tablet,extended release(part/cryst) (Klor-Con M) aspirin 81 mg chewable tablet 81 mg PO DAILY heart 06/25/18 04/25/25 History montelukast 10 mg tablet 10 mg PO DAILY unknown 06/25/18 04/25/25 History nitroglycerin 0.4 mg sublingual 0.4 mg sublingual NEEDED PRN 06/25/18 04/25/25 History tablet Chest Pain tamsulosin 0.4 mg capsule 0.4 mg PO DAILY PROSTATE 07/12/18 04/25/25 History warfarin 5 mg tablet 5 mg PO DAILY Blood thinner 90 09/27/18 04/25/25 History days #135 tabs pantoprazole 40 mg tablet,delayed 40 mg PO DAILY GERD 03/01/19 04/25/25 History release colchicine 0.6 mg tablet 0.6 mg PO NEEDED PRN gout 08/30/19 04/25/25 History bumetanide 2 mg tablet 2 - 4 mg PO BID 03/13/20 04/25/25 History finasteride 5 mg tablet 5 mg PO HS prostate 03/13/20 04/25/25 History albuterol sulfate 90 mcg/actuation 2 puff inhalation Q4HP PRN 09/03/20 04/25/25 History aerosol inhaler Breathing Problems mupirocin 2 % topical ointment 1 applic topical BID 3 weeks #22 04/05/25 04/25/25 Rx (Centany) grams allopurinol 100 mg tablet 100 mg PO BID 04/25/25 04/25/25 History dronedarone 400 mg tablet (Multaq) 400 mg PO BIDWMEAL 04/25/25 04/25/25 History ferrous sulfate 325 mg (65 mg 325 mg PO BID 04/25/25 04/25/25 History iron) tablet losartan 50 mg tablet 50 mg PO DAILY 04/25/25 04/25/25 History metoprolol tartrate 100 mg tablet 100 mg PO BID 04/25/25 04/25/25 History triamcinolone acetonide 0.1 % 1 applic topical BID PRN swelling 04/25/25 04/25/25 History lotion in lower legs New Prescriptions to Start Prescriptions: Allergies Allergy/AdvReac Type Severity Reaction Status Date / Time hydrocodone (From [employer]) Allergy Unknown Verified 04/24/25 22:14 allergy reaction Exam Data for Last 24 hours Vital signs and Labs for Last 24 Hours: Temp Pulse Resp BP Pulse Ox O2 Del Method 98.3 F 85 20 109/51 L 92 L Room Air 04/25/25 08:00 04/25/25 08:00 04/25/25 08:00 04/25/25 08:00 04/25/25 08:00 04/25/25 08:00 Laboratory Results - last 24 hr 04/24/25 00:00: Lipase 34 04/24/25 22:30: Urine Color Yellow, Urine Appearance Clear, Urine pH 5.5, Ur Specific [place] 1.015, Urine Protein Negative, Urine Glucose (UA) Negative, Urine Ketones Negative, Urine Blood Negative, Urine Nitrate Negative, Urine Bilirubin Negative, Urine Urobilinogen 0.2, Ur Leukocyte Esterase Negative, Urine WBC 3-5, Ur Squamous Epith Cells 3-5, Urine Bacteria 1+, Hyaline Casts 5-10, Urine Mucus 1+, Chlamy pneumoniae PCR Not detected, Adenovirus (PCR) Not detected, B. pertussis DNA (PCR) Not detected, Coronavirus OC43 (PCR) Not detected, Coronavirus HKU1 (PCR) Not detected, Coronavirus 229E (PCR) Not detected, SARS-CoV-2 (PCR) Not detected, Coronavirus NL63 (PCR) Not detected, Human Metapneumovir PCR Not detected, Influenza A (H1) PCR Not detected, Influ A (H1N1/09) PCR Not detected, Influenza A (H3) PCR Not detected, Influenza Type A (PCR) Not detected, Influenza Type B (PCR) Not detected, M. pneumoniae (PCR) Not detected, Parainfluenza 1 (PCR) Not detected, Parainfluenza 2 (PCR) Not detected, Parainfluenza 3 (PCR) Not detected, Parainfluenza 4 (PCR) Not detected, RSV (PCR) Not detected, Entero/Rhino (PCR) Not detected 04/24/25 22:40: WBC 9.9, RBC 3.22 L, Hgb 11.2 L, Hct 33.9 L, MCV 105.3 H, MCH 34.8 H, MCHC 33.0, RDW 14.5, Plt Count 103 L, MPV 11.5 H, Neut % (Auto) 88.8 H, Lymph % (Auto) 5.2 L, [place] % (Auto) 5.2, Eos % (Auto) 0.0 L, Baso % (Auto) 0.2, Neut # (Auto) 8.8 H, Lymph # (Auto) 0.5 L, [place] # (Auto) 0.5, Eos # (Auto) 0.0, Baso # (Auto) 0.0, Total Counted 100, Neutrophils % (Manual) 84 H, Band Neutrophils % 4, Lymphocytes % (Manual) 9 L, Monocytes % (Manual) 3, Platelet Estimate Moderate decrease, VBG Lactic Acid 1.8, Sodium 136, Potassium 4.9, Chloride 106, Carbon Dioxide 26, Anion Gap 8.9, BUN 35 H, Creatinine 2.00 H, Estimated Creat Clear 29, Estimated GFR 32 L, Est GFR ( Amer) 39 L, Glucose 118 H, Calcium 8.7, Total Bilirubin 3.7 H, AST 47, ALT 45, Alkaline Phosphatase 63, Total Creatine Kinase 58, Troponin I 0.02, C-Reactive Protein 63.0 H, Total Protein 6.5, Albumin 3.5, Globulin 3.0, Albumin/Globulin Ratio 1.2, HCV Ab JUAN MIGUEL w/Rflx PCR Qn Negative, HIV Ag/Ab Combo Qual Negative 04/25/25 02:30: Troponin I 0.02 04/25/25 05:23: Troponin I 0.02 I & O for Last 24 hours: Intake & Output 04/22/25 04/23/25 04/24/25 04/25/25 11:59 11:59 11:59 11:59 Intake Total 1050 / 1050 Output Total 350 / 350 Balance 700 / 700 Weight 344 lb 14.4 oz Constitutional Constitutional: no acute distress and obese *Routine HEENT Exam Head: Present normocephalic and atraumatic Eye: Present PERRL; Absent conjunctival icterus, scleral injection or conjunctivae pink ENT: Present mucous membranes moist (Dry lips) and oropharynx clear *Routine Neck Exam Neck: Present carotid bruit; Absent lymphadenopathy or thyromegaly *Routine Respiratory Exam Respiratory: Present wheezes and diminished air movement (Posteriorly) *Routine Cardiovascular Exam Cardiovascular: Present RRR *Routine Abdominal Exam Abdominal: Present soft, normoactive bowel sounds and obese; Absent tenderness or guarding *Routine Rectal Exam Rectal:: deferred *Routine Genitalia Exam Genitalia:: deferred *Routine Extremities Exam Extremities: Present edema (Bilateral lower edema); Absent pulses intact or calf tenderness *Routine Skin Exam Comments: Bilateral lower extremities with discoloration. Left lower leg with erythema and blisterlike papules. *Routine Neurological Exam Neurological: Present moving all extremities and normal speech; Absent altered mental status Assessment and Plan *Assessment and plan (1) Elevated bilirubin: Status: Acute Category: Medical Code(s): R17 - Unspecified jaundice (2) CHELSIE (acute kidney injury): Status: Acute Category: Medical Code(s): N17.9 - Acute kidney failure, unspecified (3) Cellulitis of left lower extremity: Status: Acute Category: Medical Code(s): L03.116 - Cellulitis of left lower limb (4) Morbid obesity with body mass index (BMI) of 40.0 to 49.9: Status: Acute Category: Medical Code(s): E66.01 - Morbid (severe) obesity due to excess calories (5) Lymphedema of both lower extremities: Status: Acute Category: Medical Code(s): I89.0 - Lymphedema, not elsewhere classified (6) Osteoarthritis of both ankles and feet: Status: Chronic Category: Medical Code(s): M19.071 - Primary osteoarthritis, right ankle and foot; M19.072 - Primary osteoarthritis, left ankle and foot (7) Sleep apnea: Status: Acute Category: Medical Code(s): G47.30 - Sleep apnea, unspecified (8) Anemia: Status: Acute Qualifiers: Anemia type: iron deficiency Iron deficiency anemia type: chronic blood loss Qualified Code(s): D50.0 - Iron deficiency anemia secondary to blood loss (chronic) Category: Medical Code(s): D64.9 - Anemia, unspecified (9) Hx of gout: Status: Acute Category: Medical Code(s): Z87.39 - Personal history of other diseases of the musculoskeletal system and connective tissue (10) BPH (benign prostatic hyperplasia): Status: Acute Category: Medical Code(s): N40.0 - Benign prostatic hyperplasia without lower urinary tract symptoms (11) Hyperlipidemia: Status: Acute Category: Medical Code(s): E78.5 - Hyperlipidemia, unspecified (12) HBP (high blood pressure): Status: Acute Category: Medical Code(s): I10 - Essential (primary) hypertension (13) S/P CABG (coronary artery bypass graft): Status: Acute Category: Surgical Code(s): Z95.1 - Presence of aortocoronary bypass graft (14) S/P AVR (aortic valve replacement): Status: Acute Category: Surgical Code(s): Z95.2 - Presence of prosthetic heart valve Plan Wound care with physical therapy ordered. Some of home meds restarted. Will continue with antibiotics. Monitor renal function and blood chemistries. Stat INR Dr. Rayo entry - Saw patient, agree with above note.
--- NOTE | 2025-04-25 09:32 | EXP.PHA.CONS ---
Pharmacy Consult Date: 04/25/25 Time: 09:32 Referring provider: DR. YIN Reason for Consult:: VANCOMYCIN DOSING Allergies Allergy/AdvReac Type Severity Reaction Status Date / Time hydrocodone (From [place]) Allergy Unknown Verified 04/24/25 22:14 allergy reaction Home Medications ?Medication ?Instructions ?Recorded ?Confirmed ?Type atorvastatin 80 mg tablet 80 mg PO DAILY Cholesterol 30 days 10/01/17 04/25/25 History ##30 potassium chloride 10 mEq 10 meq PO BID Supplement 10/01/17 04/25/25 History tablet,extended release(part/cryst) (Klor-Con M) aspirin 81 mg chewable tablet 81 mg PO DAILY heart 06/25/18 04/25/25 History montelukast 10 mg tablet 10 mg PO DAILY unknown 06/25/18 04/25/25 History nitroglycerin 0.4 mg sublingual 0.4 mg sublingual NEEDED PRN 06/25/18 04/25/25 History tablet Chest Pain fluticasone propionate 50 1 spray intranasal DAILY allergies 07/10/18 04/25/25 History mcg/actuation nasal spray,suspension tamsulosin 0.4 mg capsule 0.4 mg PO DAILY PROSTATE 07/12/18 04/25/25 History warfarin 5 mg tablet 5 mg PO DAILY Blood thinner 90 09/27/18 04/25/25 History days #135 tabs pantoprazole 40 mg tablet,delayed 40 mg PO DAILY GERD 03/01/19 04/25/25 History release colchicine 0.6 mg tablet 0.6 mg PO NEEDED PRN gout 08/30/19 04/25/25 History bumetanide 2 mg tablet 2 mg PO BID 03/13/20 04/25/25 History finasteride 5 mg tablet 5 mg PO HS prostate 03/13/20 04/25/25 History albuterol sulfate 90 mcg/actuation 90 mcg inhalation NEEDED PRN 09/03/20 04/25/25 History aerosol inhaler Breathing Problems mupirocin 2 % topical ointment 1 applic topical BID 3 weeks #22 04/05/25 04/25/25 Rx ([facility]) grams allopurinol 100 mg tablet 100 mg PO BID 04/25/25 04/25/25 History metoprolol tartrate 100 mg tablet 100 mg PO BID 04/25/25 04/25/25 History triamcinolone acetonide 0.1 % 1 applic topical BID PRN swelling 04/25/25 04/25/25 History lotion in lower legs New Prescriptions to Start Prescriptions: Height: 1.73 m Weight: 156.444 kg Laboratory Results:: Laboratory Results - last 24 hr 04/24/25 00:00: Lipase 34 04/24/25 22:30: Urine Color Yellow, Urine Appearance Clear, Urine pH 5.5, Ur Specific [place] 1.015, Urine Protein Negative, Urine Glucose (UA) Negative, Urine Ketones Negative, Urine Blood Negative, Urine Nitrate Negative, Urine Bilirubin Negative, Urine Urobilinogen 0.2, Ur Leukocyte Esterase Negative, Urine WBC 3-5, Ur Squamous Epith Cells 3-5, Urine Bacteria 1+, Hyaline Casts 5-10, Urine Mucus 1+, Chlamy pneumoniae PCR Not detected, Adenovirus (PCR) Not detected, B. pertussis DNA (PCR) Not detected, Coronavirus OC43 (PCR) Not detected, Coronavirus HKU1 (PCR) Not detected, Coronavirus 229E (PCR) Not detected, SARS-CoV-2 (PCR) Not detected, Coronavirus NL63 (PCR) Not detected, Human Metapneumovir PCR Not detected, Influenza A (H1) PCR Not detected, Influ A (H1N1/09) PCR Not detected, Influenza A (H3) PCR Not detected, Influenza Type A (PCR) Not detected, Influenza Type B (PCR) Not detected, M. pneumoniae (PCR) Not detected, Parainfluenza 1 (PCR) Not detected, Parainfluenza 2 (PCR) Not detected, Parainfluenza 3 (PCR) Not detected, Parainfluenza 4 (PCR) Not detected, RSV (PCR) Not detected, Entero/Rhino (PCR) Not detected 04/24/25 22:40: WBC 9.9, RBC 3.22 L, Hgb 11.2 L, Hct 33.9 L, MCV 105.3 H, MCH 34.8 H, MCHC 33.0, RDW 14.5, Plt Count 103 L, MPV 11.5 H, Neut % (Auto) 88.8 H, Lymph % (Auto) 5.2 L, [place] % (Auto) 5.2, Eos % (Auto) 0.0 L, Baso % (Auto) 0.2, Neut # (Auto) 8.8 H, Lymph # (Auto) 0.5 L, [place] # (Auto) 0.5, Eos # (Auto) 0.0, Baso # (Auto) 0.0, Total Counted 100, Neutrophils % (Manual) 84 H, Band Neutrophils % 4, Lymphocytes % (Manual) 9 L, Monocytes % (Manual) 3, Platelet Estimate Moderate decrease, VBG Lactic Acid 1.8, Sodium 136, Potassium 4.9, Chloride 106, Carbon Dioxide 26, Anion Gap 8.9, BUN 35 H, Creatinine 2.00 H, Estimated Creat Clear 29, Estimated GFR 32 L, Est GFR ( Amer) 39 L, Glucose 118 H, Calcium 8.7, Total Bilirubin 3.7 H, AST 47, ALT 45, Alkaline Phosphatase 63, Total Creatine Kinase 58, Troponin I 0.02, C-Reactive Protein 63.0 H, Total Protein 6.5, Albumin 3.5, Globulin 3.0, Albumin/Globulin Ratio 1.2, HCV Ab JUAN MIGUEL w/Rflx PCR Qn Negative, HIV Ag/Ab Combo Qual Negative 04/25/25 02:30: Troponin I 0.02 04/25/25 05:23: Troponin I 0.02 Medical History: Medical History (Updated 04/25/25 @ 01:42 by Markell Sesay MD) Chronic pain of left ankle Pacemaker A-fib CABG (coronary artery bypass graft) planned CAD (coronary artery disease) Lymphedema CHF (congestive heart failure) Sleep apnea BPH (benign prostatic hyperplasia) Gout Osteoarthritis Myocardial infarction HTN (hypertension) HLD (hyperlipidemia) Skin cancer Assessment and Plan Assessment and plan all Dx Assessment and Plan for all problems:: Pharmacokinetic dosing service Objective: Patient: Floor: Age: 79 yo Serum creatinine: 2.00 mg/dL Height: 68.1 Inches Weight (kg): 156.4 Assessment: IBW (kg): 68.63 Dosing wt(kg): 156.4 Estimated Creatinine clearance (ml/min): 29.5 CRCL method: Cockcroft and Gault using ibw(default). Drug selected: Vancomycin Loading dose (mg): Vd (liters): 125.1 (factor used: 0.8 L/kg) Jac[place] (hr-1): 0.029 Half life (hrs): 23.90 CLvanco=?? 3.628 L/hr Recommended dose: 2000 mg Interval: 24 hrs Infusion time (hrs): 2.0 Predicted peak (mcg/mL): 31.0 Predicted trough (mcg/mL): 16.38 Total body weight is being used for vancomycin dosing. Recommendations: Give Vancomycin 2000 mg q 24 hrs with an expected Cpeak of 31.0 mcg/ml and an expected Ctrough of 16.38 mcg/ml AUC 0-24 /LAURA Data: LAURA 0.5 mcg/mL:?? AUC/LAURA:? 1102.5 LAURA 1.0 mcg/mL:?? AUC/LAURA:? 551.3 --------- LAURA 1.5 mcg/mL:?? AUC/LAURA:? 367.5 LAURA 2.0 mcg/mL:?? AUC/LAURA:? 275.6 Thank you for the consult, will continue to follow. -PREETHI DIEGO, LLUVIAD
[2025-04-25] MEDS: TAMSULOSIN 0.4MG CAPSULE 0.4 MG PO (09:37)
[2025-04-25] MEDS: FLUTICASONE PROP 50MCG NASAL SPRAY 16GM 1 SPRAY NS (09:37)
[2025-04-25] MEDS: ASPIRIN 81MG CHEWABLE TABLET 81 MG PO (09:37)
[2025-04-25 10:00] LABS: INR 2.25 (0.9-1.1); Prothrombin Time 23.5 seconds (10.1-12.5)
--- NOTE | 2025-04-25 11:15 | HMH.PTEV ---
Physical Therapy Evaluation Rehab PT IP Evaluation Start: 04/25/25 09:01 Freq: ONCE Status: Active Protocol: Document 04/25/25 11:07 ABAD (Rec: 04/25/25 11:13 ABAD [id number]) Subjective/History History History Per H&P: Mr. Lyon is a 79-year-old male with a rather difficult history to include the following: Anxiety, arthritis, atrial fibrillation, cellulitis, coronary artery disease with previous stent placement, diabetes mellitus, dyslipidemia, obesity, hypertension, hyperlipidemia, hypothyroidism, aortic valve replacement who presented to [facility] emergency room for evaluation after experiencing 2 episodes of chilling/fever. He is noted to have been treated for cellulitis on a couple occasions and is followed by podiatry as well. He has worn Unna boots in the past with improvement in leg swelling and cellulitis. Patient states he did not eat or drink very well yesterdaY due to nausea and vomiting. He also experienced some diarrhea and his urine was dark. With evaluation in the emergency room patient was found to have a cellulitis of the left lower extremity and acute kidney failure. Bilirubin was also noted to be elevated. Respiratory panel was negative. Urinalysis was negative. White blood cell count was normal. He was given acetaminophen, vancomycin IV, as well as 20 mg of Lasix IV along with 500 mL of fluids and Rocephin IV and Zofran IV. Chest x-ray showed low lung volumes and no acute changes. Abdominal/pelvis CT revealed no acute process evident, mild bibasilar atelectasis. Subjective Subjective in room and confirmed pt's answers. Pt lives in a single-story home with his . Pt is normally IND with all mobility using a SPC or RW. [facility] How much help from another person do you currently need... Turning from your A little back to your side while in a flat bed without using bedrails? Moving from lying on A little back to sitting on the side of a flat bed without using bedrails? Moving to and from a None bed to a chair ( including a wheelchair)? Standing up from a None chair using your arms? (e.g., wheelchair, bedside chair) Walking in hospital A little room? Climbing 3-5 steps A little with a railing? Mobility Score 20 Mobility Level [facility] Mobility Walk 10 steps or more Mobility Calculator Rehab PT IP Eval Objective Appearance Patient Behavior Appropriate,Cooperative Patient Orientation Person,Place Difficulty following none instructions Speech Pattern Clear Ambulation Patient Able to Yes Ambulate Ambulation Observation IP General Gait Wide Based Gait Pattern Observation Ambulation Distance 20 (feet) Ambulation Assistive Standard Walker Device Ambulation Ability Supervision/Stand by Balance Ability to Arise Able, uses arms to help Sitting Balance Steady, safe Standing Balance Steady, wide stance Dynamic Sitting Good Balance Ability Dynamic Standing Good Balance Ability Transfers Bed Transfer Ability Supervision/Stand by Sit to Stand Bed Minimal x 1 (25% assist) Transfer Ability Rehab PT IP prob,goals,plan Problems Date of Evaluation: 04/25/25 PT IP Problems Bed Mobility,Transfers,Gait,Balance,Self care,Safety Rehab Potential Rehab Potential Good Plan PT Intervention Plan Bed Mobility,Transfers,Gait,Balance,Self care,Safety, Therapeutic Exercise Other Intervention 1-2 times Plan PT Plan Frequency Daily Duration LOS Discharge Goals Bed Transfer Ability Independent Sit to Stand Chair Independent Transfer Ability Ambulation Distance 50 (feet) Discharge Plan PT Discharge Plan Initial physical therapy evaluation performed. Patient presents below baseline at this time in functional mobility, transfers, gait, and strength. Pt would benefit from skilled PT while at [facility] to prevent further functional decline and maximize safety with mobility. Pt most appropriate to d/c home when deemed medically necessary d/t current level of mobility, home set-up, and family support. PT recommending home health PT services to address deficits. PT recommending pt use RW with all mobility. Eval Complexity Eval Charge Codes 97538 - Moderate Complexity PHYSICIAN CERTIFICATION: I certify the specified therapy services for Chad Lyon are required, authorized, and reviewed every 30 days.
--- OUTSIDE RECORDS SUMMARY | 2025-04-25 11:15 | XMS_ITS | Patient Health Record ---
Author Organization [facility] Address [address] [place] [id number] Care Team Providers Care Press Tender Star Signal Name Role Phone Moi Rayo Primary Care Provider Abigail Catherine [phone] Allergies Allergen (clinical drug ingredient) Drug/Non Drug [...] - 38 plat 111 100 - 400 CBC Venipuncture (in house) Reviewed date:03/13/2025 12:39:50 [...] 38 Performing Lab: Notes/Report: Test performed by [facility] [address] [place] [address] , [address], [place] [address] Ashok Antonio MD, Industrial Custodian CLIA: [id number] Sodium 144 135-145 mmol/L Potassium 4.9 3.5-5.3 mmol/L Chloride 107 97-108 mmol/L CO2 27 20-32 mmol/L Glucose 102 65-99 mg/dL BUN 31 8-23 mg/dL Creatinine 1.79 0.70-1.30 mg/dL Calcium 8.9 8.6-10.4 mg/dL eGFR by Creatinine 38 >59 mL/min/1.73m2 PT/INR (in house) Reviewed date:04/07/2025 11:25:58 AM Interpretation: Performing Lab: Notes/Report: PT 30.9 INR 2.6 current dose 5mg Daily new dose no change next check 4 weeks at [facility] ideal INR 2-3 Glucose (In-House) Reviewed date:04/07/2025 11:14:16 AM Interpretation: Performing Lab: Notes/Report: blood glucose 137 74 - 106 mg/dL Glycohemoglobin A1c (in hous e) Reviewed date:04/07/2025 11:14:01 AM Interpretation: Performing Lab: Notes/Report: glycohemoglobin 5.8% 5 - 6.5 % P-Comprehensive Metabolic Pa john (CMP) Reviewed date:04/11/2025 08:58:36 AM Interpretation:Glu 100, BUN 51, Creat 2.30, eGFR 28, AST 59, Bili 1.5 Performing Lab: Notes/Report: Test performed by [facility] [address] [place] [address] , [address], [place] [address] Ashok Antonio MD, Industrial Custodian CLIA: [id number] Sodium 144 135-145 mmol/L Potassium 4.7 3.5-5.3 [...] 35 Performing Lab: Notes/Report: Test performed by [facility], [address] , [address], [place] [address] Ashok Antonio MD, Industrial Custodian CLIA: [id number] Cholesterol 127 <200 mg/dL Triglycerides 124 <150 [...] Results: 67 Units: mg/dL % Change: - P-Phosphorus Reviewed date:04/11/2025 08:58:36 AM Interpretation:Normal Performing Lab: Notes/Report: Test performed by [facility] [address] , [facility] [address] Ashok Antonio MD, Industrial Custodian CLIA: [id number] Phosphorus 3.9 2.5-4.5 mg/dL P-Parathyroid Hormone (PTH) Intact Reviewed date:04/11/2025 08:58:36 AM Interpretation:91.2 Performing Lab: Notes/Report: Test performed by [facility] [address] , [place] [address] Ashok Antonio MD, Industrial Custodian CLIA: [id number] Parathyroid Hormone (PTH) Intact 91.2 15.0-65.0 pg/mL P-TSH reflex to FT4 Reviewed date:04/11/2025 08:58:36 AM Interpretation:Normal Performing Lab: Notes/Report: Test performed by [facility] [address] , [address], [place] [address] Ashok Antonio MD, Industrial Custodian CLIA: [id number] TSH reflex to FT4 3.32 0.43-5.25 mU/L P-Microalbumin/Creatinine, R andom Urine Sample Reviewed date:04/11/2025 08:58:36 AM Interpretation:Normal Performing Lab: Notes/Report: Test performed by [facility] [address] , [address], [place] [address] Ashok Antonio MD, Industrial Custodian CLIA: [id number] Albumin/Creatinine Ratio, Urine <4.60 0-30 ug/mg Microalbumin, Urine, Random <0.3 Creatinine, Urine 65.1 P-Uric Acid Reviewed date:04/11/2025 08:58:36 AM Interpretation:Normal Performing Lab: Notes/Report: Test performed by [facility] [address] [place] [address] Ashok Antonio MD, Industrial Custodian CLIA: [id number] Uric Acid 7.6 3.4-8.0 mg/dL P-Vitamin D 25-Hydroxy Reviewed date:04/11/2025 08:58:36 AM Interpretation:36 Performing Lab: Notes/Report: Test performed by [facility] [address] [place] [address] [address], [place] [address] Ashok Antonio MD, Industrial Custodian CLIA: [id number] Vitamin D 25-Hydroxy 36.0 30.0-100.0 ng/mL Interpretation of Vitamin D 25 OH: < 20 ng/mL - Deficiency 20 - 29 ng/mL - Insufficiency 30 - 100 ng/mL - Sufficiency > 100 ng/mL - Super-therapeutic- toxicity may occur above this level. Clinical correlation required. PT/INR (in house) Reviewed date:03/14/2025 10:35:57 PM Interpretation: Performing Lab: Notes/Report: PT 21.9 INR 1.8 current dose 2.5mg daily new dose 2.5mg W. 5mg AOD next check 2 weeks ideal INR 2-3 PT/INR (in house) Reviewed date:03/06/2025 09:59:51 PM Interpretation: Performing Lab: Notes/Report: PT 34.2 INR 2.9 current dose 5mg Daily new dose 2.5 mg daily next check 1 week ideal INR 2-3 P-CBC with Diff plus Absolut e Counts Reviewed date:06/07/2024 11:24:32 AM Interpretation: Performing Lab: Notes/Report: Test performed by [facility] [address] [place] [address] [address], [place] [address] Ashok Antonio MD, Industrial Custodian CLIA: [id number] WBC 4.6 3.8-11.5 K/uL Red Blood Cell [...] K/uL Absolute Immature Granulocyte 0.01 0.00-0.03 K/uL P-Basic Metabolic Panel (BMP ) Reviewed date:06/07/2024 11:24:32 AM Interpretation: Performing Lab: Notes/Report: Test performed by [facility] [address] [place] [address] , [address], [place] [address] Ashok Antonio MD, Industrial Custodian CLIA: [id number] Sodium 145 135-145 mmol/L Potassium 4.4 3.5-5.3 mmol/L Chloride 105 97-108 mmol/L CO2 32 22-32 mmol/L Glucose 98 65-99 mg/dL BUN 25 8-23 mg/dL Creatinine 1.56 0.70-1.30 mg/dL Calcium 9.0 8.6-10.4 mg/dL eGFR by Creatinine 45 >59 mL/min/1.73m2 PT/INR (in house) Reviewed date:06/06/2024 05:57:02 PM Interpretation: Performing Lab: Notes/Report: INR 2.1 current dose 5mg Daily new dose no change next check 6 weeks ideal INR 2-3 H-PT/INR Reviewed date:04/25/2025 10:57:39 AM Interpretation: Performing Lab: Notes/Report: Patient on anticoagulants? Y PT 23.5 10.1-12.5 seconds INR 2.25 0.9-1.1 INDICATION INR RANGE Therapy for DVT, PE, Atrial Fib, 2.0-3.0 Prophylaxis for VTE. Therapy for Mechanical Heart Valve, 2.5-3.5 Prevention of Sytemic Emolism secondary to AMI. PT/INR (in house) Reviewed date:05/09/2024 12:41:28 PM Interpretation: Performing Lab: Notes/Report: INR 2.0 current dose 5mg Daily new dose no change next check 4 weeks at [facility] ideal INR 2-3 H-INR Reviewed date:11/11/2024 04:36:11 [...] SYSTEMIC EMBOLISM SECONDARY TO AMI H-INR Reviewed date:02/03/2025 11:49:15 AM Interpretation: Performing [...] SYSTEMIC EMBOLISM SECONDARY TO AMI H-INR Reviewed date:12/23/2024 12:42:47 PM Interpretation: Performing [...] 8.8 8.4-10.2 mg/dl PT/INR (in house) Reviewed date:08/31/2024 06:18:47 PM Interpretation: Performing Lab: Notes/Report: INR 2.8 current dose 5mg Daily new dose no change next check 2 weeks at [facility] ideal INR 2-3 H-BMP Reviewed date:03/14/2025 10:11:53 AM Interpretation:see 09/15/24 Performing Lab: Notes/Report: see 09/15/24 H-INR Reviewed date:07/21/2024 03:20:44 PM Interpretation: Performing [...] day Active Vitamin D (Ergocalciferol) 1.25 MG (23960 UT) 1 cap(s) orally twice a week; [...] Status W/U Status Risk Notes Problem Hyperglycemia (65889247) Hyperglycemia (R73.9) Active confirmed Problem Atrial fibrillation (95459016) Atrial fibrillation (I48.91) Active confirmed Problem Vitamin D deficiency (22149829) Vitamin D deficiency (E55.9) Active confirmed Problem Essential hypertension (18164700) Essential hypertension (I10) Active confirmed Problem Otitis externa (8053822) Otitis externa (H60.90) Active confirmed Problem Dysuria (94152418) Dysuria (R30.0) Active confi rmed Problem Postherpetic neuralgia (6139179) Post herpetic neuralgia (B02.29) Active confirmed Problem Long-term current use of anticoagulant (314310142) 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 termite current use of anticoagulant (Z79.01) Active confirmed Problem Flank pain (145476491) Flank pain (R10.9) Active confirmed Problem Body mass index 40+ - severely obese (898003198) BMI 45.0-49.9, adult (Z68.42) Active confirmed Problem Anemia in chronic kidney disease (414047602) Anemia in chronic kidney disease (D63.1) Active confirmed Problem Mixed hyperlipidemia (301943192) Mixed hyperlipidemia (E78.2) Active confirmed Problem Chronic atrial fibrillation (029530105) Chronic atrial fibrillation (I48.2) Active confirmed Problem Frequency of micturition (641825204) Frequency of micturition (R35.0) Active confirmed Problem Long-term current use of anticoagulant (092846926) intermediate (current) use of anticoagulants (Z79.01) Active confirmed Problem Old myocardial infarction (7604463) History of AL (myocardial infarction) (I25.2) Active confirmed Problem History of aortic valve replacement (4186823799705) History of aortic valve replacement (Z95.2) Active confirmed Problem Gastroesophageal reflux disease (disorder) (858718865) Chronic GERD (K21.9) Active confirmed Problem 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 (693073610028084) Coronary artery disease involving iliamna coronary artery of iliamna heart without angina pectoris (I25.10) Active confirmed Problem Gout (66261696) Gout, unspecifie d cause, unspecified chronicity, unspecified site (M10.9) Active confirmed Problem Iron deficiency anemia due to chronic blood loss (259689670) Iron deficiency anemia due to chronic blood loss (D50.0) Active confirmed Problem Morbid obesity (722347320) Morbid obesity due to excess calories (E66.01) Active confirmed Problem Benign prostatic hypertrophy without outflow obstruction (584983820) Benign prostatic hyperplasia without lower urinary tract symptoms, unspecified morphology (N40.0) Active confirmed Problem History of cholecystectomy (401513110) Status post laparoscopic cholecystectomy (Z90.49) Active confirmed Problem Leukocytosis (691918904) Leukocytosis, unspecified (D72.829) Active confirmed Problem Allergic rhinitis (44567678) Allergic rhinitis, unspecified allergic rhinitis trigger, unspecified rhinitis seasonality (J30.9) Active confirmed Problem Chronic anemia (996188488) Chronic anemia (D64.9) Active confirmed Problem Lower urinary tract symptoms due to benign prostatic hypertrophy (12441044621960) Benign prostatic hyperplasia with lower urinary tract symptoms (N40.1) Active confirmed Problem Disorder of carotid artery (disorder) (078468464) Carotid artery disease, unspecified laterality (I77.9) Active confirmed Problem Gallstone (096404668) Gall stones (K80.20) Active confirmed Problem Allergic rhinitis (08853895) Allergic rhinitis, unspecified seasonality, unspecified trigger (J30.9) Active confirmed Problem Heart failure (01730487) Chronic congestive heart failure, unspecified heart failure type (I50.9) Active confirmed Problem Arthritis of left ankle (4437287729685042) Arthritis of left ankle (M19.072) Active confirmed Problem Diabetic renal disease (121498095) Type 2 diabetes mellitus with diabetic chronic kidney disease, unspecified CKD stage, unspecified whether intermediate school teacher insulin use (E11.22) Active confirmed Problem Longstanding persistent atrial fibrillation (966204328) Longstanding persistent atrial fibrillation (I48.11) Active confirmed Problem Chronic atrial fibrillation (245832837) Chronic atrial fibrillation (I48.20) Active confirmed Problem Chronic kidney disease stage 3B (disorder) (931751687) Stage 3b chronic kidney disease (N18.32) Active confirmed Problem Chronic kidney disease stage 3A (disorder) (912960179) CKD stage 3a, GFR 45-59 ml/min (N18.31) Active confirmed Problem Long-term current use of drug therapy (194599038) intermediate current use of diuretic (Z79.899) Active confirmed Vital Signs Heart Rate 74 /min 04/07/2025 Blood pressure diastolic 80 mm Hg 04/07/2025 Height 70 in 04/07/2025 Blood pressure systolic 136 mm Hg 04/07/2025 Weight 332.2 lbs 04/07/2025 BMI 47.66 kg/m2 04/07/2025 Encounters Encounter Location Date Provider Diagnosis [facility] [address] [place] [id number] 05/09/2024 Moi Higbee Atrial fibrillation I48.91 and intermediate current use of anticoagulant Z79.01 [facility] [address] [facility] [address] [place], [place] [id number] 05/20/2024 Moi Higbee Herpes zoster withou t complication B02.9 and Post herpetic neuralgia B02.29 [facility] [address] [facility] [address] [place], [place] [id number] 06/06/2024 Moi Higbee Post herpetic neural olivier B02.29 ; Peripheral edema R60.0 ; Stage 3b chronic kidney disease N18.32 ; Atrial fibrillation I48.91 and intermediate current use of anticoagulant Z79.01 [facility] [address] [place], [place] [id number] 08/31/2024 Moi Higbee Peripheral edema R60 .0 ; Stage 3b chronic kidney disease N18.32 and Atrial fibrillation I48.91 [facility] [address] [place], [place] [id number] 10/06/2024 Moi Higbee Chronic atrial fibrillation I48.2 [facility] [address] [place], [place] [id number] 03/01/2025 Moi Higbee Nausea R11.0 ; Leukocytosis, unspecified D72.829 ; Tachycardia R00.0 ; Chronic congestive heart failure, unspecified heart failure type I50.9 ; Mixed hyperlipidemia E78.2 ; Essential hypertension I10 ; Chronic anemia D64.9 ; Type 2 diabetes mellitus with diabetic chronic kidney disease, unspecified CKD stage, unspecified whether intermediate school teacher insulin use E11.22 ; BMI 45.0-49.9, adult Z68.42 and 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 [facility] [address] [facility] [address] [place], [place] [id number] 03/06/2025 Moi Higbee Left leg cellulitis L03.116 and 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 termite current use of anticoagulant Z79.01 [facility] [address] [place], [place] [id number] 03/13/2025 Moi Higbee Left leg cellulitis L03.116 ; Essential hypertension I10 ; Peripheral edema R60.0 and 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 termite current use of anticoagulant Z79.01 [facility] [address] [place], [place] [id number] 04/07/2025 Moi Higbee Essential hypertensi on I10 ; Mixed hyperlipidemia E78.2 ; Gout, unspecified cause, unspecified chronicity, unspecified site M10.9 ; Vitamin D deficiency E55.9 ; Stage 3b chronic kidney disease N18.32 ; Chronic atrial fibrillation I48.20 and Type 2 diabetes mellitus with diabetic chronic kidney disease, unspecified CKD stage, unspecified whether intermediate school teacher insulin use E11.22 [facility] [address] [place], [place] [id number] 04/28/2024 Moi Higbee Essential hypertensi on I10 [facility] [address] [place] [id number] 06/07/2024 Moi Higbee [facility] [address] [place], [place] [id number] 06/07/2024 Moi Higbee Gout, unspecified ca use, unspecified chronicity, unspecified site M10.9 [facility] [address] [place], [place] [id number] 07/08/2024 Abigail Catherine Post herpetic neural olivier B02.29 [facility] [address] [place], [place] [id number] 08/11/2024 Moi Higbee Longstanding persist ent atrial fibrillation I48.11 [facility] [address] [place], [place] [id number] 08/23/2024 Moi Higbee [facility] [address] [place], [place] [id number] 08/30/2024 Moi Higbee [facility] [address] [place] [id number] 09/16/2024 Moi Higbee [facility] [address] [place] [id number] 09/19/2024 Moi Higbee [facility] [address] [place], [place] [id number] 09/27/2024 Moi Higbee [facility] [address] [place], [place] [id number] 10/25/2024 Moi Higbee Post herpetic neural olivier B02.29 [facility] [address] [place], [place] [id number] 10/25/2024 Moi Higbee [facility] [address] [place] [id number] 10/31/2024 Moi Higbee [facility] [address] [place] [id number] 12/22/2024 Moi Higbee Gout, unspecified ca use, unspecified chronicity, unspecified site M10.9 [facility] [address] [place], [place] [id number] 01/03/2025 Moi Higbee [facility] [address] [place], [place] [id number] 01/30/2025 Moi Higbee Essential hypertensi on I10 [facility] [address] [place] [id number] 02/24/2025 Moi Higbee [facility] [address] [place], [place] [id number] 03/02/2025 Moi Higbee [facility] [address] [place], [place] [id number] 03/03/2025 Moi Higbee [facility] [address] [place] [id number] 03/14/2025 Moi Higbee [facility] [address] [place] [id number] 03/21/2025 Moi Higbee Left leg cellulitis L03.116 [facility] [address] [place], [place] [id number] 04/03/2025 Moi Higbee Atrial fibrillation I48.91 and Gout, unspecified cause, unspecified chronicity, unspecified site M10.9 [facility] [address] [place], [place] [id number] 04/11/2025 Moi Higbee Assessments Encounter Date Diagnosis (ICD Code) Assessment Notes Treatment Notes Treatment Clinical Notes Section Notes 05/09/2024 Atrial fibrillation (ICD-10 - I48.91) 05/09/2024 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 termite current use of anticoagulant (ICD-10 - Z79.01) 05/20/2024 Post herpetic neuralgia (ICD-10 - B02.29) 05/20/2024 Herpes zoster without complication (ICD-10 - B02.9) 06/06/2024 Peripheral edema (ICD-10 - R60.0) Patient will take an extra diuretic every other day this week 06/07/2024 Gout, unspecified cause, unspecified chronicity, unspecified site (ICD-10 - M10.9) 07/08/2024 Post herpetic neuralgia (ICD-10 - B02.29) 08/11/2024 Longstanding persistent atrial fibrillation (ICD-10 - I48.11) 10/06/2024 Chronic atrial fibrillation (ICD-10 - I48.2) 10/25/2024 Post herpetic neuralgia (ICD-10 - B02.29) 12/22/2024 Gout, unspecified cause, unspecified chronicity, unspecified site (ICD-10 - M10.9) 01/30/2025 Essential hypertension (ICD-10 - I10) 06/06/2024 Post herpetic neuralgia (ICD-10 - B02.29) 03/01/2025 Nausea (ICD-10 - R11.0) 03/01/2025 Leukocytosis, unspecified (ICD-10 - D72.829) 03/06/2025 intermediate current use of anticoagulant (ICD-10 - Z79.01) 03/06/2025 Left leg cellulitis (ICD-10 - L03.116) 03/13/2025 Essential hypertension (ICD-10 - I10) 03/21/2025 Left leg cellulitis (ICD-10 - L03.116) 04/03/2025 Atrial fibrillation (ICD-10 - I48.91) 04/07/2025 Essential hypertension (ICD-10 - I10) 04/07/2025 Mixed hyperlipidemia (ICD-10 - E78.2) 03/13/2025 Left leg cellulitis (ICD-10 - L03.116) 08/31/2024 Stage 3b chronic kidney disease (ICD-10 - N18.32) 08/31/2024 Peripheral edema (ICD-10 - R60.0) 04/28/2024 Essential hypertension (ICD-10 - I10) 08/31/2024 Atrial fibrillation (ICD-10 - I48.91) 03/13/2025 Peripheral edema (ICD-10 - R60.0) 04/07/2025 Gout, unspecified cause, unspecified chronicity, unspecified site (ICD-10 - M10.9) 04/03/2025 Gout, unspecified cause, unspecified chronicity, unspecified site (ICD-10 - M10.9) 06/06/2024 Stage 3b chronic kidney disease (ICD-10 - N18.32) 03/01/2025 Tachycardia (ICD-10 - R00.0) 06/06/2024 Atrial fibrillation (ICD-10 - I48.91) 03/01/2025 Chronic congestive heart failure, unspecified heart failure type (ICD-10 - I50.9) 04/07/2025 Vitamin D deficiency (ICD-10 - E55.9) 03/13/2025 intermediate current use of anticoagulant (ICD-10 - Z79.01) 04/07/2025 Stage 3b chronic kidney disease (ICD-10 - N18.32) 03/01/2025 Mixed hyperlipidemia (ICD-10 - E78.2) 06/06/2024 intermediate current use of anticoagulant (ICD-10 - Z79.01) 03/01/2025 Essential hypertension (ICD-10 - I10) 04/07/2025 Chronic atrial fibrillation (ICD-10 - I48.20) 04/07/2025 Type 2 diabetes mellitus with diabetic chronic kidney disease, unspecified CKD stage, unspecified whether half-way insulin use (ICD-10 - E11.22) 03/01/2025 Chronic anemia (ICD-10 - D64.9) 03/01/2025 Type 2 diabetes mellitus with diabetic chronic kidney disease, unspecified CKD stage, unspecified whether half-way insulin use (ICD-10 - E11.22) 03/01/2025 BMI 45.0-49.9, adult (ICD-10 - Z68.42) 03/01/2025 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) 03/01/2025 Other Patient sent to [facility] infusion for 2 liters of normal saline and a dose of IV Zofran Plan Of Treatment Pending Test Test Name Order Date H-03/31/2024 Next Appt Details Provider Name:Moi lerner, 10/09/2025 09:45:00 AM, [address] [facility], [address], [place], [place], [id number], Insurance Providers Payer Name Payer Address Payer Phone Subscriber Number Group Number Insured Name Patient Relationship to Insured Coverage Start Date Coverage End Date MEDICARE PART B [address] [address] [place] [id number] COLETTE LYON Self - patient is the insured MEDICAID [employer] [address] [place] [id number] DILLAN COLETTE Self - patient is the insured Medical (General) History Medical History History ICD Code Coronary Artery Disease, Dr. 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, Porcine Atrial Fibrillation, [facility] Hyperlipidemia Hypertension Gout Vitamin D Deficiency Allergic Rhinitis BPH Sleep Apnea Chronic Kidney Disease Pacemaker Surgical History Surgery Date(Month/Year) Cardiac Stent x2,1 balloon 2006 Carotid Surgery 07/26/2014 AVR 09/20/2012 Skin Lesion Cardiac Stent x1 2014 CABG 06/16/2018 Cholecystectomy - Lapraroscopic 07/19/20 19 Skin Cancer Removal - Forehead, Arm, Andrade d Pacemaker 2021 Hospitalization History Reason Date(Month/Year) Cholecystectomy- [facility] 07/19-09/2018 Gallbladder, Esophagitis, Partial Lung C ollapse- [facility] 07/11-10/2017 Leg Wound- [facility] 01/15/2018 Milo Aguila - [facility] 02/16- 06/2017
--- OUTSIDE RECORDS SUMMARY | 2025-04-25 11:15 | XMS_ITS | Encounter Summary ---
Author Organization [facility] Address [address] [place] [address] Care Team Providers Care Receiving Checker Name Role Phone Moi Rayo MD Primary Care Provider + [phone] Reason for Visit * Reason Comments Med Refill Encounter Details Date Type Department Care Team (Late st Contact Info) Description 04/14/2023 Refill [facility] [address] [place] [address] Jailene Vargas MD [address] [place] [address] Med Refill Social History Tobacco [...] Industry Job Start Date Job End Date [employer] Not on file Not on file Not on file documented as of this encounter Miscellaneous Notes * Telephone Encounter - Bethel Chavira CMA - 04/14/2023 10:10 AM EDT Failed protocol. Last visit 03.25.2023. Upcoming visit 04.29.2023 documented in this encounter Plan of Treatment Upcoming Encounters Date Type Department Care Team (Late st Contact Info) Description 05/01/2025 8:30 AM EDT Ancillary Procedure [facility] [address] [place] [address] [place] [phone] 05/01/2025 10:00 AM EDT Clinical Support No Requirements [facility] [address] [place] [address] [place] [phone] 05/01/2025 10:45 AM EDT Office Visit [facility] [address] [place] [address] [place] [phone] Jailene Vargas MD [address] [facility] [place] [phone] documented as of this encounter Visit Diagnoses Not on filedocumented in this encounter Care Teams Receiving Checker Relationship Specialty Start Date End Date Moi Rayo MD [address] [facility] [address] [place] [address] PCP - General Family Medicine 05/20/17 documented as of this encounter
--- OUTSIDE RECORDS SUMMARY | 2025-04-25 11:15 | XMS_ITS | Encounter Summary ---
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 Not on file Not on file documented as of this encounter Plan of Treatment Upcoming Encounters Date Type Department Care Team (Late st Contact Info) Description 05/01/2025 8:30 AM EDT Ancillary Procedure [facility] [address] [phone] 05/01/2025 10:00 AM EDT Clinical Support No Requirements [facility] [address] [phone] 05/01/2025 10:45 AM EDT Office Visit [facility] [address] [place] [phone] Jailene Vargas MD [address] [place] [address] documented as of this encounter Visit Diagnoses Not on filedocumented in this encounter Care Teams Appointment Setter Relationship Specialty Start Date End Date Moi Rayo MD [address] [facility] [address] [facility] [place] [address] PCP - General Family Medicine 05/20/17 documented as of this encounter
--- OUTSIDE RECORDS SUMMARY | 2025-04-25 11:16 | XMS_ITS | Clinical Summary ---
Author Organization [facility] Address [address] [place] [address] Care Team Providers Care Drill Bit Sharpener Name Role Phone Moi Rayo MD Primary Care Provider + [phone] Allergies Active Allergy Reactions Criticality Noted Date [...] disease invo lving coronary bypass graft of [place] heart without angina pectoris 06/08/2018 Overview (06/26/2018): [...] regurgitation is present Right ventricular cavity is yika-ab-[id number] dilated. Mild tricuspid valve regurgitation is present. 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 Not on file Not [...] Description 05/01/2025 8:30 AM EDT Ancillary Procedure [facility] [address] [phone] 05/01/2025 10:00 AM EDT Clinical Support No Requirements [facility] [address] [phone] 05/01/2025 10:45 AM EDT Office Visit [facility] [address] [phone] Jailene Vargas MD [address] [address] Health Maintenance Due Date Last Done Comments [...] 01/01/2021, 11/08 Medical Devices Implanted Type Area Allied Health Teacher Device Identifier Shelf Expiration Date Model / Serial / Lot Markr [facility] Radiomark Disk Ro Di - [id number] Implanted:Qty : 1 on 06/16/2018 by Hollis Roman MD at [facility] Implant N/A: Heart [employer] [id number] / / Stent Stent Procedures Procedure Name [...] 5:36 AM EDT) Date Time Interrogation Session [id number] [facility] Type Interrogation Session Remote Scheduled [facility] Implantable Pulse Generator Allied Health Teacher [employer] [facility] Implantable Pulse Generator Type IPG [facility] Implantable Pulse Generator Model 2272 Assurity MRI(TM) [facility] Implantable Pulse Generator Serial Number [id number] [facility] Implantable Pulse Generator Implant Date [id number] [facility] Battery Remaining Percentage 68.00 % [facility] Battery Remaining Longevity 73.0 mo [facility] Battery Voltage 2.990 [facility] [employer] RADIOLOGY Battery ANSWERING SERVICE OPERATOR Trigger 2.600 [facility] Battery Status Middle of Service [facility] Kwesi Statistic RA Percent Paced 81.00 [facility] Kwesi Statistic RV Percent Paced 13.00 [facility] Atrial Tachy Statistic AT/AF [place] Percent 15.00 [facility] Lead Channel RA Sensing Intrinsic Amplitude 2.200 [facility] Lead Channel Setting RA Sensing Sensitivity 0.50 [facility] Lead Channel RA Impedance Value 410 [facility] Lead Channel Setting RA Pacing Amplitude 2.000 [facility] Lead Channel Setting RA Pacing Pulse Width 0.5 [facility] [employer] RADIOLOGY Lead Channel RV Sensing Intrinsic Amplitude 12.000 [facility] Lead Channel Setting RV Sensing Sensitivity 2.00 [facility] Lead Channel RV Impedance Value 490 [facility] Lead Channel Setting RV Pacing Amplitude 1.750 [facility] Lead Channel Setting RV Pacing Pulse Width 0.5 [facility] Kwesi Setting Mode (NBG Code) DDDR [facility] Kwesi Setting Lower Rate Limit 60 [facility] Kwesi Setting AT Mode Switch Rate 160 [facility] Kwesi Setting Maximum Tracking Rate 120 [facility] Kwesi Setting Maximum Sensor Rate 120 [facility] Kwesi Setting PAV Delay 250 [facility] Kwesi Setting SOPHIA Delay 200 [facility] Lead Channel Setting RA Sensing Polarity Bipolar [facility] Lead Channel Setting RV Sensing Polarity Bipolar [facility] Lead Channel Setting RA Pacing Polarity Bipolar [facility] Lead Channel Setting RV Pacing Polarity Bipolar [facility] Lead Channel RA Pacing Threshold Polarity Bipolar [facility] Lead Channel RV Pacing Threshold Polarity Bipolar [facility] 02/01/2025 5:36 AM EDT us Jailene Vargas MD CV IMPLANTABLE CARDIAC DEVIC E Final Result Performing Organization Address [facility]/ZIP Co de Phone Number [facility] * Hemoglobin A1c (04/22/2024) Blood us Jailene Vargas MD LAB BLOOD ORDERABLES Final R esult Performing Organization Address [facility] Co de Phone Number [facility]
[address] [place] [address], [place] [phone] * Lipid Panel (04/22/2024) Blood us Jailene Vargas MD LAB BLOOD ORDERABLES Final R esult Performing Organization Address [facility] Co de Phone Number [facility]
[address] [place] [address], [place] [phone] from Last 3 Months or Most Recently [...] Of Support Discussed With: Patient Care Teams Drill Bit Sharpener Relationship Specialty Start Date End Date Moi Rayo MD [address] [place] [facility] [address] [place] [address] PCP - General Family Medicine 05/20/17
--- NOTE | 2025-04-25 17:35 | PC.NURSE ---
pt resting in bed, short of breath placed on 02@2L, call light in reach
[2025-04-25] MEDS: IPRATROPIUM/ALBUTEROL 3 ML NEB IH (21:12)
[2025-04-25] MEDS: FINASTERIDE 5MG TABLET 5 MG PO (21:30)
[2025-04-25] MEDS: ATORVASTATIN 40MG TABLET 80 MG PO (21:31)
[2025-04-25] MEDS: MONTELUKAST SODIUM 10MG TAB 10 MG PO (21:32)
[2025-04-25] MEDS: PANTOPRAZOLE 40MG TABLET 40 MG PO (21:32)
[2025-04-26] VITALS (8 sets, daily range): BP systolic 98–151; BP diastolic 52–71; PULSE 70–140; RESP 17–20; TEMP 36.4–36.8; O2SAT 94–98; BMI 53.9
[2025-04-26] MEDS: VANCOMYCIN HCL 2,000 MG in 0.9 % SODIUM CHLORIDE 250 ML 125 MG IV (05:28)
[2025-04-26] MEDS: ALBUTEROL-HFA 90MCG/PUFF INHALER 8GM 2 PUFF IH ×2 (05:59→18:15)
[2025-04-26 06:40] LABS: Hematocrit 28.8 % (42.0-52.0); Hemoglobin 9.5 g/dL (14.1-18.0); Immature Granulocytes % 0.9 %; Mean Corpuscular HGB Conc 33.0 g/dL (31.8-35.4); Mean Corpuscular Hemoglobin 35.1 pg (27.0-31.2); Mean Corpuscular Volume 106.3 fl (80-94); Nucleated Red Blood Cells % 0 %; Platelet Count 67 K/mm3 (142-424); Red Blood Count 2.71 M/mm3 (4.60-6.20); Red Cell Distribution Width-SD 56.4 fL; White Blood Count 8.1 K/mm3 (4.8-10.8)
[2025-04-26 06:41] LABS: INR 2.43 (0.9-1.1); Prothrombin Time 25.3 seconds (10.1-12.5)
[2025-04-26 06:52] LABS: Anion Gap 8.5 mEq/L (5-15); Blood Urea Nitrogen 34 mg/dl (9-20); Calcium 8.2 mg/dl (8.4-10.2); Carbon Dioxide 26 mmol/L (22.0-30.0); Chloride 104 mmol/L (98-107); Creatinine Clearance Estimated 35 mL/min (50-200); Creatinine,Serum 1.70 mg/dl (0.66-1.25); Estimated Glomerular Filt Rate 39 ml/min (>60); GFR (African American) 47 ML/MIN (>60); Glucose 110 mg/dl (74-100); Potassium 4.5 mmoL/L (3.5-5.1); Sodium 134 mmol/L (136-145)
[2025-04-26] MEDS: ASPIRIN 81MG CHEWABLE TABLET 81 MG PO (08:09)
[2025-04-26] MEDS: TAMSULOSIN 0.4MG CAPSULE 0.4 MG PO (08:09)
[2025-04-26] MEDS: FLUTICASONE PROP 50MCG NASAL SPRAY 16GM 1 SPRAY NS (08:10)
--- NOTE | 2025-04-26 08:23 | EXP.ACUTE.PN ---
Subjective *Date: 04/26/25 *Time: 08:51 Interval history: Patient states he is not feeling as well this am. He can tell his heart is out of rhythm and going too fast. He denies any pain. He thinks he left leg looks about the same today. He is able to sit up in the chair. Medical Exam Vital signs and Labs for Last 24 Hours: Vital Signs Temp Pulse Pulse Resp BP Pulse Ox O2 Del Method 04/26/25 07:00 Nasal Cannula 04/26/25 06:03 95 Nasal Cannula 04/26/25 05:00 Nasal Cannula 04/26/25 04:00 97.8 F 97 H 17 151/54 H 94 L CPAP 04/26/25 03:00 Nasal Cannula 04/26/25 01:00 Nasal Cannula 04/25/25 23:55 96 H 18 152/65 H 95 CPAP 04/25/25 23:00 Nasal Cannula 04/25/25 21:12 88 04/25/25 21:12 87 04/25/25 21:12 91 L Nasal Cannula 04/25/25 21:00 Nasal Cannula 04/25/25 20:00 Nasal Cannula 04/25/25 20:00 98.2 F 88 22 156/63 H 93 L 04/25/25 19:00 Nasal Cannula 04/25/25 16:00 97.8 F 89 24 125/56 L 91 L Room Air 04/25/25 16:00 70 04/25/25 14:06 Room Air 04/25/25 12:19 Room Air 04/25/25 12:00 80 04/25/25 12:00 98.1 F 90 22 117/50 L 90 L Room Air 04/25/25 10:27 Room Air 04/25/25 08:51 Room Air 04/25/25 08:41 70 O2 Flow Rate 04/26/25 07:00 2 04/26/25 06:03 2 04/26/25 05:00 2 04/26/25 04:00 04/26/25 03:00 2 04/26/25 01:00 2 04/25/25 23:55 04/25/25 23:00 2 04/25/25 21:12 04/25/25 21:12 04/25/25 21:12 2 04/25/25 21:00 2 04/25/25 20:00 2 04/25/25 20:00 04/25/25 19:00 2 04/25/25 16:00 04/25/25 16:00 04/25/25 14:06 04/25/25 12:19 04/25/25 12:00 04/25/25 12:00 04/25/25 10:27 04/25/25 08:51 04/25/25 08:41 Intake and Output 04/25/25 04/26/25 04/26/25 19:59 03:59 11:59 Intake Total 380 / 630 250 / 630 Output Total 750 / 1350 200 / 1350 400 / 1350 Balance -370 / -720 50 / -720 -400 / -720 Intake: Intake, Oral Amount 380 / 580 200 / 580 Intake, Total IV Amount 50 / 50 Ceftriaxone 1 gm 1 gm In 0.9 % 50 / 50 Sodium Chloride 50 ml @ 100 mls /hr IV Q24H [facility] Rx#:[id number] Output: Output, Urine Amount 750 / 1350 200 / 1350 400 / 1350 Other: Number of Voids 0 Number of Unmeasured Voids 0 0 0 Weight 356 lb Patient Weight 04/26/25 11:59 Weight 356 lb Laboratory Results - last 24 hr 04/25/25 09:23: PT 23.5 H, INR 2.25 H 04/26/25 05:53: WBC 8.1, RBC 2.71 L, Hgb 9.5 L, Hct 28.8 L, MCV 106.3 H, MCH 35.1 H, MCHC 33.0, RDW 14.4, Plt Count 67 L D, MPV 12.2 H, Neut % (Auto) 79.1, Lymph % (Auto) 12.1, [place] % (Auto) 7.0, Eos % (Auto) 0.7, Baso % (Auto) 0.2, Neut # (Auto) 6.4, Lymph # (Auto) 1.0, [place] # (Auto) 0.6, Eos # (Auto) 0.1, Baso # (Auto) 0.0, PT 25.3 H, INR 2.43 H, Sodium 134 L, Potassium 4.5, Chloride 104, Carbon Dioxide 26, Anion Gap 8.5, BUN 34 H, Creatinine 1.70 H, Estimated Creat Clear 35, Estimated GFR 39 L, Est GFR ( Amer) 47 L D, Glucose 110 H, Calcium 8.2 L I & O for Labs for Last 24 Hours: Intake & Output 04/23/25 04/24/25 04/25/25 04/26/25 11:59 11:59 11:59 11:59 Intake Total 1550 / 1550 630 / 630 Output Total 350 / 350 1350 / 1350 Balance 1200 / 1200 -720 / -720 Weight 344 lb 14.4 oz 356 lb Microbiology Reports for the Last 24 Hours: Microbiology 04/25/25 01:35 Blood Blood Culture - Preliminary NO GROWTH AFTER 24 HOURS 04/25/25 01:35 Blood Blood Culture - Preliminary NO GROWTH AFTER 24 HOURS Constitutional: Present no acute distress Respiratory: Present CTA bilaterally Cardiac: Present Other (irregularly irregular, rate on the monitor in the 130-140's) GI: Present soft; Absent tenderness or guarding Extremities: Present edema (bilateral LE's) Skin: Present erythema (left lower leg) Neuro: Present alert, awake and oriented x 3 Assessment and Plan *Assessment and plan (1) Cellulitis of left lower extremity: Status: Acute Category: Medical Code(s): L03.116 - Cellulitis of left lower limb (2) Elevated bilirubin: Status: Acute Category: Medical Code(s): R17 - Unspecified jaundice (3) CHELSIE (acute kidney injury): Status: Acute Category: Medical Code(s): N17.9 - Acute kidney failure, unspecified (4) Morbid obesity with body mass index (BMI) of 40.0 to 49.9: Status: Acute Category: Medical Code(s): E66.01 - Morbid (severe) obesity due to excess calories (5) Lymphedema of both lower extremities: Status: Acute Category: Medical Code(s): I89.0 - Lymphedema, not elsewhere classified (6) Osteoarthritis of both ankles and feet: Status: Chronic Category: Medical Code(s): M19.071 - Primary osteoarthritis, right ankle and foot; M19.072 - Primary osteoarthritis, left ankle and foot (7) Sleep apnea: Status: Acute Category: Medical Code(s): G47.30 - Sleep apnea, unspecified (8) Anemia: Status: Acute Qualifiers: Anemia type: iron deficiency Iron deficiency anemia type: chronic blood loss Qualified Code(s): D50.0 - Iron deficiency anemia secondary to blood loss (chronic) Category: Medical Code(s): D64.9 - Anemia, unspecified (9) Hx of gout: Status: Acute Category: Medical Code(s): Z87.39 - Personal history of other diseases of the musculoskeletal system and connective tissue (10) BPH (benign prostatic hyperplasia): Status: Acute Category: Medical Code(s): N40.0 - Benign prostatic hyperplasia without lower urinary tract symptoms (11) Hyperlipidemia: Status: Acute Category: Medical Code(s): E78.5 - Hyperlipidemia, unspecified (12) HBP (high blood pressure): Status: Acute Category: Medical Code(s): I10 - Essential (primary) hypertension (13) S/P CABG (coronary artery bypass graft): Status: Acute Category: Surgical Code(s): Z95.1 - Presence of aortocoronary bypass graft (14) S/P AVR (aortic valve replacement): Status: Acute Category: Surgical Code(s): Z95.2 - Presence of prosthetic heart valve (15) Atrial fibrillation with rapid ventricular response: Status: Acute Category: Medical Code(s): I48.91 - Unspecified atrial fibrillation Plan Wound care with physical therapy ordered. Hopefully the patient's leg can be wrapped today as this seemed to help him in the past. Will continue with antibiotics. H&H has decreased and renal function has improved slightly. Patient is in afib today with RVR. Will likely need to reorder Multaq and toprol. Will discuss with Dr. Rayo. Dr. Rayo entry - Saw patient, agree with above note. Toprol and Multaq ordered. Wound care to see patient today, will request Marilee wraps be placed on legs.
--- NOTE | 2025-04-26 09:27 | PC.NURSE ---
spoke with Dr. Reynoso on restarting pt home meds, pt states thats why his heart rate is up.
[2025-04-26] MEDS: METOPROLOL TARTRATE 50MG TABLET 100 MG PO ×2 (10:13→21:05)
[2025-04-26] MEDS: DRONEDARONE 400 MG TABLET PO ×2 (10:14→18:03)
--- NOTE | 2025-04-26 15:44 | HMH.PTWOUND ---
Rehab Wound Evaluation Rehab IP Wound Evaluation Start: 04/25/25 09:01 Freq: ONCE Status: Active Protocol: Document 04/26/25 15:39 LISSETH (Rec: 04/26/25 15:44 LISSETH [id number]) Rehab PT Wound Assessment Subjective Subjective 79-year-old male with a rather difficult history to include the following: Anxiety, arthritis, atrial fibrillation, cellulitis, coronary artery disease with previous stent placement, diabetes mellitus, dyslipidemia, obesity, hypertension, hyperlipidemia, hypothyroidism, aortic valve replacement who presented to [facility] emergency room for evaluation after experiencing 2 episodes of chilling/ fever. He is noted to have been treated for cellulitis on a couple occasions and is followed by podiatry as well. He has worn Unna boots in the past with improvement in leg swelling and cellulitis. Patient states he did not eat or drink very well yesterday due to nausea and vomiting. He also experienced some diarrhea and his urine was dark. He presents upon adm with increased B LE edema, erythema, and TTP. No open wounds noted, only several small vesicles to B lower legs. He has long hx of CVI with stasis ulcers and stasis dermatitis. Plan/Recommendation Comment B LE unna boot placed to control edema and prevent wounds. Pt understands all instructions for care of B LE unna boot with spouse present. Dressing may be left in pace up to 7 days without difficulty. Eval Complexity Eval Charge Codes 13366 - High Complexity PHYSICIAN CERTIFICATION: I certify the specified therapy services for Chad Lyon are required, authorized, and reviewed every 30 days.
--- NOTE | 2025-04-26 17:53 | PC.NURSE ---
Pt resting in bed, tried to ween off the 02-pt tolerated it for a few hours then had to place 02 back on. Marilee boots placed by PT, call light in reach
[2025-04-26] MEDS: FINASTERIDE 5MG TABLET 5 MG PO (20:23)
[2025-04-26] MEDS: CEFTRIAXONE 1 GM 1 GM in 0.9 % SODIUM CHLORIDE 50 ML IV (20:23)
[2025-04-26] MEDS: ATORVASTATIN 40MG TABLET 80 MG PO (20:23)
[2025-04-26] MEDS: PANTOPRAZOLE 40MG TABLET 40 MG PO (21:05)
[2025-04-26] MEDS: MONTELUKAST SODIUM 10MG TAB 10 MG PO (21:05)
[2025-04-26] MEDS: VANCOMYCIN/WATER FOR INJ (PEG) 1.75 GM/350 ML PIGGYBACK IV (21:06)
[2025-04-27] VITALS: BP 136/64; PULSE 70; RESP 18; TEMP 37; O2SAT 96
--- NOTE | 2025-04-27 03:28 | PC.NURSE ---
Pt A&OX4. He has remained on 2L while using home CPAP throughout the night. He has received IV abx. Purewick has remained in place. He did ambulate to the bathroom requiring 1-2 assist with a walker. No complaints at this time, call light within reach.
[2025-04-27 04:00] VITALS: BP 105/50; PULSE 80; PULSE 84; RESP 18; O2SAT 96; BMI 53.6
[2025-04-27 06:07] VITALS: O2SAT 98
[2025-04-27] MEDS: ALBUTEROL-HFA 90MCG/PUFF INHALER 8GM 2 PUFF IH (06:07)
[2025-04-27 06:16] LABS: Hematocrit 31.3 % (42.0-52.0); Hemoglobin 10.1 g/dL (14.1-18.0); Immature Granulocytes % 0.7 %; Mean Corpuscular HGB Conc 32.3 g/dL (31.8-35.4); Mean Corpuscular Hemoglobin 33.8 pg (27.0-31.2); Mean Corpuscular Volume 104.7 fl (80-94); Nucleated Red Blood Cells % 0 %; Platelet Count 102 K/mm3 (142-424); Red Blood Count 2.99 M/mm3 (4.60-6.20); Red Cell Distribution Width-SD 55.0 fL; White Blood Count 9.0 K/mm3 (4.8-10.8)
[2025-04-27 06:35] LABS: Anion Gap 12.3 mEq/L (5-15); Blood Urea Nitrogen 32 mg/dl (9-20); Calcium 8.3 mg/dl (8.4-10.2); Carbon Dioxide 23 mmol/L (22.0-30.0); Chloride 101 mmol/L (98-107); Creatinine Clearance Estimated 39 mL/min (50-200); Creatinine,Serum 1.50 mg/dl (0.66-1.25); Estimated Glomerular Filt Rate 45 ml/min (>60); GFR (African American) 55 ML/MIN (>60); Glucose 108 mg/dl (74-100); Potassium 4.3 mmoL/L (3.5-5.1); Sodium 132 mmol/L (136-145)
[2025-04-27 08:00] VITALS: BP 134/45; PULSE 70; PULSE 92; RESP 18; TEMP 37.3; O2SAT 93
--- NOTE | 2025-04-27 08:14 | P.PN_ITS ---
Subjective *Date: 04/27/25 *Time: 09:01 Interval history: Patient is feeling better today. His leg was wrapped yesterday. His HR has improved but he is still in afib. He denies any pain. Medical Exam Vital signs and Labs for Last 24 Hours: Vital Signs Temp Pulse Pulse Resp BP Pulse Ox O2 Del Method 04/27/25 08:00 Nasal Cannula 04/27/25 07:00 Nasal Cannula 04/27/25 06:07 98 Nasal Cannula 04/27/25 05:00 CPAP 04/27/25 04:00 80 04/27/25 04:00 84 18 105/50 L 96 CPAP 04/27/25 03:00 CPAP 04/27/25 01:00 CPAP 04/27/25 00:00 70 04/27/25 00:00 98.6 F 70 18 136/64 96 04/26/25 23:00 BiPAP 04/26/25 21:45 70 04/26/25 20:55 Nasal Cannula 04/26/25 20:00 Nasal Cannula 04/26/25 20:00 98.3 F 82 18 130/61 97 Nasal Cannula 04/26/25 18:15 94 L Nasal Cannula 04/26/25 18:12 Nasal Cannula 04/26/25 16:20 Nasal Cannula 04/26/25 16:00 97.6 F 76 18 98/52 L 97 Nasal Cannula 04/26/25 16:00 70 04/26/25 14:22 Nasal Cannula 04/26/25 12:45 Nasal Cannula 04/26/25 12:00 97.7 F 85 20 145/71 H 98 Nasal Cannula 04/26/25 12:00 70 04/26/25 11:00 Nasal Cannula 04/26/25 09:00 Nasal Cannula O2 Flow Rate 04/27/25 08:00 2 04/27/25 07:00 2 04/27/25 06:07 1.5 04/27/25 05:00 2 04/27/25 04:00 04/27/25 04:00 04/27/25 03:00 2 04/27/25 01:00 2 04/27/25 00:00 04/27/25 00:00 04/26/25 23:00 2 04/26/25 21:45 04/26/25 20:55 2 04/26/25 20:00 2 04/26/25 20:00 04/26/25 18:15 2 04/26/25 18:12 1 04/26/25 16:20 2 04/26/25 16:00 2 04/26/25 16:00 04/26/25 14:22 2 04/26/25 12:45 2 04/26/25 12:00 2 04/26/25 12:00 04/26/25 11:00 2 04/26/25 09:00 2 Intake and Output 04/26/25 04/27/25 04/27/25 19:59 03:59 11:59 Intake Total 490 / 1190 700 / 1190 Output Total 250 / 950 700 / 950 Balance 490 / 240 450 / 240 -700 / 240 Intake: Intake, Oral Amount 240 / 540 300 / 540 Intake, Total IV Amount 250 / 650 400 / 650 Ceftriaxone 1 gm 1 gm In 0.9 % 50 / 50 Sodium Chloride 50 ml @ 100 mls /hr IV Q24H [facility] Rx#:[id number] Vancomycin HCl 2,000 mg In 0.9 250 / 250 % Sodium Chloride 250 ml @ 125 mls/hr IV Q24H [facility] Rx#:[id number] Vancomycin/Water For Inj (Peg) 350 / 350 1.75 gm In 350 ml @ 175 mls/hr IV Q18H [facility] Rx#:[id number] Output: Output, Urine Amount 250 / 950 700 / 950 Other: Number of Unmeasured Voids 0 Weight 354 lb Patient Weight 04/27/25 11:59 Weight 354 lb Laboratory Results - last 24 hr 04/27/25 05:43: WBC 9.0, RBC 2.99 L, Hgb 10.1 L, Hct 31.3 L, MCV 104.7 H, MCH 33.8 H, MCHC 32.3, RDW 14.3, Plt Count 102 L D, MPV 12.4 H, Neut % (Auto) 79.0, Lymph % (Auto) 11.2, [place] % (Auto) 7.0, Eos % (Auto) 1.8, Baso % (Auto) 0.3, Neut # (Auto) 7.2, Lymph # (Auto) 1.0, [place] # (Auto) 0.6, Eos # (Auto) 0.2, Baso # (Auto) 0.0, Sodium 132 L, Potassium 4.3, Chloride 101, Carbon Dioxide 23, Anion Gap 12.3, BUN 32 H, Creatinine 1.50 H, Estimated Creat Clear 39, Estimated GFR 45 L, Est GFR ( Amer) 55 L, Glucose 108 H, Calcium 8.3 L I & O for Labs for Last 24 Hours: Intake & Output 04/24/25 04/25/25 04/26/25 04/27/25 11:59 11:59 11:59 11:59 Intake Total 1550 / 1550 630 / 630 1190 / 1190 Output Total 350 / 350 1650 / 1650 950 / 950 Balance 1200 / 1200 -1020 / -1020 240 / 240 Weight 344 lb 14.4 oz 356 lb 354 lb Microbiology Reports for the Last 24 Hours: Microbiology 04/25/25 01:35 Blood Blood Culture - Preliminary NO GROWTH AFTER 48 HOURS 04/25/25 01:35 Blood Blood Culture - Preliminary NO GROWTH AFTER 48 HOURS 04/24/25 22:30 Urine,Clean Catch Urine Culture - Final No growth. Constitutional: Present no acute distress Respiratory: Present CTA bilaterally Cardiac: Present Other (irregularly irregular, rate on the monitor in the 130- 140's) GI: Present soft; Absent tenderness or guarding Extremities: Present edema (bilateral LE's, left leg with carla boot) Neuro: Present alert, awake and oriented x 3 Assessment and Plan *Assessment and plan (1) Cellulitis of left lower extremity: Status: Acute Category: Medical Code(s): L03.116 - Cellulitis of left lower limb (2) Elevated bilirubin: Status: Acute Category: Medical Code(s): R17 - Unspecified jaundice (3) CHELSIE (acute kidney injury): Status: Acute Category: Medical Code(s): N17.9 - Acute kidney failure, unspecified (4) Morbid obesity with body mass index (BMI) of 40.0 to 49.9: Status: Acute Category: Medical Code(s): E66.01 - Morbid (severe) obesity due to excess calories (5) Lymphedema of both lower extremities: Status: Acute Category: Medical Code(s): I89.0 - Lymphedema, not elsewhere classified (6) Osteoarthritis of both ankles and feet: Status: Chronic Category: Medical Code(s): M19.071 - Primary osteoarthritis, right ankle and foot; M19.072 - Primary osteoarthritis, left ankle and foot (7) Sleep apnea: Status: Acute Category: Medical Code(s): G47.30 - Sleep apnea, unspecified (8) Anemia: Status: Acute Qualifiers: Anemia type: iron deficiency Iron deficiency anemia type: chronic blood loss Qualified Code(s): D50.0 - Iron deficiency anemia secondary to blood loss (chronic) Category: Medical Code(s): D64.9 - Anemia, unspecified (9) Hx of gout: Status: Acute Category: Medical Code(s): Z87.39 - Personal history of other diseases of the musculoskeletal system and connective tissue (10) BPH (benign prostatic hyperplasia): Status: Acute Category: Medical Code(s): N40.0 - Benign prostatic hyperplasia without lower urinary tract symptoms (11) Hyperlipidemia: Status: Acute Category: Medical Code(s): E78.5 - Hyperlipidemia, unspecified (12) HBP (high blood pressure): Status: Acute Category: Medical Code(s): I10 - Essential (primary) hypertension (13) S/P CABG (coronary artery bypass graft): Status: Acute Category: Surgical Code(s): Z95.1 - Presence of aortocoronary bypass graft (14) S/P AVR (aortic valve replacement): Status: Acute Category: Surgical Code(s): Z95.2 - Presence of prosthetic heart valve (15) Atrial fibrillation with rapid ventricular response: Status: Acute Category: Medical Code(s): I48.91 - Unspecified atrial fibrillation Plan BP is low this am but HR is controlled. Renal function continues to improve. Will discuss further care with Dr. Rayo. Dr. Rayo entry - Saw patient, agree with above note. OK for discharge today with home health. Plan to keep him on supplemental oxygen and Unna wraps on legs for the next month. Office f/u with cardiology in [place] next week and me in 2 weeks. Will not continue antibiotics.
[2025-04-27 08:29] LABS: INR 2.68 (0.9-1.1); Prothrombin Time 27.7 seconds (10.1-12.5)
[2025-04-27] MEDS: ACETAMINOPHEN 325MG TAB 650 MG PO (08:33)
[2025-04-27] MEDS: DRONEDARONE 400 MG TABLET PO (08:34)
[2025-04-27] MEDS: ASPIRIN 81MG CHEWABLE TABLET 81 MG PO (08:34)
[2025-04-27] MEDS: TAMSULOSIN 0.4MG CAPSULE 0.4 MG PO (08:34)
[2025-04-27] MEDS: FLUTICASONE PROP 50MCG NASAL SPRAY 16GM 1 SPRAY NS (08:34)
[2025-04-27] MEDS: METOPROLOL TARTRATE 50MG TABLET 100 MG PO (08:35)
--- NOTE | 2025-04-27 09:03 | PC.NURSE ---
soke with Dr. Reynoso he plans to DC pt today. He will go home on home 02 which he already as at home, to transport
--- NOTE | 2025-04-27 09:26 | SW/DCPLANNER ---
Addendum entered by Vijaya Read 04/27/25 15:05: Home Health is unable to complete unaboots at home due to no LOUISE testing. Dr Rayo recommends patient returns to [facility] weekly for unaboot changes. I did speak w/ patient via phone and he is agreeable to return to [facility]. [facility] will contact patient back w/ scheduled day and time. Addendum entered by Tricia Roldan 04/27/25 09:37: [facility] is able to accept patient. Carlos Alberto Sanchez Original Note: Spoke with patient regarding home health services once he is medically stable and ready for discharge. Patient stated that he is interested in home health and that he has no preference in what agency i send his information to. I will fax his information to [facility] and will update once i hear back if they can accept the patient or not. Carlos Alberto Sanchez
--- NOTE | 2025-04-28 10:35 | SW/DCPLANNER ---
Spoke with patient on the phone. Patient stated that he is doing well. Patient stated that he is aware of his upcoming appointment with his primary care provider. Patient stated that he was not given any new medicine and that they continued him on the medicine he was on. Patient stated that he has no concerns or questions at this time. Carlos Alberto Sanchez
== END 2025-04-27 10:12 | disposition home health service (06) | DRG 603 ==
LOC: ER 22:04 → 2ND 04-25 01:40
PROVIDERS: Admitting Provider Family Medicine; Emergency Provider Student in an Organized Health Care Education/Training Program; PCP Family Medicine; Visit Provider Family Medicine
DX: L03.116 Cellulitis of left lower limb (principal); N17.9 Acute kidney failure, unspecified; R17 Unspecified jaundice; Z68.43 Body mass index [BMI] 50.0-59.9, adult; I10 Essential (primary) hypertension; E66.01 Morbid (severe) obesity due to excess calories; E11.9 Type 2 diabetes mellitus without complications; E03.9 Hypothyroidism, unspecified; I25.10 Atherosclerotic heart disease of native coronary artery without angina pectoris; I48.91 Unspecified atrial fibrillation; E78.5 Hyperlipidemia, unspecified; F41.9 Anxiety disorder, unspecified; G47.30 Sleep apnea, unspecified; D50.0 Iron deficiency anemia secondary to blood loss (chronic); I89.0 Lymphedema, not elsewhere classified; M19.071 Primary osteoarthritis, right ankle and foot; M19.072 Primary osteoarthritis, left ankle and foot; N40.0 Benign prostatic hyperplasia without lower urinary tract symptoms; Z95.1 Presence of aortocoronary bypass graft; Z95.2 Presence of prosthetic heart valve; Z95.5 Presence of coronary angioplasty implant and graft; Z87.39 Personal history of other diseases of the musculoskeletal system and connective tissue; Z88.5 Allergy status to narcotic agent; Z79.01 Long term (current) use of anticoagulants; Z79.82 Long term (current) use of aspirin; Z79.899 Other long term (current) drug therapy
CPT/HCPCS: 0223U; 36415; 71045; 74176; 80048; 80053; 81001; 82550; 83605; 83690; 84484; 85007; 85025; 85610; 86140; 86803; 87040; 87086; 87389; 93005; 94640; 94761; 97110; 97162; 99285; J0696; J1938; J2405; J3373; J3375; J7030; J7040; J7050

== ENCOUNTER 2025-05-02 12:27 | Outpatient (RCR) | payer MEDICARE, MEDICAID, SELFPAY ==
--- NOTE | 2025-05-02 14:51 | HMH.OPLYMPH ---
Rehab Lymphedema Evaluation Rehab Lymphedema Evaluation Start: 05/02/25 13:53 Freq: Status: Active Protocol: Document 05/02/25 14:37 PHOCHICA (Rec: 05/02/25 14:51 PHORJESUS [id number]) E-signed By Kevin Walker, PT Subjective/History History History This is the initial PT eval for Chad Lyon, 79 yowm who presents with b LE increased lymphedema x ~ 1-2 yrs overall. He has worsening co-morbid conditions that reduce his ability to ambulate which has also led to increased edema. He reports mild pain at this time, but increased pain significantly with increased edema. He has PMH of HTN, HLD, CAD, SD, aortic valve replacement, CABG x 4v, CHF, CVI, a-fib, pacemaker, OA. Subjective Subjective Pain currently 2/10, at worst 8/10 in B LE. 2+ pitting edema to B LE with MODERATE fibrotic edema and increased papillomatosis. Severe L LE blanchable erythema noted this date. L lower leg TTP 2/4. LLIS score: 41 Lymphedema Eval Classification of Lymphedema Secondary Lymphedema Yes: CVI, CHF Stemmer's sign Stemmer's Sign yes Stage of Lymphedema Lymphedema stages Stage II (Pitting edema, increased fibrosis w/ decreased pitting) Skin Changes Dry Skin Yes Taut, Shiny Skin Yes Skin Folds Yes Hyperkeratosis Yes Papillomatosis Yes Redness Yes Discoloration of Yes Skin Other Changes Yes Pain Scale Pain Scale (0-10) 8 Affected Extremities Areas Affected by Right Lower Extremity,Left Lower Extremity Lymphedema/Edema Lower Extremity Measurements Right MTP Measurement (cm) 25.8 Heel Measurement (cm 36.7 ) 10 cm Proximal to 33.9 Lateral Malleoli Measurement (cm) 20 cm Proximal to 47.8 Lateral Malleoli Measurement (cm) 30 cm Proximal to 57.5 Lateral Malleoli Measurement (cm) 40 cm Proximal to 0 Lateral Malleoli Measurement (cm) 50 cm Proximal to 0 Lateral Malleoli Measurement (cm) 60 cm Proximal to 0 Lateral Malleoli Measurement (cm) Lower Extremity 201.7 Measurement Total ( cm) Left MTP Measurement (cm) 27.3 Heel Measurement (cm 39.1 ) 10 cm Proximal to 34.0 Lateral Malleoli Measurement (cm) 20 cm Proximal to 50.9 Lateral Malleoli Measurement (cm) 30 cm Proximal to 60.5 Lateral Malleoli Measurement (cm) 40 cm Proximal to 0 Lateral Malleoli Measurement (cm) 50 cm Proximal to 0 Lateral Malleoli Measurement (cm) 60 cm Proximal to 0 Lateral Malleoli Measurement (cm) Lower Extremity 211.8 Measurement Total ( cm) Manual Lymphatic Drainage Treatment Area MLD Treatment Area Right Lower Extremity,Left Lower Extremity Wound Problems/Impairments Impairments Problems/ Palpation Tenderness,Impaired Endurance,Impaired Gait Impairmments Pattern,Impaired Walking,Impaired Standing,Impaired Dressing,Impaired Household Care,Impaired Recreational Activities,Increased Edema,Lymphedema Present, Subjective C/O Pain,Impaired Self Care/Self Management Prognosis Rehab Potential Good Comment Skilled therapy is indicated to aid reduction of overall lymphedema in order to assist pt return to improved QOL. Clinical Impression Consistent with Yes Diagnosis Lymphedema Patient Goals Lymphedema Patient Goals Lymphedema Short In 2 wks Pt will: Term Patient Goals 1) Reduce pitting edema in B LE to 1+ 2) reduce pain in B LE to 1/10 3) Reduce fibrotic edema in B LE to MILD Lymphedema [facility] In 2 wks Pt will: Patient Goals 1) Reduce pitting edema in B LE to NONE 2) reduce pain in B LE to 0/10 3) Reduce fibrotic edema in B LE to NONE 4) Be independent with donning/doffing of compression garments 5) Be independent with home lymphedema management with HEP. Outpatient Therapy Plan of Care Treatment Plan May Include Therapeutic Exercise Yes Including Home Exercise Program Manual Therapy Yes Techniques Neuromuscular Re- Yes education Therapeutic Yes Activities to Return to Previous Functional/Work Level ADL/Self Care Yes Education Orthotics/Bracing/ Yes Splinting Manual Lymphatic Yes Drainage Eval/Re-Eval Yes Frequency Times per week 2 Duration Number of Weeks 4 Addendums This patient is a No candidate for social or vocational rehab ? Patient/Guardian Yes verbally acknowledges understanding of treatment program and consents to further treatment? Patient/Guardian Yes verbally acknowledges understanding of diagnosis, prognosis and goals for treatment? Eval Complexity PT Charges 15263 - High Complexity PHYSICIAN CERTIFICATION: I certify the specified therapy services for Chad Polk Sonali are required, authorized, and reviewed every 30 days.
== END 2025-05-02 23:59 | disposition home or self-care (01) ==
LOC: PT 12:27
PROVIDERS: Visit Provider Family Medicine
DX: I89.0 Lymphedema, not elsewhere classified (principal)
CPT/HCPCS: 97140; 97163

== ENCOUNTER 2025-05-30 10:00 | Outpatient (RCR) | payer MEDICARE, MEDICAID, SELFPAY ==
--- NOTE | 2025-05-30 10:37 | HMH.RHREAS ---
Rehab Reassessment Rehab OP Re-assessment Start: 05/11/25 13:56 Freq: Status: Active Protocol: Document 05/30/25 10:25 LISSETH (Rec: 05/30/25 10:37 PHORNE [id number]) E-signed By Kevin Walker, PT Rehab Re-assessment Subjective Subjective Pt reports he feels his swelling is significantly reduced and he has less pain and soreness in his lower legs and feet. He reports easier time getting his shoes on now and he has compression garments to use moving forward. Objective Objective Notes Circumferential measurements: R LE total is 194.9 cm which is -6.8 cm since IE. L LE total is 190.8 cm which is -21.0 cm since IE. Pain: 1/10 at this time in B LE TTP: 1/4 to L lower leg only. Edema: 1+ pitting edema to B lower legs Erythema: Mild B lower leg erythema with hemosiderin staining noted to B lower legs also. LLIS: 36 Assessment Assessment Notes Pt has been present for 6 visits since his initial evaluation. He has shown significant reduction of overall edema in B LE, especially L LE, based on circumferential measurements. He would continue to benefit from further training on compression garment wear and use in order to maintain reduction on B LE edema. Skilled therapy remains indicated in order to maintain reduced edema and aid pt improvement in QOL. Lymphedema Patient Goals Lymphedema Short In 2 wks Pt will: Term Patient Goals 1) Reduce pitting edema in B LE to none 2) reduce pain in B LE to 0/10 3) Reduce fibrotic edema in B LE to MILD Lymphedema Skilled Nursing In 4 wks Pt will: Patient Goals 1) Reduce fibrotic edema in B LE to NONE 2) Be independent with donning/doffing of compression garments 3) Be independent with home lymphedema management with HEP. Plan Plan Updated POC sent to provider for their continued input and approval. Continued pt treatment may include any or all of the following interventions in order to improve functional outcomes and aid pt improvement in QOL Frequency of Therapy 1 x/wk ` Duration of Therapy 4 wks Therapeutic Exercise Yes Including Home Exercise Program Manual Therapy Yes Techniques Neuromuscular Re- Yes education Therapeutic Yes Activities to Return to Previous Functional/Work Level ADL/Self Care Yes Education Orthotics/Bracing/ Yes Splinting Manual Lymphatic Yes Drainage Eval/Re-Eval Yes Time and Billing Re-Eval Time 14 Re-Eval Billing 0 Units Charge for PT No reassessment? PHYSICIAN CERTIFICATION: I certify the specified therapy services for Chad Polk Sonali are required, authorized, and reviewed every 30 days.
== END 2025-05-30 23:59 | disposition home or self-care (01) ==
LOC: PT 10:00
PROVIDERS: Visit Provider Family Medicine
DX: I89.0 Lymphedema, not elsewhere classified (principal)
CPT/HCPCS: 97140; 97760

== ENCOUNTER 2025-06-26 07:55 | Outpatient (CLI) | payer MEDICARE, MEDICAID, SELFPAY ==
--- OUTSIDE RECORDS SUMMARY | 2024-06-06 06:00 | XMS_ITS ---
Author Organization [facility] Address [address] [facility] [address] [phone] Care Team Providers Care Dispatch Clerk Name Role Phone Moi Rayo Primary Care Provider Allergies Allergen (clinical drug ingredient) Drug/Non Drug Allergy documented on EMR Reaction Allergy Type Onset Date Status Lortab stomach upset Drug Allergy Act dimas Results Component Value Reference Range Notes PT/INR (in house) Reviewed date:06/06/2024 05:57:02 PM Interpretation: Performing Lab: Notes/Report: INR 2.1 current dose 5mg Daily new dose no change next check 6 weeks ideal INR 2-3 P-Basic Metabolic Panel (BMP ) Reviewed date:06/07/2024 11:24:32 AM Interpretation: Performing Lab: Notes/Report: CLIA: [id number] Ashok Antonio MD, Sports Management Intern [address] [facility] , [address], [place] [address] Test performed by [facility], [facility] Sodium 145 135-145 mmol/L Potassium 4.4 3.5-5.3 mmol/L Chloride 105 97-108 mmol/L CO2 32 22-32 mmol/L Glucose 98 65-99 mg/dL BUN 25 8-23 mg/dL Creatinine 1.56 0.70-1.30 mg/dL Calcium 9.0 8.6-10.4 mg/dL eGFR by Creatinine 45 >59 mL/min/1.73m2 P-CBC with Diff plus Absolut e Counts Reviewed date:06/07/2024 11:24:32 AM Interpretation: Performing Lab: Notes/Report: Test performed by [facility], [employer] [address] [place] [address] , [address], [place] [address] Ashok Antonio MD, Sports Management Intern CLIA: [id number] WBC 4.6 3.8-11.5 K/uL Red Blood Cell Count (RBC) 3.66 4.20-5.70 M/mm 3 Hemoglobin (Hgb) 12.3 13.1-17.5 gm/dL Hematocrit (HCT) 37.3 39.0-51.0 % MCV 101.9 79.0-99.0 fL MCH 33.6 26.9-35.0 pg MCHC 33.0 30.4-34.8 g/dL RDW 52.8 38.2-53.0 fL Platelet Count 109 137-397 K/cumm Neutrophils Automated 53.9 41.0-77.0 % Lymphocytes Automated 27.8 14.0-48.0 % Monocytes Automated 10.4 4.0-13.0 % Eosinophils Automated 5.7 0.0-8.0 % Basophils Automated 2.0 0.0-1.5 % Immature Granulocyte Automated 0.2 0.0-1.0 % Absolute Neutrophil Count 2.5 2.0-8.2 K/uL Absolute Lymphocyte Count 1.3 0.9-3.6 K/uL Absolute Monocyte Count 0.5 0.3-1.0 K/uL Absolute Eosinophil Count 0.3 0.0-0.6 K/uL Absolute Basophil Count 0.1 0.0-0.1 K/uL Absolute Immature Granulocyte 0.01 0.00-0.03 K /uL REASON FOR VISIT still having pain with shingles Medications Medication SIG (Take, Route, Frequency, Duration) Notes Start Date End Date Status valACYclovir HCl 1 GM 1 tablet Orally Th ree times a day; Duration: 7 days 05/20/2024 Active Bumetanide 2 MG TAKE 1 or 2 TABLETS BY MOUTH TWICE A DAY Active Finasteride 5 MG 1 tablet Orally Once a day; Duration: 90 days Active Losartan Potassium 50 MG 1 tab(s) orally once a day; Duration: 90 days Active Allopurinol 100 MG 1 tab(s) orally 2 ti mes a day; Duration: 90 days Active metOLazone 5 MG 1 tab(s) orally ever y 3 days as needed Active Warfarin Sodium 5 MG 1-1.5 tab(s) orally once a day or as directed Active Triamcinolone Acetonide 0.1 % APPLY TO AFFECTED AREA TWICE A DAY NEEDED; Duration: 60 days Active Metoprolol Tartrate 50 MG 2 tab(s) orall y 2 times a day Active Ferrous Sulfate 325 (65 Fe) MG TAKE 1 TABLET BY MOUTH TWICE A DAY; Duration: 90 Active Montelukast Sodium 10 MG 1 tab(s) orally once a day; Duration: 90 days Active Pantoprazole Sodium 40 MG TAKE 1 TABLET BY MOUTH EVERY DAY FOR 90 DAYS; Duration: 90 Active Fluticasone Propionate 50 MCG/ACT 1 spray(s) in each nostril once a day; Duration: 90 days Active Vitamin D (Ergocalciferol) 1.25 MG (04629 UT) 1 cap(s) orally twice a week; Duration: 90 days Active Albuterol Sulfate HFA 108 (90 Base) MCG/ACT INHALE 2 PUFFS 4 TIMES A DAY NEEDED; Duration: 25 Active Aspirin 81 MG 1 tab(s) orally once a day; Duration: 30 day(s) Active Diclofenac Sodium 1 % as directed applie d topically 4 times a day; Duration: 30 day(s) Active Colchicine 0.6 MG 1 tab(s) orally once a day Active Nitrostat 0.4 MG 1 tab(s) sublinguall y every 5 minutes, prn; Duration: 8 Active Potassium Chloride ER 10 MEQ 3 tab(s) orally twice a day Active Atorvastatin Calcium 80 MG TAKE 1 TABLET BY MOUTH EVERY DAY Active Pregabalin 75 MG 1 capsule Orally Two times a day; Duration: 30 day(s) 06/06/2024 Active Vital Signs Weight 343.4 lbs 06/06/2024 Blood pressure systolic 142 mm Hg 06/06/20 24 Blood pressure diastolic 72 mm Hg 024 Heart Rate 94 /min 06/06/2024 Height 70 in 06/06/2024 BMI 49.27 kg/m2 06/06/2024 Encounters Encounter Location Date Provider Diagnosis [facility] [address] [facility] [address] [place], [place] [phone] 06/06/2024 Moi [place] Post herpetic neural olivier B02.29 ; Peripheral edema R60.0 ; Stage 3b chronic kidney disease N18.32 ; Atrial fibrillation I48.91 and alf current use of anticoagulant Z79.01 Assessments Encounter Date Diagnosis (ICD Code) Assessment Notes Treatment Notes Treatment Clinical Notes Section Notes 06/06/2024 Post herpetic neuralgia (ICD-10 - B02.29) 06/06/2024 Peripheral edema (ICD-10 - R60.0) Patient will take an extra diuretic every other day this week 06/06/2024 Stage 3b chronic kidney disease (ICD-10 - N18.32) 06/06/2024 Atrial fibrillation (ICD-10 - I48.91) 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 (ICD-10 - Z79.01) Plan Of Treatment Medication Medication Name Sig Start Date Stop Date Notes Pregabalin 75 MG 1 capsule Orally Two times a day; Duration: 30 day(s) 06/06/2024 Pregabalin 50 MG 1 capsule Orally Three times a day 2023 Treatment Notes Assessment Notes Peripheral edema Patient will take an extra diuretic every other day this week Next Appt Details Follow Up: as scheduled,and prn, Reason: Provider Name:Moi lerner, 06/27/2025 10:30:00 AM, [address], [address], [place], [place], [id number], Provider Name:Moi lerner, 10/09/2025 09:45:00 AM, [address], [address], [place], [place], [id number], Progress Notes * COLETTE LYON WDOB:1945 (80 yo M)Acc No.[id number]:06/06/2024 Progress Notes Patient: COLETTE GARCÍA Provider: Gordon Rayo M.D. :1945 A ge:78 Y S ex:Male Date:06/06/2024 Address:[address] [place], [place] [address], [id number] Subjective: * Chief Complaints: * 1 . Still having pain with shingles. * HPI: C ardiology: 78 year old male presents with c/o Leg Edema P t complains of bilateral lower leg swelling. Pt has wound that is draining on lower lt leg and would like to have it looked at today. Pt states both of his calves have redness as well. D ermatology: c/o rash P t complains of ongoing pain in lt arm from shingles. Pt was seen 05/20 and rx'd Valcyclovir and Pregabalin that he has finished taking. * ROS: D ERMATOLOGY: no R lalo. n o H anju. G ASTROENTEROLOGY: no N ausea. n o V omiting. U ROLOGY: no D ifficulty urinating. n o B lood in urine. * Medical History: C oronary Artery Disease, Dr. 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 * Surgical History: C ardiac Stent x2,1 balloon 2006, Carotid Surgery 07/26/2014, AVR 09/20/2012, Skin Lesion , Cardiac Stent x1 2014, CABG 06/16/2018, Cholecystectomy - Lapraroscopic 07/19/2019, Skin Cancer Removal - Forehead, Arm, Hand , Pacemaker 2021. * Hospitalization/Major Diagno stic Procedure: A-Fib Light M.I. - [facility] 02/16-06/2017, [facility] [facility] [place]/15/2018, Gallbladder, Esophagitis, Partial Lung Collapse- [facility] 07/11-10/2017, Cholecystectomy- [facility] 07/19-07/2019. * Family History: F ather: 92 yrs. M other: 68 yrs, diagnosed with Diabetes, Hypertension, Heart Disease. S iblings: diagnosed with Diabetes, Hypertension, Heart Disease. 4 brother(s) , 1 sister(s) . 3 son(s) , 1 daughter(s) . . one son - MVA. * Social History: C URRENT TOBACCO USE S moking Status: P atient does NOT smoke. R ecreational drug use: no. Alcohol: No. * Medications: T aking Atorvastatin Calcium 80 MG Tablet TAKE 1 TABLET BY MOUTH EVERY DAY , Taking Colchicine 0.6 MG Tablet 1 tab(s) orally once a day , Taking Diclofenac Sodium 1 % Gel as directed applied topically 4 times a day , Taking Aspirin 81 MG Tablet Delayed Release 1 tab(s) orally once a day , Taking Potassium Chloride ER 10 MEQ Tablet Extended Release 3 tab(s) orally twice a day , Taking Nitrostat 0.4 MG Tablet Sublingual 1 tab(s) sublingually every 5 minutes, prn , Taking Albuterol Sulfate HFA 108 (90 Base) MCG/ACT Aerosol Solution INHALE 2 PUFFS 4 TIMES A DAY NEEDED , Taking Vitamin D (Ergocalciferol) 1.25 MG (63703 UT) Capsule 1 cap(s) orally twice a week , Taking Fluticasone Propionate 50 MCG/ACT Suspension 1 spray(s) in each nostril once a day , Taking Pantoprazole Sodium 40 MG Tablet Delayed Release TAKE 1 TABLET BY MOUTH EVERY DAY FOR 90 DAYS , Taking Montelukast Sodium 10 MG Tablet 1 tab(s) orally once a day , Taking Metoprolol Tartrate 50 MG Tablet 2 tab(s) orally 2 times a day , Taking Triamcinolone Acetonide 0.1 % Lotion APPLY TO AFFECTED AREA TWICE A DAY NEEDED , Taking Warfarin Sodium 5 MG Tablet 1-1.5 tab(s) orally once a day or as directed , Taking metOLazone 5 MG Tablet 1 tab(s) orally every 3 days as needed , Taking Ferrous Sulfate 325 (65 Fe) MG Tablet TAKE 1 TABLET BY MOUTH TWICE A DAY , Taking Allopurinol 100 MG Tablet 1 tab(s) orally 2 times a day , Taking Losartan Potassium 50 MG Tablet 1 tab(s) orally once a day , Taking Finasteride 5 MG Tablet 1 tablet Orally Once a day , Taking Bumetanide 2 MG Tablet TAKE 1 or 2 TABLETS BY MOUTH TWICE A DAY , Taking Pregabalin 50 MG Capsule 1 capsule Orally Three times a day , Taking valACYclovir HCl 1 GM Tablet 1 tablet Orally Three times a day , Medication List reviewed and reconciled with the patient * Allergies: L ortab: stomach upset. Objective: * Vitals: W t:343.4, Temp:98.1, BP:142/72, HR:94, Nurse:devi, Ht: 70, BMI:49.27. * Examination: G eneral Examination: General Appearance: N AD. H eart: R SR. L ungs:?clear to auscultation. E xtremities: 3 + left leg edema, 2+ right leg edema. ? Assessment: * Assessment: 1. P ost herpetic neuralgia - B02.29 (Primary) 2 . P eripheral edema - R60.0 3 . S tage 3b chronic kidney disease - N18.32 4 . A trial fibrillation - I48.91 5 . L margarita term current use of anticoagulant - Z79.01 ? Plan: * Treatment: 2. P eripheral edema L AB: P-CBC with Diff plus Absolute Counts (Collection Date & Time - 06/06/2024 10:35 AM) Value Reference Range A bsolute Basophil Count 0.1 0.0-0.1 - K/uL * A bsolute Eosinophil Count 0.3 0.0-0.6 - K/uL * A bsolute Immature Granulocyte 0.01 0.00-0.03 - K/uL * A bsolute Lymphocyte Count 1.3 0.9-3.6 - K/uL * A bsolute Monocyte Count 0.5 0.3-1.0 - K/uL * A bsolute Neutrophil Count 2.5 2.0-8.2 - K/uL * B asophils Automated 2.0 H 0.0-1.5 - % * E osinophils Automated 5.7 0.0-8.0 - % * H ematocrit (HCT) 37.3 L 39.0-51.0 - % * H emoglobin (Hgb) 12.3 L 13.1-17.5 - gm/dL * I mmature Granulocyte Automated 0.2 0.0-1.0 - % * L ymphocytes Automated 27.8 14.0-48.0 - % * M CH 33.6 26.9-35.0 - pg * M CHC 33.0 30.4-34.8 - g/dL * M CV 101.9 H 79.0-99.0 - fL * M onocytes Automated 10.4 4.0-13.0 - % * P latelet Count 109 L 137-397 - K/cumm * R ed Blood Cell Count (RBC) 3.66 L 4.20-5.70 - M/ mm3 * R DW 52.8 38.2-53.0 - fL * N eutrophils Automated 53.9 41.0-77.0 - % * W BC 4.6 3.8-11.5 - K/uL * Christine Maloney 06/07/2024 11:2 4:25 AM >See phone encounter Notes: Patient will take an extra diuretic every other day this week??3.?Stage 3b chronic kidney disease?LAB: P-Basic Metabolic Panel (BMP) (Collection Date & Time - 06/06/2024 10:35 AM)* Value Reference Range B UN 25 H 8-23 - mg/dL * C alcium 9.0 8.6-10.4 - mg/dL * C hloride 105 97-108 - mmol/L * C O2 32 22-32 - mmol/L * C reatinine 1.56 H 0.70-1.30 - mg/dL * G lucose 98 65-99 - mg/dL * P otassium 4.4 3.5-5.3 - mmol/L * S odium 145 135-145 - mmol/L * e GFR by Creatinine 45 L >59 - mL/min/1.73m2 * Christine Maloney 06/07/2024 11:2 4:25 AM >See phone encounter 4.?Atrial fibrillation?LAB: PT/INR (in house) (Collection Date & Time - 06/06/2024)* Value Reference Range I NR 2.1 * c urrent dose 5mg Daily * n ew dose no change * n ext check 6 weeks * i deal INR 2-3 * Tarah Hughes 06/06/2024 11:50: 32 AM > , Provider reviewed results while patient in office.Moi Rayo 06/06/2024 5:56:47 PM > 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 * Procedure Codes: G2211 Complex e/[place]. [address] PROTHROMBIN TIME. Modifiers: QW * Electronic signature of Keisha Rayo MD on 06/26/2025 at 07:59 AM EST Sign off status: Pending * Provider: Gordon Rayo M.D. Date: Generated for Charisma lassiter/Shraddha/Patsy on: 08/26/2024 07:59 AM EST History and Physical Notes * HPI (History of Present Illness) Category Sub-Category Detail Notes Category Not es Dermatology rash Pt complains of ongoing pain in lt arm from shingles. Pt was seen 05/20 and rx'd Valcyclovir and Pregabalin that he has finished taking Cardiology Leg Edema Pt complains of bilateral lower leg swelling. Pt has wound that is draining on lower lt leg and would like to have it looked at today. Pt states both of his calves have redness as well Examination Category Sub-Category Detail Notes Category Not es General Examination Heart: RSR Lungs: clear to auscultatio n Extremities: 3+ left leg edema, 2 + right leg edema General Appearance: NAD
--- OUTSIDE RECORDS SUMMARY | 2024-08-31 06:00 | XMS_ITS ---
Author Organization [facility] Address [address] [place] [id number] Care Team Providers Care Checker Bakery Products Name Role Phone Moi Rayo Primary Care Provider Allergies Allergen (clinical drug ingredient) Drug/Non Drug Allergy documented on EMR Reaction Allergy Type Onset Date Status Lortab stomach upset Drug Allergy Act dimas Results Component Value Reference Range Notes PT/INR (in house) Reviewed date:08/31/2024 06:18:47 PM Interpretation: Performing Lab: Notes/Report: INR 2.8 current dose 5mg Daily new dose no change next check 2 weeks at [facility] ideal INR 2-3 H-BMP Reviewed date:03/14/2025 10:11:53 AM Interpretation:see 09/15/24 Performing Lab: Notes/Report: see 09/15/24 REASON FOR VISIT leg is swollen & red with blisters Medications Medication SIG (Take, Route, Frequency, Duration) Notes Start Date End Date Status Montelukast Sodium 10 MG 1 tab(s) orally once a day; Duration: 90 days Active Ferrous Sulfate 325 (65 Fe) MG TAKE 1 TABLET BY MOUTH TWICE A DAY; Duration: 90 Active Atorvastatin Calcium 80 MG 1 tablet Oral ly Once a day; Duration: 90 days Active Albuterol Sulfate HFA 108 (90 Base) MCG/ACT INHALE 2 PUFFS 4 TIMES A DAY NEEDED; Duration: 25 Active Pregabalin 75 MG 1 capsule Orally Two times a day; Duration: 30 day(s) 07/08/2024 Active Pantoprazole Sodium 40 MG TAKE 1 TABLET BY MOUTH EVERY DAY FOR 90 DAYS; Duration: 90 Active Colchicine 0.6 MG 1 tab(s) orally once a day; Duration: 90 days Active valACYclovir HCl 1 GM 1 tablet Orally Th ree times a day; Duration: 7 days 05/20/2024 Active Finasteride 5 MG 1 tablet Orally Once a day; Duration: 90 days Active Losartan Potassium 50 MG 1 tab(s) orally once a day; Duration: 90 days Active Bumetanide 2 MG TAKE 1 OR 2 TABLETS BY MOUTH TWICE A DAY Active Allopurinol 100 MG 1 tab(s) orally 2 ti mes a day; Duration: 90 days Active metOLazone 5 MG 1 tab(s) orally ever y 3 days as needed Active Triamcinolone Acetonide 0.1 % APPLY TO AFFECTED AREA TWICE A DAY NEEDED; Duration: 60 days Active Metoprolol Tartrate 50 MG 2 tab(s) orall y 2 times a day Active Vitamin D (Ergocalciferol) 1.25 MG (55452 UT) 1 cap(s) orally twice a week; Duration: 90 days Active Nitrostat 0.4 MG 1 tab(s) sublinguall y every 5 minutes, prn; Duration: 8 Active Potassium Chloride ER 10 MEQ 3 tab(s) orally twice a day Active Warfarin Sodium 5 MG 1-1.5 tab(s) orally once a day or as directed Active Fluticasone Propionate 50 MCG/ACT 1 spray(s) in each nostril once a day; Duration: 90 days Active Aspirin 81 MG 1 tab(s) orally once a day; Duration: 30 day(s) Active Diclofenac Sodium 1 % as directed applie d topically 4 times a day; Duration: 30 day(s) Active Vital Signs Weight 340.4 lbs 08/31/2024 Blood pressure systolic 138 mm Hg 08/31/19 25 Blood pressure diastolic 70 mm Hg 025 Heart Rate 98 /min 08/31/2024 Height 70 in 08/31/2024 BMI 48.84 kg/m2 08/31/2024 Encounters Encounter Location Date Provider Diagnosis [facility] [address] [place], [place] [phone] 08/31/2024 Moi [place] Peripheral edema R60 .0 ; Stage 3b chronic kidney disease N18.32 and Atrial fibrillation I48.91 Assessments Encounter Date Diagnosis (ICD Code) Assessment Notes Treatment Notes Treatment Clinical Notes Section Notes 08/31/2024 Peripheral edema (ICD-10 - R60.0) 08/31/2024 Stage 3b chronic kidney disease (ICD-10 - N18.32) 08/31/2024 Atrial fibrillation (ICD-10 - I48.91) Plan Of Treatment Medication Medication Name Sig Start Date Stop Date Notes Bumetanide 2 MG TAKE 1 OR 2 TABLETS BY MOUTH TWICE A DAY Warfarin Sodium 5 MG 1-1.5 tab(s) orally once a day or as directed Next Appt Details Follow Up: via phone to repo rt test results, Reason: Provider Name:Moi lerner, 06/27/2025 10:30:00 AM, [facility] [address] [facility], [address], [place], [place], [id number], Provider Name:Moi lerner, 10/09/2025 09:45:00 AM, [facility] [address] [facility], [facility] [address], [place], [place], [phone], Progress Notes * COLETTE GRIMALDO WDOB:1945 (80 yo M)Acc No.[id number]:08/31/2024 Progress Notes Patient: COLETTE GARCÍA Provider: Gordon Rayo M.D. :1945 A ge:79 Y S ex:Male Date:08/31/2024 Address:[address] [place] [address] [place], [id number] Subjective: * Chief Complaints: * 1 . Leg is swollen & red with blisters. * HPI: D ermatology: 79 year old male presents with c/o Cellulitis P t complains of redeness, swelling and blisters on bilateral lower legs, rt worse. * ROS: G ASTROENTEROLOGY: no N ausea. n o V omiting. U ROLOGY: no D ifficulty urinating. n o B lood in urine. * Medical History: C oronary Artery Disease, Dr. 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 * Surgical History: C ardiac Stent x2,1 balloon 2006, Carotid Surgery 07/26/2014, AVR 09/20/2012, Skin Lesion , Cardiac Stent x1 2014, CABG 06/16/2018, Cholecystectomy - Lapraroscopic 07/19/2019, Skin Cancer Removal - Forehead, Arm, Hand , Pacemaker 2021. * Hospitalization/Major Diagno stic Procedure: A-Fib Light M.I. - [facility] 02/16-06/2017, Leg Wound- [facility] 01/15/2018, Gallbladder, Esophagitis, Partial Lung Collapse- [facility] 07/11-10/2017, Cholecystectomy- [facility] 07/19-07/2019. * Family History: F ather: 92 yrs. M other: 68 yrs, diagnosed with Diabetes, Hypertension, Heart Disease. S iblings: diagnosed with Diabetes, Hypertension, Heart Disease. 4 brother(s) , 1 sister(s) . 3 son(s) , 1 daughter(s) . . one son - MVA. * Social History: C URRENT TOBACCO USE S moking Status: P atient does NOT smoke. A lcohol: no. Recreational drug use: no. Alcohol: No. * Medications: T aking Diclofenac Sodium 1 % Gel as directed applied topically 4 times a day , Taking Aspirin 81 MG Tablet Delayed Release 1 tab(s) orally once a day , Taking Potassium Chloride ER 10 MEQ Tablet Extended Release 3 tab(s) orally twice a day , Taking Nitrostat 0.4 MG Tablet Sublingual 1 tab(s) sublingually every 5 minutes, prn , Taking Vitamin D (Ergocalciferol) 1.25 MG (06166 UT) Capsule 1 cap(s) orally twice a week , Taking Fluticasone Propionate 50 MCG/ACT Suspension 1 spray(s) in each nostril once a day , Taking Metoprolol Tartrate 50 MG Tablet 2 tab(s) orally 2 times a day , Taking Triamcinolone Acetonide 0.1 % Lotion APPLY TO AFFECTED AREA TWICE A DAY NEEDED , Taking metOLazone 5 MG Tablet 1 tab(s) orally every 3 days as needed , Taking Allopurinol 100 MG Tablet 1 tab(s) orally 2 times a day , Taking Losartan Potassium 50 MG Tablet 1 tab(s) orally once a day , Taking Finasteride 5 MG Tablet 1 tablet Orally Once a day , Taking valACYclovir HCl 1 GM Tablet 1 tablet Orally Three times a day , Taking Colchicine 0.6 MG Tablet 1 tab(s) orally once a day , Taking Pantoprazole Sodium 40 MG Tablet Delayed Release TAKE 1 TABLET BY MOUTH EVERY DAY FOR 90 DAYS , Taking Montelukast Sodium 10 MG Tablet 1 tab(s) orally once a day , Taking Pregabalin 75 MG Capsule 1 capsule Orally Two times a day , Taking Bumetanide 2 MG Tablet TAKE 1 OR 2 TABLETS BY MOUTH TWICE A DAY , Taking Warfarin Sodium 5 MG Tablet 1-1.5 tab(s) orally once a day or as directed , Taking Albuterol Sulfate HFA 108 (90 Base) MCG/ACT Aerosol Solution INHALE 2 PUFFS 4 TIMES A DAY NEEDED , Taking Atorvastatin Calcium 80 MG Tablet 1 tablet Orally Once a day , Taking Ferrous Sulfate 325 (65 Fe) MG Tablet TAKE 1 TABLET BY MOUTH TWICE A DAY , Medication List reviewed and reconciled with the patient * Allergies: L ortab: stomach upset. Objective: * Vitals: W t:340.4, Temp:98.1, BP:138/70, HR:98, Nurse:devi, Ht: 70, BMI:48.84. * Examination: G eneral Examination: General Appearance: N AD. H eart: R SR. L ungs:?clear to auscultation. S kin: s mall amount redness on the right lower calf. E xtremities: 3 + left leg edema, 2+ right leg edema. Assessment: * Assessment: 1. P eripheral edema - R60.0 (Primary) 2 . S tage 3b chronic kidney disease - N18.32 3 . A trial fibrillation - I48.91 Plan: * Treatment: 2. S tage 3b chronic kidney disease L AB: H-BMP (Collection Date & Time - 03/14/2025) s ee 09/15/24 3. A trial fibrillation Continue Warfarin Sodium Tablet, 5 MG, 1-1.5 tab(s), orally, once a day or as directed. L AB: PT/INR (in house) (Collection Date & Time - 08/31/2024) Value Reference Range I NR 2.8 * c urrent dose 5mg Daily * n ew dose no change * n ext check 2 weeks at [facility] * i deal INR 2-3 * Tarah Hughes 08/31/2024 10:57:5 9 AM > , Provider reviewed results while patient in office.Moi Rayo 08/31/2024 6:18:40 PM > * Procedure Codes: 8 5610 PROTHROMBIN TIME, Modifiers: QW , 11481 CAPILLARY BLOOD DRAW * Follow Up: v ia phone to report test results * Images: Billing Information: * Visit Code: 35077 Office Visit, Est Pt., Level 3. * Procedure Codes: 86782 PROTHROMBIN TIME. Modifiers: QW 22776 CAPILLARY BLOOD DRAW. * Electronic signature of Keisha Rayo MD on 06/26/2025 at 08:01 AM EST Sign off status: Pending * Provider: Gordon Rayo M.D. Date: 0 08/31/2024 Generated for Charisma lassiter/Shraddha/Laurismitting on: 08/26/2024 08:01 AM EST History and Physical Notes * HPI (History of Present Illness) Category Sub-Category Detail Notes Category Not es Dermatology Cellulitis Pt complains of redeness, swelling and blisters on bilateral lower legs, rt worse Examination Category Sub-Category Detail Notes Category Not es General Examination Heart: RSR Lungs: clear to auscultatio n Extremities: 3+ left leg edema, 2 + right leg edema General Appearance: NAD Skin: small amount redness on the right lower calf
--- OUTSIDE RECORDS SUMMARY | 2024-10-06 04:15 | XMS_ITS ---
Author Organization [facility] Address [address] [place] [phone] Care Team Providers Care Certifed Refrigeration Operator Name Role Phone Perri Moi Primary Care Provider [phone] Results Component Value Reference Range Notes PT/INR (in house) Reviewed date:10/06/2024 09:50:36 AM Interpretation: Performing Lab: Notes/Report: INR 1.8 current dose 5mg Daily new dose no change next check 4 weeks ideal INR 2-3 REASON FOR VISIT PT/INR Medications Medication SIG (Take, Route, Frequency, Duration) Notes Start Date End Date Status Ferrous Sulfate 325 (65 Fe) MG 1 tablet Orally Two times a day; Duration: 90 days Active Multaq 400 MG 1 tablet with meals Orally Twice a day; Duration: 90 days 09/19/2024 Active Bumetanide 2 MG TAKE 1 OR 2 TABLETS BY MOUTH TWICE A DAY Active Warfarin Sodium 5 MG 1-1.5 tab(s) orally once a day or as directed Active Atorvastatin Calcium 80 MG 1 tablet Oral ly Once a day; Duration: 90 days Active Pregabalin 75 MG 1 capsule Orally Two times a day; Duration: 30 day(s) 07/08/2024 Active Montelukast Sodium 10 MG 1 tab(s) orally once a day; Duration: 90 days Active Pantoprazole Sodium 40 MG TAKE 1 TABLET BY MOUTH EVERY DAY FOR 90 DAYS; Duration: 90 Active Colchicine 0.6 MG 1 tab(s) orally once a day; Duration: 90 days Active Albuterol Sulfate HFA 108 (90 Base) MCG/ACT INHALE 2 PUFFS 4 TIMES A DAY NEEDED; Duration: 25 Active valACYclovir HCl 1 GM 1 tablet [...] ever y 3 days as needed Active Fluticasone Propionate 50 MCG/ACT 1 spray(s) in each nostril once a day; Duration: 90 days Active Vitamin D (Ergocalciferol) 1.25 MG (38203 UT) 1 cap(s) orally twice a week; Duration: 90 days Active Nitrostat 0.4 MG 1 tab(s) sublinguall y every 5 minutes, prn; Duration: 8 Active Triamcinolone Acetonide 0.1 % APPLY TO AFFECTED AREA TWICE A DAY NEEDED; Duration: 60 days Active Metoprolol Tartrate 50 MG 2 tab(s) orall y 2 times a day Active Potassium Chloride ER 10 MEQ 3 tab(s) orally twice a day Active Aspirin 81 MG 1 tab(s) orally once a day; Duration: 30 day(s) Active Diclofenac Sodium 1 % as directed applie d topically 4 times a day; Duration: 30 day(s) Active Problems Problem Type SNOMED Code ICD Code Onset Dates Problem Status W/U Status Risk Notes Problem Chronic atrial fibrillation ([id number]) Chronic atrial fibrillation (I48.20) Active confirmed Encounters Encounter Location Date Provider Diagnosis [facility] [address] [facility] [address] [facility] [address] [place], [place] [phone] 10/06/2024 Moi Rayo Chronic atrial fibrillation I48.2 Assessments Encounter Date Diagnosis (ICD Code) Assessment Notes Treatment Notes Treatment Clinical Notes Section Notes 10/06/2024 Chronic atrial fibrillation (ICD-10 - I48.2) Plan Of Treatment Next Appt Details Follow Up: 6 Months, Reason: Provider Name:Mio lerner, 06/27/2025 10:30:00 AM, [address] [facility], [address], [place], [place], [phone], Provider Name:Moi Mae , 10/09/2025 09:45:00 AM, [address], [address], [place], [place], [phone], Progress Notes * COLETTE GRIMALDO WDOB:1945 (80 yo M)Acc No.[id number]:10/06/2024 Patient: COLETTE GARCÍA Provider: Gordon Rayo M.D. :1945 A ge:79 Y S ex:Male Date:10/06/2024 Address:[address] [place] [address], [place], [id number] Subjective: * Chief Complaints: * 1 . PT/INR. * HPI: H PI: 79 year old male presents with c/o Patient is here today for?INR check, took a half dose of Coumadin a few days last week prior to skin cancer surgery. * Medical History: * Medications: T aking Diclofenac Sodium 1 [...] , Taking Vitamin D (Ergocalciferol) 1.25 MG (51664 UT) Capsule 1 cap(s) orally twice a [...] Orally Two times a day , Taking Albuterol Sulfate HFA 108 (90 Base) MCG/ACT Aerosol Solution INHALE 2 PUFFS 4 TIMES A DAY NEEDED , Taking Atorvastatin Calcium 80 MG Tablet 1 tablet Orally Once a day , Taking Warfarin Sodium 5 MG Tablet 1-1.5 tab(s) orally once a day or as directed , Taking Bumetanide 2 MG Tablet TAKE 1 OR 2 TABLETS BY MOUTH TWICE A DAY , Taking Multaq 400 MG Tablet 1 tablet with meals Orally Twice a day , Taking Ferrous Sulfate 325 (65 Fe) MG Tablet 1 tablet Orally Two times a day , Medication List reviewed and reconciled with the patient Objective: * Vitals: * Examination: G eneral Examination: General Appearance: N AD. Assessment: * Assessment: 1. C hronic atrial fibrillation - I48.2 (Primary) Plan: * Treatment: Value Reference Range I NR 1.8 * c urrent dose 5mg Daily * n ew dose no change * n ext check 4 weeks * i deal INR 2-3 * Tarah Hughes 10/06/2024 9:18:01 AM > , Provider reviewed results while patient in office.Moi Rayo 10/06/2024 9:47:38 AM > * Procedure Codes: G 2211 Complex e/[place], [address] PROTHROMBIN TIME, Modifiers: QW , 57508 CAPILLARY BLOOD DRAW * Follow Up: 6 Months * Images: Billing Information: * Visit Code: 71676 Office Visit, Est Pt., Level 3. * Procedure Codes: G2211 Complex e/[place]. [address] PROTHROMBIN TIME. Modifiers: QW 30160 CAPILLARY BLOOD DRAW. * Electronic signature of Keisha Rayo MD on 06/26/2025 at 08:00 AM EST Sign off status: Pending * Provider: Gordon Rayo M.D. Date: 0 10/06/2024 Generated for Charisma lassiter/Shraddha/Patsy on: 08/26/2024 08:00 AM EST History and Physical Notes * HPI (History of Present Illness) Category Sub-Category Detail Notes Category Not es HPI Patient is here today for INR ch claudette, took a half dose of Coumadin a few days last week prior to skin cancer surgery Examination Category Sub-Category Detail Notes Category Not es General Examination General Appearance: NAD
--- OUTSIDE RECORDS SUMMARY | 2025-03-01 11:00 | XMS_ITS ---
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 Name Role Phone Moi Rayo Primary Care Provider Allergies Allergen (clinical drug ingredient) Drug/Non Drug Allergy documented on EMR Reaction Allergy Type Onset Date Status Lortab stomach upset Drug Allergy Act dimas Results Component Value Reference Range Notes CBC Fingerstick (in house) Reviewed date:03/01/2025 10:21:24 PM Interpretation: Performing Lab: Notes/Report: wbc 12.7 3.5 - 10 lym 7.5% 15 - 50 mid 2.1% 2 - 15 gran 90.4% 35 - 80 rbc 3.97 3.5 - 5.5 hgb 13.7 11.5 - 16.5 hct 41.1 35 - 55 mcv 103.5 75 - 100 mch 34.5 25 - 35 mchc 33.3 31 - 38 plat 111 100 - 400 REASON FOR VISIT sick to his stomach Medications Medication SIG (Take, Route, Frequency, Duration) Notes Start Date End Date Status Allopurinol 100 MG TAKE 1 TABLET BY TWICE A DAY FOR 90 DAYS; Duration: 90 Active Pregabalin 75 MG 1 capsule Orally Two times a day; Duration: 30 day(s) 10/25/2024 Active Montelukast Sodium 10 MG 1 tab(s) orally once a day; Duration: 90 days Active Multaq 400 MG 1 tablet with meals Orally Twice a day; Duration: 90 days 09/19/2024 Active Atorvastatin Calcium 80 MG TAKE 1 TABLET BY MOUTH EVERY DAY FOR 90 DAYS; Duration: 90 Active valACYclovir HCl 1 GM 1 tablet Orally Th ree times a day; Duration: 7 days 05/20/2024 Active Pantoprazole Sodium 40 MG TAKE 1 TABLET BY MOUTH EVERY DAY FOR 90 DAYS; Duration: 90 Active Metoprolol Tartrate 50 MG 2 tab(s) orall y 2 times a day Active Triamcinolone Acetonide 0.1 % APPLY TO AFFECTED AREA TWICE A DAY NEEDED; Duration: 60 days Active metOLazone 5 MG 1 tab(s) orally ever y 3 days as needed Active Aspirin 81 MG 1 tab(s) orally once a day; Duration: 30 day(s) Active Nitrostat 0.4 MG 1 tab(s) sublinguall y every 5 minutes, prn; Duration: 8 Active Diclofenac Sodium 1 % as directed applie d topically 4 times a day; Duration: 30 day(s) Active Vitamin D (Ergocalciferol) 1.25 MG (73780 UT) 1 cap(s) orally twice a week; Duration: 90 days Active Fluticasone Propionate 50 MCG/ACT 1 spray(s) in each nostril once a day; Duration: 90 days Active Zithromax Z-Duarte 250 MG as directed Orall y daily; Duration: 5 days 03/01/2025 Active Warfarin Sodium 5 MG TAKE 1 TO 1 & 1/2 T ABLETS BY MOUTH DAILY DIRECTED; Duration: 90 Active Bumetanide 2 MG TAKE 1 OR 2 TABLETS ORALLY TWICE A DAY Active Albuterol Sulfate HFA 108 (90 Base) MCG/ACT 2 puff as needed Inhalation 4 times a day; Duration: 25 days Active Ondansetron HCl 4 MG 1 tablet Orally every 8 hours As needed 03/01/2025 Active Potassium Chloride ER 10 MEQ 3 tab(s) orally twice a day; Duration: 30 days Active Losartan Potassium 50 MG 1 tab(s) orally once a day; Duration: 90 days Active Ferrous Sulfate 325 (65 Fe) MG 1 tablet Orally Two times a day; Duration: 90 days Active Finasteride 5 MG 1 tablet Orally Once a day; Duration: 90 days Active Colchicine 0.6 MG 1 tab(s) orally once a day; Duration: 90 days Active Problems Problem Type SNOMED Code ICD Code Onset Dates Problem Status W/U Status Risk Notes Problem Leukocytosis (044409977) Leukocytosis, unspecified (D72.829) Active confirmed Problem Chronic anemia (468155739) Chronic anemia (D64.9) Active confirmed Problem Diabetic renal disease (625261501) Type 2 diabetes mellitus with diabetic chronic kidney disease, unspecified CKD stage, unspecified whether manager long term care insulin use (E11.22) Active confirmed Problem Body mass index 40+ - severely obese (191141502) BMI 45.0-49.9, adult (Z68.42) Active confirmed Vital Signs Weight 342.2 lbs 03/01/2025 Blood pressure systolic 140 mm Hg 03/01/20 25 Blood pressure diastolic 84 mm Hg 025 Heart Rate 128 /min 03/01/2025 Height 70 in 03/01/2025 BMI 49.1 kg/m2 03/01/2025 Encounters Encounter Location Date Provider Diagnosis [facility] [address] [place], [place] [phone] 03/01/2025 Moi [place] Nausea R11.0 ; Leukocytosis, unspecified D72.829 ; Tachycardia R00.0 ; Chronic congestive heart failure, unspecified heart failure type I50.9 ; Mixed hyperlipidemia E78.2 ; Essential hypertension I10 ; Chronic anemia D64.9 ; Type 2 diabetes mellitus with diabetic chronic kidney disease, unspecified CKD stage, unspecified whether half-way insulin use E11.22 ; BMI 45.0-49.9, adult Z68.42 and 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 Assessments Encounter Date Diagnosis (ICD Code) Assessment Notes Treatment Notes Treatment Clinical Notes Section Notes 03/01/2025 Nausea (ICD-10 - R11.0) 03/01/2025 Leukocytosis, unspecified (ICD-10 - D72.829) 03/01/2025 Tachycardia (ICD-10 - R00.0) 03/01/2025 Chronic congestive heart failure, unspecified heart failure type (ICD-10 - I50.9) 03/01/2025 Mixed hyperlipidemia (ICD-10 - E78.2) 03/01/2025 Essential hypertension (ICD-10 - I10) 03/01/2025 Chronic anemia (ICD-10 - D64.9) 03/01/2025 Type 2 diabetes mellitus with diabetic chronic kidney disease, unspecified CKD stage, unspecified whether half-way insulin use (ICD-10 - E11.22) 03/01/2025 BMI 45.0-49.9, adult (ICD-10 - Z68.42) 03/01/2025 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) 03/01/2025 Other Patient sent to [facility] infusion for 2 liters of normal saline and a dose of IV Zofran Plan Of Treatment Medication Medication Name Sig Start Date Stop Date Notes Zithromax Z-Duarte 250 MG as directed Orall y daily; Duration: 5 days 03/01/2025 Ondansetron HCl 4 MG 1 tablet Orally every 8 hours 025 Treatment Notes Assessment Notes Other Patient sent to [facility] infusion for 2 liters of normal saline and a dose of IV Zofran Next Appt Details Follow Up: via phone to repo rt progress, Reason: Provider Name:Moi lerner, 06/27/2025 10:30:00 AM, [address], [address], [place], [place], [id number], Provider Name:Moi lerner, 10/09/2025 09:45:00 AM, [address], [address], [place], [place], [id number], Progress Notes * COLETTE GRIMALDO WDOB:1945 (80 yo M)Acc No.[id number]:03/01/2025 Progress Notes Patient: COLETTE GARCÍA Provider: Gordon Rayo M.D. :1945 A ge:79 Y S ex:Male Date:03/01/2025 Address:[address] [place], [place] [id number] Subjective: * Chief Complaints: * 1 . Sick to his stomach. * HPI: G astroenterology: 79 year old male presents with c/o Nausea P t complains of nausea that started this morning. Pt states he has not vomited but feels like he needs to. Pt denies any other symptoms at this time. * ROS: C ARDIOLOGY: no D izziness. n o C hest pain. D ERMATOLOGY: no R lalo. n o H anju. U ROLOGY: no D ifficulty urinating. n o B lood in urine. * Medical History: C oronary Artery Disease, Dr. 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 * Surgical History: C ardiac Stent x2,1 balloon 2006, Carotid Surgery 07/26/2014, AVR 09/20/2012, Skin Lesion , Cardiac Stent x1 2014, CABG 06/16/2018, Cholecystectomy - Lapraroscopic 07/19/2019, Skin Cancer Removal - Forehead, Arm, Hand , Pacemaker 2021. * Hospitalization/Major Diagno stic Procedure: A -Fib Light M.I. - [facility] 02/16-06/2017, [place] [facility] [place], Gallbladder, Esophagitis, Partial Lung Collapse- [facility] 07/11-10/2017, Cholecystectomy- [facility] 07/19-07/2019. * Family History: F ather: 92 yrs. M other: 68 yrs, diagnosed with Hypertension, Diabetes, Heart Disease. S iblings: diagnosed with Hypertension, Diabetes, Heart Disease. 4 brother(s) , 1 sister(s) [...] tab(s) orally once a day , Taking Nitrostat 0.4 MG Tablet Sublingual 1 tab(s) sublingually every 5 minutes, prn , Taking Vitamin D (Ergocalciferol) 1.25 MG (30306 UT) Capsule 1 cap(s) orally twice a [...] every 3 days as needed , Taking valACYclovir HCl 1 GM Tablet 1 tablet Orally Three times a day , Taking Pantoprazole Sodium 40 MG Tablet Delayed Release TAKE 1 TABLET BY MOUTH EVERY DAY FOR 90 DAYS , Taking Montelukast Sodium 10 MG Tablet 1 tab(s) orally once a day , Taking Multaq 400 MG Tablet 1 tablet with meals Orally Twice a day , Taking Allopurinol 100 MG Tablet TAKE 1 TABLET BY MOUTH TWICE A DAY FOR 90 DAYS , Taking Pregabalin 75 MG Capsule 1 capsule Orally Two times a day , Taking Atorvastatin Calcium 80 MG Tablet TAKE 1 TABLET BY MOUTH EVERY DAY FOR 90 DAYS , Taking Colchicine 0.6 MG Tablet 1 tab(s) orally once a day , Taking Ferrous Sulfate 325 (65 Fe) MG Tablet 1 tablet Orally Two times a day , Taking Finasteride 5 MG Tablet 1 tablet Orally Once a day , Taking Losartan Potassium 50 MG Tablet 1 tab(s) orally once a day , Taking Potassium Chloride ER 10 MEQ Tablet Extended Release 3 tab(s) orally twice a day , Taking Warfarin Sodium 5 MG Tablet TAKE 1 TO 1 & 1/2 TABLETS BY MOUTH DAILY DIRECTED , Taking Bumetanide 2 MG Tablet TAKE 1 OR 2 TABLETS ORALLY TWICE A DAY , Taking Albuterol Sulfate HFA 108 (90 Base) MCG/ACT Aerosol Solution 2 puff as needed Inhalation 4 times a day , Medication List reviewed and reconciled with the patient * Allergies: L ortab: stomach upset. Objective: * Vitals: W t: 342.2, Temp: 98.5, BP: 140/84, HR: 128, Nurse: devi, Ht: 70, BMI:49.1. * Examination: G eneral Examination: General Appearance: N AD, appears not to feel well. O ral cavity: o ral mucosa is dry. H eart: s inus tachycardia. L ungs: c lear to auscultation. A bdomen: o bese, bowel sounds present, soft, minimal periumbilical tenderness. Extremities: 2 + bilateral leg edema, chronic skin changes on both legs. ? Assessment: * Assessment: 1. N ausea - R11.0 (Primary) 2 . L eukocytosis, unspecified - D72.829 ? 3 . T achycardia - R00.0 4 . C hronic congestive heart failure, unspecified heart failure type - I50.9 5 . M ixed hyperlipidemia - E78.2 & #160; 6 . E ssential hypertension - I10 7 . C hronic anemia - D64.9 ? 8 . T ype 2 diabetes mellitus with diabetic chronic kidney disease, unspecified CKD stage, unspecified whether half-way insulin use - E11.22 9 . B IA 45.0-49.9, adult - Z68.42 1 0. H ypertensive heart and chronic kidney disease with heart failure - I13.0 Plan: * Treatment: Value Reference Range w bc 12.7 3.5 - 10 * l ym 7.5% 15 - 50 * m id 2.1% 2 - 15 * g ran 90.4% 35 - 80 * r bc 3.97 3.5 - 5.5 * h gb 13.7 11.5 - 16.5 * h ct 41.1 35 - 55 * m cv 103.5 75 - 100 * m ch 34.5 25 - 35 * m chc 33.3 31 - 38 * p lat 111 100 - 400 * Tarah Hughes 03/01/2025 03:49: 13 PM EDT > Provider reviewed results while patient in office.Moi Rayo 03/01/2025 10:21:17 PM EDT > 2.?Leukocytosis, unspecified? Start Zithromax Z-Duarte Tablet, 250 MG, as directed, Orally, daily, 5 days, 6, Refills 0.?LAB: CBC Fingerstick (in house) (Collection Date & Time - 03/01/2025)* Value Reference Range w bc 12.7 3.5 - 10 * l ym 7.5% 15 - 50 * m id 2.1% 2 - 15 * g ran 90.4% 35 - 80 * r bc 3.97 3.5 - 5.5 * h gb 13.7 11.5 - 16.5 * h ct 41.1 35 - 55 * m cv 103.5 75 - 100 * m ch 34.5 25 - 35 * m chc 33.3 31 - 38 * p lat 111 100 - 400 * Tarah Hughes 03/01/2025 03:49: 13 PM EDT > Provider reviewed results while patient in office.Moi Rayo 03/01/2025 10:21:17 PM EDT > 3.?Others? Notes: Patient sent to [facility] infusion for 2 liters of normal saline and a dose of IV Zofran? * Procedure Codes: G 2211 Complex e/[place], [address] CBC WITH AUTO DIFF, 50266 CAPILLARY BLOOD DRAW, 1036F TOBACCO NON-USER, G8950 PREHTN/HTN BP DOC INDCD F/U DOC, G8753 MOST RECENT SYSTOLIC BP >= 140MM HG, G8754 MOST RECENT DIASTOLIC BP < 90MM HG * Follow Up: v ia phone to report progress * Images: Billing Information: * Visit Code: 54016 Office Visit, Est Pt., Level 4. * Procedure Codes: G2211 Complex e/[place]. [address] CBC WITH AUTO DIFF. 25672 CAPILLARY BLOOD DRAW. 1036F TOBACCO NON-USER. G8950 PREHTN/HTN BP DOC INDCD F/U DOC. G8753 MOST RECENT SYSTOLIC BP >= 140MM HG. G8754 MOST RECENT DIASTOLIC BP < 90MM HG. * Electronic signature of Keisha Rayo MD on 06/26/2025 at 08:00 AM EST Sign off status: Pending * Provider: Gordon Rayo M.D. Date: 0 03/01/2025 Generated for Charisma lassiter/Shraddha/eTransmitting on: 1 08/26/2024 08:00 AM EST History and Physical Notes * HPI (History of Present Illness) Category Sub-Category Detail Notes Category Not es Gastroenterology Nausea Pt complains of nausea that started this morning. Pt states he has not vomited but feels like he needs to. Pt denies any other symptoms at this time Examination Category Sub-Category Detail Notes Category Not es General Examination Heart: sinus tachycardia Lungs: clear to auscultatio n Abdomen: obese, bowel sounds present, soft, minimal periumbilical tenderness Extremities: 2+ bilateral leg tony ma, chronic skin changes on both legs General Appearance: NAD, appears not to feel well Oral cavity: oral mucosa is dry
--- OUTSIDE RECORDS SUMMARY | 2025-03-06 04:30 | XMS_ITS ---
Author Organization [facility] Address [address] [place] [phone] Care Team Providers Care Senior C Web Developer Name Role Phone Moi Rayo Primary Care Provider Allergies Allergen (clinical drug ingredient) Drug/Non Drug Allergy documented on EMR Reaction Allergy Type Onset Date Status Lortab stomach upset Drug Allergy Act dimas Results Component Value Reference Range Notes PT/INR (in house) Reviewed date:03/06/2025 09:59:51 PM Interpretation: Performing Lab: Notes/Report: PT 34.2 INR 2.9 current dose 5mg Daily new dose 2.5 mg daily next check 1 week ideal INR 2-3 REASON FOR VISIT INR/ Leg Swelling Medications Medication SIG (Take, Route, Frequency, Duration) Notes Start Date End Date Status Zithromax Z-Duarte 250 MG as directed Orall y daily; Duration: 5 days 03/01/2025 Active Cephalexin 500 MG 1 capsule Orally twi ce a day; Duration: 7 days 03/06/2025 Active Montelukast Sodium 10 MG 1 tab(s) orally once a day; Duration: 90 days Active Allopurinol 100 MG TAKE 1 TABLET BY KARI TWICE A DAY FOR 90 DAYS; Duration: 90 Active Bumetanide 2 MG TAKE [...] twice a day; Duration: 30 days Active Warfarin Sodium 5 MG TAKE 1 TO 1 & 1/2 T ABLETS BY MOUTH DAILY DIRECTED; Duration: 90 Active Losartan Potassium 50 MG 1 tab(s) orally once a day; Duration: 90 days Active Atorvastatin Calcium 80 MG TAKE 1 TABLET BY MOUTH EVERY DAY FOR 90 DAYS; Duration: 90 Active Ferrous Sulfate 325 (65 Fe) MG 1 tablet Orally Two times a day; Duration: 90 days Active Finasteride 5 MG 1 tablet Orally Once a day; Duration: 90 days Active metOLazone [...] a day; Duration: 30 day(s) 10/25/2024 Active Triamcinolone Acetonide 0.1 % APPLY TO AFFECTED AREA TWICE A DAY NEEDED; Duration: 60 days Active Vitamin D (Ergocalciferol) 1.25 MG (33884 UT) 1 cap(s) orally twice a week; Duration: 90 days Active Fluticasone Propionate 50 MCG/ACT 1 spray(s) in each nostril once a day; Duration: 90 days Active Metoprolol Tartrate 50 MG 2 tab(s) orall y 2 times a day Active Aspirin 81 MG 1 tab(s) orally once a day; Duration: 30 day(s) Active Nitrostat 0.4 MG 1 tab(s) sublinguall y every 5 minutes, prn; Duration: 8 Active Diclofenac Sodium 1 % as directed applie d topically 4 times a day; Duration: 30 day(s) Active Vital Signs Weight 345 lbs 03/06/2025 Blood pressure systolic 136 mm Hg 03/06/20 25 Blood pressure diastolic 80 mm Hg 025 Heart Rate 87 /min 03/06/2025 Height 70 in 03/06/2025 BMI 49.5 kg/m2 03/06/2025 Encounters Encounter Location Date Provider Diagnosis [facility] [address] [facility] [address] [place], [place] [phone] 03/06/2025 Moi [place] Left leg cellulitis L03.116 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 Z79.01 Assessments Encounter Date Diagnosis (ICD Code) Assessment Notes Treatment Notes Treatment Clinical Notes Section Notes 03/06/2025 Left leg cellulitis (ICD-10 - L03.116) 03/06/2025 senior living current use of anticoagulant (ICD-10 - Z79.01) Plan Of Treatment Medication Medication Name Sig Start Date Stop Date Notes Cephalexin 500 MG 1 capsule Orally twi ce a day; Duration: 7 days 03/06/2025 Next Appt Details Follow Up: 1 Week, Reason: Provider Name:Moi lerner, 06/27/2025 10:30:00 AM, [address], [address], [place], [phone], Provider Name:Moi lerner, 10/09/2025 09:45:00 AM, [address], [address], [place], [phone], Progress Notes * COLETTE GRIMALDO WDOB:1945 (80 yo M)Acc No.[id number]:03/06/2025 Progress Notes Patient: COLETTE GARCÍA Provider: Gordon Rayo M.D. :1945 A ge:79 Y S ex:Male Date:03/06/2025 Address:[address] [place], [place] [address], [id number] Subjective: * Chief Complaints: * 1 . INR/ Leg Swelling. * HPI: H ematology: 79 year old male presents with c/o PT/INR d ue for PT/INR.? C ardiology: c/o Leg Edema P t complains of worsening lt lower leg swelling and redness. Pt states he has quite a bit of pain right under lt knee as well. * ROS: A LLERGY: no C ough. n o R unny nose. G ASTROENTEROLOGY: no N ausea. n o [...] stic Procedure: A -Fib Light M.I. - [facility] 02/16-06/2017, Leg [facility]- [facility] 01/15/2018, Gallbladder, Esophagitis, Partial Lung Collapse- [facility] 07/11-10/2017, Cholecystectomy- [facility] 07/19-07/2019. * Family History: F ather: 92 yrs. M other: 68 yrs, diagnosed with Hypertension, Diabetes, Heart Disease. S iblings: diagnosed with Hypertension, Diabetes, Heart Disease. 4 brother(s) , 1 sister(s) . 3 son(s) , 1 daughter(s) . . one son - MVA. * Social History: C URRENT TOBACCO USE: No . A lcohol: no. Recreational drug use: no. Alcohol: No. * Medications: T aking Diclofenac Sodium 1 % Gel as directed applied topically 4 times a day , Taking Aspirin 81 MG Tablet Delayed Release 1 tab(s) orally once a day , Taking Nitrostat 0.4 MG Tablet Sublingual 1 tab(s) sublingually every 5 minutes, prn , Taking Vitamin D (Ergocalciferol) 1.25 MG (61965 UT) Capsule 1 cap(s) orally twice a [...] EVERY DAY FOR 90 DAYS , Taking Pregabalin 75 MG Capsule 1 capsule Orally Two times a day , Taking Atorvastatin Calcium 80 MG Tablet TAKE 1 TABLET BY MOUTH EVERY DAY FOR 90 DAYS , Taking Ferrous Sulfate 325 (65 Fe) [...] needed Inhalation 4 times a day , Taking Ondansetron HCl 4 MG Tablet 1 tablet Orally every 8 hours As needed, Taking Zithromax Z-Duarte 250 MG Tablet as directed Orally daily , Taking Montelukast Sodium 10 MG Tablet 1 tab(s) orally once a day , Taking Allopurinol 100 MG Tablet TAKE 1 TABLET BY MOUTH TWICE A DAY FOR 90 DAYS , Discontinued Colchicine 0.6 MG Tablet 1 tab(s) orally once a day , Discontinued Multaq 400 MG Tablet 1 tablet with meals Orally Twice a day , Medication List reviewed and reconciled with the patient * Allergies: L ortab: stomach upset. Objective: * Vitals: W t: 345, Temp: 98.0, BP: 136/80, HR: 87, O2 Sat: 97% on RA, Nurse: devi, Ht: 70, BMI:49.5. * Examination: G eneral Examination: General Appearance: N AD. E xtremities: 3 + bilateral leg edema, some skin redness over the left dick up to the knee. Assessment: * Assessment: 1. L eft leg cellulitis - L03.116 (Primary) 2 . L margarita term current use of anticoagulant - Z79.01 Plan: * Treatment: * Labs: * L ab: PT/INR (in house) (Collection Date & Time - 03/06/2025) Value Reference Range P T 34.2 * I NR 2.9 * c urrent dose 5mg Daily * n ew dose 2.5 mg daily * n ext check 1 week * i deal INR 2-3 * SaulCadenceTarah 03/06/2025 09:43: 53 AM EDT > Provider reviewed results while patient in office.Moi Rayo 03/06/2025 09:59:36 PM EDT > * Procedure Codes: G 2211 Complex e/[place], [address] PROTHROMBIN TIME, Modifiers: QW , 10489 CAPILLARY BLOOD DRAW, 1036F TOBACCO NON-USER, G8783 BP SCR PRFRM RCMDD DEFIND SCR INTVL, G8752 MOST RECENT SYSTOLIC BP < 140MM HG, G8754 MOST RECENT DIASTOLIC BP < 90MM HG * Follow Up: 1 Week * Images: Billing Information: * Visit Code: 95448 Office Visit, Est Pt., Level 3. * Procedure Codes: G2211 Complex e/[place]. [address] PROTHROMBIN TIME. Modifiers: QW 07610 CAPILLARY BLOOD DRAW. 1036F TOBACCO NON-USER. G8783 BP SCR PRFRM RCMDD DEFIND SCR INTVL. G8752 MOST RECENT SYSTOLIC BP < 140MM HG. G8754 MOST RECENT DIASTOLIC BP < 90MM HG. * Electronic signature of Keisha Rayo MD on 06/26/2025 at 08:05 AM EST Sign off status: Pending * Provider: Gordon Rayo M.D. Date: 0 03/06/2025 Generated for Charisma lassiter/Shraddha/eTransmitting on: 08/26/2024 08:05 AM EST History and Physical Notes * HPI (History of Present Illness) Category Sub-Category Detail Notes Category Not es Cardiology Leg Edema Pt complains of worsening lt lower leg swelling and redness. Pt states he has quite a bit of pain right under lt knee as well Hematology PT/INR due for PT/INR Examination Category Sub-Category Detail Notes Category Not es General Examination Extremities: 3+ bilateral leg edema, some skin redness over the left dick up to the knee General Appearance: NAD
--- OUTSIDE RECORDS SUMMARY | 2025-03-13 06:45 | XMS_ITS ---
Author Organization [facility] Address [address] [place] [phone] Care Team Providers Care Spot Welder Line Name Role Phone Moi Rayo Primary Care Provider Allergies Allergen (clinical drug ingredient) Drug/Non Drug Allergy documented on EMR Reaction Allergy Type Onset Date Status Lortab stomach upset Drug Allergy Act dimas Results Component Value Reference Range Notes PT/INR (in house) Reviewed date:03/14/2025 10:35:57 PM Interpretation: Performing Lab: Notes/Report: PT 21.9 INR 1.8 current dose 2.5mg daily new dose 2.5mg W. 5mg AOD next check 2 weeks ideal INR 2-3 CBC Venipuncture (in house) Reviewed date:03/13/2025 12:39:50 PM Interpretation: Performing Lab: Notes/Report: wbc 5.4 3.5 - 10 lymph 20.5 15 - 50 mid 5.3 2 - 15 gran 74.2 35 - 80 rbc 3.27 3.5 - 5.5 hgb 11.4 11.5 - 16.5 hct 33.2 35 - 55 mcv 101.4 75 - 100 mch 34.8 25 - 35 mchc 34.3 31 - 38 platlet 153 100 - 400 P-Basic Metabolic Panel (BMP ) Reviewed date:03/14/2025 10:09:49 AM Interpretation:gluc 102, bun 31, Cr 1.79, gfr 38 Performing Lab: Notes/Report: Test performed by [employer], [employer] [facility] , [place] [address] Ashok Antonio MD, It Disaster Recovery Manager CLIA: [id number] Sodium 144 135-145 mmol/L Potassium 4.9 3.5-5.3 mmol/L Chloride 107 97-108 mmol/L CO2 27 20-32 mmol/L Glucose 102 65-99 mg/dL BUN 31 8-23 mg/dL Creatinine 1.79 0.70-1.30 mg/dL Calcium 8.9 8.6-10.4 mg/dL eGFR by Creatinine 38 >59 mL/min/1.73m2 REASON FOR VISIT 1 week f/u Medications Medication SIG (Take, Route, Frequency, Duration) Notes Start Date End Date Status Zithromax Z-Duarte 250 MG as directed Orall y daily; Duration: 5 days 03/01/2025 Not-Taki ng Cephalexin 500 MG 1 capsule Orally twi ce a day; Duration: 5 days 03/06/2025 Active Pantoprazole Sodium 40 MG TAKE 1 TABLET BY MOUTH EVERY DAY; Duration: 90 Active Allopurinol 100 MG TAKE 1 TABLET BY KARI TH TWICE A DAY FOR 90 DAYS; Duration: 90 Active Montelukast Sodium 10 MG 1 tab(s) orally once a day; Duration: 90 days Not-Takin g Warfarin Sodium 5 MG TAKE 1 TO 1 & 1/2 TABLETS BY MOUTH DAILY DIRECTED; Duration: 90 Active Potassium Chloride ER 10 MEQ 3 tab(s) orally twice a day; Duration: 30 days Active Ondansetron HCl 4 MG 1 tablet Orally every 8 hours As needed 03/01/2025 Active Albuterol Sulfate HFA 108 (90 Base) MCG/ACT 2 puff as needed Inhalation 4 times a day; Duration: 25 days Active Bumetanide 2 MG TAKE 1 OR 2 TABLETS ORALLY TWICE A DAY Active Losartan Potassium 50 MG 1 tab(s) orally once a day; Duration: 90 days Active Finasteride 5 MG 1 tablet Orally Once a day; Duration: 90 days Active Ferrous Sulfate 325 (65 Fe) MG 1 tablet Orally Two times a day; Duration: 90 days Active Atorvastatin Calcium 80 MG TAKE 1 TABLET BY MOUTH EVERY DAY FOR 90 DAYS; Duration: 90 Active Pregabalin 75 MG 1 capsule Orally Two times a day; Duration: 30 day(s) 10/25/2024 Active valACYclovir HCl 1 GM 1 tablet Orally Th ree times a day; Duration: 7 days 05/20/2024 Active metOLazone 5 MG 1 tab(s) orally ever y 3 days as needed Active Triamcinolone Acetonide 0.1 % APPLY TO AFFECTED AREA TWICE A DAY NEEDED; Duration: 60 days Active Metoprolol Tartrate 50 MG 2 tab(s) orall y 2 times a day Active Fluticasone Propionate 50 MCG/ACT 1 spray(s) in each nostril once a day; Duration: 90 days Active Vitamin D (Ergocalciferol) 1.25 MG (17060 UT) 1 cap(s) orally twice a week; Duration: 90 days Active Nitrostat 0.4 MG 1 tab(s) sublinguall y every 5 minutes, prn; Duration: 8 Active Aspirin 81 MG 1 tab(s) orally once a day; Duration: 30 day(s) Active Diclofenac Sodium 1 % as directed applie d topically 4 times a day; Duration: 30 day(s) Active Vital Signs Weight 345.4 lbs 03/13/2025 Blood pressure systolic 130 mm Hg 03/13/20 25 Blood pressure diastolic 80 mm Hg 025 Heart Rate 92 /min 03/13/2025 Height 70 in 03/13/2025 BMI 49.55 kg/m2 03/13/2025 Encounters Encounter Location Date Provider Diagnosis [facility] [facility] [address] [phone] 03/13/2025 Moi Rayo Left leg cellulitis L03.116 ; Essential hypertension I10 ; Peripheral edema R60.0 and nursing home current use of anticoagulant Z79.01 Assessments Encounter Date Diagnosis (ICD Code) Assessment Notes Treatment Notes Treatment Clinical Notes Section Notes 03/13/2025 Left leg cellulitis (ICD-10 - L03.116) 03/13/2025 Essential hypertension (ICD-10 - I10) 03/13/2025 Peripheral edema (ICD-10 - R60.0) 03/13/2025 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 (ICD-10 - Z79.01) Plan Of Treatment Medication Medication Name Sig Start Date Stop Date Notes Cephalexin 500 MG 1 capsule Orally twi ce a day; Duration: 5 days 03/06/2025 Next Appt Details Follow Up: via phone to repo rt progress, Reason: Provider Name:Moi Mae ry, 06/27/2025 10:30:00 AM, [address], [address], [place], [phone], Provider Name:Moi Mae eduarda, 10/09/2025 09:45:00 AM, [address], [address], [place], [phone], Progress Notes * COLETTE GRIMALDO WDOB:1945 (80 yo M)Acc No.[id number]:03/13/2025 Progress Notes Patient: COLETTE GARCÍA Provider: Gordon Rayo M.D. :1945 A ge:79 Y S ex:Male Date:03/13/2025 Address:[address] [place] [address] [place], [id number] Subjective: * Chief Complaints: * 1 . 1 week f/u. * HPI: D ermatology: 79 year old male presents with c/o Cellulitis P t here for 1 week f/u on lt leg cellulitis. Pt started on Cephalexin 500mg 03/06. Pt sts his leg is about alf better than it was, but sts it is still red. * ROS: G ASTROENTEROLOGY: no N ausea. n o V omiting. N EUROLOGY: no H eadache. n o D izziness. U ROLOGY: no D ifficulty urinating. n o B lood in urine. * Medical History: C oronary Artery Disease, Dr. Jones, Non STEMI 06/12/2016, 02/16/2017, AVR 09/20/2012, Porcine, Atrial Fibrillation, [facility] Coumadin Clinic, Hyperlipidemia, Hypertension, Gout, Vitamin D [...] stic Procedure: A -Fib Light [facility].I. - [facility] 02/16-06/2017, [place] [facility] [place], Gallbladder, Esophagitis, Partial Lung Collapse- [facility] 07/11-10/2017, Cholecystectomy- [facility] 07/19-07/2019. * Family History: F [...] , Taking Vitamin D (Ergocalciferol) 1.25 MG (84055 UT) Capsule 1 cap(s) orally twice a [...] Orally Three times a day , Taking Pregabalin 75 MG [...] Orally every 8 hours As needed, Taking Allopurinol 100 MG Tablet TAKE 1 TABLET BY MOUTH TWICE A DAY FOR 90 DAYS , Taking Pantoprazole Sodium 40 MG Tablet Delayed Release TAKE 1 TABLET BY MOUTH EVERY DAY , Not-Taking Zithromax Z-Duarte 250 MG Tablet as directed Orally daily , Not-Taking Montelukast Sodium 10 MG Tablet 1 tab(s) orally once a day , Not-Taking Cephalexin 500 MG Capsule 1 capsule Orally twice a day , Medication List reviewed and reconciled with the patient * Allergies: L ortab: stomach upset. Objective: * Vitals: W t: 345.4, Temp: 98.4, BP: 130/80, HR: 92, O2 Sat: 94% on RA, Nurse: sarah, Ht: 70, BMI:49.55. * Examination: G eneral Examination: General Appearance: N AD. E xtremities: 2 + bilateral leg edema, the skin redness over the left dick has faded. Assessment: * Assessment: 1. L eft leg cellulitis - L03.116 (Primary) 2 . E ssential hypertension - I10 3 . P eripheral edema - R60.0 4 . L margarita term current use of anticoagulant - Z79.01 Plan: * Treatment: Value Reference Range w bc 5.4 3.5 - 10 * l ymph 20.5 15 - 50 * m id 5.3 2 - 15 * g ran 74.2 35 - 80 * r bc 3.27 3.5 - 5.5 * h gb 11.4 11.5 - 16.5 * h ct 33.2 35 - 55 * m cv 101.4 75 - 100 * m ch 34.8 25 - 35 * m chc 34.3 31 - 38 * p latlet 153 100 - 400 * Gabby Espinosa 03/13/2025 12:24 :57 PM EDT > Provider reviewed results while patient in office. 2.?Peripheral edema?LAB: P-Basic Metabolic Panel (BMP) (Collection Date & Time - 03/13/2025 11:10 AM)?gluc 102, bun 31, Cr 1.79, gfr 38* Value Reference Range B UN 31 H 8-23 - mg/dL * C alcium 8.9 8.6-10.4 - mg/dL * C hloride 107 97-108 - mmol/L * C O2 27 20-32 - mmol/L * C reatinine 1.79 H 0.70-1.30 - mg/dL * G lucose 102 H 65-99 - mg/dL * P otassium 4.9 3.5-5.3 - mmol/L * S odium 144 135-145 - mmol/L * e GFR by Creatinine 38 L >59 - mL/min/1.73m2 * Christine Maloney 03/14/2025 10:09 :44 AM EDT > See phone encounter 3.?nursing home current use of anticoagulant?LAB: PT/INR (in house) (Collection Date & Time - 03/13/2025)* Value Reference Range P T 21.9 * I NR 1.8 * c urrent dose 2.5mg daily * n ew dose 2.5mg W. 5mg AOD * n ext check 2 weeks * i deal INR 2-3 * Gabby Espinosa 03/13/2025 12:24 :03 PM EDT > Provider reviewed results while patient in office.Moi Rayo 03/14/2025 10:35:45 PM EDT > * Procedure Codes: G 2211 Complex e/[place], [address] CBC WITH AUTO DIFF, 08347 PROTHROMBIN TIME, Modifiers: QW , 1036F TOBACCO NON-USER, G8950 PREHTN/HTN BP DOC INDCD F/U DOC, G8752 MOST RECENT SYSTOLIC BP < 140MM HG, G8754 MOST RECENT DIASTOLIC BP < 90MM HG * Follow Up: v ia phone to report progress * Images: Billing Information: * Visit Code: 62554 Office Visit, Est Pt., Level 4. * Procedure Codes: G2211 Complex e/[place]. [address] CBC WITH AUTO DIFF. 69774 PROTHROMBIN TIME. Modifiers: QW 1036F TOBACCO NON-USER. G8950 PREHTN/HTN BP DOC INDCD F/U DOC. G8752 MOST RECENT SYSTOLIC BP < 140MM HG. G8754 MOST RECENT DIASTOLIC BP < 90MM HG. * Electronic signature of Keisha Rayo MD on 06/26/2025 at 08:03 AM EST Sign off status: Pending * Provider: Gordon Rayo M.D. Date: 0 03/13/2025 Generated for Charisma lassiter/Shraddha/Brockransmitting on: 1 08/26/2024 08:03 AM EST History and Physical Notes * HPI (History of Present Illness) Category Sub-Category Detail Notes Category Not es Dermatology Cellulitis Pt here for 1 we ek f/u on lt leg cellulitis. Pt started on Cephalexin 500mg 03/06. Pt sts his leg is about alf better than it was, but sts it is still red Examination Category Sub-Category Detail Notes Category Not es General Examination Extremities: 2+ bilateral leg edema, the skin redness over the left dick has faded General Appearance: NAD
--- OUTSIDE RECORDS SUMMARY | 2025-04-07 04:30 | XMS_ITS ---
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 Name Role Phone Moi Rayo Primary Care Provider [phone] Allergies Allergen (clinical drug ingredient) Drug/Non Drug Allergy documented on EMR Reaction Allergy Type Onset Date Status Lortab stomach upset Drug Allergy Act dimas Results Component Value Reference Range Notes PT/INR (in house) Reviewed date:04/07/2025 11:25:58 AM Interpretation: Performing Lab: Notes/Report: PT 30.9 INR 2.6 current dose 5mg Daily new dose no change next check 4 weeks at [facility] ideal INR 2-3 Glucose (In-House) Reviewed date:04/07/2025 11:14:16 AM Interpretation: Performing Lab: Notes/Report: blood glucose 137 74 - 106 mg/dL Glycohemoglobin A1c (in hous e) Reviewed date:04/07/2025 11:14:01 AM Interpretation: Performing Lab: Notes/Report: glycohemoglobin 5.8% 5 - 6.5 % P-Comprehensive Metabolic Pa john ([facility]) Reviewed date:04/11/2025 08:58:36 AM Interpretation:Glu 100, BUN 51, Creat 2.30, eGFR 28, AST 59, Bili 1.5 Performing Lab: Notes/Report: Test performed by [facility] [address] [place] [address] , [address], [place] [address] Ashok Antonio MD, [employer] CLIA: [id number] Sodium 144 135-145 mmol/L Potassium 4.7 3.5-5.3 mmol/L Chloride 104 97-108 mmol/L CO2 28 20-32 mmol/L Glucose 100 65-99 mg/dL BUN 51 8-23 mg/dL Creatinine 2.30 0.70-1.30 mg/dL Calcium 9.1 8.6-10.4 mg/dL eGFR by Creatinine 28 >59 mL/min/1.73m2 Protein 6.4 6.0-8.3 g/dL Albumin 3.8 3.5-5.3 g/dL Alkaline Phosphatase 84 40-129 IU/L ALT (SGPT) 48 <5-55 IU/L AST (SGOT) 59 <5-46 IU/L Bilirubin, Total 1.5 <0.2-1.2 mg/dL A/G Ratio 1.5 1.1-2.5 P-Lipid Panel Reviewed date:04/11/2025 08:58:36 AM Interpretation:HDL 35 Performing Lab: Notes/Report: Test performed by [facility], [address] , [address] , [place] [address] Ashok Antonio MD, [employer] CLIA: [id number] Cholesterol 127 <200 mg/dL Triglycerides 124 <150 mg/dL HDL Cholesterol 35 >39 mg/dL Cholesterol / HDL Ratio 3.63 0.00-4.99 Ratio Non-HDL Cholesterol 92 <130 mg/dL LDL Cholesterol (Calculation) 67 <130 mg/dL LDL Cholesterol Levels* Less than 100 mg/dL Optimal 100 to 129 mg/dL Near Optimal/ Above Optimal 130 to 159 mg/dL Borderline High 160 to 189 mg/dL High 190 mg/dL and above Very High * Categories as recommended by the 2004 ATPIII guidelines LDL/HDL Ratio 1.9 <3.3 Ratio _ LDL Cholesterol Patient History _ Test Date: 04/07/2025 LDL Results: 67 Units: mg/dL % Change: - _ P-Phosphorus Reviewed date:04/11/2025 08:58:36 AM Interpretation:Normal Performing Lab: Notes/Report: Test performed by [facility] [address] , [place] [address] Ashok Antonio MD, [employer] CLIA: [id number] Phosphorus 3.9 2.5-4.5 mg/dL P-Parathyroid Hormone (PTH) Intact Reviewed date:04/11/2025 08:58:36 AM Interpretation:91.2 Performing Lab: Notes/Report: Test performed by [facility] [facility] [address] , [address], [place] [address] Ashok Antonio MD, [employer] CLIA: [id number] Parathyroid Hormone (PTH) Intact 91.2 15.0-65.0 pg/mL P-TSH reflex to FT4 Reviewed date:04/11/2025 08:58:36 AM Interpretation:Normal Performing Lab: Notes/Report: Test performed by [facility] [address] , [place] [address] Ashok Antonio MD, [employer] CLIA: [id number] TSH reflex to FT4 3.32 0.43-5.25 mU/L P-Microalbumin/Creatinine, R andom Urine Sample Reviewed date:04/11/2025 08:58:36 AM Interpretation:Normal Performing Lab: Notes/Report: Test performed by [facility] [facility] [address] , [address], [place] [address] Ashok Antonio MD, [employer] CLIA: [id number] Albumin/Creatinine Ratio, Urine <4.60 0-30 ug/mg Microalbumin, Urine, Random <0.3 Creatinine, Urine 65.1 P-Uric Acid Reviewed date:04/11/2025 08:58:36 AM Interpretation:Normal Performing Lab: Notes/Report: Test performed by [facility], [employer] [address] [place] [address] [address] , [place] [address] Ashok Antonio MD, [employer] CLIA: [id number] Uric Acid 7.6 3.4-8.0 mg/dL P-Vitamin D 25-Hydroxy Reviewed date:04/11/2025 08:58:36 AM Interpretation:36 Performing Lab: Notes/Report: Test performed by [facility] [address] [place] [address] [address] , [place] [address] Ashok Antonio MD, [employer] CLIA: [id number] Vitamin D 25-Hydroxy 36.0 30.0-100.0 ng/mL Interpretation of Vitamin D 25 OH: < 20 ng/mL - Deficiency 20 - 29 ng/mL - Insufficiency 30 - 100 ng/mL - Sufficiency > 100 ng/mL - Super-therapeutic- toxicity may occur above this level. Clinical correlation required. REASON FOR VISIT 6 month checkup Medications Medication SIG (Take, Route, Frequency, Duration) Notes Start Date End Date Status Albuterol Sulfate HFA 108 (90 Base) MCG/ACT 2 puff as needed Inhalation 4 times a day; Duration: 25 days Active Ferrous Sulfate 325 (65 Fe) MG 1 tablet Orally Two times a day; Duration: 90 days Active Finasteride 5 MG 1 tablet Orally Once a day; Duration: 90 days Active Bumetanide 2 MG TAKE 1 OR 2 TABLETS ORALLY TWICE A DAY Active Potassium Chloride ER 10 MEQ 3 tab(s) orally twice a day; Duration: 30 days Active Triamcinolone Acetonide 0.1 % APPLY TO AFFECTED AREA TWICE A DAY NEEDED; Duration: 60 days Active metOLazone 5 MG 1 tab(s) orally ever y 3 days as needed Active valACYclovir HCl 1 GM 1 tablet Orally Th ree times a day; Duration: 7 days 05/20/2024 Active Pregabalin 75 MG 1 capsule Orally Two times a day; Duration: 30 day(s) 10/25/2024 Active Fluticasone Propionate 50 MCG/ACT 1 spray(s) in each nostril once a day; Duration: 90 days Active Allopurinol 100 MG TAKE 1 TABLET BY KARI TH TWICE A DAY FOR 90 DAYS Active Diclofenac Sodium 1 % as directed applie d topically 4 times a day; Duration: 30 day(s) Active Vitamin D (Ergocalciferol) 1.25 MG (85074 UT) 1 cap(s) orally twice a week; Duration: 90 days Active Aspirin 81 MG 1 tab(s) orally once a day; Duration: 30 day(s) Active Nitrostat 0.4 MG 1 tab(s) sublinguall y every 5 minutes, prn; Duration: 8 Active Atorvastatin Calcium 80 MG TAKE 1 TABLET BY MOUTH EVERY DAY FOR 90 DAYS Active Losartan Potassium 50 MG 1 tab(s) orally once a day Active Warfarin Sodium 5 MG TAKE 1 TO 1 & 1/2 T ABLETS BY MOUTH DAILY DIRECTED Active Metoprolol Tartrate 50 MG 2 tab(s) orall y 2 times a day Active Pantoprazole Sodium 40 MG TAKE 1 TABLET BY MOUTH EVERY DAY; Duration: 90 Active Multaq 400 MG 1 tablet with meals Orally Twice a day; Duration: 90 days 09/19/2024 Active Colchicine 0.6 MG 1 tab(s) orally once a day; Duration: 90 days Active Ondansetron HCl 4 MG 1 tablet Orally every 8 hours As needed 03/01/2025 Active Vital Signs Weight 332.2 lbs 04/07/2025 Blood pressure systolic 136 mm Hg 04/07/20 25 Blood pressure diastolic 80 mm Hg 025 Heart Rate 74 /min 04/07/2025 Height 70 in 04/07/2025 BMI 47.66 kg/m2 04/07/2025 Encounters Encounter Location Date Provider Diagnosis [facility] [address] [place], [place] [phone] 04/07/2025 Moi Rayo Essential hypertensi on I10 ; Mixed hyperlipidemia E78.2 ; Gout, unspecified cause, unspecified chronicity, unspecified site M10.9 ; Vitamin D deficiency E55.9 ; Stage 3b chronic kidney disease N18.32 ; Chronic atrial fibrillation I48.20 and Type 2 diabetes mellitus with diabetic chronic kidney disease, unspecified CKD stage, unspecified whether prison insulin use E11.22 Assessments Encounter Date Diagnosis (ICD Code) Assessment Notes Treatment Notes Treatment Clinical Notes Section Notes 04/07/2025 Essential hypertension (ICD-10 - I10) 04/07/2025 Mixed hyperlipidemia (ICD-10 - E78.2) 04/07/2025 Gout, unspecified cause, unspecified chronicity, unspecified site (ICD-10 - M10.9) 04/07/2025 Vitamin D deficiency (ICD-10 - E55.9) 04/07/2025 Stage 3b chronic kidney disease (ICD-10 - N18.32) 04/07/2025 Chronic atrial fibrillation (ICD-10 - I48.20) 04/07/2025 Type 2 diabetes mellitus with diabetic chronic kidney disease, unspecified CKD stage, unspecified whether watermaster insulin use (ICD-10 - E11.22) Plan Of Treatment Medication Medication Name Sig Start Date Stop Date Notes Allopurinol 100 MG TAKE 1 TABLET BY KARI TH TWICE A DAY FOR 90 DAYS Atorvastatin Calcium 80 MG TAKE 1 TABLET BY MOUTH EVERY DAY FOR 90 DAYS Losartan Potassium 50 MG 1 tab(s) orally once a day Warfarin Sodium 5 MG TAKE 1 TO 1 & 1/2 T ABLETS BY MOUTH DAILY DIRECTED Metoprolol Tartrate 50 MG 2 tab(s) orally 2 times a day Next Appt Details Follow Up: 6 Months, Reason: Provider Name:Moi lerner, 06/27/2025 10:30:00 AM, [facility] [address], [address], [place], [place], [phone], Provider Name:Moi lerner, 10/09/2025 09:45:00 AM, [address] [place] [address] [address], [place], [place], [phone], Progress Notes * COLETTE LYON WDOB:1945 (80 yo M)Acc No.[id number]:04/07/2025 Progress Notes Patient: COLETTE GARCÍA Provider: Gordon Rayo M.D. :1945 A ge:79 Y S ex:Male Date:04/07/2025 Address:[address] [place] [address] [place], [id number] Subjective: * Chief Complaints: * 1 . 6 month checkup. * HPI: C ardiology: 79 year old male presents with c/o Blood Pressure Elevated P t is here for 6 month follow up on Hypertension. Pt states he is doing well and does not have any concerns. Pt would like for labs to be sent to [facility] in [place] Dr. Vargas. c/o Hyperlipidemia P t is fasting today. E ndocrinology: c/o Recent Blood Sugars P t here to check up on DM 2. D ermatology: c/o Cellulitis P t here to have left leg checked after completing abx for Cellulitis. * ROS: D ERMATOLOGY: no R lalo. n o H anju. G ASTROENTEROLOGY: no N ausea. n o V omiting. n o D iarrhea.? U ROLOGY: no D ifficulty urinating. n o B lood in urine. * Medical History: C oronary Artery Disease, Dr. 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 - [facility] 02/16-06/2017, Leg Wound- [facility] 01/15/2018, Gallbladder, Esophagitis, Partial Lung Collapse- [facility] 07/11-10/2017, Cholecystectomy- [facility] 07/19-07/2019. * Family History: F ather: 92 yrs. M other: 68 yrs, diagnosed with Hypertension, Diabetes, Heart Disease. S iblings: diagnosed with Heart Disease, Hypertension, Diabetes. 4 brother(s) , 1 sister(s) . 3 [...] , Taking Vitamin D (Ergocalciferol) 1.25 MG (32498 UT) Capsule 1 cap(s) orally twice a week , Taking Fluticasone Propionate 50 MCG/ACT Suspension 1 spray(s) in each nostril once a day , Taking Triamcinolone Acetonide 0.1 [...] TABLET BY MOUTH EVERY DAY , Taking Metoprolol Tartrate 50 MG Tablet 2 tab(s) orally 2 times a day , Taking Multaq 400 MG Tablet 1 tablet with meals Orally Twice a day , Taking Colchicine 0.6 MG Tablet 1 tab(s) orally once a day , Discontinued Cephalexin 500 MG Capsule 1 capsule Orally twice a day , Discontinued Zithromax Z-Duarte 250 MG Tablet as directed Orally daily , Discontinued Montelukast Sodium 10 MG Tablet 1 tab(s) orally once a day , Medication List reviewed and reconciled with the patient * Allergies: L ortab: stomach upset. Objective: * Vitals: W t: 332.2, Temp: 98.4, BP: 136/80, HR: 74, Nurse: RENETTA, Ht: 70, BMI:47.66. * Examination: G eneral Examination: General Appearance: N AD. H eart: R SR. L ungs:?clear to auscultation. E xtremities: u na wraps on both lower legs. ? Assessment: * Assessment: 1. E ssential hypertension - I10 (Primary) 2 . M ixed hyperlipidemia - E78.2 3 . G out, unspecified cause, unspecified chronicity, unspecified site - M10.9? 4. V itamin D deficiency - E55.9 5 . S tage 3b chronic kidney disease - N18.32 6 . C hronic atrial fibrillation - I48.20 7 . T ype 2 diabetes mellitus with diabetic chronic kidney disease, unspecified CKD stage, unspecified whether prison insulin use - E11.22 Plan: * Treatment: Value Reference Range A /G Ratio 1.5 1.1-2.5 - * A lbumin 3.8 3.5-5.3 - g/dL * A lkaline Phosphatase 84 40-129 - IU/L * A LT (SGPT) 48 <5-55 - IU/L * A ST (SGOT) 59 H <5-46 - IU/L * B ilirubin, Total 1.5 H <0.2-1.2 - mg/dL * B UN 51 H 8-23 - mg/dL * C alcium 9.1 8.6-10.4 - mg/dL * C hloride 104 97-108 - mmol/L * C O2 28 20-32 - mmol/L * C reatinine 2.30 H 0.70-1.30 - mg/dL * G lucose 100 H 65-99 - mg/dL * P otassium 4.7 3.5-5.3 - mmol/L * S odium 144 135-145 - mmol/L * P rotein 6.4 6.0-8.3 - g/dL * e GFR by Creatinine 28 L >59 - mL/min/1.73m2 * Sun Huynh 04/11/2025 08:5 8:30 AM EDT > See phone encounter ?LAB: P-Microalbumin/Creatinine, Random Urine Sample (Collection Date & Time - 04/07/2025 08:59 AM)?Normal* Value Reference Range A lbumin/Creatinine Ratio, Urine <4.60 0-30 - ug /mg * C reatinine, Urine 65.1 - mg/dL * M icroalbumin, Urine, Random <0.3 - mg/dL * Sun Huynh 04/11/2025 08:5 8:30 AM EDT > See phone encounter 2.?Mixed hyperlipidemia? Continue Atorvastatin Calcium Tablet, 80 MG, TAKE 1 TABLET BY MOUTH EVERY DAY FOR 90 DAYS.?LAB: P-Comprehensive Metabolic Panel (CMP) (Collection Date & Time - 04/07/2025 08:59 AM)?Glu 100, BUN 51, Creat 2.30, eGFR 28, AST 59, Bili 1.5* Value Reference Range A /G Ratio 1.5 1.1-2.5 - * A lbumin 3.8 3.5-5.3 - g/dL * A lkaline Phosphatase 84 40-129 - IU/L * A LT (SGPT) 48 <5-55 - IU/L * A ST (SGOT) 59 H <5-46 - IU/L * B ilirubin, Total 1.5 H <0.2-1.2 - mg/dL * B UN 51 H 8-23 - mg/dL * C alcium 9.1 8.6-10.4 - mg/dL * C hloride 104 97-108 - mmol/L * C O2 28 20-32 - mmol/L * C reatinine 2.30 H 0.70-1.30 - mg/dL * G lucose 100 H 65-99 - mg/dL * P otassium 4.7 3.5-5.3 - mmol/L * S odium 144 135-145 - mmol/L * P rotein 6.4 6.0-8.3 - g/dL * e GFR by Creatinine 28 L >59 - mL/min/1.73m2 * Sun Huynh 04/11/2025 08:5 8:30 AM EDT > See phone encounter ?LAB: P-Lipid Panel (Collection Date & Time - 04/07/2025 08:59 AM)?HDL 35* Value Reference Range C holesterol / HDL Ratio 3.63 0.00-4.99 - Ratio * C holesterol 127 <200 - mg/dL * H DL Cholesterol 35 L >39 - mg/dL * L DL Cholesterol (Calculation) 67 <130 - mg/d L * L DL/HDL Ratio 1.9 <3.3 - Ratio * N on-HDL Cholesterol 92 <130 - mg/dL * T riglycerides 124 <150 - mg/dL * Sun Huynh 04/11/2025 08:5 8:30 AM EDT > See phone encounter ?LAB: P-TSH reflex to FT4 (Collection Date & Time - 04/07/2025 08:59 AM)? Normal* Value Reference Range T SH reflex to FT4 3.32 0.43-5.25 - mU/L * Sun Huynh 04/11/2025 08:5 8:30 AM EDT > See phone encounter 3.?Gout, unspecified cause, unspecified chronicity, unspecified site? Continue Allopurinol Tablet, 100 MG, TAKE 1 TABLET BY MOUTH TWICE A DAY FOR 90 DAYS.?LAB: P-Uric Acid (Collection Date & Time - 04/07/2025 08:59 AM)?Normal* Value Reference Range U edward Acid 7.6 3.4-8.0 - mg/dL * Sun Huynh 04/11/2025 08:5 8:30 AM EDT > See phone encounter 4.?Vitamin D deficiency?LAB: P-Vitamin D 25-Hydroxy (Collection Date & Time - 04/07/2025 08:59 AM)? 36* Value Reference Range V itamin D 25-Hydroxy 36.0 30.0-100.0 - ng/mL * Sun Huynh 04/11/2025 08:5 8:30 AM EDT > See phone encounter 5.?Stage 3b chronic kidney disease?LAB: P-Comprehensive Metabolic Panel (CMP) (Collection Date & Time - 04/07/2025 08:59 AM)?Glu 100, BUN 51, Creat 2.30, eGFR 28, AST 59, Bili 1.5* Value Reference Range A /G Ratio 1.5 1.1-2.5 - * A lbumin 3.8 3.5-5.3 - g/dL * A lkaline Phosphatase 84 40-129 - IU/L * A LT (SGPT) 48 <5-55 - IU/L * A ST (SGOT) 59 H <5-46 - IU/L * B ilirubin, Total 1.5 H <0.2-1.2 - mg/dL * B UN 51 H 8-23 - mg/dL * C alcium 9.1 8.6-10.4 - mg/dL * C hloride 104 97-108 - mmol/L * C O2 28 20-32 - mmol/L * C reatinine 2.30 H 0.70-1.30 - mg/dL * G lucose 100 H 65-99 - mg/dL * P otassium 4.7 3.5-5.3 - mmol/L * S odium 144 135-145 - mmol/L * P rotein 6.4 6.0-8.3 - g/dL * e GFR by Creatinine 28 L >59 - mL/min/1.73m2 * Sun Huynh 04/11/2025 08:5 8:30 AM EDT > See phone encounter ?LAB: P-Phosphorus (Collection Date & Time - 04/07/2025 08:59 AM)?Normal* Value Reference Range P hosphorus 3.9 2.5-4.5 - mg/dL * Sun Huynh 04/11/2025 08:5 8:30 AM EDT > See phone encounter ?LAB: P-Parathyroid Hormone (PTH) Intact (Collection Date & Time - 04/07/2025 08:59 AM)?91.2* Value Reference Range P arathyroid Hormone (PTH) Intact 91.2 H 15.0-65. 0 - pg/mL * Sun Huynh 04/11/2025 08:5 8:30 AM EDT > See phone encounter 6.?Chronic atrial fibrillation? Continue Warfarin Sodium Tablet, 5 MG, TAKE 1 TO 1 & 1/2 TABLETS BY MOUTH DAILY DIRECTED. ?LAB: PT/INR (in house) (Collection Date & Time - 04/07/2025)* Value Reference Range P T 30.9 * I NR 2.6 * c urrent dose 5mg Daily * n ew dose no change * n ext check 4 weeks at [facility] * i deal INR 2-3 * Tarah Hughes 04/07/2025 10:19: 37 AM EDT > Provider reviewed results while patient in office.Moi Rayo 04/07/2025 11:25:28 AM EDT > 7.?Type 2 diabetes mellitus with diabetic chronic kidney disease, unspecified CKD stage, unspecified whether prison insulin use?LAB: P-Microalbumin/Creatinine, Random Urine Sample (Collection Date & Time - 04/07/2025 08:59 AM)?Normal* Value Reference Range A lbumin/Creatinine Ratio, Urine <4.60 0-30 - ug /mg * C reatinine, Urine 65.1 - mg/dL * M icroalbumin, Urine, Random <0.3 - mg/dL * Sun Huynh 04/11/2025 08:5 8:30 AM EDT > See phone encounter ?LAB: Glucose (In-House) (Collection Date & Time - 04/07/2025)* Value Reference Range b lood glucose 137 74 - 106 mg/dL * Tarah Hughes 04/07/2025 10:20: 06 AM EDT > Provider reviewed results while patient in office. ?LAB: Glycohemoglobin A1c (in house) (Collection Date & Time - 04/07/2025)* Value Reference Range g lycohemoglobin 5.8% 5 - 6.5 % * Tarah Hughes 04/07/2025 10:21: 21 AM EDT > Provider reviewed results while patient in office. * Procedure Codes: G 2211 Complex e/[place], [address] GLUCOSE TEST, 47972 GLYCATED HEMOGLOBIN TEST, Modifiers: QW , 69321 PROTHROMBIN TIME, Modifiers: QW , 3044F HG A1C LEVEL LT 7.0%, 1036F TOBACCO NON-USER, G8950 PREHTN/HTN BP DOC INDCD F/U DOC, G8752 MOST RECENT SYSTOLIC BP < 140MM HG, G8754 MOST RECENT DIASTOLIC BP < 90MM HG * Follow Up: 6 Months * Images: Billing Information: * Visit Code: 31829 Office Visit, Est Pt., Level 4. * Procedure Codes: G2211 Complex e/[place]. [address] GLUCOSE TEST. 41422 GLYCATED HEMOGLOBIN TEST. Modifiers: QW 19684 PROTHROMBIN TIME. Modifiers: QW 3044F HG A1C LEVEL LT 7.0%. 1036F TOBACCO NON-USER. G8950 PREHTN/HTN BP DOC INDCD F/U DOC. G8752 MOST RECENT SYSTOLIC BP < 140MM HG. G8754 MOST RECENT DIASTOLIC BP < 90MM HG. * Electronic signature of Keisha Rayo MD on 06/26/2025 at 08:04 AM EST Sign off status: Pending * Provider: Gordon Rayo M.D. Date: 0 04/07/2025 Generated for Charisma lassiter/Shraddha/Laurismitting on: 08/26/2024 08:04 AM EST History and Physical Notes * HPI (History of Present Illness) Category Sub-Category Detail Notes Category Not es Dermatology Cellulitis Pt here to have left leg checked after completing abx for Cellulitis Endocrinology Recent Blood Sugars Pt here to check up on DM 2 Cardiology Blood Pressure Elevated Pt is he re for 6 month follow up on Hypertension. Pt states he is doing well and does not have any concerns. Pt would like for labs to be sent to [facility] in [place] Dr. Vargas Hyperlipidemia Pt is fasting today Examination Category Sub-Category Detail Notes Category Not es General Examination Heart: RSR Lungs: clear to auscultatio n Extremities: carla wraps on both lo wer legs General Appearance: NAD
--- OUTSIDE RECORDS SUMMARY | 2025-05-01 07:30 | XMS_ITS | Encounter Summary ---
[facility] Address [address] [place] [address] Care Team Providers Care Deputy Chief Executive Name Role Phone Moi Rayo MD Primary Care Provider [phone] Reason for Visit * Diagnostic Imaging (Routine) - Closed Specialty Diagnoses / Procedures Referred By Chris gaffney Referred To Contact Diagnoses Nonrheumatic aortic valve stenosis Procedures Adult Transthoracic Echo Complete W/ Cont if Necessary Per Protocol Jailene Vargas MD [address] [place] [address] Phone: tel: fax: [facility] [address] [place] [address] Phone: tel: fax: Referral ID Status Reason Start Date Expiration Date Visits Re quested Visits Authorized [id number] Closed 12/14/2024 03/15/2026 1 1 Encounter Details Date Type Department Care Team (Latest Contact Info) Description 05/01/2025 8:30 AM EDT Ancillary Procedure [facility] [place] [phone] Nonrheumatic aortic valve stenosis Social History Tobacco Use Types Packs/Day Years [...] Industry Job Start Date Job End Date [place] Not on file Not on file Not on file documented as of this encounter Last Filed Vital Signs Vital Sign Reading Time Taken Comments Blood Pressure 110/68 05/01/2025 8:28 AM EDT Pulse - - Temperature - - Respiratory Rate - - Oxygen Saturation - - Inhaled Oxygen Concentration - - Weight 158 kg (348 lb) 05/01/2025 8:28 AM EDT Height 177.8 cm (5' 10 ) 05/01/2025 8:28 AM EDT Body Mass Index 49.93 05/01/2025 8:28 AM EDT documented in this encounter Plan of Treatment Upcoming Encounters Date Type Department Care Team (Late st Contact Info) Description 08/21/2025 9:30 AM EST Ancillary Procedure [facility] [place] [phone] 08/21/2025 10:15 AM EST Office Visit [facility] [place] [phone] Jailene Vargas MD [address] [place] [address] 08/21/2025 10:15 AM EST Clinical Support No Requirements [facility] [place] [phone] documented as of this encounter Procedures Procedure Name Priority Date/Time Associated Diagnosis Comments ECHO COMPLETE W/ DOPPLER AND COLOR FLOW Routine 05/01/2025 9:21 AM EDT Nonrheumatic aortic valve stenosis documented in this encounter Results * ECHO COMPLETE W/ DOPPLER AND COLOR FLOW (05/01/2025 9:21 AM EDT) EF(MOD-bp) 61.2 % LVIDd 5.3 cm LVIDs 3.4 cm IVSd 1.43 cm LVPWd 1.46 cm FS 35.6 % IVS/LVPW 0.98 cm ESV(cubed) 40.0 ml LV Sys Vol (BSA corrected) 24.6 cm2 EDV(cubed) 149.7 ml LV Allan Vol (BSA corrected) 68.9 cm2 LV mass(C)d 334.8 grams LVOT area 3.1 cm2 LVOT diam 2.00 cm EDV(MOD-sp2) 190.0 ml EDV(MOD-sp4) 182.0 ml ESV(MOD-sp2) 81.5 ml ESV(MOD-sp4) 65.0 ml SV(MOD-sp2) 108.5 ml SV(MOD-sp4) 117.0 ml SVi(MOD-SP2) 41.1 ml/m2 SVi(MOD-SP4) 44.3 ml/m2 SVi (LVOT) 28.3 ml/m2 EF(MOD-sp2) 57.1 % EF(MOD-sp4) 64.3 % MV E max mone 135.0 cm/sec MV A max mone 79.1 cm/sec MV dec time 0.22 sec MV E/A 1.71 IVRT 42.0 ms LA ESV Index (BP) 25.9 ml/m2 TR max mone 301.5 cm/sec SV(LVOT) 74.8 ml RVIDd 3.7 cm RV Base 5.6 cm RV Mid 4.7 cm RV Length 7.7 cm TAPSE (>1.6) 1.80 cm LA dimension (2D) 5.4 cm LV V1 max 103.0 cm/sec LV V1 max PG 4.2 mmHg LV V1 mean PG 3.0 mmHg LV V1 VTI 23.8 cm Ao pk mone 287.0 cm/sec Ao max PG 32.9 mmHg Ao mean PG 18.0 mmHg Ao V2 VTI 61.9 cm MANUEL(I,D) 1.21 cm2 Dimensionless Index 0.38 (DI) MV max PG 9.1 mmHg MV mean PG 3.0 mmHg MV V2 VTI 36.1 cm MV P1/2t 68.9 msec MVA(P1/2t) 3.2 cm2 MVA(VTI) 2.07 cm2 MV dec slope 621.0 cm/sec2 TR max PG 36.4 mmHg RVSP(TR) 51 mmHg RAP systole 15 mmHg PA V2 max 109.0 cm/sec Ao root diam 3.2 cm Sinus 3.2 cm Ascending aorta 3.5 cm Anatomical Region Laterality Modality Ultrasound Narrative 05/01/2025 4:43 PM EDT Left ventricular systolic function is normal. Calculated left ventricular EF = 61.2% Left ventricular ejection fraction appears to be 61 - 65%. Left ventricular diastolic function was not assessed. Calculated right ventricular systolic pressure from tricuspid regurgitation is 51 mmHg. Moderate pulmonary hypertension is present. Left Ventricle Left ventricular systolic function is normal. Calculated left ventricular EF = 61.2% Left ventricular ejection fraction appears to be 61 - 65%. Septal wall motion is abnormal, consistent with right ventricular pacing. Normal left ventricular cavity size noted. Left ventricular wall thickness is consistent with mild to moderate concentric hypertrophy. Left ventricular diastolic function was not assessed. Right Ventricle The right ventricular cavity is severely dilated. Right ventricular wall thickness is consistent with mild hypertrophy. Normal right ventricular systolic function noted. Electronic lead present in the ventricle. Left Atrium The left atrial cavity is dilated. Right Atrium The right atrial cavity is severely dilated. Right atrial volume is 95 ml. The inferior vena cava is dilated. The diameter of the inferior vena cava is 2.38 cm. IVC inspiratory collapse is absent. An electronic lead is present in the right atrium. Mitral Valve Moderate mitral annular calcification is present. There is mild calcification of the mitral valve anterior and posterior leaflet(s). Mild to moderate mitral valve regurgitation is present. No significant mitral valve stenosis is present. Tricuspid Valve The tricuspid valve is structurally normal with no significant stenosis present. Mild to moderate tricuspid valve regurgitation is present. Estimated right ventricular systolic pressure from tricuspid regurgitation is moderately elevated (45-55 mmHg). Calculated right ventricular systolic pressure from tricuspid regurgitation is 51 mmHg. Moderate pulmonary hypertension is present. Aortic Valve No significant aortic valve regurgitation is present. No hemodynamically significant aortic valve stenosis is present. There is a 23 mm, porcine bioprosthetic aortic valve present. The aortic valve peak and mean gradients are within defined limits. The prosthetic aortic valve is grossly normal. Pulmonic Valve The pulmonic valve is grossly normal in structure. There is trace pulmonic valve regurgitation present. There is no pulmonic valve stenosis present. Pericardium The pericardium is normal. There is no evidence of pericardial effusion. . Greater Vessels No dilation of the aortic root is present. No dilation of the sinuses of Valsalva is present. No dilation of the proximal aorta is present. No dilation of the ascending aorta is present. The aortic arch not assessed. The descending aorta not assessed. The main pulmonary artery is grossly normal. Study Quality The study is technically difficult for diagnosis. The quality of the study is limited due to patient body habitus . Paced rhythm was observed for the duration of the procedure. Wall Scoring Score Index: 1.35 The following segments are dyskinetic: mid inferoseptal and apical septal. All other segments are normal. us Jailene Vargas MD CV ECHO ORDERABLES Final Res ult documented in this encounter Visit Diagnoses Diagnosis Nonrheumatic aortic valve stenosis documented in this encounter Care Teams Deputy Chief Executive Relationship Specialty Start Date End Date Moi Rayo MD [address] [place] [facility] [address] [place] [address] PCP - General Family Medicine 05/20/17 documented as of this encounter
--- OUTSIDE RECORDS SUMMARY | 2025-05-01 09:45 | XMS_ITS | Encounter Summary ---
Author Organization [facility] Address [address] [place] [address] Care Team Providers Care Synthetic Chemist Name Role Phone Moi Rayo MD Primary Care Provider + [phone] Reason for Referral * Diagnostic Imaging (Routine) - Authorized Specialty Diagnoses / Procedures Referred By Chris gaffney Referred To Contact Diagnoses Carotid stenosis, bilateral Procedures Duplex Carotid Ultrasound CAR Jailene Vargas MD [address] [place] [address] Phone: tel: fax: [facility] [address] [place] [address] Phone: tel: fax: Referral ID Status Reason Start Date Expiration Date V isits Requested Visits Authorized [id number] Authorized 05/01/2025 07/31/2026 1 1 Reason for Visit * Reason Comments Pacemaker Check Results Pt states he is here today to discuss results on echo that he had in the office this morning. Sleep Apnea Pt states he is here today for follow up JESSIE. He is doing well on current therapy. DL is in Epic. Edema He states he is here today for follow up lymphedema. He has seen Dr. Rayo and Dr. Johnson in the past couple months. He was also admitted to [facility] last wk. Encounter Details Date Type Department Care Team (Late st Contact Info) Description 05/01/2025 10:45 AM EDT Office Visit [facility] [address] [place] [address] Jailene Vargas MD [address] [place] [address] Carotid stenosis, bilateral (Primary Dx); Nonrheumatic aortic valve stenosis; Lymphedema; Obstructive sleep apnea syndrome; Presence of cardiac pacemaker [Z95.0]; Wheezing Social History Tobacco Use Types Packs/Day Years [...] Industry Job Start Date Job End Date [place] Not on file Not on file Not on file documented as of this encounter Last Filed Vital Signs Vital Sign Reading Time Taken Comments Blood Pressure 110/68 05/01/2025 10:01 AM EDT Pulse 100 05/01/2025 10:01 AM EDT Temperature - - Respiratory Rate - - Oxygen Saturation 97% 05/01/2025 10:01 AM EDT Inhaled Oxygen Concentration - - Weight 158 kg (348 lb) 05/01/2025 10:01 AM EDT Height 177.8 cm (5' 10 ) 05/01/2025 10:01 AM EDT Body Mass Index 49.93 05/01/2025 10:01 AM EDT documented in this encounter Progress Notes * Jailene Vargas MD - 05/01/2025 10:45 AM EDT Images from the original note were not included. [facility] Provider Note Date: 05/01/2025 Name: Chad Lyon : 1945 PCP: Moi Rayo MD Chief Complaint Patient presents with Pacemaker Check Results Pt states he is here today to discuss results on echo that he had in the office this morning. Sleep Apnea Pt states he is here today for follow up JESSIE. He is doing well on current therapy. DL is in [facility]. Edema He states he is here today for follow up lymphedema. He has seen Dr. Rayo and Dr. Johnson in thewyst couple months. He was also admitted to [facility] last wk. Subjective History of Present Illness Chad Lyon is a 79 y.o. male with lymphedema, JESSIE who presents today for follow up. Echo today Pacemaker check today JESSIE, DL in [facility] and reviewed with pt. Good compliance with 2.2 AHI. Reports no problems with therapy. Labs reviewed Was in hospital for cellulitis to lower extremities. Was on antibiotics Has not been wearing lymphedema pumps since he was in there. Therapy wrapped legs in the hospital and he goes tomorrow to get them changed. Before he got infection the edema was better. Relays that short of breath with any exertion. Wears oxygen at 2l/nc continuous at night. If wheezing in the day will put it on. Has no chest pain or palpitations. Reports no dizziness or lightheadedness. No syncope Relays that weight gain has to be from fluid . Relays that is not eating much at all because just does not taste good. 05/01/2025 Updated with no new concerns or issues. Cardiology/sleep history 1. Carotid disease-carotid endarterectomy right side, 2021 duplex showed moderate left 2. Coronary artery disease status post bypass 2017 3. Bioprosthetic aortic valve 2012 4. Obstructive sleep apnea on BiPAP FFM, CRISTOPHER mario, nonheated tubing. 5. Sick sinus syndrome status post dual-chamber pacemaker 11/27/2021 6. CKD stage III 7. Diabetes. Allergies Allergen Reactions Hydrocodone Unknown - High Severity Lortab [Hydrocodone-Acetaminophen] Nausea And Vomiting Current Outpatient Medications: albuterol (PROVENTIL HFA;VENTOLIN HFA) 108 (90 Base) MCG/ACT inhaler, Inhale 2 puffs Every 4 (Four)Hours As Needed for Wheezing., Disp: , Rfl: allopurinol (ZYLOPRIM) 100 MG tablet, Take 1 tablet by mouth 2 (Two) Times a Day., Disp: , Rfl: aspirin 81 MG EC tablet, Take 1 tablet by mouth Daily., Disp: , Rfl: atorvastatin (LIPITOR) 80 MG tablet, Take 1 tablet by mouth Daily., Disp: 90 tablet, Rfl: 3 bumetanide (BUMEX) 2 MG tablet, Take 1 tablet by mouth 2 (Two) Times a Day. (Patient taking differently: Take 1 tablet by mouth Daily.), Disp: 180 tablet, Rfl: 3 colchicine 0.6 MG tablet, Take 1 tablet by mouth Daily., Disp: , Rfl: dronedarone (Multaq) 400 MG tablet, TAKE 1 TABLET BY MOUTH TWICE A DAY WITH FOOD, Disp: 180 tablet,Rfl: 3 ferrous sulfate 325 (65 FE) MG tablet, Take 1 tablet by mouth 2 (Two) Times a Day., Disp: , Rfl: finasteride (PROSCAR) 5 MG tablet, Take 1 tablet by mouth Daily., Disp: , Rfl: fluticasone (FLONASE) 50 MCG/ACT nasal spray, into each nostril., Disp: , Rfl: losartan (COZAAR) 50 MG tablet, Take 1 tablet by mouth Daily., Disp: 90 tablet, Rfl: 3 metOLazone (ZAROXOLYN) 2.5 MG tablet, TAKE 1 TABLET BY MOUTH EVERY DAY NEEDED FOR SWELLING (Patient taking differently: Take 1 tablet by mouth As Needed.), Disp: 90 tablet, Rfl: 1 metoprolol tartrate (LOPRESSOR) 100 MG tablet, TAKE 1 TABLET BY MOUTH TWICE A DAY, Disp: 180 tablet, Rfl: 3 montelukast (SINGULAIR) 10 MG tablet, TAKE 1 TABLET EVERY DAY, Disp: , Rfl: 1 mupirocin (BACTROBAN) 2 % ointment, 1 APPLIC TOPICALLY TWICE A DAY FOR 3 WEEKS, Disp: , Rfl: nitroglycerin (NITROSTAT) 0.4 MG SL tablet, Place 1 tablet under the tongue Every 5 (Five) Minutes As Needed for Chest Pain. Take no more than 3 doses in 15 minutes., Disp: , Rfl: ondansetron (ZOFRAN) 4 MG tablet, Every 8 (Eight) Hours., Disp: , Rfl: pantoprazole (PROTONIX) 40 MG EC tablet, Take 1 tablet by mouth Daily., Disp: , Rfl: potassium chloride (K-TAB) 20 MEQ tablet controlled-release ER tablet, Take 1 tablet by mouth Daily. with food, Disp: 90 tablet, Rfl: 3 triamcinolone (KENALOG) 0.1 % lotion, Apply 1 Application topically to the appropriate area as directed 2 (Two) Times a Day., Disp: , Rfl: vitamin D3 125 MCG (5000 UT) capsule capsule, Take 1 capsule by mouth Daily., Disp: , Rfl: warfarin (COUMADIN) 5 MG tablet, Take 1 tablet by mouth Daily., Disp: , Rfl: Past Medical History: Diagnosis Date Anxiety Arthritis Arthritis Atrial fibrillation Cellulitis CHF (congestive heart failure) Clotting disorder Coronary artery disease Diabetes mellitus borderline diabetic but does not take meds to control Dyslipidemia Fatigue Gallstones Gout Heart failure History of anxiety disorder History of aortic valve disorder History of arthritis History of carotid artery stenosis History of nephrolithiasis Hyperlipidemia Hypertension Myocardial infarct 06/12/2016 Obesity Sleep apnea wears cpap Wears dentures Wears glasses Past Surgical History: Procedure Laterality Date AORTIC VALVE REPAIR/REPLACEMENT 09/20/2012 CARDIAC CATHETERIZATION N/A 06/13/2016 Procedure: Left Heart Cath; Surgeon: Hollis Segal MD; Location: [facility]; Service: CARDIAC CATHETERIZATION N/A 06/08/2018 Procedure: Left Heart Cath; Surgeon: Hesham Armenta MD; Location: [facility]; Service: Cardiovascular CAROTID ENDARTERECTOMY Right 07/26/2014 CHOLECYSTECTOMY WITH INTRAOPERATIVE CHOLANGIOGRAM N/A 07/19/2019 Procedure: CHOLECYSTECTOMY LAPAROSCOPIC WITH IOC; Surgeon: Nadir Troncoso MD; Location: [facility] OR; Service: General COLONOSCOPY CORONARY ANGIOPLASTY WITH STENT PLACEMENT CORONARY ARTERY BYPASS GRAFT N/A 06/16/2018 Procedure: REDO STERNOTOMY FOR CORONARY ARTERY BYPASS GRAFT X2, EVH OF THE RIGHT GREATER SAPHENOUS VEIN; Surgeon: Hollis Roman MD; Location: [facility] OR; Service: Cardiothoracic ENDOSCOPY SKIN CANCER EXCISION Family History Problem Relation Age of Onset Coronary artery disease Mother Diabetes Mother Hypertension Mother Kidney disease Mother Alcohol abuse Father Cirrhosis Sister Rheum arthritis Sister Heart disease Brother Aortic aneurysm Brother Heart disease Brother Drug abuse Brother Diabetes Daughter Heart disease Daughter Hypothyroidism Daughter Hypertension Son No Known Problems Son Heart attack Other Heart disease Other Diabetes Other Hypertension Other Hyperlipidemia Other Social History Socioeconomic History Marital status: Number of children: 3 Tobacco Use Smoking status: Never Passive exposure: Never Smokeless tobacco: Never Vaping Use Vaping status: Never Used Substance and Sexual Activity Alcohol use: No Drug use: No Sexual activity: Defer Partners: Female Objective Vital Signs: BP 110/68 (BP Location: Right arm, Patient Position: Sitting, Cuff Size: Large Adult) Pulse 100 Ht 177.8 cm (70 ) Wt (!) 158 kg (348 lb) SpO2 97% BMI 49.93 kg/m?? Estimated body mass index is 49.93 kg/m?? as calculated from the following: Height as of this encounter: 177.8 cm (70 ). Weight as of this encounter: 158 kg (348 lb). Physical Exam Constitutional: Appearance: Normal appearance. He is well-developed. HENT: Head: Normocephalic and atraumatic. Eyes: General: No scleral icterus. Pupils: Pupils are equal, round, and reactive to light. Cardiovascular: Rate and Rhythm: Normal rate and regular rhythm. Heart sounds: Normal heart sounds. No murmur heard. Pulmonary: Breath sounds: Normal breath sounds. No wheezing or rhonchi. Musculoskeletal: Right lower leg: Edema present. Left lower leg: Edema present. Skin: Capillary Refill: Capillary refill takes less than 2 seconds. Coloration: Skin is not cyanotic. Nails: There is no clubbing. Neurological: Mental Status: He is alert and oriented to person, place, and time. Motor: No weakness. Gait: Gait normal. Psychiatric: Mood and Affect: Mood normal. Behavior: Behavior is cooperative. Thought Content: Thought content normal. Assessment and Plan ASSESSMENTS AND ORDERS Diagnoses and all orders for this visit: 1. Carotid stenosis, bilateral (Primary) - Duplex Carotid Ultrasound CAR; Future 2. Nonrheumatic aortic valve stenosis 3. Lymphedema 4. Obstructive sleep apnea syndrome 5. Presence of cardiac pacemaker [Z95.0] PLAN -weight is stable and patient is doing leg wrapping and cellulitis treatment. Will follow up closely to assess need for change in diuretics. -recent cellulitis hospitalization reviewed. -CKD stable, doing better lately -due for carotid duplex, has been over a year. -echo reviewed, no signs of endocarditis. -JESSIE doing well, DL reviewed and showed good compliance, some mask leak but good controll and less leak than prior DL. Benefitting from pap therapy and plan to continue. -labs from Pcp reviewed and showed great cholesterol control and TSH. Follow Up Return in about 3 months (around 07/31/2025) for Recheck symptoms, with testing at that appointment, PM/ICD check. Acacia Vargas MD Cardiology and Sleep [facility] 05/01/2025 Please note that this explicitly excludes time spent on other separate billable services such as performing procedures or test interpretation, when applicable. This note was created using dictation software which occasionally transcribes nonsensical phrases. Please contact the provider if any clarification is needed. documented in this encounter Plan of Treatment Upcoming Encounters Date Type Department Care Team (Late st Contact Info) Description 08/21/2025 9:30 AM EST Ancillary Procedure [facility] [address] [place] [address] [place] [address] 08/21/2025 10:15 AM EST Office Visit [facility] [address] [place] [address] [place] [address] Jailene Vargas MD [address] [place] [address] [place] [address] 08/21/2025 10:15 AM EST Clinical Support No Requirements [facility] [address] [place] [address] [place] [address] Scheduled Orders Name Type Priority Associated Diagnoses Order Schedule Duplex Carotid Ultrasound CAR Vascular Ultrasound Routine Carotid stenosis, bilateral Expected: 05/29/2025, Expires: 05/01/2026 documented as of this encounter Visit Diagnoses Diagnosis Carotid stenosis, bilateral- Primary Occlusion and stenosis of carotid artery without mention of cerebral infarction Nonrheumatic aortic valve stenosis Lymphedema Other noninfectious lymphedema Obstructive sleep apnea syndrome Obstructive sleep apnea (adult) (pediatric) Presence of cardiac pacemaker [Z95.0] Cardiac pacemaker in situ Wheezing documented in this encounter Care Teams Synthetic Chemist Relationship Specialty Start Date End Date Moi Rayo MD [address] [facility] [address] [place] [address] PCP - General Family Medicine 05/20/17 documented as of this encounter
--- OUTSIDE RECORDS SUMMARY | 2025-05-08 05:45 | XMS_ITS ---
Author Organization [facility] Address [address] [facility] [address] [place] [id number] Care Team Providers Care Cloth Tearer Name Role Phone Moi Rayo Primary Care Provider Allergies Allergen (clinical drug ingredient) Drug/Non Drug Allergy documented on EMR Reaction Allergy Type Onset Date Status Lortab stomach upset Drug Allergy Act dimas Results Component Value Reference Range Notes PT/INR (in house) Reviewed date:05/09/2025 09:34:47 AM Interpretation: Performing Lab: Notes/Report: PT 31.9 INR 2.7 current dose 5mg Daily ideal INR 2-3 CBC Venipuncture (in house) Reviewed date:05/09/2025 09:03:26 AM Interpretation: Performing Lab: Notes/Report: wbc 5.0 3.5 - 10 lymph 22.5% 15 - 50 mid 6.4% 2 - 15 gran 71.1% 35 - 80 rbc 3.08 3.5 - 5.5 hgb 10.5 11.5 - 16.5 hct 31.0 35 - 55 mcv 100.7 75 - 100 mch 34.0 25 - 35 mchc 33.8 31 - 38 platlet 166 100 - 400 P-Basic Metabolic Panel (BMP ) Reviewed date:05/09/2025 09:34:47 AM Interpretation:Na 147, Cr 1.54, gfr 46 Performing Lab: Notes/Report: CLIA: [id number] Ashok Antonio MD, Manager Access [address] [place] [address] , [place] [address] Test performed by Celframe, Bidgely Sodium 147 135-145 mmol/L Potassium 4.9 3.5-5.3 mmol/L Chloride 108 97-108 mmol/L CO2 28 20-32 mmol/L Glucose 94 65-99 mg/dL BUN 23 8-23 mg/dL Creatinine 1.54 0.70-1.30 mg/dL Calcium 8.7 8.6-10.4 mg/dL eGFR by Creatinine 46 >59 mL/min/1.73m2 REASON FOR VISIT med surg f/u Medications Medication SIG (Take, Route, Frequency, Duration) Notes Start Date End Date Status Colchicine 0.6 MG 1 tab(s) orally once a day; Duration: 90 days Active Allopurinol 100 MG 1 tablet Orally twic e a day; Duration: 90 days Active Pantoprazole Sodium 40 MG TAKE 1 TABLET BY MOUTH EVERY DAY; Duration: 90 Active Multaq 400 MG 1 tablet with meals Orally Twice a day; Duration: 90 days 09/19/2024 Active Ondansetron HCl 4 MG 1 tablet Orally every 8 hours As needed 03/01/2025 Active valACYclovir HCl 1 GM 1 tablet Orally Th ree times a day; Duration: 7 days 05/20/2024 Active Pregabalin 75 MG 1 capsule Orally Two times a day; Duration: 30 day(s) 10/25/2024 Active Albuterol Sulfate HFA 108 (90 Base) MCG/ACT 2 puff as needed Inhalation 4 times a day; Duration: 25 days Active Bumetanide 2 MG TAKE 1 OR 2 TABLETS ORALLY TWICE A DAY Active Finasteride 5 MG 1 tablet Orally Once a day; Duration: 90 days Active Triamcinolone Acetonide 0.1 % APPLY TO AFFECTED AREA TWICE A DAY NEEDED; Duration: 60 days Active metOLazone 5 MG 1 tab(s) orally ever y 3 days as needed Active Fluticasone Propionate 50 MCG/ACT 1 spray(s) in each nostril once a day; Duration: 90 days Active Losartan Potassium 50 MG 1 tab(s) orally once a day; Duration: 90 days Active Ferrous Sulfate 325 (65 Fe) MG 1 tablet Orally Two times a day; Duration: 90 days Active Metoprolol Tartrate 50 MG 2 tab(s) orall y 2 times a day Active Vitamin D (Ergocalciferol) 1.25 MG (02685 UT) 1 cap(s) orally twice a week; Duration: 90 days Active Aspirin 81 MG 1 tab(s) orally once a day; Duration: 30 day(s) Active Nitrostat 0.4 MG 1 tab(s) sublinguall y every 5 minutes, prn; Duration: 8 Active Diclofenac Sodium 1 % as directed applie d topically 4 times a day; Duration: 30 day(s) Active Warfarin Sodium 5 MG TAKE 1 TO 1 & 1/2 T ABLETS BY MOUTH DAILY DIRECTED Active Potassium Chloride ER 10 MEQ 3 tab(s) orally twice a day; Duration: 90 days Active Atorvastatin Calcium 80 MG TAKE 1 TABLET BY MOUTH EVERY DAY FOR 90 DAYS Active Immunizations Vaccine Route Administration Date Status Comme nts Fluzone High Dose (65yr and older) IM Intramuscular 05/08/2025 Administered Prevnar (PCV20) IM Intramuscular 05/08/2025 Administered Problems Problem Type SNOMED Code ICD Code Onset Dates Problem Status W/U Status Risk Notes Problem Acquired lymphedema (79677387) Acquired lymphedema (I89.0) Active confirmed Vital Signs Weight 342.2 lbs 05/08/2025 Blood pressure systolic 134 mm Hg 05/08/20 25 Blood pressure diastolic 82 mm Hg 025 Heart Rate 103 /min 05/08/2025 Height 70 in 05/08/2025 BMI 49.1 kg/m2 05/08/2025 Encounters Encounter Location Date Provider Diagnosis [facility] [address] [phone] 05/08/2025 Moi Ashland Left leg cellulitis L03.116 ; Acquired lymphedema I89.0 ; Stage 3b chronic kidney disease N18.32 ; Chronic atrial fibrillation I48.20 ; Encounter for immunization Z23 and Essential hypertension I10 Assessments Encounter Date Diagnosis (ICD Code) Assessment Notes Treatment Notes Treatment Clinical Notes Section Notes 05/08/2025 Left leg cellulitis (ICD-10 - L03.116) 05/08/2025 Acquired lymphedema (ICD-10 - I89.0) 05/08/2025 Stage 3b chronic kidney disease (ICD-10 - N18.32) 05/08/2025 Chronic atrial fibrillation (ICD-10 - I48.20) 05/08/2025 Encounter for immunization (ICD-10 - Z23) 05/08/2025 Essential hypertension (ICD-10 - I10) 05/08/2025 Other Discharge summary with available lab/diagnostic imaging results obtained and reviewed. Discharge medication list reconciled. Appropriate counseling provided. Moderate Complexity Plan Of Treatment Medication Medication Name Sig Start Date Stop Date Notes Finasteride 5 MG 1 tablet Orally Once a day; Duration: 90 days Losartan Potassium 50 MG 1 tab(s) orally once a day; Duration: 90 days Ferrous Sulfate 325 (65 Fe) MG 1 tablet Orally Two times a day; Duration: 90 days Treatment Notes Assessment Notes Other Discharge summary wi available lab/diagnostic imaging results obtained and reviewed. Discharge medication list reconciled. Appropriate counseling provided. Moderate Complexity Next Appt Details Follow Up: 6 Weeks, Reason: Provider Name:Moi lerner, 06/27/2025 10:30:00 AM, [address] [facility] [address] [facility], [address], [place], [place], [phone], Provider Name:Moi lerner, 10/09/2025 09:45:00 AM, [facility] [address] [facility], [address], [place], [place], [phone], Progress Notes * COLETTE LYON WDOB:1945 (80 yo M)Acc No.[id number]:05/08/2025 Progress Notes Patient: COLETTE GARCÍA Provider: Gordon Rayo M.D. :1945 A ge:79 Y S ex:Male Date:05/08/2025 Address:[address] [place] [address] [id number] Subjective: * Chief Complaints: * 1 . Med surg f/u. * HPI: H PI: Patient is here today for a Transition of Care Visit. Discharge from the following Facility: [facility] following admission on 04/25/2025 with cellulitis of left lower limb, acute kidney injury and elevated bilirubin , Discharge date: 04/27/2025 ,Date of phone contact following discharge: 04/28/2025. Pt states he is feeling good other than just a little weak. Pt needs refills on Ferrous Sulfate, Finasteride and Losartan . ? * Medical History: C oronary Artery Disease, Dr. Jones, Non STEMI 06/12/2016, 02/16/2017, AVR 09/20/2012, Porcine, Atrial Fibrillation, [facility] Coumad[facility], Hyperlipidemia, Hypertension, Gout, Vitamin [...] stic Procedure: A -Fib Light M.I. - [facility] 02/16-06/2017, Leg Wound- [facility] 01/15/2018, Gallbladder, Esophagitis, Partial Lung Collapse- [facility] 07/11-10/2017, Cholecystectomy- [facility] 07/19-07/2019. * Family History: F ather: [...] no. Alcohol: No. * Medications: T aking Losartan Potassium 50 MG Tablet 1 tab(s) orally once a day , Taking Atorvastatin Calcium 80 MG Tablet TAKE 1 TABLET BY MOUTH EVERY DAY FOR 90 DAYS , Taking Warfarin Sodium 5 MG Tablet TAKE 1 TO 1 & 1/2 TABLETS BY MOUTH DAILY DIRECTED , Taking Metoprolol Tartrate 50 MG Tablet 2 tab(s) orally 2 times a day , Taking Diclofenac Sodium 1 % Gel as directed applied topically 4 times a day , Taking Aspirin 81 MG Tablet Delayed Release 1 tab(s) orally once a day , Taking Nitrostat 0.4 MG Tablet Sublingual 1 tab(s) sublingually every 5 minutes, prn , Taking Vitamin D (Ergocalciferol) 1.25 MG (50414 UT) Capsule 1 cap(s) orally twice a [...] Orally Two times a day , Taking Ferrous Sulfate 325 [...] Orally every 8 hours As needed, Taking Pantoprazole Sodium 40 MG Tablet Delayed Release TAKE 1 TABLET BY MOUTH EVERY DAY , Taking Multaq 400 MG Tablet 1 tablet with meals Orally Twice a day , Taking Colchicine 0.6 MG Tablet 1 tab(s) orally once a day , Taking Allopurinol 100 MG Tablet 1 tablet Orally twice a day , Taking Potassium Chloride ER 10 MEQ Tablet Extended Release 3 tab(s) orally twice a day , Medication List reviewed and reconciled with the patient * Allergies: L ortab: stomach upset. Objective: * Vitals: W t: 342.2, Temp: 98.2, BP: 134/82, HR: 103, Nurse: RENETTA, Ht: 70, BMI:49.1. * Examination: G eneral Examination: General Appearance: N AD. H eart: R SR. L ungs:?clear to auscultation. E xtremities: U nna wraps on both lower legs. ? Assessment: * Assessment: 1. L eft leg cellulitis - L03.116 (Primary) 2 . A cquired lymphedema - I89.0 3 . S tage 3b chronic kidney disease - N18.32 4 . C hronic atrial fibrillation - I48.20 5 . E ncounter for immunization - Z23 ?6. E ssential hypertension - I10 Plan: * Treatment: Value Reference Range w bc 5.0 3.5 - 10 * l ymph 22.5% 15 - 50 * m id 6.4% 2 - 15 * g ran 71.1% 35 - 80 * r bc 3.08 3.5 - 5.5 * h gb 10.5 11.5 - 16.5 * h ct 31.0 35 - 55 * m cv 100.7 75 - 100 * m ch 34.0 25 - 35 * m chc 33.8 31 - 38 * p latlet 166 100 - 400 * Suzanne Davey 05/08/2025 11: 42:42 AM EDT > Provider reviewed results while patient in office. 2.?Stage 3b chronic kidney disease?LAB: P-Basic Metabolic Panel (BMP) (Collection Date & Time - 05/08/2025 10:24 AM)?Na 147, Cr 1.54, gfr 46* Value Reference Range B UN 23 8-23 - mg/dL * C alcium 8.7 8.6-10.4 - mg/dL * C hloride 108 97-108 - mmol/L * C O2 28 20-32 - mmol/L * C reatinine 1.54 H 0.70-1.30 - mg/dL * G lucose 94 65-99 - mg/dL * P otassium 4.9 3.5-5.3 - mmol/L * S odium 147 H 135-145 - mmol/L * e GFR by Creatinine 46 L >59 - mL/min/1.73m2 * Sun Huynh 05/09/2025 09: 34:37 AM EDT > See phone encounter 3.?Chronic atrial fibrillation?LAB: PT/INR (in house) (Collection Date & Time - 05/08/2025)* Value Reference Range P T 31.9 * I NR 2.7 * c urrent dose 5mg Daily * i deal INR 2-3 * Tarah Hughes 05/08/2025 11:40: 33 AM EDT > Provider reviewed results while patient in office. Sun Huynh 05/09/2025 09:34:37 AM EDT > See phone encounter 4.?Essential hypertension? Refill Losartan Potassium Tablet, 50 MG, 1 tab(s), orally, once a day, 90 days, 90, Refills 1.??5.?Others? Refill Ferrous Sulfate Tablet, 325 (65 Fe) MG, 1 tablet, Orally, Two times a day, 90 days, 180, Refills 1;?Refill Finasteride Tablet, 5 MG, 1 tablet, Orally, Once a day, 90 days, 90, Refills 1. ? Notes: Discharge summary with available lab/diagnostic imaging results obtained and reviewed. Discharge medication list reconciled. Appropriate counseling provided. Moderate Complexity?? * Immunizations: Prevnar (PCV20) : 0.5 mL (Route: Intramuscular) given by Tarah Saul on Right Deltoid (Encounter for immunization) Fluzone High Dose (65yr and older) : 0.5 mL (Route: Intramuscular) given by Tarah Saul on Left Deltoid (Encounter for immunization) * Procedure Codes: G 2211 Complex e/[place], [address] TRANS CARE MGMT 14 DAY DISCH, 1111F DSCHR MED/CURENT MED MERGE, 01366 CBC WITH AUTO DIFF, 54519 PROTHROMBIN TIME, Modifiers: QW * Follow Up: 6 Weeks * Images: Billing Information: * Visit Code: 53952 Office Visit, Est Pt., Level 4. * Procedure Codes: G2211 Complex e/[place]. [address] TRANS CARE MGMT 14 DAY DISCH. 1111F DSCHR MED/CURENT MED MERGE. 32520 CBC WITH AUTO DIFF. 60122 PROTHROMBIN TIME. Modifiers: QW * Electronic signature of Keisha Rayo MD on 06/26/2025 at 07:58 AM EST Sign off status: Pending * Provider: Gordon Rayo M.D. Date: 0 05/08/2025 Generated for Charisma lassiter/Shraddha/eTransmitting on: 1 08/26/2024 07:58 AM EST History and Physical Notes * HPI (History of Present Illness) Category Sub-Category Detail Notes Category Not es HPI [facility]. Discharge from the following Facility: [facility] following admission on 04/25/2025 with cellulitis of left lower limb, acute kidney injury and elevated bilirubin ,Discharge date: 04/27/2025 ,Date of phone contact following discharge: 04/28/2025. Pt states he is feeling good other than just a little weak. Pt needs refills on Ferrous Sulfate, Finasteride and Losartan Examination Category Sub-Category Detail Notes Category Not es General Examination Heart: RSR Lungs: clear to auscultatio n Extremities: Unna wraps on both l ower legs General Appearance: NAD
--- OUTSIDE RECORDS SUMMARY | 2025-06-19 04:45 | XMS_ITS ---
Author Organization [facility] Address [address] [place] [id number] Care Team Providers Care Rib Bender Name Role Phone Moi Rayo Primary Care Provider [phone] Allergies Allergen (clinical drug ingredient) Drug/Non Drug Allergy documented on EMR Reaction Allergy Type Onset Date Status Lortab stomach upset Drug Allergy Act dimas Results Component Value Reference Range Notes PT/INR (in house) Reviewed date:06/19/2025 04:47:05 PM Interpretation: Performing Lab: Notes/Report: INR 2.3 current dose 5 mg daily new dose no change next check 6 weeks ideal INR 2-3 CBC Venipuncture (in house) Reviewed date:06/19/2025 04:26:57 PM Interpretation: Performing Lab: Notes/Report: wbc 4.5 3.5 - 10 lymph 23.3 15 - 50 mid 6.5 2 - 15 gran 70.2 35 - 80 rbc 3.22 3.5 - 5.5 hgb 10.9 11.5 - 16.5 hct 33.1 35 - 55 mcv 102.8 75 - 100 mch 34.1 25 - 35 mchc 33.1 31 - 38 platlet 117 100 - 400 P-Comprehensive Metabolic Pa john (CMP) Reviewed date:06/20/2025 09:48:29 AM Interpretation:BUN 29, Creat 1.79, eGFR 38, Alb 3.4, ALT 108, AST 291, Bili T 1.4 Performing Lab: Notes/Report: CLIA: [id number] Ashok Antonio MD, Sheriff [address] , [facility] [place] [address] Test performed by [facility] Sodium 144 135-145 mmol/L Potassium 4.9 3.5-5.3 mmol/L Chloride 107 97-108 mmol/L CO2 26 20-32 mmol/L Glucose 99 65-99 mg/dL BUN 29 8-23 mg/dL Creatinine 1.79 0.70-1.30 mg/dL Calcium 8.8 8.6-10.4 mg/dL eGFR by Creatinine 38 >59 mL/min/1.73m2 Protein 6.3 6.0-8.3 g/dL Albumin 3.4 3.5-5.3 g/dL Alkaline Phosphatase 58 40-129 IU/L ALT (SGPT) 108 <5-55 IU/L AST (SGOT) 291 <5-46 IU/L Bilirubin, Total 1.4 <0.2-1.2 mg/dL A/G Ratio 1.2 1.1-2.5 P-Iron Reviewed date:06/20/2025 09:48:29 AM Interpretation:92 Performing Lab: Notes/Report: Test performed by [facility] [address] [place] [address] , [place] [address] Ashok Antonio MD, Sheriff CLIA: [id number] Iron 92 59-158 ug/dL P-Phosphorus Reviewed date:06/20/2025 09:48:29 AM Interpretation:Normal Performing Lab: Notes/Report: Test performed by [facility] [address] [place] [address] [place] [address] Ashok Antonio MD, Sheriff CLIA: [id number] Phosphorus 3.1 2.5-4.5 mg/dL P-TSH reflex to FT4 Reviewed date:06/20/2025 09:48:29 AM Interpretation:Normal Performing Lab: Notes/Report: Test performed by [facility] [address] [place] [address] , [place] [address] Ashok Antonio MD, Sheriff CLIA: [id number] TSH reflex to FT4 3.56 0.43-5.25 mU/L REASON FOR VISIT 6 weeks Medications Medication SIG (Take, Route, Frequency, Duration) Notes Start Date End Date Status Albuterol Sulfate HFA 108 (90 Base) MCG/ACT 2 puff as needed Inhalation 4 times a day; Duration: 25 days Active Montelukast Sodium 10 MG 1 tablet Orally Once a day; Duration: 90 days 06/01/2025 Active Atorvastatin Calcium 80 MG 1 tablet Oral ly Once a day; Duration: 90 days Active Bumetanide 2 MG 1 or 2 tablets Orall y twice a day; Duration: 90 days Active Multaq 400 MG 1 tablet with meals Orally Twice a day; Duration: 90 days 09/19/2024 Active Warfarin Sodium 5 MG 1.5 tablets orally once a day; Duration: 90 days Active Finasteride 5 MG 1 tablet Orally Once a day; Duration: 90 days Active Ferrous Sulfate 325 (65 Fe) MG 1 tablet Orally Two times a day; Duration: 90 days Active Losartan Potassium 50 MG 1 tab(s) orally once a day; Duration: 90 days Active Potassium Chloride ER 10 MEQ 3 tab(s) orally twice a day; Duration: 90 days Active Pantoprazole Sodium 40 MG TAKE 1 TABLET BY MOUTH EVERY DAY; Duration: 90 Active Ondansetron HCl 4 MG 1 tablet Orally every 8 hours As needed 03/01/2025 Active Pregabalin 75 MG 1 capsule Orally Two times a day; Duration: 30 day(s) 10/25/2024 Active Allopurinol 100 MG 1 tablet Orally twic e a day; Duration: 90 days Active Colchicine [...] A DAY NEEDED; Duration: 60 days Active Fluticasone Propionate 50 MCG/ACT 1 spray(s) in each nostril once a day; Duration: 90 days Active Vitamin D (Ergocalciferol) 1.25 MG (27140 UT) 1 cap(s) orally twice a week; Duration: 90 days Active Metoprolol Tartrate 50 MG 2 tab(s) orall y 2 times a day Active Nitrostat 0.4 MG 1 tab(s) sublinguall y every 5 minutes, prn; Duration: 8 Active Aspirin 81 MG 1 tab(s) orally once a day; Duration: 30 day(s) Active Diclofenac Sodium 1 % as directed applie d topically 4 times a day; Duration: 30 day(s) Active Vital Signs Weight 342.6 lbs 06/19/2025 Blood pressure systolic 146 mm Hg 06/19/20 25 Blood pressure diastolic 82 mm Hg 025 Heart Rate 97 /min 06/19/2025 Height 70 in 06/19/2025 BMI 49.15 kg/m2 06/19/2025 Encounters Encounter Location Date Provider Diagnosis [facility] [address] [facility] [address] [place] [id number] 06/19/2025 Moi Rayo Essential hypertensi on I10 ; Chronic anemia D64.9 ; Generalized weakness R53.1 ; Stage 3b chronic kidney disease N18.32 ; Acquired lymphedema I89.0 ; Longstanding persistent atrial fibrillation I48.11 and 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 Assessments Encounter Date Diagnosis (ICD Code) Assessment Notes Treatment Notes Treatment Clinical Notes Section Notes 06/19/2025 Essential hypertension (ICD-10 - I10) 06/19/2025 Chronic anemia (ICD-10 - D64.9) 06/19/2025 Generalized weakness (ICD-10 - R53.1) 06/19/2025 Stage 3b chronic kidney disease (ICD-10 - N18.32) 06/19/2025 Acquired lymphedema (ICD-10 - I89.0) 06/19/2025 Longstanding persistent atrial fibrillation (ICD-10 - I48.11) 06/19/2025 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 :1945 A ge:80 Y S ex:Male Date:06/19/2025 Address:[address] [place], [place] [address], [id number] Subjective: * Chief Complaints: * 1 . 6 weeks. * HPI: H PI: 80 year old male presents with c/o Here for follow up on: P t is here today for 6 weeks follow up from [facility] on 04/25. Pt was admitted for Cellulitis. Pt states he has been having shortness of breath and his legs are weak. Pt states at times his legs feel like their too weak to hold him up. Pt states he is wearing compression socks and has noticed his legs aren't as red or swollen as they were before . * Medical History: C oronary Artery Disease, Dr. Jones, Non STEMI 06/12/2016, 02/16/2017, AVR 09/20/2012, Porcine, Atrial Fibrillation, [facility] Coumad[facility], Hyperlipidemia, Hypertension, Gout, Vitamin D [...] stic Procedure: A -Fib Light M.I. - [facility] 02/16-06/2017, Leg Wound- [facility] 01/15/2018, Gallbladder, Esophagitis, Partial Lung Collapse- [facility] 07/11-10/2017, Cholecystectomy- [facility] 07/19-07/2019. * Family History: F [...] no. Alcohol: No. * Medications: T aking Metoprolol Tartrate 50 MG Tablet 2 tab(s) orally 2 times a day , Taking Diclofenac Sodium 1 % Gel as directed applied topically 4 times a day , Taking Aspirin 81 MG Tablet Delayed Release 1 tab(s) orally once a day , Taking Nitrostat 0.4 MG Tablet Sublingual 1 tab(s) sublingually every 5 minutes, prn , Taking Vitamin D (Ergocalciferol) 1.25 MG (41474 UT) Capsule 1 cap(s) orally twice a [...] Orally Two times a day , Taking Ondansetron HCl [...] tab(s) orally twice a day , Taking Losartan Potassium 50 MG Tablet 1 tab(s) orally once a day , Taking Ferrous Sulfate 325 (65 Fe) MG Tablet 1 tablet Orally Two times a day , Taking Finasteride 5 MG Tablet 1 tablet Orally Once a day , Taking Warfarin Sodium 5 MG Tablet 1.5 tablets orally once a day , Taking Bumetanide 2 MG Tablet 1 or 2 tablets Orally twice a day , Taking Atorvastatin Calcium 80 MG Tablet 1 tablet Orally Once a day , Taking Montelukast Sodium 10 MG Tablet 1 tablet Orally Once a day , Taking Albuterol Sulfate HFA 108 (90 Base) MCG/ACT Aerosol Solution 2 puff as needed Inhalation 4 times a day , Taking Multaq 400 MG Tablet 1 tablet with meals Orally Twice a day , Medication List reviewed and reconciled with the patient * Allergies: L ortab: stomach upset. Objective: * Vitals: W t: 342.6, Temp: 98.0, BP: 146/82, HR: 97, Nurse: RENETTA, Ht: 70, BMI:49.15. * Examination: G eneral Examination: General Appearance: N AD, using a cane to assist with ambulation. H eart: R SR. L ungs: c lear to auscultation. E xtremities: v elcro compression wraps on both lower legs. Assessment: * Assessment: 1. E ssential hypertension - I10 (Primary) 2 . C hronic anemia - D64.9 3 . G eneralized weakness - R53.1 4 . S tage 3b chronic kidney disease - N18.32 5 . A cquired lymphedema - I89.0 6 . L ongstanding persistent atrial fibrillation - I48.11 7 . L margarita term current use of anticoagulant - Z79.01 Plan: * Treatment: Value Reference Range A /G Ratio 1.2 1.1-2.5 - * A lbumin 3.4 L 3.5-5.3 - g/dL * A lkaline Phosphatase 58 40-129 - IU/L * A LT (SGPT) 108 H <5-55 - IU/L * A ST (SGOT) 291 H <5-46 - IU/L * B ilirubin, Total 1.4 H <0.2-1.2 - mg/dL * B UN 29 H 8-23 - mg/dL * C alcium 8.8 8.6-10.4 - mg/dL * C hloride 107 97-108 - mmol/L * C O2 26 20-32 - mmol/L * C reatinine 1.79 H 0.70-1.30 - mg/dL * G lucose 99 65-99 - mg/dL * P otassium 4.9 3.5-5.3 - mmol/L * S odium 144 135-145 - mmol/L * P rotein 6.3 6.0-8.3 - g/dL * e GFR by Creatinine 38 L >59 - mL/min/1.73m2 * Sun Huynh 06/20/2025 09 :48:22 AM EST > See phone encounter 2.?Chronic anemia?LAB: P-Iron (Collection Date & Time - 06/19/2025 09:22 AM)?92* Value Reference Range I marcelino 92 59-158 - ug/dL * Sun Huynh 06/20/2025 09 :48:22 AM EST > See phone encounter ?LAB: CBC Venipuncture (in house) (Collection Date & Time - 06/19/2025)* Value Reference Range w bc 4.5 3.5 - 10 * l ymph 23.3 15 - 50 * m id 6.5 2 - 15 * g ran 70.2 35 - 80 * r bc 3.22 3.5 - 5.5 * h gb 10.9 11.5 - 16.5 * h ct 33.1 35 - 55 * m cv 102.8 75 - 100 * m ch 34.1 25 - 35 * m chc 33.1 31 - 38 * p latlet 117 100 - 400 * Karen Pike 06/19/2025 12:08:45 PM EST > Provider reviewed results while patient in office. 3.?Generalized weakness?LAB: P-Comprehensive Metabolic Panel (CMP) (Collection Date & Time - 06/19/2025 09:22 AM)?BUN 29, Creat 1.79, eGFR 38, Alb 3.4, ALT 108, AST 291, Bili T 1.4* Value Reference Range A /G Ratio 1.2 1.1-2.5 - * A lbumin 3.4 L 3.5-5.3 - g/dL * A lkaline Phosphatase 58 40-129 - IU/L * A LT (SGPT) 108 H <5-55 - IU/L * A ST (SGOT) 291 H <5-46 - IU/L * B ilirubin, Total 1.4 H <0.2-1.2 - mg/dL * B UN 29 H 8-23 - mg/dL * C alcium 8.8 8.6-10.4 - mg/dL * C hloride 107 97-108 - mmol/L * C O2 26 20-32 - mmol/L * C reatinine 1.79 H 0.70-1.30 - mg/dL * G lucose 99 65-99 - mg/dL * P otassium 4.9 3.5-5.3 - mmol/L * S odium 144 135-145 - mmol/L * P rotein 6.3 6.0-8.3 - g/dL * e GFR by Creatinine 38 L >59 - mL/min/1.73m2 * Sun Huynh 06/20/2025 09 :48:22 AM EST > See phone encounter ?LAB: P-TSH reflex to FT4 (Collection Date & Time - 06/19/2025 09:22 AM)? Normal* Value Reference Range T SH reflex to FT4 3.56 0.43-5.25 - mU/L * Sun Huynh 06/20/2025 09 :48:22 AM EST > See phone encounter 4.?Stage 3b chronic kidney disease?LAB: P-Comprehensive Metabolic Panel (CMP) (Collection Date & Time - 06/19/2025 09:22 AM)?BUN 29, Creat 1.79, eGFR 38, Alb 3.4, ALT 108, AST 291, Bili T 1.4* Value Reference Range A /G Ratio 1.2 1.1-2.5 - * A lbumin 3.4 L 3.5-5.3 - g/dL * A lkaline Phosphatase 58 40-129 - IU/L * A LT (SGPT) 108 H <5-55 - IU/L * A ST (SGOT) 291 H <5-46 - IU/L * B ilirubin, Total 1.4 H <0.2-1.2 - mg/dL * B UN 29 H 8-23 - mg/dL * C alcium 8.8 8.6-10.4 - mg/dL * C hloride 107 97-108 - mmol/L * C O2 26 20-32 - mmol/L * C reatinine 1.79 H 0.70-1.30 - mg/dL * G lucose 99 65-99 - mg/dL * P otassium 4.9 3.5-5.3 - mmol/L * S odium 144 135-145 - mmol/L * P rotein 6.3 6.0-8.3 - g/dL * e GFR by Creatinine 38 L >59 - mL/min/1.73m2 * Sun Huynh 06/20/2025 09 :48:22 AM EST > See phone encounter ?LAB: P-Phosphorus (Collection Date & Time - 06/19/2025 09:22 AM)?Normal* Value Reference Range P hosphorus 3.1 2.5-4.5 - mg/dL * Sun Huynh 06/20/2025 09 :48:22 AM EST > See phone encounter 5.?Longstanding persistent atrial fibrillation?LAB: PT/INR (in house) (Collection Date & Time - 06/19/2025)* Value Reference Range I NR 2.3 * c urrent dose 5 mg daily * n ew dose no change * n ext check 6 weeks * i deal INR 2-3 * Moi Rayo 06/19/2025 04:46:41 PM EST >Discussed at office visit. 6.?custodial current use of anticoagulant?LAB: PT/INR (in house) (Collection Date & Time - 06/19/2025)* Value Reference Range I NR 2.3 * c urrent dose 5 mg daily * n ew dose no change * n ext check 6 weeks * i deal INR 2-3 * Moi Rayo 06/19/2025 04:46:41 PM EST >Discussed at office visit. * Procedure Codes: G 2211 Complex e/[place], [address] PROTHROMBIN TIME, Modifiers: QW , 42159 CBC WITH AUTO DIFF * Follow Up: v ia phone to report test results * Images: Billing Information: * Visit Code: 45563 Office Visit, Est Pt., Level 4. * Procedure Codes: G2211 Complex e/[place]. [address] PROTHROMBIN TIME. Modifiers: QW 30532 CBC WITH AUTO DIFF. * Electronic signature of Keisha Rayo MD on 06/26/2025 at 07:59 AM EST Sign off status: Pending * Provider: Gordon Rayo M.D. Date: 08/19/2024 Generated for Printi ng/Faxing/eTransmitting on: 08/26/2024 07:59 AM EST History and Physical Notes * HPI (History of Present Illness) Category Sub-Category Detail Notes Category Not es HPI Here for follow up on: Pt is her e today for 6 weeks follow up from [facility] on 04/25. Pt was admitted for Cellulitis. Pt states he has been having shortness of breath and his legs are weak. Pt states at times his legs feel like their too weak to hold him up. Pt states he is wearing compression socks and has noticed his legs aren't as red or swollen as they were before Examination Category Sub-Category Detail Notes Category Not es General Examination Heart: RSR Lungs: clear to auscultatio n Extremities: velcro compression w raps on both lower legs General Appearance: NAD, using a cane to assist with ambulation
--- OUTSIDE RECORDS SUMMARY | 2025-06-20 04:47 | XMS_ITS ---
Author Organization [facility] Address [address] [facility] [address] [place] [id number] Care Team Providers Care Locomotive Mechanic Name Role Phone Perri Moi Primary Care Provider REASON FOR VISIT Test Results* Encounters Encounter Location Date Provider Diagnosis [facility] [address] [place] [id number] 06/20/2025 Moi Rayo Elevated LFTs R79.89 Assessments Encounter Date Diagnosis (ICD Code) Assessment Notes Treatment Notes Treatment Clinical Notes Section Notes 06/20/2025 Elevated LFTs (ICD-10 - R79.89) Plan Of Treatment Pending Test Test Name Order Date Ultrasound : Abdomen, complete Next Appt Details Provider Name:Moi lerner, 06/27/2025 10:30:00 AM, [address], [address], [place], [place], [id number], Provider Name:Moi lerner, 10/09/2025 09:45:00 AM, [address], [address], [place], [place], [id number], Progress Notes * COLETTE LYON WDOB:1945 (80 yo M)Acc No.[id number]:06/20/2025 Patient: Abigail DELVALLELYCOLETTE :1945 A ge:80 Y S ex:Male Address:[address] [place], [phone] Subjective: * Chief Complaints: * T est Results* * Medical History: * Surgical History: * Hospitalization/Major Diagno stic Procedure: * Medications: Objective: * Vitals: * Physical Examination: Assessment: * Assessment: 1. E levated LFTs - R79.89 (Primary) Plan: * Treatment: * Procedure Codes: * true * Date: Generated for Charisma lassiter/Shraddha/Patsy on: 08/26/2024 07:58 AM EST
--- NOTE | 2025-06-26 07:57 | US_ITS ---
FINAL REPORT TECHNIQUE: Ultrasound images through the abdomen were obtained. CLINICAL HISTORY: ELEVATED LFTs FINDINGS: There is fatty infiltration of the liver. The visualized solid abdominal organs are otherwise unremarkable. The pancreas is obscured by overlying bowel gas. The gallbladder is unremarkable. There is no fluid collection identified. The visualized portions of the aorta and the IVC are normal. IMPRESSION: Fatty infiltration of the liver. Reviewed, Interpreted and Dictated by Raul Shay MD Transcribed by Fariba Melendez Authenticated and . [facility]
--- OUTSIDE RECORDS SUMMARY | 2025-06-26 07:59 | XMS_ITS | Encounter Summary ---
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 Not on file Not on file Not on file documented as of this encounter Plan of Treatment Upcoming Encounters Date Type Department Care Team (Late st Contact Info) Description 08/21/2025 9:30 AM EST Ancillary Procedure [facility] [address] [place] [phone] 08/21/2025 10:15 AM EST Office Visit [facility] [address] [place] [phone] Jailene Vargas MD [address] [place] [address] 08/21/2025 10:15 AM EST Clinical Support No Requirements [facility] [address] [place] [phone] documented as of this encounter Visit Diagnoses Not on filedocumented in this encounter Care Teams Senior Technical Business Analyst Relationship Specialty Start Date End Date Moi Rayo MD [address] [facility] [address] [facility] [address] [place] [address] PCP - General Family Medicine 05/20/17 documented as of this encounter
--- OUTSIDE RECORDS SUMMARY | 2025-06-26 08:01 | XMS_ITS | Referral Summary ---
Author Organization [employer] ([place], [place], [place], [place], [place]) Address [address] [place] [address] Care Team Providers Care Collar Fuser Name Role Phone Unavailable Primary Care Provider [...]
--- OUTSIDE RECORDS SUMMARY | 2025-06-26 08:01 | XMS_ITS | Patient Health Record ---
Author Organization [facility] Address [address] [place] [id number] Care Team Providers Care Driller And Broacher Name Role Phone Perri Moi Primary Care Provider [phone] Abigail Catherine [phone] Allergies Allergen (clinical drug ingredient) Drug/Non Drug [...] 100 - 400 PT/INR (in house) Reviewed date:05/09/2025 09:34:47 AM [...] 46 Performing Lab: Notes/Report: Test performed by [facility], [facility] [address] [place] [address] , [address], [place] [address] Ashok Antonio MD, Lease Administration Supervisor CLIA: [id number] Sodium 147 135-145 mmol/L Potassium 4.9 3.5-5.3 mmol/L Chloride 108 97-108 mmol/L CO2 28 20-32 mmol/L Glucose 94 65-99 mg/dL BUN 23 8-23 mg/dL Creatinine 1.54 0.70-1.30 mg/dL Calcium 8.7 8.6-10.4 mg/dL eGFR by Creatinine 46 >59 mL/min/1.73m2 PT/INR (in house) Reviewed date:06/19/2025 04:47:05 PM [...] 291, Bili T 1.4 Performing Lab: Notes/Report: Test performed by [facility] [address] , [address], [place] [address] Ashok Antonio MD, Lease Administration Supervisor CLIA: [id number] Sodium 144 135-145 mmol/L Potassium 4.9 3.5-5.3 [...] Interpretation:92 Performing Lab: Notes/Report: Test performed by [facility] [address] , [place] [address] Ashok Antonio MD, Lease Administration Supervisor CLIA: [id number] Iron 92 59-158 ug/dL P-Phosphorus Reviewed date:06/20/2025 09:48:29 AM Interpretation:Normal Performing Lab: Notes/Report: Test performed by [facility] [address] , [address], [place] [address] Ashok Antonio MD, Lease Administration Supervisor CLIA: [id number] Phosphorus 3.1 2.5-4.5 mg/dL P-TSH reflex to FT4 Reviewed date:06/20/2025 09:48:29 AM Interpretation:Normal Performing Lab: Notes/Report: Test performed by [facility] [address] , [address], [place] [address] Ashok Antonio MD, Lease Administration Supervisor CLIA: [id number] TSH reflex to FT4 3.56 0.43-5.25 mU/L PT/INR (in house) Reviewed date:08/31/2024 06:18:47 PM Interpretation: Performing Lab: Notes/Report: INR 2.8 current dose 5mg Daily new dose no change next check 2 weeks at [facility] ideal INR 2-3 H-BMP Reviewed date:03/14/2025 10:11:53 AM Interpretation:see 09/15/24 Performing Lab: Notes/Report: see 09/15/24 PT/INR (in house) Reviewed date:03/06/2025 09:59:51 PM Interpretation: Performing Lab: Notes/Report: PT 34.2 INR 2.9 current dose 5mg Daily new dose 2.5 mg daily next check 1 week ideal INR 2-3 PT/INR (in house) Reviewed date:03/14/2025 10:35:57 PM [...] Cr 1.79, gfr 38 Performing Lab: Notes/Report: CLIA: [id number] Ashok Antonio MD, Lease Administration Supervisor [facility] , [address], [place] [address] Test performed by [facility], [employer] Sodium 144 135-145 mmol/L Potassium 4.9 3.5-5.3 [...] no change next check 4 weeks at [facility] ideal INR 2-3 Glucose (In-House) Reviewed [...] AST 59, Bili 1.5 Performing Lab: Notes/Report: CLIA: [id number] Ashok Antonio MD, Lease Administration Supervisor [address] [facility] , [address], [place] [address] Test performed by [facility], [employer] Sodium 144 135-145 mmol/L Potassium 4.7 3.5-5.3 [...] 35 Performing Lab: Notes/Report: Test performed by [facility], [address] [place] [address] Ashok Antonio MD, Lease Administration Supervisor CLIA: [id number] Cholesterol 127 <200 mg/dL Triglycerides 124 <150 [...] Interpretation:Normal Performing Lab: Notes/Report: Test performed by [facility] [address], [place] [address] Ashok Antonio MD, Lease Administration Supervisor CLIA: [id number] Phosphorus 3.9 2.5-4.5 mg/dL P-Parathyroid Hormone (PTH) Intact Reviewed date:04/11/2025 08:58:36 AM Interpretation:91.2 Performing Lab: Notes/Report: Test performed by [facility] [address] , [address], [place] [address] Ashok Antonio MD, Lease Administration Supervisor CLIA: [id number] Parathyroid Hormone (PTH) Intact 91.2 15.0-65.0 pg/mL P-TSH reflex to FT4 Reviewed date:04/11/2025 08:58:36 AM Interpretation:Normal Performing Lab: Notes/Report: [facility] , [address], [place] [address] Ashok Antonio MD, Lease Administration Supervisor CLIA: [id number] TSH reflex to FT4 3.32 0.43-5.25 mU/L P-Microalbumin/Creatinine, R andom Urine Sample Reviewed date:04/11/2025 08:58:36 AM Interpretation:Normal Performing Lab: Notes/Report: Test performed by [facility] [address] , [address], [place] [address] Ashok Antonio MD, Lease Administration Supervisor CLIA: [id number] Albumin/Creatinine Ratio, Urine <4.60 0-30 ug/mg Microalbumin, Urine, Random <0.3 Creatinine, Urine 65.1 P-Uric Acid Reviewed date:04/11/2025 08:58:36 AM Interpretation:Normal Performing Lab: Notes/Report: Test performed by [facility] [address] , [address], [place] [address] Ashok Antonio MD, Lease Administration Supervisor CLIA: [id number] Uric Acid 7.6 3.4-8.0 mg/dL P-Vitamin D 25-Hydroxy Reviewed date:04/11/2025 08:58:36 AM Interpretation:36 Performing Lab: Notes/Report: Test performed by [facility] [address] , [address], [place] [address] Ashok Antonio MD, Lease Administration Supervisor CLIA: [id number] Vitamin D 25-Hydroxy 36.0 30.0-100.0 ng/mL Interpretation of Vitamin D 25 OH: < 20 ng/mL - Deficiency 20 - 29 ng/mL - Insufficiency 30 - 100 ng/mL - Sufficiency > 100 ng/mL - Super-therapeutic- toxicity may occur above this level. Clinical correlation required. H-INR Reviewed date:07/21/2024 03:20:44 PM Interpretation: Performing [...] SYSTEMIC EMBOLISM SECONDARY TO AMI H-PT/INR Reviewed date:04/25/2025 10:57:39 AM Interpretation: Performing Lab: Notes/Report: Patient on anticoagulants? Y PT 23.5 10.1-12.5 seconds INR 2.25 0.9-1.1 INDICATION INR RANGE Therapy for DVT, PE, Atrial Fib, 2.0-3.0 Prophylaxis for VTE. Therapy for Mechanical Heart Valve, 2.5-3.5 Prevention of Sytemic Emolism secondary to AMI. H-CBC Reviewed date:04/26/2025 08:46:14 AM Interpretation: Performing Lab: Notes/Report: WBC 8.1 4.8-10.8 K/mm3 RBC 2.71 4.60-6.20 M/mm3 HGB 9.5 14.1-18.0 g/dL HCT 28.8 42.0-52.0 % MCV 106.3 80-94 fl MCH 35.1 27.0-31.2 pg MCHC 33.0 31.8-35.4 g/dL RDW-SD 56.4 RDW 14.4 11.5-17.5 % PLT 67 142-424 K/mm3 Delta: 103 on 04/24/25 MPV 12.2 7.4-10.4 fl NE% 79.1 37.0-80.0 % LY% 12.1 10-50 % MO% 7.0 1.7-9.3 % EO% 0.7 0.1-12.0 % BA% 0.2 0.1-2.0 % NRBC% 0 IG% 0.9 NE# 6.4 1.8-7.8 K/mm3 LY# 1.0 0.7-4.5 K/mm3 MO# 0.6 0.1-1.0 K/mm3 EO# 0.1 0.0-0.4 Kmm3 BA# 0.0 0-0.2 K/mm3 NRBC# 0 IG# 0.07 H-BMP Reviewed date:04/26/2025 08:46:14 AM Interpretation: Performing Lab: Notes/Report: NA 134 136-145 mmol/L K 4.5 3.5-5.1 mmoL/L CL 104 98-107 mmol/L CO2 26 22.0-30.0 mmol/L GAP 8.5 5-15 mEq/L BUN 34 9-20 mg/dl CREATT 1.70 0.66-1.25 mg/dl CRCLE 35 50-200 mL/min GFRAA 47 >60 ML/MIN Delta: 39 on 04/24/25 EGFR 39 >60 ml/min GLU 110 74-100 mg/dl CA 8.2 8.4-10.2 mg/dl H-PT/INR Reviewed date:04/26/2025 08:46:14 AM Interpretation: Performing Lab: Notes/Report: Patient on anticoagulants? Y List Anticoagulant(s) Warfarin PT 25.3 10.1-12.5 seconds INR 2.43 0.9-1.1 INDICATION INR RANGE Therapy for DVT, PE, Atrial Fib, 2.0-3.0 Prophylaxis for VTE. Therapy for Mechanical Heart Valve, 2.5-3.5 Prevention of Sytemic Emolism secondary to AMI. H-CBC Reviewed date:04/27/2025 10:25:02 AM Interpretation: Performing Lab: Notes/Report: WBC 9.0 4.8-10.8 K/mm3 RBC 2.99 4.60-6.20 M/mm3 HGB 10.1 14.1-18.0 g/dL HCT 31.3 42.0-52.0 % MCV 104.7 80-94 fl MCH 33.8 27.0-31.2 pg MCHC 32.3 31.8-35.4 g/dL RDW-SD 55.0 RDW 14.3 11.5-17.5 % PLT 102 142-424 K/mm3 Delta: 67 on 04/26/25-0553 MPV 12.4 7.4-10.4 fl NE% 79.0 37.0-80.0 % LY% 11.2 10-50 % MO% 7.0 1.7-9.3 % EO% 1.8 0.1-12.0 % BA% 0.3 0.1-2.0 % NRBC% 0 IG% 0.7 NE# 7.2 1.8-7.8 K/mm3 LY# 1.0 0.7-4.5 K/mm3 MO# 0.6 0.1-1.0 K/mm3 EO# 0.2 0.0-0.4 Kmm3 BA# 0.0 0-0.2 K/mm3 NRBC# 0 IG# 0.06 H-BMP Reviewed date:04/27/2025 10:25:02 AM Interpretation: Performing Lab: Notes/Report: NA 132 136-145 mmol/L K 4.3 3.5-5.1 mmoL/L CL 101 98-107 mmol/L CO2 23 22.0-30.0 mmol/L GAP 12.3 5-15 mEq/L BUN 32 9-20 mg/dl CREATT 1.50 0.66-1.25 mg/dl CRCLE 39 50-200 mL/min GFRAA 55 >60 ML/MIN EGFR 45 >60 ml/min GLU 108 74-100 mg/dl CA 8.3 8.4-10.2 mg/dl H-PT/INR Reviewed date:04/27/2025 10:25:02 AM Interpretation: Performing Lab: Notes/Report: Patient on anticoagulants? Y List Anticoagulant(s) Warfarin PT 27.7 10.1-12.5 seconds INR 2.68 0.9-1.1 INDICATION INR RANGE Therapy for DVT, [...] EMBOLISM SECONDARY TO AMI Reason For Referral Reason Wound care is recomm ending PT Diagnosis 1 Difficulty walking ( R26.2) Referral Organization [facility] Referring Provider First Name Moi Referring Provider Last Name Perri Referring Provider Speciality Family Pra ctice Referred Provider Specialty Physical The rapist General Notes Charline Miranda 2024 12:15:58 PM > faxed to [facility] PT Referral Priority Routine Medications Medication SIG (Take, Route, Frequency, Duration) Notes Start Date End Date Status Pantoprazole Sodium 40 MG TAKE 1 TABLET BY MOUTH EVERY DAY; Duration: 90 Active Albuterol Sulfate HFA 108 (90 Base) MCG/ACT 2 puff as needed Inhalation 4 times a day; Duration: 25 days Active Montelukast Sodium 10 MG 1 tablet Orally Once a day; Duration: 90 days 06/01/2025 Active Metoprolol Tartrate 50 MG 2 tab(s) orall y 2 times a day Active Ondansetron HCl 4 MG 1 tablet Orally every 8 hours As needed 03/01/2025 Active Pregabalin 75 MG 1 capsule Orally Two times a day; Duration: 30 day(s) 10/25/2024 Active Atorvastatin Calcium 80 MG 1 tablet Oral ly Once a day; Duration: 90 days Active valACYclovir HCl 1 GM 1 tablet Orally Th ree times a day; Duration: 7 days 05/20/2024 Active Bumetanide 2 MG 1 or 2 tablets Orall y twice a day; Duration: 90 days Active metOLazone 5 MG 1 tab(s) orally ever y 3 days as needed Active Warfarin Sodium 5 MG 1.5 tablets orally once a day; Duration: 90 days Active Triamcinolone Acetonide 0.1 % APPLY TO AFFECTED AREA TWICE A DAY NEEDED; Duration: 60 days Active Finasteride 5 MG 1 tablet Orally Once a day; Duration: 90 days Active Fluticasone Propionate 50 MCG/ACT 1 spray(s) in each nostril once a day; Duration: 90 days Active Ferrous Sulfate 325 (65 Fe) MG 1 tablet Orally Two times a day; Duration: 90 days Active Vitamin D (Ergocalciferol) 1.25 MG (65810 UT) 1 cap(s) orally twice a week; Duration: 90 days Active Losartan Potassium 50 MG 1 tab(s) orally once a day; Duration: 90 days Active Nitrostat 0.4 MG 1 tab(s) sublinguall y every 5 minutes, prn; Duration: 8 Active Potassium Chloride ER 10 MEQ 3 tab(s) orally twice a day; Duration: 90 days Active Aspirin 81 MG 1 tab(s) orally once a day; Duration: 30 day(s) Active Allopurinol 100 MG 1 tablet Orally twic e a day; Duration: 90 days Active Diclofenac Sodium 1 % as directed applie d topically 4 times a day; Duration: 30 day(s) Active Colchicine 0.6 MG 1 tab(s) orally once a day; Duration: 90 days Active Multaq 400 MG 1 tablet with meals Orally Twice a day; Duration: 90 days 09/19/2024 Active Immunizations Vaccine Route Administration Date Status [...] (65yr and older) IM Intramuscular 04/29/2021 Administered Fluzone High Dose (65yr and older) IM Intramuscular 05/08/2025 Administered PNEUMOVAX 23 VACCINE Unknown 11/25/2015 Administered Prevnar (PCV13) IM Intramuscular 01/01/2021 Administered Prevnar (PCV20) IM Intramuscular 05/08/2025 Administered Problems Problem Type SNOMED Code ICD Code Onset Dates Problem Status W/U Status Risk Notes Problem Hyperglycemia (40776971) Hyperglycemia (R73.9) Active confirmed Problem Atrial fibrillation (44117933) Atrial fibrillation (I48.91) Active confirmed Problem Vitamin D deficiency (52660769) Vitamin D deficiency (E55.9) Active confirmed Problem Essential hypertension (77433452) Essential hypertension (I10) Active confirmed Problem Otitis externa (6321754) Otitis externa (H60.90) Active confirmed Problem Dysuria (47200749) Dysuria (R30.0) Active confi rmed Problem Postherpetic neuralgia (5695428) Post herpetic neuralgia (B02.29) Active confirmed Problem Long-term current use of anticoagulant (943325857) 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 (Z79.01) Active confirmed Problem Flank pain (683096214) Flank pain (R10.9) Active confirmed Problem Body mass index 40+ - severely obese (357850505) BMI 45.0-49.9, adult (Z68.42) Active confirmed Problem Anemia in chronic kidney disease (431205280) Anemia in chronic kidney disease (D63.1) Active confirmed Problem Mixed hyperlipidemia (420015175) Mixed hyperlipidemia (E78.2) Active confirmed Problem Chronic atrial fibrillation (384928271) Chronic atrial fibrillation (I48.2) Active confirmed Problem Frequency of micturition (667885382) Frequency of micturition (R35.0) Active confirmed Problem Long-term current use of anticoagulant (241224498) 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 helper (current) use of anticoagulants (Z79.01) Active confirmed Problem Old myocardial infarction (3056715) History of CO (myocardial infarction) (I25.2) Active confirmed Problem History of aortic valve replacement (3851792431771) History of aortic valve replacement (Z95.2) Active confirmed Problem Gastroesophageal reflux disease (disorder) (796811939) Chronic GERD (K21.9) Active confirmed Problem Atherosclerotic heart disease of [place] coronary artery without angina pectoris (806730046461728) Coronary artery disease involving [place] coronary artery of [place] heart without angina pectoris (I25.10) Active confirmed Problem Gout (30126692) Gout, unspecifie d cause, unspecified chronicity, unspecified site (M10.9) Active confirmed Problem Iron deficiency anemia due to chronic blood loss (450190636) Iron deficiency anemia due to chronic blood loss (D50.0) Active confirmed Problem Morbid obesity (502753841) Morbid obesity due to excess calories (E66.01) Active confirmed Problem Benign prostatic hypertrophy without outflow obstruction (806687089) Benign prostatic hyperplasia without lower urinary tract symptoms, unspecified morphology (N40.0) Active confirmed Problem History of cholecystectomy (928578455) Status post laparoscopic cholecystectomy (Z90.49) Active confirmed Problem Difficulty walking (978031416) Difficulty walking (R26.2) Active confirmed Problem Leukocytosis (756699471) Leukocytosis, unspecified (D72.829) Active confirmed Problem Allergic rhinitis (39115514) Allergic rhinitis, unspecified allergic rhinitis trigger, unspecified rhinitis seasonality (J30.9) Active confirmed Problem Chronic anemia (874118862) Chronic anemia (D64.9) Active confirmed Problem Lower urinary tract symptoms due to benign prostatic hypertrophy (59721528354288) Benign prostatic hyperplasia with lower urinary tract symptoms (N40.1) Active confirmed Problem Disorder of carotid artery (disorder) (367666979) Carotid artery disease, unspecified laterality (I77.9) Active confirmed Problem Gallstone (055823661) Gall stones (K80.20) Active confirmed Problem Allergic rhinitis (22588896) Allergic rhinitis, unspecified seasonality, unspecified trigger (J30.9) Active confirmed Problem Heart failure (13245390) Chronic congestive heart failure, unspecified heart failure type (I50.9) Active confirmed Problem Arthritis of left ankle (8999826330133941) Arthritis of left ankle (M19.072) Active confirmed Problem Diabetic renal disease (283607020) Type 2 diabetes mellitus with diabetic chronic kidney disease, unspecified CKD stage, unspecified whether fdc insulin use (E11.22) Active confirmed Problem Longstanding persistent atrial fibrillation (462043389) Longstanding persistent atrial fibrillation (I48.11) Active confirmed Problem Chronic atrial fibrillation (470983513) Chronic atrial fibrillation (I48.20) Active confirmed Problem Chronic kidney disease stage 3B (disorder) (482995343) Stage 3b chronic kidney disease (N18.32) Active confirmed Problem Acquired lymphedema (87058723) Acquired lymphedema (I89.0) Active confirmed Problem Chronic kidney disease stage 3A (disorder) (430803820) CKD stage 3a, GFR 45-59 ml/min (N18.31) Active confirmed Problem Long-term current use of drug therapy (248760554) 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 diuretic (Z79.899) Active confirmed Vital Signs Heart Rate 97 /min 06/19/2025 Blood pressure diastolic 82 mm Hg 06/19/2025 Height 70 in 06/19/2025 Blood pressure systolic 146 mm Hg 06/19/2025 Weight 342.6 lbs 06/19/2025 BMI 49.15 kg/m2 06/19/2025 Encounters Encounter Location Date Provider Diagnosis [facility] [address] [place] [id number] 08/31/2024 Moi Clifton Peripheral edema R60 .0 ; Stage 3b chronic kidney disease N18.32 and [facility]rial [facility]48.91 [facility] [address] [place] [id number] 10/06/2024 Moi Clifton Chronic atrial fibrillation I48.2 [facility] [address] [place] [id number] 03/01/2025 Moi Clifton Nausea R11.0 ; Leukocytosis, unspecified D72.829 ; Tachycardia R00.0 ; Chronic congestive heart failure, unspecified heart failure type I50.9 ; Mixed hyperlipidemia E78.2 ; Essential hypertension I10 ; Chronic anemia D64.9 ; Type 2 diabetes mellitus with diabetic chronic kidney disease, unspecified CKD stage, 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 E11.22 ; BMI 45.0-49.9, adult Z68.42 and 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 [facility] [facility] [address] [place] [id number] 03/06/2025 Moi Clifton Left leg cellulitis L03.116 and long-term current use of anticoagulant Z79.01 [facility] [facility] [address] [place] [id number] 03/13/2025 Moi Clifton Left leg cellulitis L03.116 ; Essential hypertension I10 ; Peripheral edema R60.0 and 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 Z79.01 [facility] [address] [place] [id number] 04/07/2025 Moi Clifton Essential hypertensi on I10 ; Mixed hyperlipidemia E78.2 ; Gout, unspecified cause, unspecified chronicity, unspecified site M10.9 ; Vitamin D deficiency E55.9 ; Stage 3b chronic kidney disease N18.32 ; Chronic atrial fibrillation I48.20 and Type 2 diabetes mellitus with diabetic chronic kidney disease, unspecified CKD stage, 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 E11.22 [facility] [address] [place], [place] [id number] 05/08/2025 Moi Clifton Left leg cellulitis L03.116 ; Acquired lymphedema I89.0 ; Stage 3b chronic kidney disease N18.32 ; Chronic atrial fibrillation I48.20 ; Encounter for immunization Z23 and Essential hypertension I10 [facility] [address] [place], [place] [id number] 06/19/2025 Moi Clifton Essential hypertensi on I10 ; Chronic anemia D64.9 ; Generalized weakness R53.1 ; Stage 3b chronic kidney disease N18.32 ; Acquired lymphedema I89.0 ; Longstanding persistent atrial fibrillation I48.11 and long-term current use of anticoagulant Z79.01 [facility] [address] [place], [place] [id number] 07/08/2024 Abigail Catherine Post herpetic neural olivier B02.29 [facility] [address] [place], [place] [id number] 08/11/2024 Moi Clifton Longstanding persist ent atrial fibrillation I48.11 [facility] [address] [place] [id number] 08/23/2024 Moi Clifton [facility] [address] [place], [place] [id number] 08/30/2024 Moi Clifton [facility] [address] [place] [id number] 09/16/2024 Moi Clifton [facility] [address] [place] [id number] 09/19/2024 Moi Clifton [facility] [address] [place] [id number] 09/27/2024 Moi Clifton [facility] [address] [place] [id number] 10/25/2024 Moi Clifton Post herpetic neural olivier B02.29 [facility] [address] [place] [id number] 10/25/2024 Moi Clifton [facility] [address] [place] [id number] 10/31/2024 Moi Clifton [facility] [address] [place] [id number] 12/22/2024 Moi Clifton Gout, unspecified ca use, unspecified chronicity, unspecified site M10.9 [facility] [address] [place], [place] [id number] 01/03/2025 Moi Clifton [facility] [address] [place] [id number] 01/30/2025 Moi Clifton Essential hypertensi on I10 [facility] [address] [place] [id number] 02/24/2025 Moi Clifton [facility] [address] [place] [id number] 03/02/2025 Moi Clifton [facility] [address] [place] [id number] 03/03/2025 Moi Clifton [facility] [address] [place] [id number] 03/14/2025 Moi Clifton [facility] [address] [place] [id number] 03/21/2025 Moi Clifton Left leg cellulitis L03.116 [facility] [address] [place], [place] [id number] 04/03/2025 Moi Clifton Atrial fibrillation I48.91 and Gout, unspecified cause, unspecified chronicity, unspecified site M10.9 [facility] [address] [place], [place] [id number] 04/11/2025 Moi Clifton [facility] [address] [place] [id number] 04/27/2025 Moi Clifton [facility] [address] [place] [id number] 04/27/2025 Moi Clifton [facility] [address] [place] [id number] 05/09/2025 Moi Clifton [facility] [address] [place] [id number] 05/30/2025 Moi Clifton [facility] [address] [place] [id number] 06/01/2025 Moi Clifton [facility] [address] [place] [id number] 06/15/2025 Mio Clifton [facility] [address] [place] [id number] 06/19/2025 Moi Clifton [facility] [address] [place], [place] [id number] 06/20/2025 Moi Clifton Elevated LFTs R79.89 Assessments Encounter Date Diagnosis (ICD Code) Assessment Notes Treatment Notes Treatment Clinical Notes Section Notes 07/08/2024 Post herpetic neuralgia (ICD-10 - B02.29) [...] 03/01/2025 Leukocytosis, unspecified (ICD-10 - D72.829) 03/06/2025 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 (ICD-10 - Z79.01) 03/06/2025 Left leg cellulitis (ICD-10 - L03.116) 03/13/2025 Essential hypertension (ICD-10 - I10) 03/13/2025 Left leg cellulitis (ICD-10 - L03.116) 03/21/2025 Left leg cellulitis (ICD-10 - L03.116) 04/03/2025 Atrial fibrillation (ICD-10 - I48.91) 04/07/2025 Essential hypertension (ICD-10 - I10) 04/07/2025 Mixed hyperlipidemia (ICD-10 - E78.2) 05/08/2025 Left leg cellulitis (ICD-10 - L03.116) 05/08/2025 Acquired lymphedema (ICD-10 - I89.0) 06/19/2025 Essential hypertension (ICD-10 - I10) 06/19/2025 Chronic anemia (ICD-10 - D64.9) 06/20/2025 Elevated LFTs (ICD-10 - R79.89) 06/19/2025 Generalized weakness (ICD-10 - R53.1) 05/08/2025 Stage 3b chronic kidney disease (ICD-10 - N18.32) 04/07/2025 Gout, unspecified cause, unspecified chronicity, unspecified site (ICD-10 - M10.9) 04/03/2025 Gout, unspecified cause, unspecified chronicity, unspecified site (ICD-10 - M10.9) 03/13/2025 Peripheral edema (ICD-10 - R60.0) 03/01/2025 Tachycardia (ICD-10 - R00.0) 08/31/2024 Atrial fibrillation (ICD-10 - I48.91) 03/13/2025 long-term current use of anticoagulant (ICD-10 - Z79.01) 03/01/2025 Chronic congestive heart failure, unspecified heart failure type (ICD-10 - I50.9) 04/07/2025 Vitamin D deficiency (ICD-10 - E55.9) 05/08/2025 Chronic atrial fibrillation (ICD-10 - I48.20) 06/19/2025 Stage 3b chronic kidney disease (ICD-10 - N18.32) 06/19/2025 Acquired lymphedema (ICD-10 - I89.0) 05/08/2025 Encounter for immunization (ICD-10 - Z23) 03/01/2025 Mixed hyperlipidemia (ICD-10 - E78.2) 04/07/2025 Stage 3b chronic kidney disease (ICD-10 - N18.32) 05/08/2025 Essential hypertension (ICD-10 - I10) 04/07/2025 Chronic atrial fibrillation (ICD-10 - I48.20) 03/01/2025 Essential hypertension (ICD-10 - I10) 06/19/2025 Longstanding persistent atrial fibrillation (ICD-10 - I48.11) 06/19/2025 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 (ICD-10 - Z79.01) 03/01/2025 Chronic anemia (ICD-10 - D64.9) 04/07/2025 Type 2 diabetes mellitus with diabetic chronic kidney disease, unspecified CKD stage, unspecified whether fdc insulin use (ICD-10 - E11.22) 03/01/2025 Type 2 diabetes mellitus with diabetic chronic kidney disease, unspecified CKD stage, 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 Discharge medication list reconciled. Appropriate counseling provided. Moderate Complexity Plan Of Treatment Pending Test Test Name Order Date H-BMP 03/31/2024 Ultrasound : Abdomen, complete Next Appt Details Provider Name:Moi lerner, 06/27/2025 10:30:00 AM, [address] [facility], [address], [place], [id number], Provider Name:Moi lerner, 10/09/2025 09:45:00 AM, [address], [address], [place], [id number], Insurance Providers Payer Name Payer Address Payer Phone Subscriber Number Group Number Insured Name Patient Relationship to Insured Coverage Start Date Coverage End Date MEDICARE PART B [address] [address] [place] [id number] COLETTE GRIMALDO Self - patient is the insured MEDICAID [employer] [address] [place] [id number] COLETTE GRIMALDO Self - patient is the insured Medical (General) History Medical History History ICD Code Coronary Artery Disease, Dr. 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, Porcine Atrial Fibrillation, [facility] Cou[facility] Hyperlipidemia Hypertension Gout Vitamin D Deficiency Allergic Rhinitis BPH Sleep Apnea Chronic Kidney Disease Pacemaker Surgical History Surgery Date(Month/Year) Cardiac Stent x2,1 balloon 2006 Carotid Surgery 07/26/2014 AVR 09/20/2012 Skin Lesion Cardiac Stent x1 2014 CABG 06/16/2018 Cholecystectomy - Lapraroscopic 07/19/20 19 Skin Cancer Removal - Forehead, Arm, Andrade d Pacemaker 2021 Hospitalization History Reason Date(Month/Year) Cholecystectomy- [facility] 07/19-09/2018 Gallbladder, Esophagitis, Partial Lung C ollapse- [facility] 07/11-10/2017 Leg Wound- [facility] 01/15/2018 Cj-Robb Aguila - [facility] 02/16- 06/2017
--- OUTSIDE RECORDS SUMMARY | 2025-06-26 08:02 | XMS_ITS | Clinical Summary ---
Author Organization [facility] ([place], [place], [place], [place], [place]) Address [address] [place] [address] Care Team Providers Care Sales Vice President Name Role Phone Unavailable Primary Care Provider [...]
--- OUTSIDE RECORDS SUMMARY | 2025-06-26 08:02 | XMS_ITS | Encounter Summary ---
Author Organization [facility] Address [address] [place] [address] Care Team Providers Care Reconciliation Manager Name Role Phone Moi Rayo MD Primary Care Provider + [phone] Reason for Visit * Reason Comments Med Refill Encounter Details Date Type Department Care Team (Late st Contact Info) Description 04/14/2023 Refill [facility] [address] [place] [address] Jailene Vargas MD [address] [place] [address] Med Refill Social History Tobacco [...] Industry Job Start Date Job End Date [place] Not on file Not on file Not on file documented as of this encounter Miscellaneous Notes * Telephone Encounter - Bethel Chavira CMA - 04/14/2023 10:10 AM EDT Failed protocol. Last visit 03.25.2023. Upcoming visit 04.29.2023 documented in this encounter Plan of Treatment Upcoming Encounters Date Type Department Care Team (Late st Contact Info) Description 08/21/2025 9:30 AM EST Ancillary Procedure [facility] [place] [address] 08/21/2025 10:15 AM EST Office Visit [facility] [address] [place] [address] [place] [address] Jailene Vargas MD [address] [place] [address] [place] [address] 08/21/2025 10:15 AM EST Clinical Support No Requirements [facility] [address] [place] [address] [place] [address] documented as of this encounter Visit Diagnoses Not on filedocumented in this encounter Care Teams Reconciliation Manager Relationship Specialty Start Date End Date Moi Rayo MD [address] [facility] [address] [place] [address] PCP - General Family Medicine 05/20/17 documented as of this encounter
--- OUTSIDE RECORDS SUMMARY | 2025-06-26 08:05 | XMS_ITS | Clinical Summary ---
Author Organization [facility] Address [address] [place] [address] Care Team Providers Care Moccasin Sewer Name Role Phone Moi Rayo MD Primary Care Provider + [phone] Allergies Active Allergy Reactions Criticality Noted Date [...] differently:2 mg OralDaily, Informant: Self, Reported on 05/01/2025 dronedarone (Multaq) 400 MG tablet TAKE 1 TABLET BY MOUTH TWICE A DAY WITH FOOD 180 tablet 3 4 Active metOLazone (ZAROXOLYN) 2.5 MG tabletIndicatio ns:Other specified soft tissue disorders TAKE 1 TABLET BY MOUTH EVERY DAY NEEDED FOR SWELLING 90 tablet 1 4 Active Additional Information Patient taking differently:2.5 mg OralAs Needed, Informant: Self, Reported on 05/01/2025 vitamin D3 125 MCG (5000 UT) capsule capsule Take 1 capsule by mouth Daily. Active metoprolol tartrate (LOPRESSOR) 100 MG tablet TAKE 1 TABLET BY MOUTH TWICE A DAY 180 tablet 3 5 Active mupirocin (BACTROBAN) 2 % ointment 1 APPLIC TOPICALLY TWICE A DAY FOR 3 WEEKS 5 Active ondansetron (ZOFRAN) 4 MG tablet Every 8 (Eight) Hours. 5 Active Active Problems Problem Noted Date Diagnosed [...] disease invo lving coronary bypass graft of [place] heart without angina pectoris 06/08/2018 Overview (06/26/2018): [...] regurgitation is present Right ventricular cavity is bkon-xh-jodcfyngow dilated. Mild tricuspid valve regurgitation is present. No EF of 50% History of nephrolithiasis Resolved Problems Problem Noted Date Diagnosed Date Resolved Date Chest pain 06/12/2016 06/23/2018 Myocardial infarct 06/12/2016 8 Encounters Date Type Department Care Team Description 05/01/2025 10:45 AM EDT Office Visit [facility] [address] [place] [address] Jailene Vargas MD Carotid stenosis, bilateral (Primary Dx); Nonrheumatic aortic valve stenosis; Lymphedema; Obstructive sleep apnea syndrome; Presence of cardiac pacemaker [Z95.0]; Wheezing 05/01/2025 8:30 AM EDT Ancillary Procedure [facility] [address] [place] [address] Nonrheumatic aortic valve stenosis 05/01/2025 Travel 04/20/2025 Refill [facility] [address] [place] [address] Jailene Vargas MD Med Refill from Last [...] 3 Relation Name Status Comments Brother 1 Brother 2 Alive Brother 3 MVA Brother [...] 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 Not on file Not on file Last Filed Vital Signs Vital Sign Reading Time Taken Comments Blood Pressure 110/68 05/01/2025 10:01 AM EDT Pulse 100 05/01/2025 10:01 AM EDT Temperature 38.1 C (100.5 F) 07/21/2019 7:25 AM EST Respiratory Rate 18 07/21/2019 7:25 AM EST Oxygen Saturation 97% 05/01/2025 10:01 AM EDT Inhaled Oxygen Concentration - - Weight 158 kg (348 lb) 05/01/2025 10:01 AM EDT Height 177.8 cm (5' 10 ) 05/01/2025 10:01 AM EDT Body Mass Index 49.93 05/01/2025 10:01 AM EDT Plan of Treatment Upcoming Encounters Date Type Department Care Team (Late st Contact Info) Description 08/21/2025 9:30 AM EST Ancillary Procedure [facility] [address] [place] [address] 08/21/2025 10:15 AM EST Office Visit [facility] [address] [place] [phone] Jailene Vargas MD [address] [place], [place] [address] 08/21/2025 10:15 AM EST Clinical Support No Requirements [facility] [address] [place] [address] [place] [address] Health Maintenance Due Date Last Done Comments [...] ZOSTER VACCINE (2 of 2) 03/30/2019 02/02/2019 COVID-19 Vaccine (3 - Pfizer risk series) 01/03/2021 12/06/2020, 11/15/2020 RSV Vaccine - Adults (1 - 1- dose 75+ series) 2021 HEMOGLOBIN A1C 10/20/2024 04/22/2024, 07/10, 06/14/2018, Additional history exists INFLUENZA VACCINE 03/10/2025 04/29/2021, , 05/17/2019, Additional history exists LIPID PANEL 04/22/2025 04/22/2024, 09/2023, 04/22/2023, Additional history exists Pneumococcal Vaccine 50+ Completed 01/01/2021, 11/08 Medical Devices Implanted Type Area Complaint Inspector Device Identifier Shelf Expiration Date Model / Serial / Lot Markr Eleni Radiomark Disk Ro Di - [id number] Implanted:Qty : 1 on 06/16/2018 by Hollis Roman MD at [facility] Implant N/A: Heart [employer] [id number] / / Stent Stent Procedures Procedure Name Priority Date/Time Associated Diagnosis Comments REMOTE DEVICE CHECK 05/02/2025 2 :00 AM EDT ECHO COMPLETE W/ DOPPLER AND COLOR FLOW Routine 05/01/2025 9:21 AM EDT Nonrheumatic aortic valve stenosis SCANNED - PULMONARY RESULTS 05/01/2025 REMOTE DEVICE CHECK 04/30/2025 2 :00 AM EDT SCANNED - LABS 04/27/2025 SCANNED - LABS 04/07/2025 HEMOGLOBIN A1C Routine 04/22/2024 Impaired fasting glucose LIPID PANEL Routine 04/22/2024 Chronic diastolic congestive heart failure Stage 3b chronic kidney disease Impaired fasting glucose from Last 3 Months or Most Recently Relevant to Health Maintenance Results * Remote Device Check (05/02/2025 2:00 AM EDT) Only the most recent of2 resultswithin the time period is included. Date Time Interrogation Session [id number] [facility] Type Interrogation Session Remote Scheduled [facility] Implantable Pulse Generator Complaint Inspector [employer] [facility] Implantable Pulse Generator Type IPG [facility] Implantable Pulse Generator Model 2272 Assurity MRI(TM) [facility] Implantable Pulse Generator Serial Number [id number] [facility] Implantable Pulse Generator Implant Date [id number] [facility] Battery Remaining Percentage 66.00 % [facility] Battery Remaining Longevity 73.0 mo [facility] Battery Voltage 2.990 [facility] [employer] [facility] Battery SUCTION WORKER Trigger 2.600 [facility] Battery Status Middle of Service [facility] Kwesi Statistic RA Percent Paced 8.10 [facility] [employer] Statistic RV Percent Paced 83.00 [facility] Atrial Tachy Statistic AT/AF [place] Percent 90.00 [facility] Lead Channel RA Sensing Intrinsic Amplitude 3.000 [facility] Lead Channel Setting RA Sensing Sensitivity 0.50 [facility] Lead Channel RA Impedance Value 390 [facility] Lead Channel Setting RA Pacing Amplitude 2.000 [facility] Lead Channel Setting RA Pacing Pulse Width 0.5 [facility] Lead Channel RV Sensing Intrinsic Amplitude 12.000 [facility] Lead Channel Setting RV Sensing Sensitivity 2.00 [facility] Lead Channel RV Impedance Value 430 [facility] Lead Channel Setting RV Pacing Amplitude 1.750 [facility] Lead Channel Setting RV Pacing Pulse Width 0.5 [facility] Kwesi Setting Mode (NBG Code) DDDR [facility] [employer] Setting Lower Rate Limit 60 [facility] Kwesi Setting AT Mode Switch Rate 160 [facility] [place] Setting Maximum Tracking Rate 120 [facility] [place] Setting Maximum Sensor Rate 120 [facility] [place] Setting PAV Delay 250 [facility] [place] Setting SOPHIA Delay 200 [facility] Lead Channel Setting RA Sensing Polarity Bipolar [facility] Lead Channel Setting RV Sensing Polarity Bipolar [facility] Lead Channel Setting RA Pacing Polarity Bipolar [facility] Lead Channel Setting RV Pacing Polarity Bipolar [facility] Lead Channel RA Pacing Threshold Polarity Bipolar [facility] Lead Channel RV Pacing Threshold Polarity Bipolar [facility] 05/02/2025 2:00 AM EDT us Jailene Vargas MD CV IMPLANTABLE CARDIAC DEVIC E Final Result [facility] * ECHO COMPLETE W/ DOPPLER AND COLOR [...] MD CV ECHO ORDERABLES Final Res ult * Pulmonary Results Scan (05/01/2025) us Jailene Vargas MD PFT ORDERABLES Final Result * LABS SCANNED (04/27/2025) Only the most recent of2 resultswithin the time period is included. us Jailene Vargas MD LAB BLOOD ORDERABLES Final R esult * Hemoglobin A1c (04/22/2024) Blood us Jailene Vargas MD LAB BLOOD ORDERABLES Final R esult Performing Organization Address [facility] Co de Phone Number [facility]
[address] [place] [address], [place] [phone] * Lipid Panel (04/22/2024) Blood us Jailene Vargas MD LAB BLOOD ORDERABLES Final R esult Performing Organization Address [facility] Co de Phone Number [facility]
[address] [place] [address], [place] [phone] from Last 3 Months or Most Recently [...] Of Support Discussed With: Patient Care Teams Moccasin Sewer Relationship Specialty Start Date End Date Moi Rayo MD [address] [facility] [address] [facility] [address] [place] [address] PCP - General Family Medicine 05/20/17
== END 2025-06-26 23:59 | disposition home or self-care (01) ==
LOC: RAD 07:56
PROVIDERS: PCP Family Medicine; Visit Provider Family Medicine
DX: K76.0 Fatty (change of) liver, not elsewhere classified (principal); R79.89 Other specified abnormal findings of blood chemistry
CPT/HCPCS: 76700

== ENCOUNTER 2025-07-03 11:00 | Outpatient (RCR) | payer MEDICARE, MEDICAID, SELFPAY ==
--- NOTE | 2025-06-13 09:43 | HMH.PTOPEV ---
PT Evaluation Rehab PT Outpatient Evaluation Start: 06/13/25 08:57 Freq: Status: Active Protocol: Document 06/13/25 08:57 ELSA (Rec: 06/13/25 09:43 ELSA [id number]) E-signed By Claus Peacock, PT Outpatient Therapy Subjective History Subjective History Pt is a 80 yom who is referred to [facility] outpatient PT for complaints of generalized weakness, balance deficits and endurance deficits. Pt reports that he uses both a rollator walker and a SP Cane. He reports that he uses the cane more than the rollator walker. Pt reports that he has a lot of difficulty with standing for longer periods, pt reports that he has a lot of difficulty with his L ankle when standing. Pt reports that he suffers from lymphedema, mostly in his L leg. Pt reports that he lives in a house with his , reports having steps to enter the home from the front, which he seldomly uses. Pt reports that he has a ramp to enter the rear of his home, which he uses more often. Pt reports that he gets regular cortisone shots in his L ankle. Pt denies falls in the past 6 months but does report concerns with his balance. PMH: Chronic pain of left ankle Pacemaker A-fib CABG (coronary artery bypass graft) planned CAD (coronary artery disease) Lymphedema CHF (congestive heart failure) Sleep apnea BPH (benign prostatic hyperplasia) Gout Osteoarthritis Myocardial infarction HTN (hypertension) HLD (hyperlipidemia) Skin cancer New diagnosis of No cancer in past 12 months? Chief Complaint Pain,Stiff Symptom Type Ache Symptoms Relieved By Nothing Symptoms Aggravated Standing,Walking By Prior Functional None Limitations Current Functional Housework,Standing,Sitting,Squatting,Walking,Stairs, Limitations Balance Symptom Description Constant but Variable,Activity Dependent Level of pain today 6 (0-10) Pain scale - at its 5 best (0-10) Pain scale - at its 8 worst (0-10) PT Balance Eval Gait Assessment Assistive Device: Cane Gait Deviations Shuffling step pattern Noted: Dynamic Balance Timed Up and Go (TUG 22 ) in seconds: Five Times Sit-to- 42 Stand (5xSTS) in seconds: Belia (JERAMY)-MMT Hip Flexors Right 3 Hip Flexors Left 3 Knee Extensors Right 3+ Knee Extensors Left 3+ Ankle Dorsiflexors 4 Right Ankle Dorsiflexors 4 Left Ankle Plantarflexors 4 Right Ankle Plantarflexors 4 Left Dynamic Gait Index Test Protocol Gait Level Surface Moderate Impairement Query Text: Instructions: Walk at your normal speed from here to the next jessica (20'). Grading: Jessica the lowest category that applies. Change in Gait Speed Mild Impairment Query Text: Instructions: Begin walking at your normal pace (for 5') , when I tell you go , walk as fast as you can (for 5'). When I tell you slow , walk as slowly as you can ( for 5'). Grading: Jessica the lowest category that applies. Gait with Horizontal Mild Impairment Head Turns Query Text: Instructions: Begin walking at your normal pace. When I tell you to look right , keep walking straight, but turn you head to the right. Keep looking to the right unit I tell you look left , then keep walking straight and turn your head to the left. Keep your head to the left until I tell you look straight , then keep walking straight, but return you head to the center. Grading: Jessica the lowest category that applies. Gait with Vertical Moderate Impairment Head Turns Query Text: Instructions: Begin walking at your normal pace. When I tell you to look up , keep walking staight, but tip your head up. Keep looking up until I tell you to look down , then keep walking straight and tip your head down. Keep your head down until I tell you look straight , then keep walking straight, but return your head to the center. Grading: Jessica the lowest category that applies. Gait and Pivot Turn Moderate Impairment Query Text: Instructions: Begin walking at your normal pace. When I tell you turn and stop , turn as quickly as you can to face the opposite direction and stop. Grading: Jessica the lowest category that applies. Step Over Obstacle Moderate Impairment Query Text: Instructions: Begin walking at your normal speed. When you come to the shoebox, step over it, not around it and keep walking. Grading: Jessica the lowest category that applies. Step Around Moderate Impairment Obstacles Query Text: Instructions: Begin walking at normal speed. When you come to the first cone (about 6' away) , walk around the right side of it. When you come to the second cone (6' past first cone), walk around it to the left. Grading: Jessica the lowest category that applies. Steps Moderate Impairment Query Text: Instructions: Walk up these stairs as you would at home. At the top, turn around and walk down . Grading: Jessica the lowest category that applies. Scoring Dynamic Gait Index 10 Score PT Patient Goals PT Patient Goals PT Short Term In 4 weeks: Patient Goals 1. Pt will improve bilateral hip and knee strength to at least 4/5 grossly upon MMT to better facilitate functional movement patterns, such as standing from a chair. 2. Pt will improve 5xSTS test to 36s to decrease fall risk, demonstrate improved endurance and to better align with age appropriate norms. 3. Pt will improve TUG time to 19s to demonstrate improved functional mobility and decreased fall risk. 4. Pt will improve DGI score to 12 to demonstrate a decreased fall risk and improved in-home and community mobility. 5. Pt will be able to stand for 15 minutes in order to prepare a small meal in her kitchen without requiring a rest break. 6. Pt will report HEP adherence by completing her prescribed HEP 4-5x/week. PT Mail Teller Patient In 8 weeks: Goals 1. Pt will improve bilateral hip and knee strength to at least 4+/5 grossly upon MMT to better facilitate functional movement patterns, such as standing from a chair. 2. Pt will improve 5xSTS score to 29s to decrease fall risk, demonstrate improved endurance and to better align with age appropriate norms. 3. Pt will improve TUG time to 16s to demonstrate improved functional mobility and decreased fall risk. 4. Pt will improve DGI score to 14 to demonstrate a decreased fall risk and improved in-home and community mobility. 5. Pt will be able to stand for 30 minutes in order to prepare a larger meal in her kitchen without requiring a rest break. 6. Pt will be able to navigate a flight of stairs with a hand-rail, in order to demonstrate improved community mobility. Outpatient Therapy Plan of Care Treatment Plan May Include Therapeutic Exercise Yes Including Home Exercise Program Manual Therapy Yes Techniques Neuromuscular Re- Yes education Therapeutic Yes Activities to Return to Previous Functional/Work Level Gait Training Yes ADL/Self Care Yes Education Thermal Modalities Yes Manual Lymphatic Yes Drainage Group Therapy for Yes Medicare Eval/Re-Eval Yes Frequency Times per week 2 Duration Number of Weeks 8 Addendums This patient is a No candidate for social or vocational rehab ? Patient/Guardian Yes verbally acknowledges understanding of treatment program and consents to further treatment? Patient/Guardian Yes verbally acknowledges understanding of diagnosis, prognosis and goals for treatment? Eval Complexity PT Charges 87804 - High Complexity Shoulder/Elbow Eval Shoulder Objective Measurements Elbow Objective Measurements PHYSICIAN CERTIFICATION: I certify the specified therapy services for Chad Parkermegan Lyon are required, authorized, and reviewed every 30 days.
== END 2025-07-03 23:59 | disposition home or self-care (01) ==
LOC: PT 11:00
PROVIDERS: Visit Provider Family Medicine
DX: R26.2 Difficulty in walking, not elsewhere classified (principal); R53.1 Weakness
CPT/HCPCS: 97110; 97163

== ENCOUNTER 2025-08-08 13:00 | Outpatient (RCR) | payer MEDICARE, MEDICAID, SELFPAY | END 2025-08-08 23:59 | disposition home or self-care (01) | LOC: PT.CARL 13:00 | PROVIDERS: PCP Family Medicine; Visit Provider Family Medicine | DX: R26.2 Difficulty in walking, not elsewhere classified (principal) | CPT/HCPCS: 97110; 97530 ==